=== PATIENT | female | born 1945 ===

== ENCOUNTER 2016-07-14 13:03 | Emergency (ER) | payer OTHER, MEDICARE ==
[~2016-07-14] VITALS: Ht 157.5 cm; Wt 58.2 kg
--- NOTE | 2016-07-14 13:25 | ED GENERAL ADULT ---
History of Present Illness General Chief Complaint: Female Urogenital Problems Stated Complaint: ?UTI Source: patient, daughter Exam Limitations: no limitations Vital Signs & Intake/Output Vital Signs & Intake/Output Vital Signs Date Time Temp Pulse Resp B/P B/P Pulse O2 O2 Flow FiO2 Mean Ox Delivery Rate 07/14 1309 98.4 71 16 154/78 98 Room Air Room Air Allergies Coded Allergies: Sulfa (Sulfonamide Antibiotics) (RASH 07/14/16) iron (DIARRHEA 07/14/16) Reconcile Medications Atorvastatin Calcium 10 MG TABLET 1 TAB PO DAILY GI (Reported) Carbidopa/Levodopa (Carbidopa-Levodopa 25-100 Tab) 25 MG-100 MG TABLET 1 TAB PO TID PARKINSONS (Reported) Ciprofloxacin HCl 500 MG TABLET 1 TAB PO BID ANTIBIOTIC (Reported) Levothyroxine Sodium 88 MCG TABLET 1 TAB PO DAILY THYROID (Reported) Metoprolol Succinate 50 MG TAB.ER.24H 1 TAB PO DAILY BP (Reported) Nepafenac (Ilevro) 0.3 % DROPS.SUSP 1 DROP OD BID RIGHT EYE (Reported) Olopatadine HCl (Pazeo) 0.7 % DROPS 1 DROP OPH DAILY ALLERGIES-BOTH EYES ( Reported) Pantoprazole Sodium 40 MG TABLET.DR 1 TAB PO DAILY GI (Reported) Triage Note: PT TO TRIAGE WITH BURNING AND URGENCY WITH URINATION FOR ABOUT 1 MONTH. PT STATES SHE HAS BEEN ON CIPRO ON AND OFF FOR A MONTH WITHOUT RLEEIF FROM HER DOCTOR. DENIES FEVERS. Triage Nurses Notes Reviewed? yes HPI: Patient presents for evaluation of urinary tract signs and symptoms. Patient has had multiple prior urinary tract infections. She is concerned that she has another infection. She is describing a burning pain in the area of the urethra and vagina. It gets worse with urination. She is also describing a burning pain from the posterior aspect of both hips down both lower extremities. She is currently on her second day of ciprofloxacin for her urinary tract signs and symptoms. Past History Travel History Traveled to [place] past 21 day No Medical History Any Pertinent Medical History? 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 No Review of Systems Review of Systems Constitutional: Reports: no symptoms. EENTM: Reports: no symptoms. Respiratory: Reports: no symptoms. Cardiovascular: Reports: no symptoms. GI: Reports: no symptoms. Genitourinary: Reports: see HPI. Musculoskeletal: Reports: no symptoms. Skin: Reports: no symptoms. Neurological/Psychological: Reports: paresthesia. Hematologic/Endocrine: Reports: no symptoms. Immunologic/Allergic: Reports: no symptoms. All Other Systems: Reviewed and Negative Physical Exam Physical Exam General Appearance: see below Comments: Gen.: Well-nourished, well-developed, no acute respiratory distress. Head: Normocephalic, atraumatic. Eyes: Normal inspection bilaterally Ears: Normal inspection bilaterally Nose: Normal inspection Throat/mouth : Moist mucosa Neck: Supple, full range of motion, no goiter Heart: Regular rate and rhythm, no murmurs rubs or gallops Lungs: Clear to auscultation bilaterally with normal air entry Chest: Nontender Back: Normal range of motion Abdomen: Soft, nontender, nondistended, normal bowel sounds Extremities: Normal range of motion grossly, equal radial pulses, no cyanosis clubbing or edema Neurologic: Cranial nerves grossly intact, speech is clear Skin: warm and dry Psychiatric: Calm, cooperative, no apparent delusions or hallucinations genital: No lymphadenopathy or rashes of the groin creases, normal external anatomy, no discharge or bleeding with inspection of the introitus. No apparent vaginal yeast infection. Core Measures ACS in differential dx? No CVA/TIA Diagnosis: No Severe Sepsis Present: No Septic Shock Present: No Progress Differential Diagnoses I considered the following diagnoses in my evaluation of the patient: UTI, atrophic vaginitis, vaginal yeast infection, tinea corporis, aortic dissection, lumbar spine disease Plan of Care: Orders Procedure Date/time Status [facility] SED RATE 07/14 1335 Complete CBC WITHOUT DIFFERENTIAL 07/14 1335 Complete BASIC METABOLIC PANEL 07/14 1335 Complete CULTURE,URINE 07/14 1308 Active URINALYSIS 07/14 1308 Complete Laboratory Tests 07/14/16 1400: Anion Gap 10, Estimated GFR > 60, BUN/Creatinine Ratio 17.8, Glucose 153 H, Calcium 8.7, CBC w Diff NO MAN DIFF REQ, RBC 4.37, MCV 83.0, MCH 27.5, RDW 14.4, MPV 10.0, Gran % 85.2 H, Lymphocytes % 9.4 L, Monocytes % 4.9, Eosinophils % 0.5, Basophils % 0 L, Absolute Granulocytes 7.5 H, Absolute Lymphocytes 0.8 L , Absolute Monocytes 0.4, Absolute Eosinophils 0, Absolute Basophils 0, PUBS MCHC 33.2, ESR Westergren 24 H, Urine Color YEL, Urine Clarity CLEAR, Urine pH 6.0, Ur Specific Cato 1.020, Urine Protein 100 H, Urine Ketones NEG, Urine Nitrite NEG, Urine Bilirubin NEG, Urine Urobilinogen 0.2, Ur Leukocyte Esterase NEG, Ur Microscopic SEDIMENT EXAMINED, Urine RBC RARE, Urine WBC RARE, Ur Epithelial Cells FEW, Urine Bacteria RARE H, Urine Hemoglobin NEG, Urine Glucose NEG Microbiology 07/14 1400 URINE ROUT: Urine Culture - RECD Diagnostic Imaging: Discussed w/RAD: CT Scan. Radiology Impression: PATIENT: SULMA MAN PRESENT AGE: 70 PATIENT ACCOUNT NO: [id number] : 45 LOCATION: [facility] ORDERING PHYSICIAN: DANIEL SHULTZ MD SERVICE DATE: 07/14/16 EXAM TYPE: CAT - CT ABD & PELVIS ANGIOGRAM EXAMINATION: CT ANGIOGRAM ABDOMEN AND PELVIS CLINICAL INFORMATION: 70-year-old female presented with lower abdominal and back pain, burning sensation filling down to the legs. Suspected aortoiliac disease. COMPARISON: None TECHNIQUE: Multiple axial images were obtained through the abdomen and pelvis following the administration of 95 mL of Optiray 320 intravenous contrast. Images will be evaluated on independent dedicated 3-D workstation and 3-D images will be reconstructed. An addendum will be dictated following obtaining the 3-D images. COMPARISON: None. DLP: 407.69 mGy-cm. FINDINGS: VASCULAR: Mesenteric arteries: Widely patent. Incidental note is made of presence of a normal variation in the form of common hepatic artery arising from the superior mesenteric artery. Renal arteries: Widely patent. Abdominal aorta: Widely patent at its entire course starting from the level of the diaphragm to the bifurcation. Specifically, there is no occlusive or aneurysmal abnormality identified. There is no evidence of any dissection present. Iliac arteries: Widely patent bilaterally. NONVASCULAR: LUNG BASES: The visualized lung bases are unremarkable. LIVER, GALLBLADDER, AND BILIARY TREE: The liver is normal in size, shape, and attenuation. No focal hepatic lesion or biliary ductal dilatation is present. The gallbladder is unremarkable with no evidence of radiopaque gallstones, gallbladder wall thickening, or obvious pericholecystic inflammatory changes. PANCREAS: Unremarkable. SPLEEN: Unremarkable. ADRENAL GLANDS: Unremarkable. KIDNEYS AND URETERS: The kidneys are normal in size, shape, and attenuation. No hydronephrosis, hydroureter, or calculi seen. No perinephric stranding. Subcentimeter hypodensity is noted at superolateral cortex of the right kidney measuring approximately 1.5 cm at its maximum dimension with Hounsfield value of 10, consistent with incidental cyst. A similar appearing approximately 1 cm hypodensity is noted at the inferior anterior cortex of the left kidney with Hounsfield value of 24, not optimally characterized, possibly represent cysts as well. BLADDER: Unremarkable. GASTROINTESTINAL TRACT: The sigmoid colon is redundant. The distal part of the sigmoid colon shows intraluminal polypoidal structure measuring approximately 4 to 5 mm at the level of the pelvic inlet (see the howard image), may represent adherent fecal matter versus polyp. Follow-up direct visualization/colonoscopy may be considered for further clarification. The remainder of the large bowel shows significant fecal residual otherwise unremarkable. The appendix is visualized at right lower quadrant and appears unremarkable. The small bowel loops are decompressed. The stomach is decompressed. ABDOMINAL WALL: No significant hernia is appreciated. LYMPH NODES: No pathologically enlarged retroperitoneal, mesenteric, pelvic and/or groin lymphadenopathy present. PELVIC VISCERA: There is no pelvic mass present. The uterus is not visualized, presumably surgically absent. There is no adnexal mass present. There is no free fluid and/or free air present. Multiple phleboliths are noted. OSSEOUS STRUCTURES: Sub-5 mm focal area of sclerosis is noted involving the left pedicle of L4 vertebral body, nonspecific in appearance, differential includes bone island versus metastasis. IMPRESSION: 1. CTA of the abdomen and pelvis shows a widely patent abdominal aorta and its branches. Specifically, there is no occlusive or aneurysmal abnormality identified. 2. Bilateral renal cortical hypodensities are noted, likely represent cortical renal cyst. 3. 4 to 5 mm nonspecific polypoidal abnormality is identified within the distal part of the sigmoid colon, may represent polyp versus adherent fecal matter. There are visualization/colonoscopy may be considered for further full detail evaluation. 4. Sub-5 mm focal area of sclerosis involving the left pedicle of L4 vertebral body, may represent bone island versus subtle developing metastasis. Please note that once the 3-D images become available, following review, an addendum will be dictated. DICTATED BY: ROXANNA HUYNH MD DATE/TIME DICTATED:07/14/161516 JEWELRY CUTTER:LAYTON DATE/TIME TRANSCRIBED:07/14/161516 CONFIDENTIAL, DO NOT COPY WITHOUT APPROPRIATE AUTHORIZATION. <Electronically signed in Other Vendor System> SIGNED BY: ROXANNA HUYNH MD 07/14/16 6450 Initial ED EKG: none Comments: 07/14/2016 4:50:50 PM I have contacted [facility] regarding the CAT scan report. It should be available momentarily. I have updated the patient and her family. 07/14/2016 5:08:27 PM I have updated Sulma and her family regarding test results and I have answered a number of questions. She will follow-up with a GI specialist regarding the possible polyp seen on CAT scan, a urologist given her repeated episodes of "urinary tract infections", a back specialist (this has already been arranged) due to a history of chronic back pains to reevaluate the bony lesion seen on CT and finally her primary care physician to monitor the other incidental findings on CAT scan and reevaluate the patient overall. Departure Departure Disposition: HOME OR SELF CARE Condition: Stable Clinical Impression Primary Impression: Dysuria Secondary Impressions: Lesion of vertebra, Paresthesia of bilateral legs, Renal cyst Referrals: PATIENT HAS NO PRIMARY CARE DR Additional Instructions: The cause for your symptoms is unclear at this point. Please follow up with a primary care physician for additional testing and treatment. Please note that her CAT scan did show a possible polyp that should be evaluated by colonoscopy via a GI specialist. Continue the Cipro as prescribed. If the urinary signs and symptoms do not resolve with the current treatment, consider evaluation by a urologist for the possibility of interstitial cystitis and SURGICAL ENDOSCOPIST doctor for possible atrophic vaginitis. Finally surely should follow-up with her primary care doctor for a general reevaluation and monitoring of some of the findings on CAT scan as discussed. Return if any concerns or sudden worsening. Please note that there might be incidental findings in your evaluation that are unrelated to the current emergency department visit. Please notify your primary care doctor about this emergency department visit in order to obtain and review all of the testing performed so that these incidental findings can be monitored as needed. If you had an x-ray performed, please understand that some fractures may not be seen on the initial set of x-rays. If your symptoms persist you might need a repeat set of x-rays to check for such a fracture. If you had a laceration evaluated, please understand that foreign bodies such as glass or wood may not be visible to the naked eye or on plain x-rays. If the wound becomes red, swollen, increasingly more painful or if there is any drainage from the wound, please have it reevaluated by a physician for the possibility of a retained foreign body. Thank you for choosing the [facility] Emergency Department for your care. It was a pleasure to serve you today. Daniel Shultz M.D. [facility] Departure Forms: Customer Survey General Discharge Information Prescriptions: Current Visit Scripts Hyoscyamine (Levsin) 1 TAB PO Q6P #20 TAB Meloxicam (Mobic) 1 TAB PO DAILY #14 TAB Critical Care Note Critical Care Note Critical Care Time: non-applicable
[2016-07-14 14:20] LABS: ABSOLUTE BASOPHIL COUNT 0 /CUMM (0.0-0.2); ABSOLUTE EOSINOPHIL COUNT 0 /CUMM (0.0-0.7); ABSOLUTE GRANULOCYTE CT 7.5 /CUMM (1.4-6.5); ABSOLUTE LYMPH COUNT 0.8 /CUMM (1.2-3.4); ABSOLUTE MONOCYTE COUNT 0.4 /CUMM (0.10-0.60); BASOPHIL % 0 % (0.0-2.0); EOSINOPHIL % 0.5 % (0-5); HEMATOCRIT 36.3 % (37-47); MEAN CORPUSCULAR HGB 27.5 PG (27.0-31.0); MEAN CORPUSCULAR HGB CONC 33.2 G/DL (33.0-37.0); PLATELET COUNT 211 /CUMM (130-400); RBC DISTRIBUTION WIDTH 14.4 % (11.5-14.5); RED BLOOD CELL CT 4.37 /CUMM (4.20-5.40); WHITE BLOOD CELL COUNT 8.9 /CUMM (4.8-10.8)
[2016-07-14 14:46] LABS: GRANULOCYTE % 85.2 % (42.2-75.2)
--- NOTE | 2016-07-14 16:48 | CT SCAN REPORT ---
EXAMINATION: CT ANGIOGRAM ABDOMEN AND PELVIS CLINICAL INFORMATION: 70-year-old female presented with lower abdominal and back pain, burning sensation filling down to the legs. Suspected aortoiliac disease. COMPARISON: None TECHNIQUE: Multiple axial images were obtained through the abdomen and pelvis following the administration of 95 mL of Optiray 320 intravenous contrast. Images will be evaluated on independent dedicated 3-D workstation and 3-D images will be reconstructed. An addendum will be dictated following obtaining the 3-D images. COMPARISON: None. DLP: 407.69 mGy-cm. FINDINGS: VASCULAR: Mesenteric arteries: Widely patent. Incidental note is made of presence of a normal variation in the form of common hepatic artery arising from the superior mesenteric artery. Renal arteries: Widely patent. Abdominal aorta: Widely patent at its entire course starting from the level of the diaphragm to the bifurcation. Specifically, there is no occlusive or aneurysmal abnormality identified. There is no evidence of any dissection present. Iliac arteries: Widely patent bilaterally. NONVASCULAR: LUNG BASES: The visualized lung bases are unremarkable. LIVER, GALLBLADDER, AND BILIARY TREE: The liver is normal in size, shape, and attenuation. No focal hepatic lesion or biliary ductal dilatation is present. The gallbladder is unremarkable with no evidence of radiopaque gallstones, gallbladder wall thickening, or obvious pericholecystic inflammatory changes. PANCREAS: Unremarkable. SPLEEN: Unremarkable. ADRENAL GLANDS: Unremarkable. KIDNEYS AND URETERS: The kidneys are normal in size, shape, and attenuation. No hydronephrosis, hydroureter, or calculi seen. No perinephric stranding. Subcentimeter hypodensity is noted at superolateral cortex of the right kidney measuring approximately 1.5 cm at its maximum dimension with Hounsfield value of 10, consistent with incidental cyst. A similar appearing approximately 1 cm hypodensity is noted at the inferior anterior cortex of the left kidney with Hounsfield value of 24, not optimally characterized, possibly represent cysts as well. BLADDER: Unremarkable. GASTROINTESTINAL TRACT: The sigmoid colon is redundant. The distal part of the sigmoid colon shows intraluminal polypoidal structure measuring approximately 4 to 5 mm at the level of the pelvic inlet (see the howard image), may represent adherent fecal matter versus polyp. Follow-up direct visualization/colonoscopy may be considered for further clarification. The remainder of the large bowel shows significant fecal residual otherwise unremarkable. The appendix is visualized at right lower quadrant and appears unremarkable. The small bowel loops are decompressed. The stomach is decompressed. ABDOMINAL WALL: No significant hernia is appreciated. LYMPH NODES: No pathologically enlarged retroperitoneal, mesenteric, pelvic and/or groin lymphadenopathy present. PELVIC VISCERA: There is no pelvic mass present. The uterus is not visualized, presumably surgically absent. There is no adnexal mass present. There is no free fluid and/or free air present. Multiple phleboliths are noted. OSSEOUS STRUCTURES: Sub-5 mm focal area of sclerosis is noted involving the left pedicle of L4 vertebral body, nonspecific in appearance, differential includes bone island versus metastasis. IMPRESSION: 1. CTA of the abdomen and pelvis shows a widely patent abdominal aorta and its branches. Specifically, there is no occlusive or aneurysmal abnormality identified. 2. Bilateral renal cortical hypodensities are noted, likely represent cortical renal cyst. 3. 4 to 5 mm nonspecific polypoidal abnormality is identified within the distal part of the sigmoid colon, may represent polyp versus adherent fecal matter. There are visualization/colonoscopy may be considered for further full detail evaluation. 4. Sub-5 mm focal area of sclerosis involving the left pedicle of L4 vertebral body, may represent bone island versus subtle developing metastasis. Please note that once the 3-D images become available, following review, an addendum will be dictated.
[2016-07-14] MEDS ORDERED: CIPROFLOXACIN500 M2 PO (16:54)
[2016-07-14] MEDS ORDERED: ILEVRO1.7 ML OD (16:55)
[2016-07-14] MEDS ORDERED: CARBIDOPA-LEVO1 EAC7 PO (16:55)
[2016-07-14] MEDS ORDERED: PAZEO2.5 ML OPH (16:55)
[2016-07-14] MEDS ORDERED: LEVOTHYROXINE88 MCG PO (16:56)
[2016-07-14] MEDS ORDERED: PANTOPRAZOLE SO40 M1 PO (16:56)
[2016-07-14] MEDS ORDERED: AMLODIPINE-BEN1 EAC5 PO (16:56)
[2016-07-14] MEDS ORDERED: METOPROLOL SUCC50 M2 PO (16:56)
[2016-07-14] MEDS ORDERED: ATORVASTATIN CA10 M1 PO (16:57)
[2016-07-14 17:14] VITALS: BP 179/84
[2016-07-14] MEDS ORDERED: MOBIC7.5 M1 PO (17:14)
[2016-07-14] MEDS ORDERED: LEVSIN0.125 M1 PO (17:14)
== END 2016-07-14 17:39 ==
LOC: ERH 13:03
PROVIDERS: Emergency Medicine
DX: R30.0 Dysuria (principal); M89.9 Disorder of bone, unspecified; R20.2 Paresthesia of skin; N28.1 Cyst of kidney, acquired
CPT/HCPCS: 74174; 81001; 87086

== ENCOUNTER 2016-08-06 05:39 | Inpatient (IN) | payer OTHER, MEDICARE ==
[~2016-08-06] VITALS: Ht 157.5 cm; Wt 54.4 kg
[~2016-08-06 05:39] MED LIST: AMLODIPINE-BEN1 EAC5 PO; ATORVASTATIN CA10 M1 PO; CARBIDOPA-LEVO1 EAC7 PO; CIPROFLOXACIN500 M2 PO; ILEVRO1.7 ML OD; LEVOTHYROXINE88 MCG PO; LEVSIN0.125 M1 PO; METOPROLOL SUCC50 M2 PO; MOBIC7.5 M1 PO; PANTOPRAZOLE SO40 M1 PO; PAZEO2.5 ML OPH
--- NOTE | 2016-08-06 05:57 | NUR ---
Informed waiting has been performed.
--- NOTE | 2016-08-06 06:06 | NUR ---
TRIAGE: PATIENT TO ER FROM HOME STATES HAVING HTN PAST FEW WEEKS, REPORTS CURRENTLY TAKING METOPROLOL SUCC 50MG DAILY, STOPPED AMLODIPINE-BENAZ DAILY APPROX 2 WEEKS AGO. ALSO REPORTING "I HAVE PAIN IN THE VAGINA W/ A BLISTER IN THERE." PATIENT DENIES ANY CP/SOB. PATIENT REPORTS "HAD SWELLING ON BOTH LEGS TOO BUT NOT NOW," NO SWELLING NOTED ON EITHER LOWER EXT.
--- NOTE | 2016-08-06 06:25 | NUR ---
IV EST #22 RIGHT HAND.
--- NOTE | 2016-08-06 06:26 | NUR ---
EKG DONE AND SHOWN TO DR. PADILLA.
--- NOTE | 2016-08-06 06:37 | NUR ---
MD PADILLA AT BEDSIDE.
--- NOTE | 2016-08-06 06:44 | NUR ---
VISUAL (NON-INVASIVE) PELVIC EXAM PERFORMED BY MD PADILLA, WITNESSED BY THIS RN. PATINT NOTED W/ DIME SIZED OPEN RED AREA W/ WHITE CENTER TO INNER R THIGH/VAGINAL AREA.
--- NOTE | 2016-08-06 06:51 | ED GENERAL ADULT ---
History of Present Illness General Chief Complaint: General Adult Stated Complaint: PER SON PT C/O HYPERTENSION/ CHILLS Source: patient, family, old records Exam Limitations: no limitations Vital Signs & Intake/Output Vital Signs & Intake/Output Vital Signs Date Time Temp Pulse Resp B/P B/P Pulse O2 O2 Flow FiO2 Mean Ox Delivery Rate 08/06 1037 96.9 70 20 192/85 08/06 1007 70 192/85 08/06 0937 96.9 73 20 189/88 100 Room Air 08/06 0920 66 202/90 08/06 0900 72 212/86 08/06 0900 72 212/86 08/06 0645 99 Room Air 08/06 0609 198/92 08/06 0545 97.2 73 18 196/111 98 Allergies Coded Allergies: Sulfa (Sulfonamide Antibiotics) (RASH 08/06/16) iron (DIARRHEA 08/06/16) Reconcile Medications Atorvastatin Calcium 10 MG TABLET 1 TAB PO DAILY GI (Reported) Carbidopa/Levodopa (Carbidopa-Levodopa 25-100 Tab) 25 MG-100 MG TABLET 1 TAB PO TID PARKINSONS (Reported) Levothyroxine Sodium 88 MCG TABLET 1 TAB PO DAILY THYROID (Reported) Metoprolol Succinate 50 MG TAB.ER.24H 1 TAB PO DAILY BP (Reported) Pantoprazole Sodium 40 MG TABLET.DR 1 TAB PO DAILY GI (Reported) Triage Note: TRIAGE: PATIENT TO ER FROM HOME STATES HAVING HTN PAST FEW WEEKS, REPORTS CURRENTLY TAKING METOPROLOL SUCC 50MG DAILY, STOPPED AMLODIPINE-BENAZ DAILY APPROX 2 WEEKS AGO. ALSO REPORTING "I HAVE PAIN IN THE VAGINA W/ A BLISTER IN THERE." PATIENT DENIES ANY CP/SOB. PATIENT REPORTS "HAD SWELLING ON BOTH LEGS TOO BUT NOT NOW," NO SWELLING NOTED ON EITHER LOWER EXT. Triage Nurses Notes Reviewed? yes HPI: Patient presents for evaluation of high blood pressure shivering, chills, vaginal pain that began gradually last night. Patient states that she has had trouble with high blood pressure over the past week or so but that the remaining symptoms began yesterday/overnight. She denies any associated cough, dyspnea, chest pain, abdominal pain, rashes or diarrhea. She is having some difficulty in describing exactly how she is feeling, stating, "I don't feel well". Patient describes symptoms as mild to moderate in intensity and intermittent. (LIZY SHULTZ MD) Past History Travel History Traveled to [place] past 21 day No Medical History Any Pertinent Medical History? 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 No (LIZY SHULTZ MD) Review of Systems Review of Systems Constitutional: Reports: no symptoms. EENTM: Reports: no symptoms. Respiratory: Reports: no symptoms. Cardiovascular: Reports: see HPI. GI: Reports: no symptoms. Genitourinary: Reports: see HPI. Musculoskeletal: Reports: no symptoms. Skin: Reports: no symptoms. Neurological/Psychological: Reports: no symptoms. Hematologic/Endocrine: Reports: no symptoms. Immunologic/Allergic: Reports: no symptoms. All Other Systems: Reviewed and Negative (LIZY SHULTZ MD) Physical Exam Physical Exam General Appearance: SEE BELOW Comments: Gen.: Well-nourished, well-developed, no acute respiratory distress. Head: Normocephalic, atraumatic. Eyes: Normal inspection bilaterally Ears: Normal inspection bilaterally Nose: Normal inspection Throat/mouth : Moist mucosa Neck: Supple, full range of motion, no goiter Heart: Regular rate and rhythm, no murmurs rubs or gallops Lungs: Clear to auscultation bilaterally with normal air entry Chest: Nontender Back: Normal range of motion Abdomen: Soft, nontender, nondistended, normal bowel sounds Extremities: Normal range of motion grossly, equal radial pulses, no cyanosis clubbing or edema Neurologic: Cranial nerves grossly intact, speech is clear Skin: warm and dry Psychiatric: Calm, cooperative, no apparent delusions or hallucinations Genital: Ulceration of the right labia majora with mild white fibrinous exudate Core Measures ACS in differential dx? No CVA/TIA Diagnosis: No Severe Sepsis Present: No Septic Shock Present: No (RANDY WHITFIELD,LIZY Wilson) Core Measures ASA ordered for poss ACS? Yes-ordered (DINA WHITFIELD,SOHEILA) Progress Differential Diagnoses I considered the following diagnoses in my evaluation of the patient: Herpes, cellulitis, uncontrolled high blood pressure,infection Plan of Care: Orders Procedure Date/time Status MAGNESIUM 08/07 06 Active CBC WITHOUT DIFFERENTIAL 08/07 06 Active BASIC ELECTROLYTES PLUS BUN&CR 08/07 06 Active Heart Healthy Diet 08/06 L Active Add-on Test (ER Only) 08/06 1102 Active PT Evaluate & Treat 08/06 1059 Active Pathway - chart 08/06 1059 Active House Staff 08/06 1059 Active Patient Data 08/06 1044 Active ED Holding Orders 08/06 1036 Active Admit to inpatient 08/06 1036 Active Vital Signs 08/06 1036 Active Code Status 08/06 1036 Active EKG 08/06 0936 Active URINALYSIS 08/06 0650 Complete TROPONIN LEVEL 08/06 06 Complete COMPREHENSIVE METABOLIC PANEL 08/06 06 Complete CBC WITHOUT DIFFERENTIAL 08/06 06 Complete EKG 08/06 0612 Active VTE Mechanical Prophylaxis 08/06 UNK Active Intake & Output 08/06 UNK Active Current Medications Sig/Areli Start time Last Medication Dose Stop Time Status Admin Carbidopa/Levodopa 1 TAB TID 08/06 1000 UNVr 08/06 (Sinemet 25/100MG) 1020 Levothyroxine Sodium 0.088 MG DAILY 08/06 1000 UNVr 08/06 (Synthroid) 1020 Metoprolol Succinate 50 MG ONCE ONE 08/06 0900 CAN (Toprol Xl) 08/06 0901 Laboratory Tests 08/06/16 0847: Urinalysis LIGHT H, Urine Color STRAW, Urine Clarity CLEAR, Urine pH 7.0, Ur Specific [place] 1.020, Urine Protein 100 H, Urine Ketones NEG, Urine Nitrite NEG, Urine Bilirubin NEG, Urine Urobilinogen 0.2, Ur Leukocyte Esterase NEG, Ur Microscopic SEDIMENT EXAMINED, Urine RBC 1-3, Urine WBC RARE, Ur Epithelial Cells FEW, Urine Bacteria RARE H, Urine Hemoglobin TRACE-INTACT, Urine Glucose NEG 08/06/16 0658: Anion Gap 11, Estimated GFR > 60, BUN/Creatinine Ratio 17.8, Glucose 101 H, Calcium 9.7, Total Bilirubin 0.6, AST 18, ALT 23, Alkaline Phosphatase 112, Troponin I < 0.01, Total Protein 6.8, Albumin 4.0, Globulin 2.8, Albumin/ Globulin Ratio 1.4, CBC w Diff NO MAN DIFF REQ, RBC 4.41, MCV 83.4, MCH 27.0, RDW 14.7 H, MPV 10.0, Gran % 72.6, Lymphocytes % 19.6 L, Monocytes % 6.5, Eosinophils % 0.5, Basophils % 0.8, Absolute Granulocytes 6.0, Absolute Lymphocytes 1.6, Absolute Monocytes 0.5, Absolute Eosinophils 0, Absolute Basophils 0.1, PUBS MCHC 32.4 L 08/06/2016 7:02:59 AM Patient signed out to me by Dr. Shultz. Pending labs and reevaluation. 08/06/2016 11:03:17 AM Patient with persistent uncontrolled hypertension in the ER despite IV labetalol and IV lisinopril. Patient had an episode of chest tightness without significant change in EKG. EKG is also limited secondary to patient's baseline tremors and Parkinson's disease. I discussed the case with Dr. Khan and we will admit her to telemetry for uncontrolled hypertension and chest pain rule out. MOD informed. (SOHEILA WHITE MD) Initial ED EKG: NSR, rate (69), nonspecific ST T wave chg Prior EKG: unchanged Comments: 08/06/2016 7:21:42 AM patient signed out to Dr. White at shift chart changer. (RANDY WHITFIELD,LIZY Wilson) Departure Departure Disposition: STILL A PATIENT Condition: Stable Referrals: UNKNOWN (PCP/Family) Departure Forms: Customer Survey General Discharge Information (RANDY WHITFIELD,LIZY Wilson) Departure Time of Disposition: 1041 Clinical Impression Primary Impression: Chills Secondary Impressions: Skin ulcer, Uncontrolled hypertension Admission Note Spoke With: LISA KHAN MD Documentation of Exam: Documentation of any treatments & extenuating circumstances including Concerns Regarding Discharge (functional status, medication knowledge or non-compliance, living conditions, etc.) that warrant an admission rather than observation: [ TELE MONITOR, BLOOD PRESSURE CONTROL, SERIAL EKG/TROPONIN, CARDIOLOGY EVALUATION , CONSIDER ECHOCARDIOGRAM] (SOHEILA WHITE MD) Critical Care Note Critical Care Note Critical Care Time: non-applicable (RANDY WHITFIELD,LIZY Wilson) Critical Care Note Critical Care Time: 30-74 min (SOHEILA WHITE MD)
--- NOTE | 2016-08-06 07:03 | NUR ---
BLOODWORK DRAWN(1. SST; 1 PINK, 1 BLUE, 1GRAY, AND 2 LAVS) PT UP TO BR FOR URINE SAMPLE.
[2016-08-06 07:11] LABS: RBC DISTRIBUTION WIDTH 14.7 % (11.5-14.5)
[2016-08-06 07:17] LABS: ABSOLUTE BASOPHIL COUNT 0.1 /CUMM (0.0-0.2); ABSOLUTE EOSINOPHIL COUNT 0 /CUMM (0.0-0.7); ABSOLUTE LYMPH COUNT 1.6 /CUMM (1.2-3.4); ABSOLUTE MONOCYTE COUNT 0.5 /CUMM (0.10-0.60); BASOPHIL % 0.8 % (0.0-2.0); EOSINOPHIL % 0.5 % (0-5); GRANULOCYTE % 72.6 % (42.2-75.2); HEMATOCRIT 36.8 % (37-47); MEAN CORPUSCULAR HGB CONC 32.4 G/DL (33.0-37.0); MEAN CORPUSCULAR VOLUME 83.4 FL (81.0-99.0); PLATELET COUNT 256 /CUMM (130-400); RED BLOOD CELL CT 4.41 /CUMM (4.20-5.40); WHITE BLOOD CELL COUNT 8.3 /CUMM (4.8-10.8)
--- NOTE | 2016-08-06 08:47 | NUR ---
URINE TRIO SENT
--- NOTE | 2016-08-06 08:50 | NUR ---
PT AMBUALTED TO THE BATHROOM WITH STRONG STEADY GAIT
--- NOTE | 2016-08-06 09:21 | NUR ---
PT MEDICATED PER DR ARROYO WITH 10 MG TRANDATE AT 0900. STARTING BP WAS 212/[address] ARROYO CHECK BP S/P 10 MG AND IF NOT MANAGED TO GIVE THE OTHER 10 ORDERED..RECHECK OF BP AT 0920 WAS 202/90 HR 66. PT WAS GIVEN THE OTHER 10 MG OF TRANDATE FOR A TOTAL OF 20MG PER EMAR ORDER.. WILL EVALUATE BP IN 15 MIN
--- NOTE | 2016-08-06 09:38 | NUR ---
DR ARROYO AT BEDSIDE. PT STATES THAT SHE HAS CHILLS AND HER CHEST IS BURNING... PT ALSO IS SHAKING MORE ON LEFT SIDE THEN RIGHT.
--- NOTE | 2016-08-06 10:08 | NUR ---
PT CONTINUES TO SHIVER.. PT AND SON STATES THAT SHE DID NOT TAKE HER PARKINSONS MEDS THIS AM.. REPEAT BP S/P TRANDATE 20 ,G IS 192/[address] ARROYO AWARE
--- NOTE | 2016-08-06 10:20 | NUR ---
PT MEDICATED PER EMAR
--- NOTE | 2016-08-06 10:56 | History & Physical ---
UL POPEYE WHITFIELD,[facility] 08/06/16 1056: General Information and HPI MD Statement: I have seen and personally examined RAQUEL MAN and documented this H&P. The patient is a 70 year old F who presented with a patient stated chief complaint of [high blood pressure and vaginal pain]. Source of Information: patient Exam Limitations: patient's age History of Present Illness: 70-year-old female with past medical history significant for ischemic stroke last year without any residual effects, hypertension, Parkinson's disease, anxiety, hyperlipidemia and hypothyroidism came to emergency department for chief complaint of increased blood pressure noticed at home and vaginal pain. Patient mostly communicated in osavldo. According to the patient she had a blood pressure machine at her home and she was running in systolic 160s and diastolic in 90s. Her primary care doctor stopped amlodipine about a month ago because she developed bilateral lower extremity edema. She has not restarted on any other antihypertensive medication. Review of systems positive for exertional shortness of breath. Patient feels short of breath after 5-10 minutes of walk. She did not have a recent echocardiogram. For the last few days patient has been having vaginal pain and has noted a small blister around that area. She denied any discharge or vaginal blood loss. Review of system was negative for any headache, acute visual changes, palpitations, chest pain, shortness of breath, nausea, vomiting, change in bowel habits, dysuria, cough, fever or rash. Allergies/Medications Allergies: Coded Allergies: Sulfa (Sulfonamide Antibiotics) (RASH 08/06/16) iron (DIARRHEA 08/06/16) Home Med list Atorvastatin Calcium 10 MG TABLET 1 TAB PO DAILY GI (Reported) Carbidopa/Levodopa (Carbidopa-Levodopa 25-100 Tab) 25 MG-100 MG TABLET 1 TAB PO TID PARKINSONS (Reported) Levothyroxine Sodium 88 MCG TABLET 1 TAB PO DAILY THYROID (Reported) Metoprolol Succinate 50 MG TAB.ER.24H 1 TAB PO DAILY BP (Reported) Pantoprazole Sodium 40 MG TABLET.DR 1 TAB PO DAILY GI (Reported) Compliance With Home Meds: FAIR Past History Travel History Traveled to [place] past 21 day No Medical History Neurological: Parkinson's disease EENT: NONE Cardiovascular: hypertension, hyperlipidemia Respiratory: NONE Gastrointestinal: GERD Hepatic: NONE Renal: NONE Musculoskeletal: NONE Psychiatric: NONE Endocrine: hypothyroidism Blood Disorders: NONE Cancer(s): NONE SURGICAL TECH/Reproductive: NONE Surgical History Surgical History: non-contributory Past Family/Social History Family History Relations & Conditions if any BROTHER FH: CAD (coronary artery disease) Functional Ability ADLs Independent: dressing, eating, toileting, bathing. Review of Systems Review of Systems Constitutional: Denies: chills, fever. Cardiovascular: Denies: chest pain, palpitations. Respiratory: Denies: cough, short of breath. GI: Denies: abdominal pain, nausea, vomiting. Genitourinary: Denies: dysuria. Musculoskeletal: Denies: back pain, joint pain. All Other Systems: Reviewed and Negative Exam & Diagnostic Data Last 24 Hrs of Vital Signs/I&O Vital Signs Date Time Temp Pulse Resp B/P B/P Pulse O2 O2 Flow FiO2 Mean Ox Delivery Rate 08/06 1128 77 186/88 08/06 1110 97.2 77 19 186/88 99 Room Air 08/06 1037 96.9 70 20 192/85 08/06 1007 70 192/85 08/06 0937 96.9 73 20 189/88 100 Room Air 08/06 0920 66 202/90 08/06 0900 72 212/86 08/06 0900 72 212/86 08/06 0645 99 Room Air 08/06 0609 198/92 08/06 0545 97.2 73 18 196/111 98 Intake & Output 08/06 1600 08/06 0800 08/06 0000 Intake Total Output Total Balance Patient 110 lb Weight Weight Reported by Patient Measurement Method Physical Exam General Appearance Alert, Oriented X3, Cooperative HEENT Atraumatic Neck Supple Cardiovascular Regular Rate, Normal S1, Normal S2 Lungs Clear to Auscultation, Normal Air Movement Abdomen Normal Bowel Sounds, Soft, No Tenderness Neurological Normal Speech, Normal Tone, Sensation Intact Extremities No Edema Pelvic (FEMALE) Ulceration of the right labia with white fibrinous exudate Last 24 Hrs of Labs/Jordan: Laboratory Tests 08/06/16 0847: Urinalysis LIGHT H, Urine Color STRAW, Urine Clarity CLEAR, Urine pH 7.0, Ur Specific [place] 1.020, Urine Protein 100 H, Urine Ketones NEG, Urine Nitrite NEG, Urine Bilirubin NEG, Urine Urobilinogen 0.2, Ur Leukocyte Esterase NEG, Ur Microscopic SEDIMENT EXAMINED, Urine RBC 1-3, Urine WBC RARE, Ur Epithelial Cells FEW, Urine Bacteria RARE H, Urine Hemoglobin TRACE-INTACT, Urine Glucose NEG 08/06/16 0658: Anion Gap 11, Estimated GFR > 60, BUN/Creatinine Ratio 17.8, Glucose 101 H, Calcium 9.7, Magnesium 1.9, Total Bilirubin 0.6, AST 18, ALT 23, Alkaline Phosphatase 112, Troponin I < 0.01, Total Protein 6.8, Albumin 4.0, Globulin 2.8 , Albumin/Globulin Ratio 1.4, CBC w Diff NO MAN DIFF REQ, RBC 4.41, MCV 83.4, MCH 27.0, RDW 14.7 H, MPV 10.0, Gran % 72.6, Lymphocytes % 19.6 L, Monocytes % 6.5, Eosinophils % 0.5, Basophils % 0.8, Absolute Granulocytes 6.0, Absolute Lymphocytes 1.6, Absolute Monocytes 0.5, Absolute Eosinophils 0, Absolute Basophils 0.1, PUBS MCHC 32.4 L Diagnostic Data EKG Results NSR, 70, nonspecific ST changes Assessment/Plan Assessment: 70-year-old female with past medical history significant for ischemic stroke last year without any residual effects, hypertension, Parkinson's disease, anxiety, hyperlipidemia and hypothyroidism came to emergency department for chief complaint of increased blood pressure noticed at home and vaginal pain. Patient was admitted on telemetry floor for the management of following problems Uncontrolled hypertension Most likely secondary to medication noncompliance versus inadequately treated hypertension. Patient was on metoprolol and amlodipine for blood pressure control. Primary care doctor stopped her amlodipine because of bilateral lower extremity edema and she was never restarted on any other antihypertensive medication. Patient received IV labetalol, Vasotec and hydralazine in emergency department. Her blood pressure. From 200 systolic to 140 systolic. We'll hold off on any antihypertensive medications overnight. We will restart her home medications along with addition of lisinopril tomorrow morning. We will also obtain an echocardiogram in order to rule out left ventricular hypertrophy. Chest pressure/rule out ACS Patient had a transient episode of chest pressure in emergency department relieved without any measures. Patient also has significant history of anxiety that could have contributed to this but will rule out acute coronary syndrome for now. - Admit to telemetry - Vitals q Shift - Monitor I/O - Troponins and EKG to rule out ACS - Daily weight - Cardio consult - Consider ECHO - Add Lisinopril 10mg - Continue Metoprolol - Check lipid panel in am. - ASA 81 mg Po daily. - Give dinner (Heart Healthy Diet) Patient is full code Patient is on pain management Patient is on heparin for DVT prophylaxis Patient is on heart healthy diet As Ranked By This Provider Problem List: 1. Uncontrolled hypertension Core Measures/Miscellaneous Acute Coronary Syndrome ACS Diagnosis: No Cerebrovascular Accident CVA/TIA Diagnosis: No Congestive Heart Failure CHF Diagnosis: No VTE (View Protocol) VTE Risk Factors: Acute medical illness, Age > 40 [facility] prophylaxis d/t: No contraindications No VTE Pharm Prophylaxis d/t: VTE low risk, No contraindications VTE Diagnosis: No VTE Type: NONE VTE Confirmed by (Test): NONE Sepsis (View Protocol) Severe Sepsis Present: No Septic Shock Septic Shock Present: No Miscellaneous Documentation Attending Case Discussed With: LISA KHAN MD Primary Care Physician: UNKNOWN Patient sees these Specialists PCP Level of Patient Care: Telemetry JARET SALEH MD 08/06/16 1731: Attending MD Review Statement Attending Statement Attending MD Statement: examined this patient, discuss w/resident/PA/PLANT OPERATIONS COORDINATOR, agreed w/resident/PA/PLANT OPERATIONS COORDINATOR, reviewed EMR data (avail), discussed with nursing, discussed with case mgmt, amended to note Attending Assessment/Plan: Patient seen and examined. Case discussed with patient and family at bedside. Interpretation done by paramedical aide. Her blood pressure has improved. Due to the significant improvement we will hold off on antihypertensive medications today and resume her regimen tomorrow. If she does recall significantly hypertensive overnight with systolic blood pressure greater than 190, will attempt blood pressure control with hydralazine IV and gradual decreasing her blood pressure. Patient also complains of dyspnea on exertion as well as orthopnea. She complained of chest pain in the emergency room which has now resolved. She does not appear volume overloaded. We will obtain an echocardiogram for further assessment of cardiac contractility,valve function and ejection fraction. A SURGICAL TECH consult has also been placed for evaluation of a vulvar lesion.
--- NOTE | 2016-08-06 11:28 | NUR ---
PT MEDICATED PER EMAR FOR BP. PT SON AT BEDSIDE.. PT IS NO LONGER SHIVVERING S/P PARKINSONS MEDS
--- NOTE | 2016-08-06 11:38 | NUR ---
PHYSICAL THERAPY AT BEDSIDE TO AMBULATE PT.. PT BP S/P AMULATION AND MEDICATTIONS IS 180/[address] HR [address]' DR ARROYO AWARE.
--- NOTE | 2016-08-06 11:49 | NUR ---
MAGEN MAN IS PT SON AND STATES THAT HE IS STEPPING OUT FOR A LITTLE WHILE AND WANTS TO BE NOTIFIED OF AND CHANGES WITH HIS MOTHER.. [phone]
--- NOTE | 2016-08-06 12:10 | NUR ---
BED 172
--- NOTE | 2016-08-06 12:52 | NUR ---
REPORT GIVEN TO ZEINAB RUCKER
--- NOTE | 2016-08-06 13:10 | NUR ---
HOUSE STAFF AT BEDSIDE FOR EVALUATION
--- NOTE | 2016-08-06 13:11 | NUR ---
PT PLACED ON PORTABLE MONITOR AND WAITING FOR TRANSPORT
[2016-08-06 13:35] VITALS: BP 144/70
--- NOTE | 2016-08-06 14:00 | NUR ---
PATIENT ARRIVED TO UNIT FROM ER. ADMITTED WITH HYPERTENSIVE URGENCY. SHE IS ALERT AND ORIENTATED X3. VSS. C/O OF HEADACHE 06/26 WHICH SHE STATED SHE HAS FROM HOME. POUNCING MACHINE OPERATOR APPLIED AND SHOWS NSR WITH NO ECTOPY. DENIES CP. ORIENTATED TO CALL LIGHT. WILL FOLLOW PLAN OF CARE.
--- NOTE | 2016-08-06 14:50 | NUR ---
PATIENT REPORTED FEELING COLD AND IS SHIVERING. PATIENT AFIBRILE. SPOKE WITH DR TOTH WHO STATED WILL PLACE ORDER FOR MEDICATION FOR HEADACHE. WILL MONITOR.
[2016-08-06 17:25] VITALS: BP 154/88
--- NOTE | 2016-08-06 17:31 | Admission Certification ---
Admission Certification Certification Statement - As attending physician, I certify that at the time of - admission, based on clinical presentation, severity of - symptoms, need for further diagnostic testing and - therapeutic interventions, and risk of adverse outcomes - without in-hospital treatment, in my clinical assessment, - this patient requires an acute hospital stay for a minimum - of two nights or longer. I have also considered psychsocial - factors such as support system, advanced age, financial - issues, cognitive issues, and failed out-patient treatments, - past re-admission history, safety of patient, and lack of - compliance as applicable. Specific rationale supporting this admission is: Patient is being admitted to the inpatient medical service for management of her uncontrolled hypertension. She will require further workup of her dyspnea on exertion.
[2016-08-06 23:49] VITALS: BP 140/76
--- NOTE | 2016-08-07 00:29 | NUR ---
PATIENT C/O NAUSEA, VOMITED 50ML IN EMESIS BASIN. DENIES ANY HEADACHE AT THIS TIME, NO CHEST PAIN, DIZZINESS. C/O SHIVERING AND FEELING VERY COLD. TEMP 97.6, BP 198/96, ABDOMINAL ASSESSMENT BENIGN. PLACED CALL TO DR. HINOJOSA, ORDER FOR TIGAN PLACED AND GIVEN WITHOUT ISSUE. MD TO BEDSIDE TO ASSESS.
--- NOTE | 2016-08-07 01:27 | NUR ---
PATIENT C/O 'HYPERTENSION', STATING SHE FEELS 'FLUTTERY'. REPORTS THIS FEELING AT HOME OFTEN, ESPECIALLY WHEN SHE LAYS DOWN FOR SLEEP. BP 186/84, PULSE 68, AFEBRILE. DENIES ANY HEADACHES OR CHEST PAIN. DISCUSSED WITH DR HINOJOSA THAT PATIENT MAY BE EXPERIENCING ANXIETY, XANAX GIVEN. WILL CONTINUE TO MONITOR.
--- NOTE | 2016-08-07 07:11 | PN- Housestaff ---
OTILIA NYE MD,[facility] 08/07/16 0711: Subjective Follow-up For: Uncontrolled hypertension Chest pressure/rule out ACS Complaints: no complaints Tele-Events Since Last Visit: Sinus rhythm overnight without any acute events Subjective: Patient feels better than yesterday. Overnight she did have some episodes of vomiting after aching oxycodone. Review of Systems Constitutional: Denies: chills, fever. Cardiovascular: Denies: chest pain, palpitations. Respiratory: Denies: cough, short of breath. Gastrointestinal: Denies: abdominal pain, nausea, vomiting. Genitourinary: Denies: dysuria. Musculoskeletal: Denies: back pain. Objective Last 24 Hrs of Vital Signs/I&O Vital Signs Date Time Temp Pulse Resp B/P B/P Pulse O2 O2 Flow FiO2 Mean Ox Delivery Rate 08/07 0825 80 152/78 08/07 0825 80 152/78 08/07 0812 98.2 80 18 152/78 97 Room Air 08/06 2349 97.8 89 18 140/76 96 Room Air 08/06 1725 97.9 87 18 154/88 98 08/06 1335 97.8 77 18 144/70 97 Room Air 08/06 1245 98.0 80 17 146/69 98 Room Air 08/06 1128 77 186/88 08/06 1110 97.2 77 19 186/88 99 Room Air 08/06 1037 96.9 70 20 192/85 Intake & Output 08/07 1600 08/07 0800 08/07 0000 Intake Total 200 620 Output Total 600 Balance -400 620 Intake, IV 20 Intake, Oral 200 600 Output, Urine 600 Physical Exam General Appearance: Alert, Oriented X3, Cooperative, No Acute Distress HEENT: Atraumatic Neck: Supple Cardiovascular: Regular Rate, Normal S1, Normal S2 Lungs: Clear to Auscultation, Normal Air Movement Abdomen: Normal Bowel Sounds, Soft Neurological: Normal Speech, Normal Tone, Sensation Intact Extremities: No Edema Current Medications: Current Medications Sig/Areli Start time Last Medication Dose Route Stop Time Status Admin Acetaminophen 1,000 MG Q12P PRN 08/07 0045 AC N/A 1 UNIT IV Acetaminophen 650 MG Q6P PRN 08/06 1615 AC 08/06 PO 1644 Alprazolam 0.25 MG TID PRN 08/06 1615 AC 08/07 PO 08/13 1614 0124 Aspirin 81 MG DAILY 08/07 1000 AC 08/07 PO 0825 Aspirin 325 MG ONCE ONE 08/06 1045 DC 08/06 PO 08/06 1046 1037 Aspirin 0 .STK-MED ONE 08/06 1038 DC PO Atorvastatin Calcium 10 MG 1700 08/06 1708 AC 08/06 PO 1903 Carbidopa/Levodopa 1 TAB TID 08/06 1000 AC 08/07 PO 0825 Enalaprilat 0 .STK-MED ONE 08/06 1038 DC IV Enalaprilat 1.25 MG ONCE ONE 08/06 1030 DC 08/06 IV 08/06 1031 1037 Heparin Sodium 5,000 UNIT Q8 08/06 1703 AC 08/07 (Porcine) SC 0551 Hydralazine HCl 0 .STK-MED ONE 08/06 1127 DC .ROUTE Hydralazine HCl 10 MG ONCE ONE 08/06 1115 DC 08/06 IV 08/06 1116 1128 Levothyroxine Sodium 0.088 MG DAILY 08/06 1000 AC 08/07 PO 0825 Lisinopril 10 MG DAILY 08/07 1000 AC 08/07 PO 0825 Metoprolol Succinate 50 MG DAILY 08/07 1000 AC 08/07 PO 0825 Morphine Sulfate 0.5 MG Q4P PRN 08/06 1615 AC IV Omeprazole 40 MG DAILY AC 08/06 1606 AC 08/07 PO 0825 Ondansetron HCl 4 MG Q6P PRN 08/06 1615 AC 08/06 IV 2256 Oxycodone HCl 5 MG Q6P PRN 08/06 1615 DC 08/06 PO 2139 Potassium Chloride 40 MEQ ONCE ONE 08/06 1615 DC 08/06 PO 08/06 1616 1644 Trimethobenzamide HCl 200 MG .STK-MED ONE 08/07 0000 DC IM 08/07 0001 Trimethobenzamide HCl 200 MG ONCE ONE 08/06 2345 DC 08/07 IM 08/06 2346 0001 Last 24 Hrs of Lab/Jordan Results Last 24 Hrs of Labs/Mics: Laboratory Tests 08/07/16 0615: Anion Gap 10, Estimated GFR 49 L, BUN/Creatinine Ratio 12.7, Magnesium 2.0, CBC w Diff NO MAN DIFF REQ, RBC 4.47, MCV 81.9, MCH 27.4, RDW 15.0 H, MPV 10.6 H, Gran % 73.4, Lymphocytes % 21.8, Monocytes % 4.1, Eosinophils % 0.4, Basophils % 0.3, Absolute Granulocytes 7.6 H, Absolute Lymphocytes 2.3, Absolute Monocytes 0.4, Absolute Eosinophils 0, Absolute Basophils 0, PUBS MCHC 33.5 08/06/16 1720: Troponin I < 0.01 Lines/Diet/Fluids Lines: peripheral lines Restraints: none Assessment/Plan Assessment: 70-year-old female with past medical history significant for ischemic stroke last year without any residual effects, hypertension, Parkinson's disease, anxiety, hyperlipidemia and hypothyroidism came to emergency department for chief complaint of increased blood pressure noticed at home and vaginal pain. Patient was admitted on telemetry floor for the management of following problems Uncontrolled hypertension Most likely secondary to medication noncompliance versus inadequately treated hypertension. Patient was on metoprolol and amlodipine for blood pressure control. Primary care doctor stopped her amlodipine because of bilateral lower extremity edema and she was never restarted on any other antihypertensive medication. Patient received IV labetalol, Vasotec and hydralazine in emergency department. Her blood pressure. From 200 systolic to 140 systolic in ED. We'll held off on any antihypertensive medications overnight. We restarted her home medications along with addition of lisinopril this morning. We will also obtain an echocardiogram in order to rule out left ventricular hypertrophy. Cardio Consult pending Chest pressure/rule out ACS Patient had a transient episode of chest pressure in emergency department relieved without any measures. Patient also has significant history of anxiety that could have contributed to this but will rule out acute coronary syndrome for now. - Admit to telemetry - Vitals q Shift - Monitor I/O - 400 - Troponins and EKG done to rule out ACS - Daily weight - ECHO pending - Add Lisinopril 10mg - Continue Metoprolol - L ipid panel done - ASA 81 mg Po daily. - Give dinner (Heart Healthy Diet) Vaginal lesion Unclear eitology ? OBG-Solid Waste Disposal Manager Consult pending Patient is full code Patient is on pain management Patient is on heparin for DVT prophylaxis Patient is on heart healthy diet Problem List: 1. Uncontrolled hypertension 2. Hypertension Pain Ratin Pain Location: NA Pain Goal: Pain 4 or less Pain Plan: Continue current pain management Tomorrow's Labs & Rationales: BEP for monitoring of Renal function DVT/Prophylaxis: pharmacological THERESE WHITFIELD,AMYHANSHAZEL 08/07/16 1134: Attending MD Review Statement Attending Statement Attending MD Statement: examined this patient, discuss w/resident/PA/CAREER EDUCATION TEACHER, agreed w/resident/PA/CAREER EDUCATION TEACHER, reviewed EMR data (avail), discussed with nursing, discussed with case mgmt, amended to note Attending Assessment/Plan: Patient seen and examined. Resting comfortably and not in any acute distress. Her blood pressure remains well controlled today. She will be resumed on her oral antihypertensive medications today. She is on metoprolol at home. We will be replacing her amlodipine which was stopped as an outpatient with lisinopril and monitor for tolerance today. He denies any chest pain or shortness of breath at rest. She had no events overnight on telemetry. Echocardiogram shows normal ejection fraction however he does show evidence of mild to moderate pulmonic insufficiency. Pulmonary pressures could not be estimated adequately. Imaging also shows evidence of left ventricular hypertrophy. Recommendations: -Start patient on metoprolol and lisinopril today to monitor blood pressure. -Awaiting cardiology evaluation of her complaint of chest pain while hypotensive and history of dyspnea on exertion with abnormal echocardiogram. -Awaiting BEAM DYER evaluation of her vaginal ulceration. -If blood pressure remains stable tomorrow she may be discharged home. -She has mild elevation of her creatinine today prior to initiation of ANNETTE inhibitor therapy. Repeat serum chemistry in the morning. Ensure adequate oral intake. She does not appear dehydrated clinically nor is her BUN elevated.
[2016-08-07 08:12] VITALS: BP 152/78
[2016-08-07 08:22] LABS: ABSOLUTE BASOPHIL COUNT 0 /CUMM (0.0-0.2); ABSOLUTE EOSINOPHIL COUNT 0 /CUMM (0.0-0.7); ABSOLUTE GRANULOCYTE CT 7.6 /CUMM (1.4-6.5); ABSOLUTE LYMPH COUNT 2.3 /CUMM (1.2-3.4); ABSOLUTE MONOCYTE COUNT 0.4 /CUMM (0.10-0.60); BASOPHIL % 0.3 % (0.0-2.0); EOSINOPHIL % 0.4 % (0-5); GRANULOCYTE % 73.4 % (42.2-75.2); HEMATOCRIT 36.6 % (37-47); MEAN CORPUSCULAR HGB 27.4 PG (27.0-31.0); MEAN CORPUSCULAR HGB CONC 33.5 G/DL (33.0-37.0); MEAN CORPUSCULAR VOLUME 81.9 FL (81.0-99.0); MEAN PLATELET VOLUME 10.6 FL (7.4-10.4); PLATELET COUNT 300 /CUMM (130-400); RED BLOOD CELL CT 4.47 /CUMM (4.20-5.40); WHITE BLOOD CELL COUNT 10.4 /CUMM (4.8-10.8)
--- NOTE | 2016-08-07 10:37 | ECHOCARDIOGRAM REPORT ---
RAQUEL MAN Age: 70 : 1945 Gender: F Exam Date: 08/06/2016 18:17 Exam Location: [address] Ht (in): 62 Wt (lb): 119 BSA: 1.54 BP: 154 / 80 Ordering Physician: JANEY WRIGHT MD Referring Physician: JANEY WRIGHT MD Technologist: Jerica Sandhu LUPE Room Number: 172 Indications: HYPERTENSION Rhythm: Sinus Technical Quality: Fair FINDINGS Left Ventricle Normal size left ventricle. No obvious regional wall motion abnormalities. Left ventricular wall thickness increased. Normal left ventricular ejection fraction estimated at 60-65%. Right Ventricle Right ventricle not well visualized, grossly normal. Right Atrium Right atrium not well visualized, grossly normal. Left Atrium Mild left atrial dilatation. Mitral Valve Mitral valve thickened. Trace mitral regurgitation. Aortic Valve Trileaflet aortic valve. Diffuse thickening (sclerosis) of the aortic valve cusps without reduced excursion. No aortic stenosis. No aortic regurgitation. Tricuspid Valve Tricuspid valve not well visualized, grossly normal. Mild tricuspid regurgitation. Pulmonic Valve Pulmonic valve not well visualized, grossly normal. Bhoh-mx-uuzhalot pulmonic regurgitation. Pericardium Normal pericardium. No pericardial effusion. Great Vessels Aortic root and proximal ascending aorta not well visualized, grossly normal. CONCLUSIONS 1. This was a technically difficult examination. 2. Minimsl to mild aortic sclerosis is present with no valvular stenosis or insufficiency. 3. There is no significant pericardial fluid present. 4. The left ventricualr chamber size and systolic function appear normal. Borderline concentric hypertrophy is present. THere are no obvious resting wall motion abnormalities. 5. Mild tricuspid insufficiency is present with mild to moderate pulmonic insufficiency. The RV systolic pressure was not accurately assessed. Doug Meeks M.D. (Electronically Signed) Final Date: 07 August 2016 10:36 MEASUREMENTS (Male / Female) Normal Values 2D ECHO LV Diastolic Diameter PLAX 4.2 cm 4.2 - 5.9 / 3.9 - 5.3 cm LV Systolic Diameter PLAX 2.3 cm 2.1 - 4.0 cm LV Fractional Shortening PLAX 45.2 % 25 - 46 % LV Ejection Fraction 2D Teich 76.9 % IVS Diastolic Thickness 1.2 cm LVPW Diastolic Thickness 1.2 cm LV Relative Wall Thickness 0.6 RV Internal Dim ED PLAX 2.7 cm 1.9 - 3.8 cm LVOT Diameter 1.9 cm Aortic Root Diameter 3.3 cm LA Systolic Diameter LX 3.6 cm 3.0 - 4.0 / 2.7 - 3.8 cm LA Volume 20.0 cm 18 - 58 / 22 - 52 cm Ascending Aorta Diameter 2.9 cm DOPPLER AV Peak Velocity 132.0 cm/s AV Peak Gradient 7.0 mmHg AV Mean Velocity 91.4 cm/s AV Mean Gradient 4.0 mmHg AV Velocity Time Integral 27.3 cm LVOT Peak Velocity 102.0 cm/s LVOT Peak Gradient 4.2 mmHg LVOT Mean Velocity 66.4 cm/s LVOT Mean Gradient 2.0 mmHg LVOT Velocity Time Integral 19.7 cm LVOT Stroke Volume 55.9 cm AV Area Cont Eq vti 2.0 cm AV Area Cont Eq pk 2.2 cm MV Peak Velocity 114.0 cm/s MV Peak Gradient 5.2 mmHg MV Mean Velocity 68.1 cm/s MV Mean Gradient 2.0 mmHg Mitral E Point Velocity 80.9 cm/s Mitral A Point Velocity 103.0 cm/s Mitral E to A Ratio 0.8 MV PHT Velocity 99.9 cm/s MV Deceleration [place] 407.0 cm/s MV Pressure Half Time 73.6 ms MV Area PHT 3.0 cm MV Deceleration Time 214.0 ms TR Peak Velocity 191.0 cm/s TR Peak Gradient 14.6 mmHg Right Atrial Pressure 5.0 mmHg Pulmonary Artery Systolic Pressu 19.6 mmHg Right Ventricular Systolic Press 19.6 mmHg PV Peak Velocity 134.0 cm/s PV Peak Gradient 7.2 mmHg PV Mean Velocity 90.9 cm/s PV Mean Gradient 4.0 mmHg PV Velocity Time Integral 25.6 cm LV E' Lateral Velocity 5.9 cm/s Mitral E to LV E' Lateral Ratio 13.8 LV E' Septal Velocity 14.3 cm/s Mitral E to LV E' Septal Ratio 5.7
[2016-08-07 12:31] VITALS: BP 148/98
--- NOTE | 2016-08-07 12:34 | NUR ---
BP 148/98 MANUALLY, SBP IMPROVING. DIASTOLIC INCREASED FROM THIS AM. DR.FAHEEM BADILLO WAS UPDATED. NO COMPLAINTS OF A HEADACHE.
--- NOTE | 2016-08-07 16:01 | Cons- OBGYN ---
General Information and HPI Consulting Request Date of Consult: 08/07/16 Requested By: LISA KHAN MD Reason for Consult: vaginal lesion History of Present Illness: 70yo G2Ps admittedf for HTN and noted to have vulvar lesion. Pt's first episode used Monistat to no avail. Previous GIA and separate BSO.. Allergies/Medications Allergies: Coded Allergies: Sulfa (Sulfonamide Antibiotics) (RASH 08/06/16) iron (DIARRHEA 08/06/16) Home Med List: Atorvastatin Calcium 10 MG TABLET 1 TAB PO DAILY GI (Reported) Carbidopa/Levodopa (Carbidopa-Levodopa 25-100 Tab) 25 MG-100 MG TABLET 1 TAB PO TID PARKINSONS (Reported) Levothyroxine Sodium 88 MCG TABLET 1 TAB PO DAILY THYROID (Reported) Metoprolol Succinate 50 MG TAB.ER.24H 1 TAB PO DAILY BP (Reported) Pantoprazole Sodium 40 MG TABLET.DR 1 TAB PO DAILY GI (Reported) Past History Medical History Blood Transfusion Hx: No Neurological: Parkinson's disease EENT: NONE Cardiovascular: hypertension, hyperlipidemia Respiratory: NONE Gastrointestinal: GERD Hepatic: NONE Renal: NONE Musculoskeletal: NONE Psychiatric: NONE Endocrine: hypothyroidism Blood Disorders: NONE Cancer(s): NONE SOCIAL MEDIA COORDINATOR/Reproductive: NONE Surgical History Pertinent Surgical History: non-contributory Family History Relations & Conditions If Any: BROTHER FH: CAD (coronary artery disease) Psychosocial History Where Do You Live? Home Smoking Status: Never Smoked Functional Ability ADLs Independent: dressing, eating, toileting, bathing. Exam & Diagnostic Data Vital Signs and I&O Vital Signs Date Time Temp Pulse Resp B/P B/P Pulse O2 O2 Flow FiO2 Mean Ox Delivery Rate 08/07 1231 74 148/98 08/07 0825 80 152/78 08/07 0825 80 152/78 08/07 0812 98.2 80 18 152/78 97 Room Air 08/06 2349 97.8 89 18 140/76 96 Room Air 08/06 1725 97.9 87 18 154/88 98 Intake & Output 08/07 1600 08/07 0800 08/07 0000 08/06 1600 08/06 0800 08/06 0000 Intake Total 480 200 620 Output Total 600 Balance 480 -400 620 Intake, IV 20 Intake, Oral 480 200 600 Output, Urine 600 Patient 120 lb 110 lb Weight Weight Reported by Patient Measurement Method Physical Exam: R labia majora 3x2 ulcerated lesion mid healing Assessment/Plan Assessment/Plan vulvar lesion, 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
[2016-08-07 16:20] VITALS: BP 128/70
[2016-08-07 23:55] VITALS: BP 162/88
--- NOTE | 2016-08-08 07:29 | PN- Housestaff ---
See Addendum Subjective Follow-up For: Uncontrolled hypertension Chest pressure/rule out ACS Vagina lesion Complaints: no complaints Tele-Events Since Last Visit: Sinus, sinus bradycardia heart rate 55-71 Subjective: Patient feels much better. No acute episodes of shortness of breath and chest pain overnight. Review of Systems Constitutional: Denies: chills, fever. Cardiovascular: Denies: chest pain, palpitations. Respiratory: Denies: cough, short of breath. Gastrointestinal: Denies: abdominal pain, nausea, vomiting. Genitourinary: Denies: dysuria. Musculoskeletal: Denies: back pain. Objective Last 24 Hrs of Vital Signs/I&O Vital Signs Date Time Temp Pulse Resp B/P B/P Pulse O2 O2 Flow FiO2 Mean Ox Delivery Rate 08/07 2355 98.2 65 20 162/88 97 Room Air 08/07 1620 98.8 79 20 128/70 97 08/07 1231 74 148/98 08/07 0825 80 152/78 08/07 0825 80 152/78 08/07 0812 98.2 80 18 152/78 97 Room Air Intake & Output 08/08 0800 08/08 0000 08/07 1600 Intake Total 250 600 480 Output Total Balance 250 600 480 Intake, Oral 250 600 480 Number 1 Bowel Movements Physical Exam General Appearance: Alert, Oriented X3, Cooperative, No Acute Distress HEENT: Atraumatic Neck: Supple Cardiovascular: Regular Rate, Normal S1, Normal S2, No Murmurs Lungs: Clear to Auscultation, Normal Air Movement Abdomen: Normal Bowel Sounds, Soft, No Tenderness Neurological: Normal Speech, Normal Tone, Sensation Intact Extremities: No Edema Vascular: Normal Pulses Current Medications: Current Medications Sig/Areli Start time Last Medication Dose Route Stop Time Status Admin Acetaminophen 1,000 MG Q12P PRN 08/07 0045 AC N/A 1 UNIT IV Acetaminophen 650 MG Q6P PRN 08/06 1615 AC 08/06 PO 1644 Alprazolam 0.25 MG TID PRN 08/06 1615 AC 08/07 PO 08/13 161 2143 Aspirin 81 MG DAILY 08/07 1000 AC 08/07 PO 0825 Atorvastatin Calcium 10 MG 1700 08/06 1708 AC 08/07 PO 1734 Carbidopa/Levodopa 1 TAB TID 08/06 1000 AC 08/07 PO 2049 Heparin Sodium 5,000 UNIT Q8 08/06 1703 AC 08/08 (Porcine) SC 0507 Levothyroxine Sodium 0.088 MG DAILY 08/06 1000 AC 08/07 PO 0825 Lidocaine 1 KIMO BID PRN 08/07 1600 AC 08/07 TOP 2143 Lisinopril 10 MG DAILY 08/07 1000 AC 08/07 PO 0825 Metoprolol Succinate 50 MG DAILY 08/07 1000 AC 08/07 PO 0825 Morphine Sulfate 0.5 MG Q4P PRN 08/06 1615 AC IV Omeprazole 40 MG DAILY AC 08/06 1606 AC 08/08 PO 0613 Ondansetron HCl 4 MG Q6P PRN 08/06 1615 AC 08/06 IV 2256 Valacyclovir HCl 1,000 MG BID 08/07 1551 AC 08/07 PO 2049 Last 24 Hrs of Lab/Jordan Results Last 24 Hrs of Labs/Mics: Laboratory Tests 08/08/16 0625: Sodium Pending, Potassium Pending, Chloride Pending, Carbon Dioxide Pending, Anion Gap Pending, BUN Pending, Creatinine Pending, BUN/Creatinine Ratio Pending , CBC w Diff Pending, WBC Pending, RBC Pending, Hgb Pending, Hct Pending, MCV Pending, MCH Pending, RDW Pending, Plt Count Pending, MPV Pending, PUBS MCHC Pending 08/07/16 1615: HSV I IgG Ab Pending, HSV II IgG Pending 08/07/16 1601: HSV Rapid Culture Pending Lines/Diet/Fluids Restraints: none Assessment/Plan Assessment: 70-year-old female with past medical history significant for ischemic stroke last year without any residual effects, hypertension, Parkinson's disease, anxiety, hyperlipidemia and hypothyroidism came to emergency department for chief complaint of increased blood pressure noticed at home and vaginal pain. Patient was admitted on telemetry floor for the management of following problems Uncontrolled hypertension Most likely secondary to medication noncompliance versus inadequately treated hypertension. Patient was on metoprolol and amlodipine for blood pressure control. Primary care doctor stopped her amlodipine because of bilateral lower extremity edema and she was never restarted on any other antihypertensive medication. Patient received IV labetalol, Vasotec and hydralazine in emergency department. Her blood pressure. From 200 systolic to 140 systolic in ED. We'll held off on any antihypertensive medications overnight. We restarted her home medications along with addition of lisinopril this morning. We will also obtain an echocardiogram in order to rule out left ventricular hypertrophy. Last systolic blood pressure has been 140s and 150s and diastolic in 70s to 80s. Blood pressure in the morning systolic 180 09/17/1997 and diastolic in 100s before administration of morning antihypertensive medications. Blood pressure came down to 150/90 after lisinopril and beta brenna was given. Echocardiogram showed Normal left ventricular ejection fraction estimated at 60- 65%. Borderline concentric hypertrophy is present. Mild tricuspid insufficiency is present with mild to moderate pulmonic insufficiency. Cardio Consult pending Chest pressure/rule out ACS Patient had a transient episode of chest pressure in emergency department relieved without any measures. Patient also has significant history of anxiety that could have contributed to this but will rule out acute coronary syndrome for now. - Admit to telemetry - Vitals q Shift - Monitor I/O - 400 - Troponins and EKG done to rule out ACS - Daily weight - Added Lisinopril 10mg - Continue Metoprolol - Lipid panel done - ASA 81 mg Po daily. - Give dinner (Heart Healthy Diet) Vaginal lesion Unclear eitology ? But appearance consistent with HSV HSV culture and immunoglobulin pending OBG-Or Nurse Manager recommended starting the patient on Valtrax As per discussion with TRAFFIC AND TRANSPORT PLANNER once the results are available we will discuss this with the patient. Patient is full code Patient is on pain management Patient is on heparin for DVT prophylaxis Patient is on heart healthy diet Problem List: 1. Uncontrolled hypertension Pain Ratin Pain Location: NA Pain Goal: Pain 4 or less Pain Plan: Continue current pain management Tomorrow's Labs & Rationales: Patient would most likely be discharged
[2016-08-08 07:49] LABS: ABSOLUTE BASOPHIL COUNT 0 /CUMM (0.0-0.2); ABSOLUTE EOSINOPHIL COUNT 0.1 /CUMM (0.0-0.7); ABSOLUTE GRANULOCYTE CT 5.9 /CUMM (1.4-6.5); ABSOLUTE LYMPH COUNT 2.1 /CUMM (1.2-3.4); ABSOLUTE MONOCYTE COUNT 0.5 /CUMM (0.10-0.60); BASOPHIL % 0.2 % (0.0-2.0); GRANULOCYTE % 68.2 % (42.2-75.2); HEMATOCRIT 35.2 % (37-47); MEAN CORPUSCULAR HGB 27.7 PG (27.0-31.0); MEAN CORPUSCULAR HGB CONC 33.4 G/DL (33.0-37.0); MEAN CORPUSCULAR VOLUME 82.8 FL (81.0-99.0); MEAN PLATELET VOLUME 9.8 FL (7.4-10.4); PLATELET COUNT 221 /CUMM (130-400); RBC DISTRIBUTION WIDTH 14.9 % (11.5-14.5); RED BLOOD CELL CT 4.26 /CUMM (4.20-5.40); WHITE BLOOD CELL COUNT 8.7 /CUMM (4.8-10.8)
[2016-08-08 08:29] VITALS: BP 198/100
[2016-08-08 10:20] VITALS: BP 150/90
[2016-08-08] MEDS ORDERED: LMX TOP (10:33)
[2016-08-08] MEDS ORDERED: VALTREX500 M1 PO (10:34)
--- NOTE | 2016-08-08 10:35 | Patient Discharge Instructions ---
Discharge Instructions General Discharge Information You were seen/treated for: Uncontrolled hypertension ? Vaginal lesion Special Instructions: Follow-up with primary care doctor in a week after discharge. Follow-up with ASSISTANT ASSOCIATE PROFESSOR in a week after discharge Follow-up with pole cutter Dr. Meeks in a week after discharge Follow up with Psychiatrist in a week after discharge Diet Continue normal diet: Yes Recommended Diet: Heart Healthy Activity Full Activity/No Limits: Yes Acute Coronary Syndrome Inclusion Criteria At DC or during hospital stay patient has or had the following: ACS DIAGNOSIS No Discharge Core Measures Meds if any: Prescribed or Continued at Discharge Meds if any: NOT Prescribed or Continued at Discharge Congestive Heart Failure Inclusion Criteria At DC or during hospital stay patient has or had the following: CHF DIAGNOSIS No Discharge Core Measures Meds if any: Prescribed or Continued at Discharge Meds if any: NOT Prescribed or Continued at Discharge Cerebrovascular accident Inclusion Criteria At DC or during hospital stay patient has or had the following: CVA/TIA Diagnosis No Discharge Core Measures Meds if any: Prescribed or Continued at Discharge Meds if any: NOT Prescribed or Continued at Discharge Venous thromboembolism Inclusion Criteria VTE Diagnosis No VTE Type NONE VTE Confirmed by (Test) NONE Discharge Core Measures - Per Current guidelines, there needs to be overlap - treatment for the first 5 days of Warfarin therapy. - If discharged on Warfarin prior to 5 days of - overlap therapy, the patient will need to be - assessed for post discharge needs including - *Post discharge parental anticoagulation - *Warfarin and/or parental anticoagulation education - *Follow up date to check INR post discharge At least 5 days overlap therapy as Inpatient No Meds if any: Prescribed or Continued at Discharge Note: Overlap Therapy is Warfarin and Anticoagulant Meds if any: NOT Prescribed or Continued at Discharge
--- NOTE | 2016-08-08 10:50 | Cons- Cardiology ---
General Information and HPI Consulting Request Date of Consult: 08/08/16 Requested By: LISA KHAN MD Reason for Consult: Uncontrolled HTN; atypical chest discomfort Source of Information: patient, old records Exam Limitations: no limitations History of Present Illness: 70-year-old female with past medical history significant for ischemic stroke last year without any residual effects, hypertension, Parkinson's disease, anxiety, hyperlipidemia and hypothyroidism came to emergency department for chief complaint of increased blood pressure noticed at home and vaginal pain. Patient mostly communicated in osvaldo. According to the patient she had a blood pressure machine at her home and she was running in systolic 160s and diastolic in 90s. Her primary care doctor stopped amlodipine about a month ago because she developed bilateral lower extremity edema. She has not restarted on any other antihypertensive medication. Review of systems positive for exertional shortness of breath. Patient feels short of breath after 5-10 minutes of walk. She did not have a recent echocardiogram. For the last few days patient has been having vaginal pain and has noted a small blister around that area. She denied any discharge or vaginal blood loss. Allergies/Medications Allergies: Coded Allergies: Sulfa (Sulfonamide Antibiotics) (RASH 08/06/16) iron (DIARRHEA 08/06/16) Home Med List: Aspirin (Aspirin*) 81 MG TAB.CHEW 1 TAB PO DAILY CVD (Reported) Atorvastatin Calcium 10 MG TABLET 1 TAB PO DAILY GI (Reported) Carbidopa/Levodopa (Carbidopa-Levodopa 25-100 Tab) 25 MG-100 MG TABLET 1 TAB PO TID PARKINSONS (Reported) Labetalol HCl 200 MG TABLET 1 TAB PO BID htn . Levothyroxine Sodium 88 MCG TABLET 1 TAB PO DAILY THYROID (Reported) Lidocaine (Lmx 4) 4 % CREAM..G. 1 KIMO TOP BID PRN PAIN SCALE 4-6 (MODERATE) . Lisinopril (Zestril) 20 MG TABLET 1 TAB PO DAILY BLOOD PRESSURE . Pantoprazole Sodium 40 MG TABLET.DR 1 TAB PO DAILY GI (Reported) Valacyclovir Hydrochloride (Valtrex) 500 MG TABLET 1,000 MG PO BID HERPES . Current Medications: Current Medications Sig/Areli Start time Last Medication Dose Route Stop Time Status Admin Acetaminophen 1,000 MG Q12P PRN 08/07 0045 AC N/A 1 UNIT IV Acetaminophen 650 MG Q6P PRN 08/06 1615 AC 08/06 PO 1644 Alprazolam 0.25 MG TID PRN 08/06 1615 AC 08/07 PO 08/13 1614 2143 Aspirin 81 MG DAILY 08/07 1000 AC 08/08 PO 0824 Atorvastatin Calcium 10 MG 1700 08/06 1708 AC 08/07 PO 1734 Carbidopa/Levodopa 1 TAB TID 08/06 1000 AC 08/08 PO 0820 Heparin Sodium 5,000 UNIT Q8 08/06 1703 AC 08/08 (Porcine) SC 0507 Levothyroxine Sodium 0.088 MG DAILY 08/06 1000 AC 08/08 PO 0820 Lidocaine 1 KIMO BID PRN 08/07 1600 AC 08/07 TOP 2143 Lisinopril 10 MG DAILY 08/07 1000 AC 08/08 PO 0820 Metoprolol Succinate 50 MG DAILY 08/07 1000 AC 08/08 PO 0821 Morphine Sulfate 0.5 MG Q4P PRN 08/06 1615 AC IV Omeprazole 40 MG DAILY AC 08/06 1606 AC 08/08 PO 0613 Ondansetron HCl 4 MG Q6P PRN 08/06 1615 AC 08/06 IV 2256 Polyethylene Glycol 17 GM DAILY 08/08 1000 AC 08/08 PO 0824 Senna/Docusate Sodium 1 TAB BID 08/08 1000 AC 08/08 PO 0825 Valacyclovir HCl 1,000 MG BID 08/07 1551 AC 08/08 PO 0825 Past History Travel History Traveled to [place] past 21 day No Medical History Blood Transfusion Hx: No Neurological: Parkinson's disease EENT: NONE Cardiovascular: hypertension, hyperlipidemia Respiratory: NONE Gastrointestinal: GERD Hepatic: NONE Renal: NONE Musculoskeletal: NONE Psychiatric: NONE Endocrine: hypothyroidism Blood Disorders: NONE Cancer(s): NONE 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 Home Smoking Status: Never Smoked Functional Ability ADLs Independent: dressing, eating, toileting, bathing. Exam & Diagnostic Data Vital Signs and I&O Vital Signs Date Time Temp Pulse Resp B/P B/P Pulse O2 O2 Flow FiO2 Mean Ox Delivery Rate 08/08 1020 150/90 08/08 0829 98.9 67 20 198/100 97 Room Air 08/08 0821 65 188/100 08/08 0820 65 188/100 08/07 2355 98.2 65 20 162/88 97 Room Air 08/07 1620 98.8 79 20 128/70 97 08/07 1231 74 148/98 Intake & Output 08/08 1600 08/08 0800 08/08 0000 08/07 1600 08/07 0800 08/07 0000 Intake Total 250 600 480 200 620 Output Total 600 Balance 250 600 480 -400 620 Intake, IV 20 Intake, Oral 250 600 480 200 600 Number 1 Bowel Movements Output, Urine 600 Physical Exam: General Appearance Alert, Oriented X3, Cooperative HEENT Atraumatic Neck Supple Cardiovascular Regular Rate, Normal S1, Normal S2, S4, 1/6 systolic murmur Lungs Clear to Auscultation, Normal Air Movement Abdomen Normal Bowel Sounds, Soft, No Tenderness Neurological Normal Speech, Normal Tone, Sensation Intact Extremities No Edema Labs/Jordan Results: Laboratory Tests 08/08 08/07 08/07 0625 1615 1601 Chemistry Sodium (137 - 145 mmol/L) 137 Potassium (3.5 - 5.1 mmol/L) 4.2 Chloride (98 - 107 mmol/L) 103 Carbon Dioxide (22 - 30 mmol/L) 26 Anion Gap (5 - 16) 7 BUN (7 - 17 mg/dL) 16 Creatinine (0.5 - 1.0 mg/dL) 0.9 Estimated GFR (>60 ml/min) > 60 BUN/Creatinine Ratio (7 - 25 %) 17.8 Hematology CBC w Diff NO MAN DIFF REQ WBC (4.8 - 10.8 /CUMM) 8.7 RBC (4.20 - 5.40 /CUMM) 4.26 Hgb (12.0 - 16.0 G/DL) 11.8 L Hct (37 - 47 %) 35.2 L MCV (81.0 - 99.0 FL) 82.8 MCH (27.0 - 31.0 PG) 27.7 RDW (11.5 - 14.5 %) 14.9 H Plt Count (130 - 400 /CUMM) 221 MPV (7.4 - 10.4 FL) 9.8 Gran % (42.2 - 75.2 %) 68.2 Lymphocytes % (20.5 - 51.1 %) 24.5 Monocytes % (1.7 - 9.3 %) 6.1 Eosinophils % (0 - 5 %) 1.0 Basophils % (0.0 - 2.0 %) 0.2 Absolute Granulocytes (1.4 - 6.5 /CUMM) 5.9 Absolute Lymphocytes (1.2 - 3.4 /CUMM) 2.1 Absolute Monocytes (0.10 - 0.60 /CUMM) 0.5 Absolute Eosinophils (0.0 - 0.7 /CUMM) 0.1 Absolute Basophils (0.0 - 0.2 /CUMM) 0 PUBS MCHC (33.0 - 37.0 G/DL) 33.4 Serology HSV Rapid Culture Pending HSV I IgG Ab Pending HSV II IgG Pending 08/07 08/06 0615 1720 Chemistry Sodium (137 - 145 mmol/L) 135 L Potassium (3.5 - 5.1 mmol/L) 4.7 Chloride (98 - 107 mmol/L) 101 Carbon Dioxide (22 - 30 mmol/L) 23 Anion Gap (5 - 16) 10 BUN (7 - 17 mg/dL) 14 Creatinine (0.5 - 1.0 mg/dL) 1.1 H Estimated GFR (>60 ml/min) 49 L BUN/Creatinine Ratio (7 - 25 %) 12.7 Magnesium (1.6 - 2.3 mg/dL) 2.0 Troponin I (< 0.11 ng/ml) < 0.01 Hematology CBC w Diff NO MAN DIFF REQ WBC (4.8 - 10.8 /CUMM) 10.4 RBC (4.20 - 5.40 /CUMM) 4.47 Hgb (12.0 - 16.0 G/DL) 12.3 Hct (37 - 47 %) 36.6 L MCV (81.0 - 99.0 FL) 81.9 MCH (27.0 - 31.0 PG) 27.4 RDW (11.5 - 14.5 %) 15.0 H Plt Count (130 - 400 /CUMM) 300 MPV (7.4 - 10.4 FL) 10.6 H Gran % (42.2 - 75.2 %) 73.4 Lymphocytes % (20.5 - 51.1 %) 21.8 Monocytes % (1.7 - 9.3 %) 4.1 Eosinophils % (0 - 5 %) 0.4 Basophils % (0.0 - 2.0 %) 0.3 Absolute Granulocytes (1.4 - 6.5 /CUMM) 7.6 H Absolute Lymphocytes (1.2 - 3.4 /CUMM) 2.3 Absolute Monocytes (0.10 - 0.60 /CUMM) 0.4 Absolute Eosinophils (0.0 - 0.7 /CUMM) 0 Absolute Basophils (0.0 - 0.2 /CUMM) 0 PUBS MCHC (33.0 - 37.0 G/DL) 33.5 Diagnostic Data EKG Results NSR with probable LVH and STT changes Assessment/Plan Assessment/Plan Assessment: 1. Uncontrolled HTN 2. ATypical chest discomfort 3. Vulvar lesion 4. Mild normocytic anemia 5. Transient SIMEON 6. Abnormal ECG with borderline to mild LVH on echocardiogram 7. Mild TR with Mild to moderate PI REcommendations: - Echo reviewed and noted - Give this mornings doses of metoprolol and lisinopril. - Monitor BP this AM - If necessary, increase lisinopril to 10 BID or 20 daily - Eventual pharmacologic nuclear stress test as outpatient Consult Acknowledgment - Thank you for your consult request.
--- NOTE | 2016-08-08 14:12 | Discharge Summary ---
Visit Information Visit Dates Admission Date: 08/06/16 Discharge Date: 08/10/16 Hospital Course Course Attending Physician: Erlinda Merino MD Primary Care Physician: ELLY WHITFIELD, [facility] Course: 70-year-old female with past medical history significant for ischemic stroke last year without any residual effects, hypertension, Parkinson's disease, anxiety, hyperlipidemia and hypothyroidism came to emergency department for chief complaint of increased blood pressure noticed at home and vaginal pain. Vitals on admission, patient afebrile, no tachypnea, no tachycardia, systolic blood pressure 198-212 and diastolic blood pressure 111-86. Oxygen saturation of 99 200% on room air. On examination patient was alert and oriented to time person and place not in acute distress, comfortably lying in the bed. S1 and S2 audible without any murmurs, no JVD, no bilateral lower extremity edema lung examination showed bilateral equal air entry without any wheezes, benign abdominal and neurological examination. Ulceration of the right labia with white fibrinous exudate. Patient was admitted on general medicine floor for the management of following problems Hypertensive urgency/Uncontrolled hypertension Most likely secondary to medication noncompliance versus inadequately treated hypertension. Patient was on metoprolol and amlodipine for blood pressure control. Primary care doctor stopped her amlodipine because of bilateral lower extremity edema and she was never restarted on any other antihypertensive medication. Patient received IV labetalol, Vasotec and hydralazine in emergency department. Her blood pressure. From 200 systolic to 140 systolic. We will restarted her home medications along with addition of lisinopril 10 mg which was later increased to 20 mg. Patient was also started on labetalol 50 mg twice a day as per cardiology recommendations and metoprolol 50 mg discontinued. As blood pressure was not controlled on 50 mg labetalol was increased to 200 mg twice a day and she was discharged on this dosage. Cardiology was on board and Echocardiogram showed Normal left ventricular ejection fraction estimated at 60-65%. Borderline concentric hypertrophy is present. Mild tricuspid insufficiency is present with mild to moderate pulmonic insufficiency. Patient recently had a CTA showing patency of renal vasculature. Patient will have an outpatient workup for secondary causes of hypertension on an outpatient basis with client services account manager. Chest pressure/rule out ACS Patient had a transient episode of chest pressure in emergency department relieved without any measures. Patient also has significant history of anxiety that could have contributed to this but we ruled out acute coronary syndrome with 2 sets of negative troponins and no acute ST changes. Patient was continued on aspirin and Lipitor. Vaginal lesion On examination patient had Ulceration of the right labia with white fibrinous exudate Unclear eitology ? But as per [facility]IE[facility] YEOM[facility] appearance consistent with HSV. 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 HSV culture pending. OBG-Debt Collection Specialist recommended starting the patient on Valtrax. Patient will receive 10 days of Valtrex thousand milligrams twice a day. History of anxiety Patient has significant history of anxiety in the past and was also being treated previously for anxiety. Inpatient psychiatry consult was obtained and patient was provided with resources for outpatient psychiatric services and encouraged to make lifestyle modifications. 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 Follow-up with CHIEF YEOMAN in a week after discharge Follow-up with client services account manager Dr. Meeks in a week after discharge Medications at Discharge Discharge Medications: Stop taking the following medications: Metoprolol Succinate (Metoprolol Succinate) 50 MG TAB.ER.24H ORAL DAILY Qty = 30 Continue taking these medications: Carbidopa/Levodopa (Carbidopa-Levodopa 25-100 Tab) 25 MG-100 MG TABLET 1 Tablet ORAL THREE TIMES DAILY Qty = 90 Comments: Last Taken:08/10/16 Time:10:21A.M Levothyroxine Sodium (Levothyroxine Sodium) 88 MCG TABLET 1 Tablet ORAL DAILY Qty = 30 Comments: Last Taken:08/10/16 Time:10:21A.M Pantoprazole Sodium (Pantoprazole Sodium) 40 MG TABLET.DR 1 Tablet ORAL DAILY Qty = 30 Comments: Last Taken:08/10/16 Time:09:00A.M GIVEN PRILOSEC 40MG Atorvastatin Calcium (Atorvastatin Calcium) 10 MG TABLET 1 Tablet ORAL DAILY Qty = 30 Comments: Last Taken:08/10/15 Time:5:16P.M Start taking the following new medications: Valacyclovir Hydrochloride (Valtrex) 500 MG TABLET 1,000 Milligram ORAL TWICE DAILY Qty = 15 No Refills Instructions: . Comments: Last Taken:08/10/16 Time:10:21A.M Labetalol HCl (Labetalol HCl) 200 MG TABLET 1 Tablet ORAL TWICE DAILY Qty = 60 No Refills Instructions: . Comments: Last Taken:08/10/16 Time:10:20A.M Lisinopril (Zestril) 20 MG TABLET 1 Tablet ORAL DAILY Qty = 90 No Refills Instructions: . Comments: Last Taken:08/10/16 Time:10:21A.M Lidocaine (Lmx 4) 4 % CREAM..G. 1 Application On the skin TWICE DAILY as needed for PAIN SCALE 4-6 (MODERATE ) Qty = 2 No Refills Instructions: . Comments: Last Taken:08/10/16 Time:10:21A.M Copies To: LEROY SANABRIA MD No Refills
[2016-08-08] MEDS ORDERED: ZESTRIL20 M1 PO (14:38)
[2016-08-08 15:57] VITALS: BP 218/108
[2016-08-08 17:03] VITALS: BP 178/88
[2016-08-08 20:19] VITALS: BP 184/76
[2016-08-09 00:30] VITALS: BP 170/82
[2016-08-09 03:30] VITALS: BP 152/70
--- NOTE | 2016-08-09 06:47 | PN- Housestaff ---
OTILIA NYE MD,[facility] 08/09/16 0647: Subjective Follow-up For: Uncontrolled hypertension Chest pressure/rule out ACS Vagina lesion Complaints: no complaints Tele-Events Since Last Visit: Sinus rhythm, no overnight events heart rate 65-91 Subjective: Patient did not have any acute shortness of breath or chest pain overnight. Systolic blood pressure was in 180s to 170s overnight and diastolic in 70s to 90s. She feels very anxious about her uncontrolled hypertension and wants to have Renal doppler US justin. Review of Systems Constitutional: Denies: chills, fever. Cardiovascular: Denies: chest pain, palpitations. Respiratory: Denies: cough, short of breath. Gastrointestinal: Denies: abdominal pain, nausea, vomiting. Genitourinary: Denies: discharge. Musculoskeletal: Denies: back pain. Objective Last 24 Hrs of Vital Signs/I&O Vital Signs Date Time Temp Pulse Resp B/P B/P Pulse O2 O2 Flow FiO2 Mean Ox Delivery Rate 08/09 0330 97.7 72 18 152/70 98 Room Air 08/09 0030 98.2 72 18 170/82 97 Room Air 08/08 2224 75 176/90 08/08 2019 184/76 08/08 1703 178/88 08/08 1618 210/106 08/08 1557 218/108 08/08 1530 98.6 68 18 98 Room Air 08/08 1434 67 150/90 08/08 1020 150/90 08/08 0829 98.9 67 20 198/100 97 Room Air 08/08 0821 65 188/100 08/08 0820 65 188/100 Intake & Output 08/09 0800 08/09 0000 08/08 1600 Intake Total 200 730 825 Output Total 550 700 Balance -350 730 125 Intake, IV 10 Intake, Oral 200 720 825 Number 1 Bowel Movements Output, Urine 550 700 Physical Exam General Appearance: Alert, Oriented X3, Cooperative, No Acute Distress HEENT: Atraumatic Neck: Supple Cardiovascular: Regular Rate, Normal S1, Normal S2 Lungs: Clear to Auscultation, Normal Air Movement Abdomen: Normal Bowel Sounds, Soft, No Tenderness Neurological: Normal Speech, Normal Tone, Sensation Intact Extremities: No Edema Current Medications: Current Medications Sig/Areli Start time Last Medication Dose Route Stop Time Status Admin Acetaminophen 650 MG .STK-MED ONE 06/22 1918 DC PO 06/22 1919 Acetaminophen 1,000 MG Q12P PRN 08/07 0045 AC N/A 1 UNIT IV Acetaminophen 650 MG Q6P PRN 08/06 1615 AC 08/08 PO 1919 Alprazolam 0.25 MG TID PRN 08/06 1615 AC 08/08 PO 08/13 1614 2224 Aspirin 81 MG DAILY 08/07 1000 AC 08/08 PO 0824 Atorvastatin Calcium 10 MG 1700 08/06 1708 AC 08/08 PO 1618 Carbidopa/Levodopa 1 TAB TID 08/06 1000 AC 08/08 PO 2041 Heparin Sodium 5,000 UNIT Q8 08/06 1703 AC 08/09 (Porcine) SC 0500 Hydralazine HCl 10 MG ONCE ONE 08/08 1615 DC 08/08 IV 08/08 1616 1618 Labetalol HCl 50 MG BID 08/08 2200 AC 08/08 PO 2224 Labetalol HCl 50 MG BID 08/08 1251 DC PO Levothyroxine Sodium 0.088 MG DAILY 08/06 1000 AC 08/08 PO 0820 Lidocaine 1 KIMO BID PRN 08/07 1600 AC 08/08 TOP 1246 Lisinopril 20 MG DAILY 08/09 1000 AC PO Lisinopril 10 MG ONCE ONE 08/08 1315 DC 08/08 PO 08/08 1316 1434 Lisinopril 10 MG DAILY 08/07 1000 DC 08/08 PO 0820 Metoprolol Succinate 50 MG DAILY 08/07 1000 DC 08/08 PO 0821 Morphine Sulfate 0.5 MG Q4P PRN 08/06 1615 AC IV Omeprazole 40 MG DAILY AC 08/06 1606 AC 08/08 PO 0613 Ondansetron HCl 4 MG Q6P PRN 08/06 1615 AC 08/06 IV 2256 Polyethylene Glycol 17 GM DAILY 08/08 1000 AC 08/08 PO 0824 Senna/Docusate Sodium 1 TAB BID 08/08 1000 AC 08/08 PO 0825 Valacyclovir HCl 1,000 MG BID 08/07 1551 AC 08/08 PO 204 Assessment/Plan Assessment: 70-year-old female with past medical history significant for ischemic stroke last year without any residual effects, hypertension, Parkinson's disease, anxiety, hyperlipidemia and hypothyroidism came to emergency department for chief complaint of increased blood pressure noticed at home and vaginal pain. Patient was admitted on telemetry floor for the management of following problems Uncontrolled hypertension Most likely secondary to medication noncompliance versus inadequately treated hypertension. Patient was on metoprolol and amlodipine for blood pressure control. Primary care doctor stopped her amlodipine because of bilateral lower extremity edema and she was never restarted on any other antihypertensive medication. Patient received IV labetalol, Vasotec and hydralazine in emergency department. Her blood pressure. From 200 systolic to 140 systolic in ED. We'll held off on any antihypertensive medications overnight. We restarted her home medications along with addition of lisinopril after admission. We also obtained an echocardiogram in order to rule out left ventricular hypertrophy. Systolic blood pressure has been 140s and 150s and diastolic in 70s to 80s initially. Blood pressure yesterday morning systolic 188-198 and diastolic in 100s before administration of morning antihypertensive medications. Blood pressure came down to 150/90 after lisinopril and beta brenna was given. Around the time of discharge yesterday evening patient's blood pressure again increased to 210/106 and at that time patient was given IV hydralazine. Despite that patient's blood pressure remained high and she was started on by mouth labetalol 50 mg twice a day overnight. As per discussion with cardiology labetalol can be increased to 100 mg twice a day if unable to achieve blood pressure control. Duplex ultrasound to exclude renovascular disease ordered. Echocardiogram showed Normal left ventricular ejection fraction estimated at 60- 65%. Borderline concentric hypertrophy is present. Mild tricuspid insufficiency is present with mild to moderate pulmonic insufficiency. Chest pressure/rule out ACS Patient had a transient episode of chest pressure in emergency department relieved without any measures. Patient also has significant history of anxiety that could have contributed to this but will rule out acute coronary syndrome for now. - Admit to telemetry - Vitals q Shift - Monitor I/O + 1105 - Troponins and EKG done to rule out ACS - Added Lisinopril 10mg on home dose -We continued Metoprolol initially but was later added as per cardiology recommendations and was switched to labetalol for better blood pressure control - Lipid panel done - ASA 81 mg Po daily. - Give dinner (Heart Healthy Diet) Vaginal lesion Unclear eitology ? But appearance consistent with HSV HSV culture pending, immunoglobulin HSV 1 immunoglobulins HIGH 28.20 OBG-Psych Arnp recommended starting the patient on Valtrax Patient is full code Patient is on pain management Patient is on heparin for DVT prophylaxis Patient is on heart healthy diet Problem List: 1. Uncontrolled hypertension Pain Ratin Pain Location: NA Pain Goal: Pain 4 or less Pain Plan: Continue current pain medications Tomorrow's Labs & Rationales: Not needed DVT/Prophylaxis: pharmacological Consulting Request: Consulting Specialty: Cardiology BETY SUBRAMANIAN MD 08/09/16 1234: Attending MD Review Statement Attending Statement Attending MD Statement: examined this patient, discuss w/resident/PA/RN INFUSION, agreed w/resident/PA/RN INFUSION, discussed with family, reviewed EMR data (avail), discussed with nursing, discussed with case mgmt Attending Assessment/Plan: Patient is very anxious about her blood pressure but she doesn't want to take any medication for anxiety. She also c/o of a mild headache but will not take the Tylenol. She is very worried about being addicted to multiple medications. She is a 70-year-old female who is here with uncontrolled accelerated hypertension. Even in the last 24 hours her systolic pressure went to over 200 requiring IV hydralazine. The plan was discussed extensively with the live out nanny and she is right now on 20mg of lisinopril with 100mg twice a day of labetalol. The Toprol-XL was changed to labetalol for it's better blood pressure control. We'll see how her pressure tolerates and increase the labetalol as needed. The CTA of the abd was negative for any kind of renal artery stenosis and a workup for secondary causes will be done as an outpatient. The labetalol can be increased to 200 and later 300 twice a day as needed for blood pressure control. The finding of genital herpes with HSV-1 is also very confusing and the patient denies any sexual activity for the past 1 year and denies any outbreak of herpes ever. Will need to speak to MACHINE STONE POLISHER and curbside ID about this as well.
[2016-08-09 07:56] VITALS: BP 166/90
--- NOTE | 2016-08-09 13:08 | PN- Cardiology ---
Subjective Subjective: Clinically stable from a cardiovascular standpoint. Yesterday afternoon, the patient's blood pressure elevated again. She has now been transitioned from metoprolol to labetalol. Objective Vital Signs and I&Os Vital Signs Date Time Temp Pulse Resp B/P B/P Pulse O2 O2 Flow FiO2 Mean Ox Delivery Rate 08/09 0756 98.0 76 14 166/90 98 Room Air 08/09 0330 97.7 72 18 152/70 98 Room Air 08/09 0030 98.2 72 18 170/82 97 Room Air 08/08 2224 75 176/90 08/08 2019 184/76 08/08 1703 178/88 08/08 1618 210/106 08/08 1557 218/108 08/08 1530 98.6 68 18 98 Room Air 08/08 1434 67 150/90 Intake & Output 08/09 1600 08/09 0800 08/09 0000 08/08 1600 08/08 0800 08/08 0000 Intake Total 180 200 730 825 250 600 Output Total 550 700 Balance 180 -350 730 125 250 600 Intake, IV 10 Intake, Oral 180 200 720 825 250 600 Number 0 1 1 Bowel Movements Output, Urine 550 700 Current Medications: Current Medications Sig/Areli Start time Last Medication Dose Route Stop Time Status Admin Acetaminophen 650 MG .STK-MED ONE 08/08 1917 DC PO 08/08 191 Acetaminophen 1,000 MG Q12P PRN 08/07 0045 AC N/A 1 UNIT IV Acetaminophen 650 MG Q6P PRN 08/06 1615 AC 08/09 PO 1111 Alprazolam 0.25 MG TID PRN 08/06 1615 AC 08/08 PO 08/13 1614 2224 Aspirin 81 MG DAILY 08/07 1000 AC 08/09 PO 1107 Atorvastatin Calcium 10 MG 1700 08/06 1708 AC 08/08 PO 1618 Carbidopa/Levodopa 1 TAB TID 08/06 1000 AC 08/09 PO 1108 Heparin Sodium 5,000 UNIT Q8 08/06 1703 AC 08/09 (Porcine) SC 0500 Hydralazine HCl 10 MG ONCE ONE 08/08 1615 DC 08/08 IV 08/08 1616 1618 Labetalol HCl 100 MG BID 08/090 AC PO Labetalol HCl 50 MG BID 08/08 220 DC 08/08 PO 2224 Labetalol HCl 50 MG BID 08/08 1251 DC PO Levothyroxine Sodium 0.088 MG DAILY 08/06 1000 AC 08/09 PO 1108 Lidocaine 1 KIMO BID PRN 08/07 1600 AC 08/08 TOP 1246 Lisinopril 20 MG DAILY 08/09 1000 AC 08/09 PO 1108 Lisinopril 10 MG ONCE ONE 08/08 1315 DC 08/08 PO 08/08 1316 1434 Lisinopril 10 MG DAILY 08/07 1000 DC 08/08 PO 0820 Morphine Sulfate 0.5 MG Q4P PRN 08/06 1615 AC IV Omeprazole 40 MG DAILY AC 08/06 1606 AC 08/09 PO 1107 Ondansetron HCl 4 MG Q6P PRN 08/06 1615 AC 08/06 IV 2256 Polyethylene Glycol 17 GM DAILY 08/08 1000 AC 08/09 PO 1107 Senna/Docusate Sodium 1 TAB BID 08/08 1000 AC 08/09 PO 1108 Valacyclovir HCl 1,000 MG BID 08/07 1551 AC 08/09 PO 1109 Results Last 48 Hrs of Labs/Mics: Laboratory Tests 08/08/16 0625: Anion Gap 7, Estimated GFR > 60, BUN/Creatinine Ratio 17.8, CBC w Diff NO MAN DIFF REQ, RBC 4.26, MCV 82.8, MCH 27.7, RDW 14.9 H, MPV 9.8, Gran % 68.2, Lymphocytes % 24.5, Monocytes % 6.1, Eosinophils % 1.0, Basophils % 0.2, Absolute Granulocytes 5.9, Absolute Lymphocytes 2.1, Absolute Monocytes 0.5, Absolute Eosinophils 0.1, Absolute Basophils 0, PUBS MCHC 33.4 08/07/16 1615: HSV I IgG Ab 28.20 H, HSV II IgG <0.90 08/07/16 1601: HSV Rapid Culture Pending Assessment/Plan Assessment/Plan Assessment: 1. Uncontrolled HTN 2. ATypical chest discomfort 3. Vulvar lesion 4. Mild normocytic anemia 5. Transient SIMEON 6. Abnormal ECG with borderline to mild LVH on echocardiogram 7. Mild TR with Mild to moderate PI Recommendations: -Continue lisinopril at current dose -Increase labetalol to 100 mg twice a day. If necessary, subsequently increased to 200 mg twice a day for follow-up blood pressures. -Continue to monitor blood pressures -Otherwise continue as per Dr. Gonsales -The patient will follow-up with me as an outpatient. 24-hour urine collections , etc. at that time. Continue telemetry? Yes
[2016-08-09 13:38] VITALS: BP 154/74
[2016-08-09] MEDS ORDERED: LABETALOL HCL100 M1 PO (14:47)
[2016-08-09 15:30] VITALS: BP 128/80
--- NOTE | 2016-08-09 15:36 | Cons- Psychiatry ---
Psychiatric Consult Date of Consult: 08/09/16 Reason for Consult: Anxiety, pt patient expresses desire to discuss psychotropic medications Case discussed with Dr. Salvador Merino attending History of Present Illness: Identifying Info: 70 year old Gu[place]an female presents to [facility] emergency department on 08/06/2016 with chief complaint of high blood pressure chills and vaginal pain. Admitted to medicine. CC: "A little better now" HPI: Patient interviewed with Jozef present for part of interview. She reports for the last 2-3 years she's been experiencing increasing feelings of anxiety and social isolation. She moved to [facility] in the year 1999 to live with her daughter and son-in-law and their family. Outside of her family she states she has no social support network. Her only social interactions are on Friday when she goes to the [employer] in her town for [employer] and then leaves. "I have been feeling lonely." Patient states that she feels unfulfilled and feels like her family is busy so she cannot bother them. Reports spending most of her time at home watching TV or looking out the window. While in [place] 2-3 months ago the patient spoke with a psychiatrist who prescribed her lamotrigine and clonazepam. She says this has been helpful only for sleep. She reports this was her first and only interaction she's ever had with the mental health professional. Review of [facility] SOFTWARE TESTING SPECIALIST reveals no history of controlled substances filled in [place] in the last 3 years. At present the patient declines psychotropic intervention, psychotherapy, or any psychiatric follow-up. PMH: Please see the H&P for a complete listing Ischemic stroke last year without any residual effects, hypertension, Parkinson' s disease, hyperlipidemia and hypothyroidism Past Psych History: -Outpatient Unamed psychiatrist in [facility] 3 months ago -Inpatient Denies Family Psych History: Denies Substance History Denies Family Substance History: Denies Social: Currently resides with her and daughter [id number] and grandchildren in [facility]. [place] immigrant, moved in the year 1999. Abuse/Trauma: Denies Current Home Psychotropic Medications: Lamotrigine 12.5 mg? Clonazepam dose? Current Hospital Psychotropic Medications: Med Alprazolam 0.25 MG PO TID PRN 08/06/16 4359 Allergies: Coded Allergies: Sulfa (Sulfonamide Antibiotics) (RASH 08/06/16) iron (DIARRHEA 08/06/16) Current Medications: Current Medications Sig/Areli Start time Last Medication Dose Route Stop Time Status Admin Acetaminophen 650 MG .STK-MED ONE 08/08 1917 DC PO 08/08 191 Acetaminophen 1,000 MG Q12P PRN 08/07 0045 AC N/A 1 UNIT IV Acetaminophen 650 MG Q6P PRN 08/06 1615 AC 08/09 PO 1111 Alprazolam 0.25 MG TID PRN 08/06 1615 AC 08/08 PO 08/13 1614 2224 Aspirin 81 MG DAILY 08/07 1000 AC 08/09 PO 1107 Atorvastatin Calcium 10 MG 1700 08/06 1708 AC 08/08 PO 1618 Carbidopa/Levodopa 1 TAB TID 08/06 1000 AC 08/09 PO 1108 Heparin Sodium 5,000 UNIT Q8 08/06 1703 AC 08/09 (Porcine) SC 1402 Labetalol HCl 100 MG BID 08/09 2200 AC PO Labetalol HCl 50 MG ONCE ONE 08/09 1330 DC 08/09 PO 08/09 1331 1402 Labetalol HCl 50 MG BID 08/08 2200 DC 08/09 PO 1108 Levothyroxine Sodium 0.088 MG DAILY 08/06 1000 AC 08/09 PO 1108 Lidocaine 1 KIMO BID PRN 08/07 1600 AC 08/08 TOP 1246 Lisinopril 20 MG DAILY 08/09 1000 AC 08/09 PO 1108 Lisinopril 10 MG DAILY 08/07 1000 DC 08/08 PO 0820 Morphine Sulfate 0.5 MG Q4P PRN 08/06 1615 AC IV Omeprazole 40 MG DAILY AC 08/06 1606 AC 08/09 PO 1107 Ondansetron HCl 4 MG Q6P PRN 08/06 1615 AC 08/06 IV 2256 Polyethylene Glycol 17 GM DAILY 08/08 1000 AC 08/09 PO 1107 Senna/Docusate Sodium 1 TAB BID 08/08 1000 AC 08/09 PO 1108 Valacyclovir HCl 1,000 MG BID 08/07 1551 AC 08/09 PO 1109 Past History Past Medical History Neurological: Parkinson's disease EENT: NONE Cardiovascular: hypertension, hyperlipidemia Respiratory: NONE Gastrointestinal: GERD Hepatic: NONE Renal: NONE Musculoskeletal: NONE Psychiatric: NONE Endocrine: hypothyroidism Blood Disorders: NONE Cancer(s): NONE 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: NONE Past Surgical History Surgical History: non-contributory Psychosocial History Strengths/Capabilities: Family support Physical Limitations (Interventions): Parkinsons Psychiatric Treatment History Psych Treatment Psychiatric Treatment Yes (as above) Diagnosis: None Risk Factors: age (under 24/over 65), chronic/serious med cond., isolate/no social support Substance Use/Abuse History Drug Use/Abuse Substances Used/Abused No Substance Abuse Treatment Substance Abuse Treatment Past Substance Abuse [place] No Assessment/Plan Mental Status Mental Status Exam: Mental Status Exam Presentation/Appearance: Cooperative with evaluation. [facility] Sitiing in chair by window. Orientation: x4 Sensorium: Awake and alert Eye contact: Appropriate Affect: Blunted, congruent with stated mood Mood: "Not so good" Depression: Endorses Anxiety: Endorses Thought Content: - Denies SI/HI, AH/VH, PI. States and also believes they will not kill themselves. - Denies Hopeless/Helpless Thoughts Thought Process: Linear Associations: Appropriate Speech:Normal tone and rate Judgment: Intact Insight: Poor, does not understand need for psychiatric tx Cognition: Memory: Grossly intact Attention/Concentration: Grossly intact Fund of Knowledge: Adequate Abstractions: Did not assess MMSE: Did not assess Brief ROS Gait: Not observed Sleep: Poor Appetite: [place] Energy: Low IADLs/ADLs: Independent Lab Results: Laboratory Tests 08/08/16 0625: Anion Gap 7, Estimated GFR > 60, BUN/Creatinine Ratio 17.8, CBC w Diff NO MAN DIFF REQ, RBC 4.26, MCV 82.8, MCH 27.7, RDW 14.9 H, MPV 9.8, Gran % 68.2, Lymphocytes % 24.5, Monocytes % 6.1, Eosinophils % 1.0, Basophils % 0.2, Absolute Granulocytes 5.9, Absolute Lymphocytes 2.1, Absolute Monocytes 0.5, Absolute Eosinophils 0.1, Absolute Basophils 0, PUBS MCHC 33.4, HIV 1&2 Ab Western Blot NONREACTIVE 08/07/16 1615: HSV I IgG Ab 28.20 H, HSV II IgG <0.90 08/07/16 1601: HSV Rapid Culture Pending 08/07/16 0615: Anion Gap 10, Estimated GFR 49 L, BUN/Creatinine Ratio 12.7, Magnesium 2.0, CBC w Diff NO MAN DIFF REQ, RBC 4.47, MCV 81.9, MCH 27.4, RDW 15.0 H, MPV 10.6 H, Gran % 73.4, Lymphocytes % 21.8, Monocytes % 4.1, Eosinophils % 0.4, Basophils % 0.3, Absolute Granulocytes 7.6 H, Absolute Lymphocytes 2.3, Absolute Monocytes 0.4, Absolute Eosinophils 0, Absolute Basophils 0, PUBS MCHC 33.5 08/06/16 1720: Troponin I < 0.01 Diffential Diagnosis: Unspecified depressive disorder with anxious features Impression: 70-year-old [place] immigrant female presents with depression and anxiety in the context of social isolation and medical illness. She was likely benefit from increased social interaction, therapy, and antidepressant medication. At present she declines any interventions. Provisional Treatment Plan: 1. Patient encouraged to become engaged in community groups at her [facility] and at [facility]. Please include the following discharge instructions "If you would like to engage in activities at [facility] at [address] please call [phone] for more information." 2. Patient encouraged to get 30 minutes of light cardiovascular exercise daily for mood and cognition. 3. Patient encouraged to call [facility] for follow-up if desired and provided contact info. Please include the following discharge instructions "If you would like to pursue outpatient psychiatric care at [facility] please call [phone] to arrange for an intake appointment." Thank you for including psychiatry in this case we will sign off.
[2016-08-10 00:46] VITALS: BP 130/70
--- NOTE | 2016-08-10 06:24 | NUR ---
PT REQUESTED TAKING PRILOSEC AFTER BREAKFAST
[2016-08-10 08:34] VITALS: BP 182/70
--- NOTE | 2016-08-10 10:19 | PN- Housestaff ---
See Addendum ANGELO WHITFIELD,EUNICE 08/10/16 1019: Subjective Follow-up For: Hypertensive urgency Complaints: occasional nausea Tele-Events Since Last Visit: Normal sinus rhythm, heart rate between 60-87,No any overnight events Subjective: Patient is seen and examined at bedside.She does not have any active complaints. She was very worried why she had such a hypertension despite she is very compliant with the medication. Review of Systems Constitutional: Reports: no symptoms. Gastrointestinal: Reports: nausea. Objective Last 24 Hrs of Vital Signs/I&O Vital Signs Date Time Temp Pulse Resp B/P B/P Pulse O2 O2 Flow FiO2 Mean Ox Delivery Rate 08/10 1021 98.2 72 170/80 08/10 1020 72 170/80 08/10 0834 98.2 72 18 182/70 98 Room Air 08/10 0046 98.0 73 18 130/70 95 Room Air 08/09 2213 76 176/94 08/09 2133 74 176/94 08/09 1530 98.7 77 18 128/80 97 Room Air 08/09 1402 89 154/74 08/09 1338 82 154/74 Intake & Output 08/10 1600 08/10 0800 08/10 0000 Intake Total 200 600 Output Total 400 Balance -200 600 Intake, Oral 200 600 Output, Urine 400 Patient 54.431 kg Weight Physical Exam General Appearance: Alert, Oriented X3, Cooperative, No Acute Distress, pale Cardiovascular: Normal S1, Normal S2 Lungs: Clear to Auscultation, Normal Air Movement Abdomen: Soft, mild tenderness at injection area Extremities: No Clubbing, No Cyanosis, No Edema Assessment/Plan Assessment: 70-year-old female with past medical history significant for ischemic stroke last year without any residual effects, hypertension, Parkinson's disease, anxiety, hyperlipidemia and hypothyroidism came to emergency department for chief complaint of increased blood pressure noticed at home and vaginal pain. 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 Patient is full code Patient is on pain management Patient is on heparin for DVT prophylaxis Patient is on heart healthy diet Problem List: 1. Uncontrolled hypertension Pain Ratin Pain Location: vaginal area Pain Goal: Remain pain free Pain Plan: tylenol Tomorrow's Labs & Rationales: not required as patient is discharged. DVT/Prophylaxis: early ambulation low risk Consulting Request: Consulting Specialty: Cardiology CHUCHO CLEARY 08/10/16 1042: Attending MD Review Statement Attending Statement Attending MD Statement: examined this patient, discuss w/resident/PA/LIFE SCIENCES TEACHER, agreed w/resident/PA/LIFE SCIENCES TEACHER, discussed with family, reviewed EMR data (avail), discussed with nursing, discussed with case mgmt, reviewed images, amended to note Attending Assessment/Plan: She is a 70-year-old female who is here with uncontrolled accelerated hypertension. denies any new complaints today The CTA of the abd was negative for any kind of renal artery stenosis and a workup for secondary causes will be done as an outpatient. The labetalol increased to 300 twice a day for blood pressure control. The finding of genital herpes with HSV-1 is also very confusing and the patient denies any sexual activity for the past 1 year and denies any outbreak of herpes ever. Will need to speak to MISSILE INSPECTOR PREFLIGHT and curbside ID about this as well.
[2016-08-10] MEDS ORDERED: LABETALOL HCL300 M1 PO (12:36)
[2016-08-10 14:51] VITALS: BP 122/72
[2016-08-10] MEDS ORDERED: LABETALOL HCL200 M1 PO ×2 (15:01→15:14)
[2016-08-10] MEDS ORDERED: VALTREX500 M1 PO (15:14)
[2016-08-10] MEDS ORDERED: ZESTRIL20 M1 PO (15:15)
[2016-08-10] MEDS ORDERED: LMX TOP (15:39)
[2016-08-10] MEDS ORDERED: ASPIRIN81 M4 PO ×2 (18:30→18:32)
== END 2016-08-10 16:30 | disposition home health service (06) | DRG 305 ==
LOC: ERH 05:39 → 1NO 10:36 → ERHI 10:36 → ENRESERV 11:43 → ENTRNSPT 12:54 → EDTRNSPT 13:06 → EDTRNSPTSTS 13:07 → 1NO 13:16 → CMPTRNSPT 13:22 → 1NO 08-09 07:52 → ENPENDDIS 08-10 15:21 → 1NO 08-10 16:30
PROVIDERS: Emergency Medicine; Student in an Organized Health Care Education/Training Program; ADMIT Internal Medicine
DX: I16.0 Hypertensive urgency (principal); N17.9 Acute kidney failure, unspecified; G20 Parkinson's disease; D64.9 Anemia, unspecified; J98.4 Other disorders of lung; F41.9 Anxiety disorder, unspecified; E78.5 Hyperlipidemia, unspecified; E03.9 Hypothyroidism, unspecified; K21.9 Gastro-esophageal reflux disease without esophagitis; A60.04 Herpesviral vulvovaginitis; Z86.73 Personal history of transient ischemic attack (TIA), and cerebral infarction without residual deficits; Z91.14 Patient's other noncompliance with medication regimen
CPT/HCPCS: 1NP; 86695; 36415; 81001; 82436; 87389; 93005; 93010; 93306; 96374; 97116-GO; 97161-GP; J0360; J1644; J2405; J3250; J3490

== ENCOUNTER 2016-08-13 21:23 | Inpatient (IN) | payer OTHER, MEDICARE ==
[~2016-08-13] VITALS: Ht 157.5 cm; Wt 54.4 kg
[~2016-08-13 21:23] MED LIST changes: +ASPIRIN81 M4 PO; +LABETALOL HCL100 M1 PO; +LABETALOL HCL200 M1 PO; +LABETALOL HCL300 M1 PO; +LMX TOP; +VALTREX500 M1 PO; +ZESTRIL20 M1 PO
--- NOTE | 2016-08-13 21:35 | NUR ---
70 F SEEN HERE A WEEK AGO FOR HIGH BP AND ADMITTED TO . VN HAS BEEN CHECKING BP AT HOME AND IS ELEVATED; 186/106 MANUAL IN TRIAGE. ENDORSES GENERAL MAILAISE AND HEADACHE. +DIZZINESS, +N-V. DENIES CP. +L FLANK PAIN. DENIES SYMPTOMS. DC'ED FROM 08/10 WITH RX FOR LABETOLOL AND LISINOPRIL. HAS CARDIOLOGY APPT W DR HILL 08/29. ALSO C/O INSOMNIA.
[2016-08-13 21:50] LABS: ABSOLUTE BASOPHIL COUNT 0 /CUMM (0.0-0.2); ABSOLUTE EOSINOPHIL COUNT 0.1 /CUMM (0.0-0.7); ABSOLUTE LYMPH COUNT 1.4 /CUMM (1.2-3.4); ABSOLUTE MONOCYTE COUNT 0.6 /CUMM (0.10-0.60); BASOPHIL % 0.2 % (0.0-2.0); EOSINOPHIL % 0.7 % (0-5); GRANULOCYTE % 79.9 % (42.2-75.2); HEMATOCRIT 31.9 % (37-47); MEAN CORPUSCULAR HGB 27.6 PG (27.0-31.0); MEAN CORPUSCULAR HGB CONC 33.4 G/DL (33.0-37.0); MEAN CORPUSCULAR VOLUME 82.7 FL (81.0-99.0); MEAN PLATELET VOLUME 9.6 FL (7.4-10.4); PLATELET COUNT 235 /CUMM (130-400); RBC DISTRIBUTION WIDTH 14.8 % (11.5-14.5); RED BLOOD CELL CT 3.85 /CUMM (4.20-5.40)
--- NOTE | 2016-08-13 22:01 | NUR ---
TO ISIDRA Monteiro
--- NOTE | 2016-08-13 22:06 | NUR ---
MANUAL B/P RECHECK 190/96
--- NOTE | 2016-08-13 22:12 | ED GENERAL ADULT ---
History of Present Illness General Chief Complaint: General Adult Stated Complaint: HIGH BLOOD PRESSURE Source: patient, family Exam Limitations: no limitations Vital Signs & Intake/Output Vital Signs & Intake/Output Vital Signs Date Time Temp Pulse Resp B/P B/P Pulse O2 O2 Flow FiO2 Mean Ox Delivery Rate 08/15 0800 Room Air 08/15 0650 68 180/90 08/15 0648 68 160/80 08/15 0607 98.2 67 20 178/80 97 Room Air 08/15 0552 67 194/80 08/15 0538 67 178/80 08/15 0535 67 194/80 08/14 2247 70 160/85 08/14 2152 98.2 63 18 160/78 95 Room Air 08/14 1437 99.1 75 19 128/76 98 08/14 1137 86 134/62 ED Intake and Output 08/15 0000 08/14 1200 Intake Total 1195 850 Output Total 400 Balance 795 850 Intake, IV 375 650 Intake, Oral 820 200 Number 1 Bowel Movements Output, Urine 400 Patient 120 lb Weight Weight Reported by Patient Measurement Method Allergies Coded Allergies: Sulfa (Sulfonamide Antibiotics) (RASH 08/06/16) iron (DIARRHEA 08/06/16) Reconcile Medications Aspirin (Aspirin*) 81 MG TAB.CHEW 1 TAB PO DAILY CVD (Reported) Atorvastatin Calcium 10 MG TABLET 1 TAB PO DAILY GI (Reported) Carbidopa/Levodopa (Carbidopa-Levodopa 25-100 Tab) 25 MG-100 MG TABLET 1 TAB PO TID PARKINSONS (Reported) Labetalol HCl 200 MG TABLET 1 TAB PO BID htn . Levothyroxine Sodium 88 MCG TABLET 1 TAB PO DAILY THYROID (Reported) Lidocaine (Lmx 4) 4 % CREAM..G. 1 KIMO TOP BID PRN PAIN SCALE 4-6 (MODERATE) . Lisinopril (Zestril) 20 MG TABLET 1 TAB PO DAILY BLOOD PRESSURE . Pantoprazole Sodium 40 MG TABLET.DR 1 TAB PO DAILY GI (Reported) Valacyclovir Hydrochloride (Valtrex) 500 MG TABLET 1,000 MG PO BID HERPES . Triage Note: 70 F SEEN HERE A WEEK AGO FOR HIGH BP AND ADMITTED. VN HAS BEEN CHECKING IT AT HOME AND IT REMAINS HIGH; 186/106 MANUAL IN TRIAGE. ENDORSES GENERAL MAILAISE AND HEADACHE. +DIZZINESS, +N-V. DENIES CP. +L FLANK PAIN. DENIES SYMPTOMS. DC'ED FROM 08/10 WITH RX FOR LABETOLOL AND LISINOPRIL. HAS CARDIOLOGY APPT W DR HILL 08/29. ALSO C/O INSOMNIA. Triage Nurses Notes Reviewed? yes HPI: Patient presents for evaluation of shivering, headaches and left flank pain and high blood pressure. Symptoms began last week except for the flank pain which began this morning. She was evaluated last week in the emergency department for high blood pressure and was subsequently admitted. She was then placed on labetalol and lisinopril. In addition to the above the patient has also been experiencing a mild chest pressure without associated fever or abdominal pain. No dysuria. Patient also experiences occasional tingling of the feet. Past History Travel History Traveled to [place] past 21 day No Medical History Any Pertinent Medical History? see below for history Neurological: CVA, Parkinson's disease EENT: NONE Cardiovascular: hypertension, hyperlipidemia Respiratory: NONE Gastrointestinal: GERD Hepatic: NONE Renal: NONE Musculoskeletal: NONE Psychiatric: NONE Endocrine: hypothyroidism Blood Disorders: NONE Cancer(s): NONE [employer]ILN [employer]ER/Reproductive: HERPES History of MRSA: No History of VRE: No History of CDIFF: No Surgical History Surgical History: non-contributory, hysterectomy (TOTAL) Psychosocial History Who do you live with Family What is your primary language [place] Tobacco Use: Never used ETOH Use: denies use Illicit Drug Use: denies illicit drug use Family History Family History, If Any: BROTHER FH: CAD (coronary artery disease) Hx Contributory? No Review of Systems Review of Systems Constitutional: Reports: see HPI. EENTM: Reports: no symptoms. Respiratory: Reports: no symptoms. Cardiovascular: Reports: see HPI. GI: Reports: no symptoms. Genitourinary: Reports: no symptoms. Musculoskeletal: Reports: no symptoms. Skin: Reports: no symptoms. Neurological/Psychological: Reports: no symptoms. Hematologic/Endocrine: Reports: no symptoms. Immunologic/Allergic: Reports: no symptoms. All Other Systems: Reviewed and Negative Physical Exam Physical Exam General Appearance: SEE BELOW (SEEM) Comments: Gen.: Well-nourished, well-developed, no acute respiratory distress. Head: Normocephalic, atraumatic. Eyes: Normal inspection bilaterally Ears: Normal inspection bilaterally Nose: Normal inspection Throat/mouth : Moist mucosa Neck: Supple, full range of motion, no goiter Heart: Regular rate and rhythm, no murmurs rubs or gallops Lungs: Clear to auscultation bilaterally with normal air entry Chest: Nontender Back: Normal range of motion, slight left CVAT Abdomen: Soft, small number of ecchymotic lesions over the abdomen with mild associated tenderness (patient attributes this to injections she received while in the hospital), nondistended, normal bowel sounds Extremities: Normal range of motion grossly, equal radial pulses, no cyanosis clubbing or edema, calves nontender Neurologic: Cranial nerves grossly intact, speech is clear Skin: warm and dry Psychiatric: Calm, cooperative, no apparent delusions or hallucinations Core Measures ACS in differential dx? No CVA/TIA Diagnosis: No Severe Sepsis Present: No Septic Shock Present: No Progress Differential Diagnoses I considered the following diagnoses in my evaluation of the patient: Anemia, dehydration, electrolyte abnormality, endorgan damage secondary to hypertension Plan of Care: Orders Procedure Date/time Status CBC WITHOUT DIFFERENTIAL 08/15 599 Complete BASIC ELECTROLYTES PLUS BUN&CR 08/15 599 Complete Current Medications Sig/Areli Start time Last Medication Dose Stop Time Status Admin Aspirin 81 MG DAILY 08/15 1000 AC 08/15 (Aspirin) 0917 Lisinopril 20 MG BID 08/15 1000 AC (Prinivil) Valacyclovir HCl 1,000 MG BID 08/14 2200 AC (Valtrex) Lidocaine 1 KIMO BID PRN 08/14 1715 AC (LMX) Atorvastatin Calcium 10 MG 1700 08/14 1700 AC 08/14 (Lipitor) 1627 Ondansetron HCl 4 MG Q6P PRN 08/14 1700 AC 08/15 (Zofran) 0231 Carbidopa/Levodopa 1 TAB TID 08/14 1000 AC 08/15 (Sinemet 25/100MG) 0914 Labetalol HCl 200 MG BID 08/14 1000 AC 08/15 (Trandate-Normodyne 0552 200MG Tab) Omeprazole 40 MG DAILY 08/14 1000 AC 08/15 (Prilosec) 0914 Levothyroxine Sodium 0.088 MG DAILY AC 08/14 0700 AC 08/15 (Synthroid) 0552 Melatonin 5 MG AT BEDTIME 08/14 0600 AC 08/14 (Melatonin) 2245 Acetaminophen 650 MG Q6P PRN 08/14 0230 AC 08/14 (Tylenol) 0612 Laboratory Tests 08/15/16 0718: Anion Gap 6, Estimated GFR 55 L, BUN/Creatinine Ratio 13.0, CBC w Diff NO MAN DIFF REQ, RBC 3.54 L, MCV 82.9, MCH 28.0, RDW 14.6 H, MPV 9.9, Gran % 75.7 H, Lymphocytes % 17.0 L, Monocytes % 6.5, Eosinophils % 0.6, Basophils % 0.2, Absolute Granulocytes 5.8, Absolute Lymphocytes 1.3, Absolute Monocytes 0.5, Absolute Eosinophils 0, Absolute Basophils 0, PUBS MCHC 33.8 08/14/162211: Anion Gap 7, Estimated GFR 55 L, BUN/Creatinine Ratio 15.0 Diagnostic Imaging: Discussed w/RAD: Radiology Read. Radiology Impression: PATIENT: RAQUEL MAN PRESENT AGE: 70 PATIENT ACCOUNT NO: [id number] : 45 LOCATION: [facility] ORDERING PHYSICIAN: LIZY PADILLA MD SERVICE DATE: 08/13/16 EXAM TYPE: CAT - CT ABD & PELVIS W/O IV CONTRAS EXAMINATION: CT ABDOMEN AND PELVIS WITHOUT CONTRAST CLINICAL INFORMATION: Left-sided flank pain history of hypertension. COMPARISON: 07/14/2016. TECHNIQUE: Multidetector volumetric imaging was performed from the superior aspect of the liver through the pubic symphysis. Sagittal and coronal reformatted images were obtained on the technologist's workstation. DLP: 243 mGy -cm FINDINGS: LUNG BASES: Unremarkable. LIVER AND SPLEEN: Unremarkable. PANCREAS GALLBLADDER AND BILIARY TREE: Pancreas appears unremarkable, gallbladder is somewhat contracted without evidence of cholelithiasis, the biliary tree is nondilated. KIDNEYS, URETERS, AND ADRENALS: No hydronephrosis or urolithiasis. A few low density bilateral renal lesions are likely cysts, there is a hyperdense 8 mm lesion in the lower pole of the right kidney possibly a hyperdense cyst. URINARY BLADDER: Unremarkable. GI TRACT: Colon is redundant most notably the sigmoid colon and splenic flexure region without evidence of diverticulosis or diverticulitis. Appendix and terminal ileum appear unremarkable. PERITONEAL CAVITY: No intraperitoneal free fluid, masses, or lymphadenopathy. RETROPERITONEUM: Unremarkable without aneurysm or lymphadenopathy. PELVIC ORGANS : Post hysterectomy, adnexa appear unremarkable. OSSEOUS STRUCTURES: Left L4 sclerotic lesion likely a bone island unchanged. ANTERIOR ABDOMINAL WALL AND SOFT TISSUES: Intact without evidence of underlying hernia. IMPRESSION: 1. No evidence of an acute process. 2. Probable small bilateral renal cysts at least one of which is hyperdense. 3. Stable subcentimeter sclerotic lesion involving the left L4 pedicle likely a bone island, no other osseous lesions are identified to suggest metastatic disease. DICTATED BY: NIMESH AHN MD DATE/ TIME DICTATED:08/13/162310 SENIOR SUPPORT ENGINEER:LAYTON DATE/TIME TRANSCRIBED: 08/13/162310 CONFIDENTIAL, DO NOT COPY WITHOUT APPROPRIATE AUTHORIZATION. < Electronically signed in Other Vendor System> SIGNED BY: NIMESH AHN MD 08/13/162324 CXR Impression: PATIENT: RAQUEL MAN PRESENT AGE: 70 PATIENT ACCOUNT NO: [id number] : 45 LOCATION: [facility] ORDERING PHYSICIAN: LIZY PADILLA MD SERVICE DATE: 08/13/16 EXAM TYPE: RAD - XRY-CHEST XRAY, PA AND LATERAL EXAMINATION: XR CHEST CLINICAL INFORMATION: Chest pain. Hypertension. COMPARISON: None TECHNIQUE: 2 views of the chest were obtained. FINDINGS: No significant abnormality is noted involving the heart, lungs, mediastinum, bony thorax or soft tissues. IMPRESSION: Unremarkable examination. DICTATED BY: CYNDY FOX MD DATE/TIME DICTATED:08/13/162306 SENIOR SUPPORT ENGINEER :LAYTON DATE/TIME TRANSCRIBED:08/13/162306 CONFIDENTIAL, DO NOT COPY WITHOUT APPROPRIATE AUTHORIZATION. <Electronically signed in Other Vendor System> SIGNED BY: CYNDY FOX MD 08/13/162313 Initial ED EKG: NSR, rate (70), nonspecific ST T wave chg Prior EKG: unchanged Departure Departure Disposition: STILL A PATIENT Condition: Stable Clinical Impression Primary Impression: Hyponatremia Secondary Impressions: Hypertensive urgency Referrals: LEROY SANABRIA MD (PCP/Family) Departure Forms: Customer Survey General Discharge Information Admission Note Spoke With: LYNDSAY GOFF MD Documentation of Exam: Documentation of any treatments & extenuating circumstances including Concerns Regarding Discharge (functional status, medication knowledge or non-compliance, living conditions, etc.) that warrant an admission rather than observation: Patient has acute hyponatremia placing her at high risk of generalized weakness altered mental status and seizures. In addition patient's blood pressure is extremely high despite recent adjustment in the patient's antihypertensive medications. This places her at risk of cardiac disease, congestive heart failure, stroke and encephalopathy. I feel the patient is a poor candidate for outpatient management under these circumstances and now requires hospitalization for treatment. The underlying cause for her hyponatremia should be investigated and treated accordingly. Her serum sodium levels should be monitored closely and her hyponatremia corrected cautiously to prevent adverse consequences. Nephrology consultation should be considered. Cardiology consultation should be considered. Patient's blood pressure be monitored and her antihypertensive medications adjusted accordingly. Feel patient will require a multiple day hospitalization. Critical Care Note Critical Care Note Critical Care Time: 30-74 min
--- NOTE | 2016-08-13 22:15 | NUR ---
SEEN BY PA STUDENT
--- NOTE | 2016-08-13 22:49 | NUR ---
TAKEN TO CT SCAN
--- NOTE | 2016-08-13 23:14 | RADIOLOGY REPORT ---
EXAMINATION: XR CHEST CLINICAL INFORMATION: Chest pain. Hypertension. COMPARISON: None TECHNIQUE: 2 views of the chest were obtained. FINDINGS: No significant abnormality is noted involving the heart, lungs, mediastinum, bony thorax or soft tissues. IMPRESSION: Unremarkable examination.
--- NOTE | 2016-08-13 23:17 | NUR ---
URINE TRIO SENT TO LAB
--- NOTE | 2016-08-13 23:25 | CT SCAN REPORT ---
EXAMINATION: CT ABDOMEN AND PELVIS WITHOUT CONTRAST CLINICAL INFORMATION: Left-sided flank pain history of hypertension. COMPARISON: 07/14/2016. TECHNIQUE: Multidetector volumetric imaging was performed from the superior aspect of the liver through the pubic symphysis. Sagittal and coronal reformatted images were obtained on the technologist's workstation. DLP: 243 mGy-cm FINDINGS: LUNG BASES: Unremarkable. LIVER AND SPLEEN: Unremarkable. PANCREAS GALLBLADDER AND BILIARY TREE: Pancreas appears unremarkable, gallbladder is somewhat contracted without evidence of cholelithiasis, the biliary tree is nondilated. KIDNEYS, URETERS, AND ADRENALS: No hydronephrosis or urolithiasis. A few low density bilateral renal lesions are likely cysts, there is a hyperdense 8 mm lesion in the lower pole of the right kidney possibly a hyperdense cyst. URINARY BLADDER: Unremarkable. GI TRACT: Colon is redundant most notably the sigmoid colon and splenic flexure region without evidence of diverticulosis or diverticulitis. Appendix and terminal ileum appear unremarkable. PERITONEAL CAVITY: No intraperitoneal free fluid, masses, or lymphadenopathy. RETROPERITONEUM: Unremarkable without aneurysm or lymphadenopathy. PELVIC ORGANS: Post hysterectomy, adnexa appear unremarkable. OSSEOUS STRUCTURES: Left L4 sclerotic lesion likely a bone island unchanged. ANTERIOR ABDOMINAL WALL AND SOFT TISSUES: Intact without evidence of underlying hernia. IMPRESSION: 1. No evidence of an acute process. 2. Probable small bilateral renal cysts at least one of which is hyperdense. 3. Stable subcentimeter sclerotic lesion involving the left L4 pedicle likely a bone island, no other osseous lesions are identified to suggest metastatic disease.
--- NOTE | 2016-08-13 23:29 | NUR ---
#22 IV EST TO RFA. 500 ML NS INFUSING AT 200 ML/HR ORDERED. FAMILY REMAINS AT BEDSIDE.
--- NOTE | 2016-08-14 01:18 | NUR ---
PT MED WITH 200 MG PO LABETOLOL ORDERED. HOUSE STAFF AT BEDSIDE
--- NOTE | 2016-08-14 02:48 | NUR ---
PT ADMITTED TO BED 219-2
--- NOTE | 2016-08-14 02:51 | NUR ---
REPORT GIVEN TO LEONOR ARRIOLA
[2016-08-14 03:50] VITALS: BP 132/30
--- NOTE | 2016-08-14 04:34 | History & Physical ---
See Addendum KARTHIK WHITFIELD,[facility] 08/14/16 0433: General Information and HPI MD Statement: I have seen and personally examined RAQUEL MAN and documented this H&P. The patient is a 70 year old F who presented with a patient stated chief complaint of [High blood pressure ]. Source of Information: patient, old records Exam Limitations: no limitations, poor historian History of Present Illness: Ms. Man is 70 year old female with chief complaint of hypertension, headache, pressure chest discomfort. Patient has past medical history significant for hypertension, hyperlipidemia, Parkinson disease, ischemic stroke 2015 with no residual deficit, hypothyroidism, anxiety, was discharged on the after was treated for hypertensive urgency, chest pressure ACS was ruled out. Patient reported that since after discharge, blood pressure used to be high every time the visiting nurse measure it, today blood pressure was 190/90 associated with tension headache, central chest pressure pain that didn't radiate to arm or neck, palpitation, shortness of breath, dry cough, nausea. Patient is kind of poor historian who agreed to have almost all the symptoms in the systemic review list. Patient reported diarrhea, loose stool 3 times per day for 2 days last time was in the ED denied blood. Patient reported dizziness, fatigue but no focal neurological weakness. Allergies/Medications Allergies: Coded Allergies: Sulfa (Sulfonamide Antibiotics) (RASH 08/06/16) iron (DIARRHEA 08/06/16) Home Med list Atorvastatin Calcium 10 MG TABLET 1 TAB PO DAILY GI (Reported) Carbidopa/Levodopa (Carbidopa-Levodopa 25-100 Tab) 25 MG-100 MG TABLET 1 TAB PO TID PARKINSONS (Reported) Labetalol HCl 200 MG TABLET 1 TAB PO BID htn . Levothyroxine Sodium 88 MCG TABLET 1 TAB PO DAILY THYROID (Reported) Lidocaine (Lmx 4) 4 % CREAM..G. 1 KIMO TOP BID PRN PAIN SCALE 4-6 (MODERATE) . Lisinopril (Zestril) 20 MG TABLET 1 TAB PO DAILY BLOOD PRESSURE . Pantoprazole Sodium 40 MG TABLET.DR 1 TAB PO DAILY GI (Reported) Valacyclovir Hydrochloride (Valtrex) 500 MG TABLET 1,000 MG PO BID HERPES . 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 Review of Systems Review of Systems Constitutional: Reports: see HPI. Exam & Diagnostic Data Last 24 Hrs of Vital Signs/I&O Vital Signs Date Time Temp Pulse Resp B/P B/P Pulse O2 O2 Flow FiO2 Mean Ox Delivery Rate 08/14 0350 97.9 78 18 132/30 99 Room Air 08/14 0246 96.6 78 18 163/68 97 Room Air 08/14 0118 98.2 82 16 152/85 08/14 0019 82 16 152/85 98 Room Air 08/13 2206 Room Air 08/13 2206 190/96 08/13 2134 98.2 73 20 186/106 98 Room Air Intake & Output 08/14 0800 08/14 0000 08/13 1600 Intake Total 500 Output Total Balance 500 Intake, IV 500 Patient 54.431 kg 54.431 kg Weight Weight Reported by Patient Standing Scale Measurement Method Physical Exam General Appearance Alert, Oriented X3, Cooperative, No Acute Distress Skin No Rashes, No Breakdown, No Significant Lesion Skin Temp/Moisture Exam: Warm/Dry HEENT Atraumatic, PERRLA, EOMI, Mucous Membr. moist/pink Neck Supple Cardiovascular Regular Rate, Normal S1, Normal S2, No Murmurs Lungs Clear to Auscultation, Normal Air Movement Abdomen Normal Bowel Sounds, Soft, No Tenderness, No Hepatospenomegaly, No Masses Neurological Normal Gait, Normal Speech, Strength at 5/5 X4 Ext, Normal Tone, Sensation Intact, Cranial Nerves 3-12 NL, Reflexes 2+ Extremities No Clubbing, No Cyanosis, No Edema, Normal Pulses, No Tenderness/ Swelling Last 24 Hrs of Labs/[place]: Laboratory Tests 08/13/16 2315: Urinalysis LIGHT H, Urine Color YEL, Urine Clarity CLEAR, Urine pH 6.0, Ur Specific [place] 1.010, Urine Protein 30 H, Urine Ketones NEG, Urine Nitrite NEG, Urine Bilirubin NEG, Urine Urobilinogen 0.2, Ur Leukocyte Esterase TRACE H , Ur Microscopic SEDIMENT EXAMINED, Urine WBC 1-3 H, Ur Epithelial Cells FEW, Urine Bacteria FEW H, Urine Hemoglobin NEG, Urine Glucose NEG 08/13/16 2315: Urine Osmolality 205 L, Ur Random Creatinine 44.9, Ur Random Sodium 7 L, Ur Random Potassium 39.0, Fraction Sodium Excret 0.1 08/13/16 2234: TSH &T3 &Free T4 Intrp Cancelled 08/13/162: Anion Gap 11, Estimated GFR 49 L, BUN/Creatinine Ratio 15.5, Glucose 102 H, Serum Osmolality 263 L, Calcium 9.5, Total Bilirubin 0.4, AST 37 H, ALT 28, Alkaline Phosphatase 102, Troponin I < 0.01, Total Protein 6.2 L, Albumin 3.7, Globulin 2.5, Albumin/Globulin Ratio 1.5, Free T4 1.63, Total T3 0.83 L, TSH & T3 &Free T4 Intrp 4.830 H, CBC w Diff NO MAN DIFF REQ, RBC 3.85 L, MCV 82.7, MCH 27.6, RDW 14.8 H, MPV 9.6, Gran % 79.9 H, Lymphocytes % 13.6 L, Monocytes % 5.6, Eosinophils % 0.7, Basophils % 0.2, Absolute Granulocytes 8.0 H, Absolute Lymphocytes 1.4, Absolute Monocytes 0.6, Absolute Eosinophils 0.1, Absolute Basophils 0, PUBS MCHC 33.4 Assessment/Plan Assessment: Patient is 70 year old female with past medical history of hypertension, hyperlipidemia, Parkinson disease, ischemic stroke 2016 with no residual focal deficit, hypothyroidism and exactly who presented to the ED 3 days after her recent discharge for hypertensive emergency complaining of high blood pressure, headache and central chest pressure discomfort. On presentation blood pressure was 186/106, heart rate 73, blood pressure responded well to labetalol 200 mg once in ED. Her labs were significant for microcytic anemia, hyponatremia 123 new-onset, borderline K 5.1, serum osmolarity 263, urine osm 205, Fen sodium 0.1 , troponin negative, TSH 4.83 elevated and normal free T4, low T3. Chest x-ray didn't reveal any acute abnormality, CT abdomen pelvis without contrast revealed bilateral renal cysts. Main problem list: Uncontrolled hypertension Hyponatremia Chest pain to rule out carotid artery disease Hyperlipidemia Hypothyroidism Parkinsonism Anxiety disorder Plan -For hypertension will continue lisinopril 20 mg daily, monitor blood pressure every shift and adjust medication as required -For hyponatremia, patient fit with a category of euvolemia with urine osmolarity more than 100, it could be SIADH, hypothyroidism or hypo- glucocorticoid. TSH was low on admission and wasn't measured prior admission, it could be because of hypothyroidism but given that in the last admission sodium was within normal level it's not at the top of the list. We'll measured sodium Q8 hours, fluid restriction 1500, will get nephro consultation, cortisol level in a.m. -For chest pain will do drop, EKG 2, first set were negative. Diet heart healthy with fluid restriction Code full DVT prophylaxis heparin subcutaneous,Alps As Ranked By This Provider Problem List: 1. Hyponatremia 2. Uncontrolled hypertension Core Measures/Miscellaneous Acute Coronary Syndrome ACS Diagnosis: No Cerebrovascular Accident CVA/TIA Diagnosis: No Congestive Heart Failure CHF Diagnosis: No VTE (View Protocol) VTE Risk Factors: Age > 40 [facility] prophylaxis d/t: No contraindications No VTE Pharm Prophylaxis d/t: No contraindications VTE Diagnosis: No VTE Type: NONE VTE Confirmed by (Test): NONE Sepsis (View Protocol) Severe Sepsis Present: No Septic Shock Septic Shock Present: No Miscellaneous Documentation Attending Case Discussed With: LYNDSAY GOFF MD Primary Care Physician: LEROY SANABRIA MD Patient sees these Specialists neuro Level of Patient Care: General Medicine LAURA CHACKO MD 08/14/16 0436: Resident Review Statement Resident Statement: examined this patient, discussed with brand marketing intern, agreed with brand marketing intern Other Findings: 70-year-old female with past medical history significant for ischemic stroke last year without any residual effects, hypertension, Parkinson's disease, anxiety, hyperlipidemia and hypothyroidism came to emergency department for chief complaint of increased blood pressure noticed at home for the last 2 days after she was discharged from the hospital after being treated for hypertensive urgency and genital herpes. In the ER, her BP was found to be 186/106, she was given 1 dose of PO labetalol with improvement of her BP to 152/85. She was discharged on by mouth lisinopril 20 mg daily and labetalol 200 mg twice a day. She endorses a generalized headache, nausea and some epigastric pressure, palpitations and diarrhea but denies shortness of breath, fever or vomiting. Labs show a sodium of 123 which is currently markedly reduced from a sodium of 135-139 last week. Serum osmolality 263, TSH 4.83, total T3 0.83, urine osmolality 205 Assessment 1. Hypertensive urgency/Uncontrolled hypertension 2. Euvolemic Hyponatremia possible SIADH vs psychogenic vs hypothyroidism vs drug induced (lisinopril can be a rare cause) vs poor intake/Tea and toast diet 3. Parkinson's disease 4. HLD 5. Anxiety Plan Admit to general medicine floor Trial of fluid restriction 1500mls Check sodium every 8 hours Nephrology consult Hold lisinopril for now Check A.M. Serum cortisol Restart her impt home medication Subcutaneous Lovenox for DVT prophylaxis Pain pathway ordered Heart healthy diet Full code LYNDSAY GOFF 08/14/16 0528: Attending MD Review Statement Attending Statement Attending MD Statement: examined this patient, discuss w/resident/PA/MARKETING PRODUCTION COORDINATOR, agreed w/resident/PA/MARKETING PRODUCTION COORDINATOR, discussed with family, reviewed EMR data (avail), reviewed images, amended to note Attending Assessment/Plan: CC: High blood pressure PMH: Ischemic stroke, left-sided weakness resolved, suspected parkinsonism, hypothyroidism, HTN, HLD, anxiety Patient was recently discharged, was admitted for hypertensive urgency, blood pressure medications were titrated at the time of discharge. (Metoprolol was discontinued, sent home on labetalol and lisinopril) Patient was checking blood pressure every day at home and was persistently high, ranging in 180s and 190s systolic, so she was worried. When her blood pressure was persistently high today in 190s, she noticed some chest tightness so she came to ER. Chest tightness resolved after coming to ER. Patient also complains of some left-sided plaque back pain. She denies any urinary symptoms, vaginal pain is improved with recent treatment with Valtrex. Patient has headache which is improved. She denies fever, patient endorses some chills, no cough, sputum production, presyncopal, palpitations. Vitals: Afebrile, pulse 70s, RR 20, blood pressure at arrival 186/106, trended down to 152/85, saturating well on room air. On exam: A O 3, cooperative, no acute distress, neck supple, JVD normal, no lymphadenopathy, mucosa moist, no focal neurological deficit, no dependent edema , no obvious skin rashes or inflammation CVS: S1-S2, RRR. RS: Clear to auscultate bilaterally. Abdomen: Soft, NT, ND, bowel sounds present. Labs: WBC 10.0, neutrophils 79%, hemoglobin 10.6, platelet 235, sodium 123, potassium 5.1, chloride 95, bicarbonate 18, BUN 17, creatinine 1.1, glucose 102, calcium 9.5, anion gap 11, AST 37, AST 28, alkaline phosphatase 102, troponin less than 0.01, albumin 3.7, TSH 4.8, serum osmolality 263, urine osmolality 205. UA positive for trace leukocyte esterase CXR: Unremarkable CT abdomen pelvis without IV contrast: 1. No evidence of an acute process. 2. Probable small bilateral renal cysts at least one of which is hyperdense. 3. Stable subcentimeter sclerotic lesion involving the left L4 pedicle likely a bone island, no other osseous lesions are identified to suggest metastatic disease. A and P 70-year-old female with a past medical history significant for ischemic stroke with no residual weakness, suspected parkinsonism with scheduled outpatient neurology appointment, hypothyroidism, hypertension and dyslipidemia was recently discharged from hospital for hypertensive urgency, her blood pressure medications were changed, was suggested to closely monitor her blood pressure at home, patient diligently had been checking blood pressure which was persistently elevated so she came to ER. She had transient chest tightness which improved, no EKG changes, troponin negative. She was found to have hyponatremia, there is an acute drop in sodium since August 08 which decreased from 137 to 123. Exact etiology is unclear at this point. Patient has low by mouth intake, denies excessive vitamin intake. She is euvolemic on examination, serum and urine osmolality in lower side, but urine osmolality more than 100. Probably SIADH, low solute intake cannot be denied. Lisinopril can rarely cause SIADH, which was a new medication added this time. At the same time patient has history of hypothyroidism, TSH is minimally elevated. Serum cortisol should be checked, her trial of fluid restriction with 1500 mL per day, and repeated sodium checks should be attempted. + Hyponatremia + Uncontrolled hypertension + Metabolic acidosis + Anemia + History of hypothyroidism + History of parkinsonism - Admit to general medicine - Strict I's and O's - Total fluid restriction to 1500 mL per day - Sodium every 8 hours - Check 8 a.m. cortisol - Nephrology consult - Continue previously prescribed antihypertensives labetalol and lisinopril, watch or abrupt lowering blood pressure - Continue on her home medications including carbidopa/levodopa, Synthroid, Protonix and Valtrex. - DVT prophylaxis with Lovenox - Adequate pain control
--- NOTE | 2016-08-14 05:09 | Admission Certification ---
Admission Certification Certification Statement - As attending physician, I certify that at the time of - admission, based on clinical presentation, severity of - symptoms, need for further diagnostic testing and - therapeutic interventions, and risk of adverse outcomes - without in-hospital treatment, in my clinical assessment, - this patient requires an acute hospital stay for a minimum - of two nights or longer. I have also considered psychsocial - factors such as support system, advanced age, financial - issues, cognitive issues, and failed out-patient treatments, - past re-admission history, safety of patient, and lack of - compliance as applicable. Specific rationale supporting this admission is: Hyponatremia
[2016-08-14 07:19] VITALS: BP 134/62
[2016-08-14 08:06] LABS: ABSOLUTE BASOPHIL COUNT 0 /CUMM (0.0-0.2); ABSOLUTE EOSINOPHIL COUNT 0.1 /CUMM (0.0-0.7); ABSOLUTE GRANULOCYTE CT 7.1 /CUMM (1.4-6.5); ABSOLUTE LYMPH COUNT 1.4 /CUMM (1.2-3.4); ABSOLUTE MONOCYTE COUNT 0.5 /CUMM (0.10-0.60); BASOPHIL % 0.3 % (0.0-2.0); EOSINOPHIL % 0.8 % (0-5); GRANULOCYTE % 78.4 % (42.2-75.2); HEMATOCRIT 30.6 % (37-47); MEAN CORPUSCULAR HGB 28.1 PG (27.0-31.0); MEAN CORPUSCULAR VOLUME 82.7 FL (81.0-99.0); MEAN PLATELET VOLUME 10.1 FL (7.4-10.4); PLATELET COUNT 207 /CUMM (130-400); RBC DISTRIBUTION WIDTH 14.5 % (11.5-14.5); WHITE BLOOD CELL COUNT 9.1 /CUMM (4.8-10.8)
--- NOTE | 2016-08-14 08:38 | Cons- Nephrology ---
General Information and HPI Consulting Request Date of Consult: 08/14/16 Requested By: LYNDSAY GOFF MD Reason for Consult: Hyponatremia Source of Information: patient, old records Exam Limitations: no limitations History of Present Illness: This 70-year-old woman originally from [facility] return to [facility] because of headache and the sense that her blood pressure was uncontrolled. She has a long history of hypertension. She is followed by a doctor in [place]. She had been on metoprolol and amlodipine but the amlodipine had been stopped prior to her last hospital stay for uncontrolled hypertension. The amlodipine have been stopped because of lower extremity edema. She also was found to have genital herpes at the time of her last admission and started on valacyclovir. She was also started on lisinopril and labetalol and discharged home. Upon her return to [facility], she was found to have a sodium of 123. She denies any nausea or vomiting. She says she's been trying to avoid salt. She has diarrhea alternating with constipation. She has not had any in the past 3 days. She was discharged from [facility] on the . She reports having an episode of hyponatremia when she was in [facility] associated with her high blood pressure. She does have a history of hypothyroidism. She is on Synthroid. There is no family history of renal disease nor is there any history of anyone requiring dialysis. Her mother had high blood pressure and her father was in the . Allergies/Medications Allergies: Coded Allergies: Sulfa (Sulfonamide Antibiotics) (RASH 08/06/16) iron (DIARRHEA 08/06/16) Home Med List: Atorvastatin Calcium 10 MG TABLET 1 TAB PO DAILY GI (Reported) Carbidopa/Levodopa (Carbidopa-Levodopa 25-100 Tab) 25 MG-100 MG TABLET 1 TAB PO TID PARKINSONS (Reported) Labetalol HCl 200 MG TABLET 1 TAB PO BID htn . Levothyroxine Sodium 88 MCG TABLET 1 TAB PO DAILY THYROID (Reported) Lidocaine (Lmx 4) 4 % CREAM..G. 1 KIMO TOP BID PRN PAIN SCALE 4-6 (MODERATE) . Lisinopril (Zestril) 20 MG TABLET 1 TAB PO DAILY BLOOD PRESSURE . Pantoprazole Sodium 40 MG TABLET.DR 1 TAB PO DAILY GI (Reported) Valacyclovir Hydrochloride (Valtrex) 500 MG TABLET 1,000 MG PO BID HERPES . Review of Systems Review of Systems Constitutional: Reports: weakness. EENTM: Reports: blurred vision (Right eye). Cardiovascular: Reports: chest pain. Denies: edema. Respiratory: Denies: hemoptysis, orthopnea, short of breath. GI: Reports: constipation, diarrhea. Denies: bloating, nausea (does report poor appetite). Genitourinary: Denies: dysuria, frequency. Musculoskeletal: Denies: back pain, muscle pain. Skin: Reports: no symptoms. Neurological/Psychological: Reports: headache. Hematologic/Endocrine: Denies: bruising, bleeding. 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 Exam & Diagnostic Data Vital Signs and I&O Vital Signs Date Time Temp Pulse Resp B/P B/P Pulse O2 O2 Flow FiO2 Mean Ox Delivery Rate 08/14 0719 97.6 80 18 134/62 98 Room Air 08/14 0350 97.9 78 18 132/30 99 Room Air 08/14 0246 96.6 78 18 163/68 97 Room Air 08/14 0118 98.2 82 16 152/85 08/14 0019 82 16 152/85 98 Room Air 08/13 2206 Room Air 08/13 2206 190/96 08/13 2134 98.2 73 20 186/106 98 Room Air Intake & Output 08/14 1600 08/14 0400 08/13 1600 08/13 0400 08/12 1600 08/12 0400 Intake Total 350 500 Output Total Balance 350 500 Intake, IV 150 500 Intake, Oral 200 Patient 120 lb Weight Weight Reported by Patient Measurement Method Physical Exam General Appearance: well developed/nourished, no apparent distress, alert, awake , anxious Head: atraumatic Eyes: Bilateral: PERRL, EOMI, pale conjunctivae. Ears, Nose, Throat: normal pharynx Neck: normal inspection, supple, trachea mid line, No JVD Respiratory: normal breath sounds, chest non-tender, no respiratory distress, lungs clear Cardiovascular: regular rate/rhythm, femoral pulses palpitated Peripheral Pulses: 4+ femoral (R), 4+ femoral (L), 4+ popliteal (R), 4+ popliteal (L), 4+ tibialis posterior (R), 4+ tibialis posterior (L), 4+ dorsalis pedis (R), 4+ dorsalis pedis (L) Gastrointestinal: normal bowel sounds, soft, non-tender, no organomegaly Back: normal inspection, no vertebral tenderness, No CVA tenderness Extremities: normal inspection, no edema Neurologic/Psych: no motor/sensory deficits, awake, alert, oriented x 3 Cranial Nerves: normal hearing, normal speech, PERRL, facial parathesias Lymphatic: No lymphadenopathy, no masses, no tenderness Results Pertinent Lab Results: Laboratory Tests 08/14 08/13 0630 2315 Chemistry Sodium Pending Potassium Pending Chloride Pending Carbon Dioxide Pending Anion Gap Pending BUN Pending Creatinine Pending BUN/Creatinine Ratio Pending Cortisol AM Sample Pending Hematology CBC w Diff NO MAN DIFF REQ WBC (4.8 - 10.8 /CUMM) 9.1 RBC (4.20 - 5.40 /CUMM) 3.70 L Hgb (12.0 - 16.0 G/DL) 10.4 L Hct (37 - 47 %) 30.6 L MCV (81.0 - 99.0 FL) 82.7 MCH (27.0 - 31.0 PG) 28.1 RDW (11.5 - 14.5 %) 14.5 Plt Count (130 - 400 /CUMM) 207 MPV (7.4 - 10.4 FL) 10.1 Gran % (42.2 - 75.2 %) 78.4 H Lymphocytes % (20.5 - 51.1 %) 15.3 L Monocytes % (1.7 - 9.3 %) 5.2 Eosinophils % (0 - 5 %) 0.8 Basophils % (0.0 - 2.0 %) 0.3 Absolute Granulocytes (1.4 - 6.5 /CUMM) 7.1 H Absolute Lymphocytes (1.2 - 3.4 /CUMM) 1.4 Absolute Monocytes (0.10 - 0.60 /CUMM) 0.5 Absolute Eosinophils (0.0 - 0.7 /CUMM) 0.1 Absolute Basophils (0.0 - 0.2 /CUMM) 0 PUBS MCHC (33.0 - 37.0 G/DL) 34.0 Urines Urinalysis LIGHT H Urine Color (YEL,AMB,STR) YEL Urine Clarity (CLEAR) CLEAR Urine pH (5.0 - 8.0) 6.0 Ur Specific [place] (1.001 - 1.035) 1.010 Urine Protein (NEG,<30 MG/DL) 30 H Urine Ketones (NEG) NEG Urine Nitrite (NEG) NEG Urine Bilirubin (NEG) NEG Urine Urobilinogen (0.1 - 1.0 EU/dl) 0.2 Ur Leukocyte Esterase (NEG) TRACE H Ur Microscopic SEDIMENT EXAMINED Urine WBC (0 - 2 /HPF) 1-3 H Ur Epithelial Cells (NONE,FEW) FEW Urine Bacteria (NEG/NONE) FEW H Urine Hemoglobin (NEG) NEG Urine Glucose (N MG/DL) NEG 08/13 08/13 08/13 2315 2234 2132 Chemistry Sodium (137 - 145 mmol/L) 123 L Potassium (3.5 - 5.1 mmol/L) 5.1 Chloride (98 - 107 mmol/L) 94 L Carbon Dioxide (22 - 30 mmol/L) 18 L Anion Gap (5 - 16) 11 BUN (7 - 17 mg/dL) 17 Creatinine (0.5 - 1.0 mg/dL) 1.1 H Estimated GFR (>60 ml/min) 49 L BUN/Creatinine Ratio (7 - 25 %) 15.5 Glucose (65 - 99 mg/dL) 102 H Serum Osmolality (285 - 295 MOSM/KG) 263 L Calcium (8.4 - 10.2 mg/dL) 9.5 Total Bilirubin (0.2 - 1.3 mg/dL) 0.4 AST (14 - 36 U/L) 37 H ALT (9 - 52 U/L) 28 Alkaline Phosphatase (<127 U/L) 102 Troponin I (< 0.11 ng/ml) < 0.01 Total Protein (6.3 - 8.2 g/dL) 6.2 L Albumin (3.5 - 5.0 g/dL) 3.7 Globulin (1.9 - 4.2 gm/dL) 2.5 Albumin/Globulin Ratio (1.1 - 2.2 %) 1.5 Free T4 (0.78 - 2.44 ng/dL) 1.63 Total T3 (0.97 - 1.69 ng/mL) 0.83 L TSH &T3 &Free T4 Intrp (0.270 - 4.20 uIU/mL) Cancelled 4.830 H Hematology CBC w Diff NO MAN DIFF REQ WBC (4.8 - 10.8 /CUMM) 10.0 RBC (4.20 - 5.40 /CUMM) 3.85 L Hgb (12.0 - 16.0 G/DL) 10.6 L Hct (37 - 47 %) 31.9 L MCV (81.0 - 99.0 FL) 82.7 MCH (27.0 - 31.0 PG) 27.6 RDW (11.5 - 14.5 %) 14.8 H Plt Count (130 - 400 /CUMM) 235 MPV (7.4 - 10.4 FL) 9.6 Gran % (42.2 - 75.2 %) 79.9 H Lymphocytes % (20.5 - 51.1 %) 13.6 L Monocytes % (1.7 - 9.3 %) 5.6 Eosinophils % (0 - 5 %) 0.7 Basophils % (0.0 - 2.0 %) 0.2 Absolute Granulocytes (1.4 - 6.5 /CUMM) 8.0 H Absolute Lymphocytes (1.2 - 3.4 /CUMM) 1.4 Absolute Monocytes (0.10 - 0.60 /CUMM) 0.6 Absolute Eosinophils (0.0 - 0.7 /CUMM) 0.1 Absolute Basophils (0.0 - 0.2 /CUMM) 0 PUBS MCHC (33.0 - 37.0 G/DL) 33.4 Urines Urine Osmolality (300 - 1000 MOSM/KG) 205 L Ur Random Creatinine (mg/dL) 44.9 Ur Random Sodium (30 - 90 mmol/L) 7 L Ur Random Potassium (mmol/L) 39.0 Fraction Sodium Excret (<1% %) 0.1 Assessment/Plan Assessment/Recommendations Assessment: 1. Hyponatremia. At first glance one may be tempted to say that this is SIADH. However, to salient observations. The first is that her urinary sodium is less than 7. The second is that her urinary osmolality is 205. Her serum osmolality was 263. I cannot elicit from her a history of poor by mouth intake. The urinary indices are more consistent with a hypovolemic hyponatremia. I would expect the urinary sodium to be higher. The metabolism of sodium in the metabolism of free water are independent but interconnected. Antidiuretic hormone or ADH governs water metabolism. The renin-angiotensin system specifically aldosterone governs sodium metabolism. The reason the urinary sodium is elevated, if you will, in SIADH is that there is nothing wrong with sodium metabolism. In people with normal renal function, excess sodium when consumed is promptly removed from the body via the urine. With SIADH, specifically an inappropriate secretion of ADH, ADH is active and does not permit the removal of excess free water. Therefore, the urinary osmole's are often higher reflecting a concentrated urine. In this woman, her urinary osmolality seem to be almost maximally dilute,specifically they are near 200. The typical range for normal urine osmolality is 200 mOsm to 1200 mOsm. Also of note, although likely of a minor degree, is that her TSH is slightly elevated at 4.8. Add to this the observation that her serum creatinine is slightly higher than it was upon discharge. She currently is receiving normal saline. Of note, a uric acid has not been done yet. 2. Hypertension 3. Hypothyroidism 4. Parkinsonism Recommendations: 1. Would continue the normal saline while awaiting this morning's results. 2. Generally, in terms of fluid restriction, would favor a titer fluid restriction of 800-1000 mL. 3. Continue with every 6 hour BMPs 4. Would add on a uric acid level to the blood work sent last night. Although not part of diagnostic criteria, it has long been observed that in cases of SIADH that the uric acid level drops because of increased uric acid clearance. If her uric acid was elevated upon presentation, in her admitting blood work, this would be more consistent with a hypovolemic hyponatremia. 5. If this is hyponatremia, it would be expected that the serum sodium would drop in the face of the administration of normal saline. The physiologic reason here would be that a person with SIADH has normal salt metabolism. Therefore, the excess sodium administered with normal saline, is promptly excreted by the kidney while the excess water is retained because of the inappropriate activity of ADH. 6. With regards to the rate of correction, this hyponatremia seems to have come on in a rather quick fashion therefore I would be less concerned about rapid correction.
--- NOTE | 2016-08-14 11:09 | PN- Att Addend ---
Attending Addendum Attending Brief Note ASSESSMENT 1. Hyponatremia 2 Uncontrolled hypertension 3 Metabolic acidosis 4. Anemia 5 History of hypothyroidism 6 History of parkinsonism PLAN - Admit to general medicine - Nephrology consulted, IVF - resume home meds - DVT prophylaxis ambulatory
[2016-08-14 14:37] VITALS: BP 128/76
--- NOTE | 2016-08-14 20:00 | NUR ---
1730 ALERT AND ORIENTED X 3. ON ROOM AIR. DENIES SHORTNESS OF BREATH. VITAL SIGNS STABLE. DENIES CHEST PAIN. + PULSES. DENIES NUMBNESS/TINGLING BRUISING NOTED TO ABD. PATIENT VOMITED ONCE. OFFICIAL GREETER AWARE. ZOFRAN GIVEN PATIENT RESTING COMFORTABLY AT THIS TIME. WILL CONTINUE TO MONITOR
--- NOTE | 2016-08-14 20:53 | Event Note ---
Event Note Event Note: BMP that was ordered at 2 PM wasn't received until 8:45 PM. Patient presented with hyponatremia of 123, on water restriction 1500, attending recommendation is to follow sodium Q8. I contacted the nurse who just had the patient, reported that is lab order is from the prior shift and will draw and send it right now. I explained to the nurse the importance of having close Na monitor every 8. the sodium was corrocted 123 to 128 and we can't correct more than 6-8 point in 24 hours otherwise patient will have brain demyelination syndrome, brain edema. While waiting for the results, will decrease water restriction from 1500 to 1000 and adjust based on the lab results.
[2016-08-14 21:52] VITALS: BP 160/78
[2016-08-15] VITALS (10 sets, daily range): BP systolic 150–198; BP diastolic 70–98
--- NOTE | 2016-08-15 05:38 | NUR ---
NURSING NOTE: MST MADI REPORTED TO RN BP 190/86 HR 67. RN RETOOK BP ON RIGHT ARM 194/80. BP ON LEFT ARM 178/80. PT DENIES CHEST PAIN. REPORTING INTERMITTENT HEADACHE 08/26. DENIES VISION CHANGES. MD ANGELES MADE AWARE. PER , ADMINISTER 10:00 AM DOSE OF 200MG LABETALOL NOW AND RECHECK BP IN 1 HOUR.
--- NOTE | 2016-08-15 06:48 | NUR ---
NURSING NOTE: PT REPEAT BP LEFT SIDE 160/80 HR 68. BP RIGHT SIDE 180/90 HR 68. MD ANGELES PAGED FOR NOTIFICATION. PT DENIES ANY CARDIAC SX.
--- NOTE | 2016-08-15 07:33 | PN- Housestaff ---
OTILIA NYE MD,JANEY 08/15/16 0733: Subjective Follow-up For: Uncontrolled hypertension Hyponatremia Anxiety Review of Systems Constitutional: Denies: chills, fever. Cardiovascular: Denies: chest pain, palpitations. Respiratory: Denies: cough, short of breath. Gastrointestinal: Denies: abdominal pain, nausea, vomiting. Musculoskeletal: Denies: back pain. Objective Last 24 Hrs of Vital Signs/I&O Vital Signs Date Time Temp Pulse Resp B/P B/P Pulse O2 O2 Flow FiO2 Mean Ox Delivery Rate 08/15 0650 68 180/90 08/15 0648 68 160/80 08/15 0607 98.2 67 20 178/80 97 Room Air 08/15 0552 67 194/80 08/15 0538 67 178/80 08/15 0535 67 194/80 08/14 2247 70 160/85 08/14 2152 98.2 63 18 160/78 95 Room Air 08/14 1437 99.1 75 19 128/76 98 08/14 1137 86 134/62 Intake & Output 08/15 1600 08/15 0800 08/15 0000 Intake Total 200 300 Output Total 150 400 Balance 50 -100 Intake, Oral 200 300 Output, Urine 150 400 Physical Exam General Appearance: Alert, Oriented X3, Cooperative Skin: No Rashes HEENT: Atraumatic Neck: Supple Cardiovascular: Regular Rate, Normal S1, Normal S2, No Murmurs Lungs: Clear to Auscultation, Normal Air Movement Abdomen: Soft, No Tenderness Neurological: Normal Speech, Normal Tone Extremities: No Cyanosis, No Edema Vascular: Normal Pulses Current Medications: Current Medications Sig/Areli Start time Last Medication Dose Route Stop Time Status Admin Acetaminophen 650 MG Q6P PRN 08/14 0230 AC 08/14 PO 0612 Aspirin 81 MG DAILY 08/15 1000 UNVr PO Atorvastatin Calcium 10 MG 1700 08/14 1700 AC 08/14 PO 1627 Carbidopa/Levodopa 1 TAB TID 08/14 1000 AC 08/14 PO 2245 Enoxaparin Sodium 40 MG DAILY 08/14 1000 AC 08/14 SC 1138 Labetalol HCl 200 MG BID 08/14 1000 AC 08/15 PO 0552 Levothyroxine Sodium 0.088 MG DAILY AC 08/14 0700 AC 08/15 PO 0552 Lidocaine 1 KIMO BID PRN 08/14 1715 AC TOP Melatonin 5 MG AT BEDTIME 08/14 0600 AC 08/14 PO 2245 Omeprazole 40 MG DAILY AC 08/14 1713 DC PO Omeprazole 40 MG DAILY 08/14 1000 AC 08/14 PO 1136 Ondansetron HCl 4 MG Q6P PRN 08/14 1700 AC 08/15 IV 0231 Patient Medication 1 ED .STK-MED ONE 08/14 1330 DC Teaching ED 08/14 1331 Valacyclovir HCl 1,000 MG BID 08/14 2200 AC PO Last 24 Hrs of Lab/Jordan Results Last 24 Hrs of Labs/Mics: Laboratory Tests 08/15/16 0718: Sodium Pending, Potassium Pending, Chloride Pending, Carbon Dioxide Pending, Anion Gap Pending, BUN Pending, Creatinine Pending, BUN/Creatinine Ratio Pending , CBC w Diff Pending, WBC Pending, RBC Pending, Hgb Pending, Hct Pending, MCV Pending, MCH Pending, RDW Pending, Plt Count Pending, MPV Pending, PUBS MCHC Pending 08/14/16 2212: Anion Gap 7, Estimated GFR 55 L, BUN/Creatinine Ratio 15.0 Lines/Diet/Fluids Lines: peripheral lines Restraints: none Assessment/Plan Assessment: 70-year-old female with past medical history significant for ischemic stroke last year without any residual effects, hypertension, Parkinson's disease, anxiety, hyperlipidemia, vaginal HSV-1 lesion and hypothyroidism came to emergency department for chief complaint of increased blood pressure and not feeling well. Vitals on admission patient afebrile, no tachypnea, no tachycardia, systolic blood pressure on admission ranging from 186-190 and diastolic blood pressure ranging from 96-106, oxygen saturation of 97-99% on room air. On admission patient was alert and oriented, cooperative not in any acute distress, no JVD, S1 and S2 audible with regular rhythm, moist oral mucosa, clear lungs, benign abdominal and neurological examination. Patient was admitted on general medicine so for the management of following problems Uncontrolled hypertension Patient's blood pressure improved from 190/96-164/70 this morning. She is a very anxious lady and checks her blood pressure 3 times a day at home. A huge component of anxiety contributing to her uncontrolled blood pressure. She is already on labetalol 200 mg twice a day and increase the dose of lisinopril from 20 mg daily to 20 mg twice a day. They keep her for another day to see if her blood pressure is controlled on this regimen. Patient might need a workup for secondary hypertension in an outpatient setting after following up with cardiology. Hyponatremia Patient's hyponatremia is most likely secondary to tea and toast phenomena. When patient went back home, her daughter told her not to take any salt because of her uncontrolled blood pressure. Even her meals were cooked without salt. Intake of water without any solute intake likely explains this hyponatremia with sodium of 123, serum osmolality of 263, urine osmolarity of 205, urine random sodium 7. Nephrology was called and patient was given 1 L of normal saline. Patient's sodium is improved from 123-128 today and she was also kept on water restriction of 1000 mL although the possibility of SIADH seems very unlikely. Patient was counseled resumed normal intake of salt. We will also repeat urine lytes to rule out the possibility of SIADH secondary to persistent nausea that she has been experiencing. HSV genital lesion Patient had a genital lesion during her last visit. She was seen by PROGRAM MANAGER and was started on Valtrex thousand milligrams twice a day. She stopped this medication as she was unable to tolerate this after 3-4 days. We restarted this medication in hospital but she never took this medication as she said it gives her heart burn. She was even given protonix but still did not want it. Patient is on pain management Patient is full code Patient is on regular diet Problem List: 1. Hyponatremia 2. Uncontrolled hypertension Pain Ratin Pain Location: NA Pain Goal: Pain 4 or less Pain Plan: Continue current pain management Tomorrow's Labs & Rationales: BEP for hyponatremia CHUCHO CLEARY 08/15/16 0949: Attending MD Review Statement Attending Statement Attending MD Statement: examined this patient, discuss w/resident/PA/PROCESS CONTROL OPERATOR, agreed w/resident/PA/PROCESS CONTROL OPERATOR, discussed with family, reviewed EMR data (avail), discussed with nursing, discussed with case mgmt, reviewed images, amended to note Attending Assessment/Plan: ASSESSMENT 1. Hyponatremia 2 Uncontrolled hypertension 3 Metabolic acidosis 4. Anemia 5 History of hypothyroidism 6 History of parkinsonism PLAN - Admit to general medicine - Nephrology following. - resume home meds. - DVT prophylaxis ambulatory.
[2016-08-15 08:04] LABS: ABSOLUTE BASOPHIL COUNT 0 /CUMM (0.0-0.2); ABSOLUTE EOSINOPHIL COUNT 0 /CUMM (0.0-0.7); ABSOLUTE GRANULOCYTE CT 5.8 /CUMM (1.4-6.5); ABSOLUTE LYMPH COUNT 1.3 /CUMM (1.2-3.4); ABSOLUTE MONOCYTE COUNT 0.5 /CUMM (0.10-0.60); BASOPHIL % 0.2 % (0.0-2.0); EOSINOPHIL % 0.6 % (0-5); GRANULOCYTE % 75.7 % (42.2-75.2); HEMATOCRIT 29.4 % (37-47); MEAN CORPUSCULAR HGB CONC 33.8 G/DL (33.0-37.0); MEAN CORPUSCULAR VOLUME 82.9 FL (81.0-99.0); MEAN PLATELET VOLUME 9.9 FL (7.4-10.4); PLATELET COUNT 203 /CUMM (130-400); RBC DISTRIBUTION WIDTH 14.6 % (11.5-14.5); RED BLOOD CELL CT 3.54 /CUMM (4.20-5.40); WHITE BLOOD CELL COUNT 7.7 /CUMM (4.8-10.8)
[2016-08-15] MEDS ORDERED: ASPIRIN81 M4 PO (08:19)
--- NOTE | 2016-08-15 11:13 | NUR ---
Diet changed to regular with 1000mL fluid restriction given food preferences and dietary limitations.
--- NOTE | 2016-08-15 12:15 | NUR ---
NSG NOTE: PATIENT BLOOD PRESSURE RIGHT ARM 186/88, BP LEFT ARM 188/90; LISINOPRIL ORDERED BY ; ISMA #[id number] TEXT PAGED TO MAKE AWARE; WILL RECHECK IN 1 HOUR; WILL CONT TO MONITOR
--- NOTE | 2016-08-15 13:48 | PN- Nephrology ---
Assessment/Plan Assessment: 1. Hyponatremia. She received 1 L of normal saline. Her creatinine came down to 1.0 area this is likely not a significant change. More importantly, her sodium went from 123-129 where it is today. As noted yesterday, this does not seem to be consistent with SIADH. The appearance of her nausea however raises the concern that if she was not SIADH yesterday is it possible that her nausea could trigger SIADH? 2. Hypertension. See above with her amlodipine and benazepril dose. She is on labetalol. Her lisinopril was just increased to 20 mg twice a day. It may be advisable to think about another dihydropyridine calcium channel brenna. The other observation is that her previous dose of clonazepam and amlodipine for fairly steep. 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 It may be worthwhile to explore another dihydropyridine calcium channel brenna. At this point I would avoid using a thiazide type diuretic. 3. Hypothyroidism 4. Parkinsonism Suggestion: 1. Obtain repeat urine lytes 2. Obtain repeat urine osmole's 3. After these are obtained begin normal saline at 50 mL an hour. Subjective Subjective: Patient still complaining of some nausea. Her by mouth intake remains poor because of nausea. Looking at her medication list from prior to her first hospital stay, she was on the combination of amlodipine 10 mg with benazepril 40 mg. Discussed the fact that is the 10 mg amlodipine likely caused the swelling. Objective Vital Signs and I&Os Vital Signs Date Time Temp Pulse Resp B/P B/P Pulse O2 O2 Flow FiO2 Mean Ox Delivery Rate 08/15 1202 62 186/88 08/15 0800 Room Air 08/15 0650 68 180/90 08/15 0648 68 160/80 08/15 0607 98.2 67 20 178/80 97 Room Air 08/15 0552 67 194/80 08/15 0538 67 178/80 08/15 0535 67 194/80 08/14 2247 70 160/85 08/14 2152 98.2 63 18 160/78 95 Room Air 08/14 1437 99.1 75 19 128/76 98 Intake & Output 08/15 1600 08/15 0400 08/14 1600 08/14 0400 08/13 1600 08/13 0400 Intake Total 318 972 3022 500 Output Total 150 400 Balance 50 -100 1245 500 Intake, IV 525 500 Intake, Oral 200 300 720 Number 1 Bowel Movements Output, Urine 150 400 Patient 120 lb Weight Weight Reported by Patient Measurement Method Physical Exam: General Appearance: well developed/nourished, no apparent distress, alert, awake , anxious Head: atraumatic, normocephalic Eyes: Bilateral: PERRL, EOMI, pale conjunctivae. Neck: normal inspection, supple, trachea mid line, No JVD Respiratory: normal breath sounds, chest non-tender, no respiratory distress, lungs clear Cardiovascular: regular rate/rhythm, femoral pulses palpitated Gastrointestinal: normal bowel sounds, soft, non-tender, no organomegaly Back: normal inspection, no vertebral tenderness, No CVA tenderness Extremities: normal inspection, no edema Neurologic/Psych: no motor/sensory deficits, awake, alert, oriented x 3 Lymphatic: No lymphadenopathy, no masses, no tenderness Current Medications: Current Medications Sig/Areli Start time Last Medication Dose Route Stop Time Status Admin Acetaminophen 650 MG Q6P PRN 08/14 0230 AC 08/14 PO 0612 Aspirin 81 MG DAILY 08/15 1000 AC 08/15 PO 0917 Atorvastatin Calcium 10 MG 1700 08/14 1700 AC 08/14 PO 1627 Carbidopa/Levodopa 1 TAB TID 08/14 1000 AC 08/15 PO 0914 Enoxaparin Sodium 40 MG DAILY 08/14 1000 DC 08/14 SC 1138 Labetalol HCl 200 MG BID 08/14 1000 AC 08/15 PO 0552 Levothyroxine Sodium 0.088 MG DAILY AC 08/14 0700 AC 08/15 PO 0552 Lidocaine 1 KIMO BID PRN 08/14 1715 AC TOP Lisinopril 20 MG BID 08/15 1000 AC 08/15 PO 1202 Melatonin 5 MG AT BEDTIME 08/14 0600 AC 08/14 PO 2245 Omeprazole 40 MG DAILY AC 08/14 1713 DC PO Omeprazole 40 MG DAILY 08/14 1000 AC 08/15 PO 0914 Ondansetron HCl 4 MG Q6P PRN 08/14 1700 AC 08/15 IV 1202 Valacyclovir HCl 1,000 MG BID 08/14 2200 AC PO Results Pertinent Lab Results: Laboratory Tests 08/15 08/14 0718 2212 Chemistry Sodium (137 - 145 mmol/L) 129 L 128 L Potassium (3.5 - 5.1 mmol/L) 4.7 4.7 Chloride (98 - 107 mmol/L) 100 99 Carbon Dioxide (22 - 30 mmol/L) 23 22 Anion Gap (5 - 16) 6 7 BUN (7 - 17 mg/dL) 13 15 Creatinine (0.5 - 1.0 mg/dL) 1.0 1.0 Estimated GFR (>60 ml/min) 55 L 55 L BUN/Creatinine Ratio (7 - 25 %) 13.0 15.0 Hematology CBC w Diff NO MAN DIFF REQ WBC (4.8 - 10.8 /CUMM) 7.7 RBC (4.20 - 5.40 /CUMM) 3.54 L Hgb (12.0 - 16.0 G/DL) 9.9 L Hct (37 - 47 %) 29.4 L MCV (81.0 - 99.0 FL) 82.9 MCH (27.0 - 31.0 PG) 28.0 RDW (11.5 - 14.5 %) 14.6 H Plt Count (130 - 400 /CUMM) 203 MPV (7.4 - 10.4 FL) 9.9 Gran % (42.2 - 75.2 %) 75.7 H Lymphocytes % (20.5 - 51.1 %) 17.0 L Monocytes % (1.7 - 9.3 %) 6.5 Eosinophils % (0 - 5 %) 0.6 Basophils % (0.0 - 2.0 %) 0.2 Absolute Granulocytes (1.4 - 6.5 /CUMM) 5.8 Absolute Lymphocytes (1.2 - 3.4 /CUMM) 1.3 Absolute Monocytes (0.10 - 0.60 /CUMM) 0.5 Absolute Eosinophils (0.0 - 0.7 /CUMM) 0 Absolute Basophils (0.0 - 0.2 /CUMM) 0 PUBS MCHC (33.0 - 37.0 G/DL) 33.8 08/14 08/13 0630 2315 Chemistry Sodium (137 - 145 mmol/L) 128 L Potassium (3.5 - 5.1 mmol/L) 4.3 Chloride (98 - 107 mmol/L) 98 Carbon Dioxide (22 - 30 mmol/L) 21 L Anion Gap (5 - 16) 9 BUN (7 - 17 mg/dL) 16 Creatinine (0.5 - 1.0 mg/dL) 1.0 Estimated GFR (>60 ml/min) 55 L BUN/Creatinine Ratio (7 - 25 %) 16.0 Cortisol AM Sample (4.46 - 22.7 ug/dL) 13.7 Hematology CBC w Diff NO MAN DIFF REQ WBC (4.8 - 10.8 /CUMM) 9.1 RBC (4.20 - 5.40 /CUMM) 3.70 L Hgb (12.0 - 16.0 G/DL) 10.4 L Hct (37 - 47 %) 30.6 L MCV (81.0 - 99.0 FL) 82.7 MCH (27.0 - 31.0 PG) 28.1 RDW (11.5 - 14.5 %) 14.5 Plt Count (130 - 400 /CUMM) 207 MPV (7.4 - 10.4 FL) 10.1 Gran % (42.2 - 75.2 %) 78.4 H Lymphocytes % (20.5 - 51.1 %) 15.3 L Monocytes % (1.7 - 9.3 %) 5.2 Eosinophils % (0 - 5 %) 0.8 Basophils % (0.0 - 2.0 %) 0.3 Absolute Granulocytes (1.4 - 6.5 /CUMM) 7.1 H Absolute Lymphocytes (1.2 - 3.4 /CUMM) 1.4 Absolute Monocytes (0.10 - 0.60 /CUMM) 0.5 Absolute Eosinophils (0.0 - 0.7 /CUMM) 0.1 Absolute Basophils (0.0 - 0.2 /CUMM) 0 PUBS MCHC (33.0 - 37.0 G/DL) 34.0 Urines Urinalysis LIGHT H Urine Color (YEL,AMB,STR) YEL Urine Clarity (CLEAR) CLEAR Urine pH (5.0 - 8.0) 6.0 Ur Specific [place] (1.001 - 1.035) 1.010 Urine Protein (NEG,<30 MG/DL) 30 H Urine Ketones (NEG) NEG Urine Nitrite (NEG) NEG Urine Bilirubin (NEG) NEG Urine Urobilinogen (0.1 - 1.0 EU/dl) 0.2 Ur Leukocyte Esterase (NEG) TRACE H Ur Microscopic SEDIMENT EXAMINED Urine WBC (0 - 2 /HPF) 1-3 H Ur Epithelial Cells (NONE,FEW) FEW Urine Bacteria (NEG/NONE) FEW H Urine Hemoglobin (NEG) NEG Urine Glucose (N MG/DL) NEG 08/13 08/13 08/13 2315 2234 2132 Chemistry Sodium (137 - 145 mmol/L) 123 L Potassium (3.5 - 5.1 mmol/L) 5.1 Chloride (98 - 107 mmol/L) 94 L Carbon Dioxide (22 - 30 mmol/L) 18 L Anion Gap (5 - 16) 11 BUN (7 - 17 mg/dL) 17 Creatinine (0.5 - 1.0 mg/dL) 1.1 H Estimated GFR (>60 ml/min) 49 L BUN/Creatinine Ratio (7 - 25 %) 15.5 Glucose (65 - 99 mg/dL) 102 H Serum Osmolality (285 - 295 MOSM/KG) 263 L Calcium (8.4 - 10.2 mg/dL) 9.5 Total Bilirubin (0.2 - 1.3 mg/dL) 0.4 AST (14 - 36 U/L) 37 H ALT (9 - 52 U/L) 28 Alkaline Phosphatase (<127 U/L) 102 Troponin I (< 0.11 ng/ml) < 0.01 Total Protein (6.3 - 8.2 g/dL) 6.2 L Albumin (3.5 - 5.0 g/dL) 3.7 Globulin (1.9 - 4.2 gm/dL) 2.5 Albumin/Globulin Ratio (1.1 - 2.2 %) 1.5 Free T4 (0.78 - 2.44 ng/dL) 1.63 Total T3 (0.97 - 1.69 ng/mL) 0.83 L TSH &T3 &Free T4 Intrp (0.270 - 4.20 uIU/mL) Cancelled 4.830 H Hematology CBC w Diff NO MAN DIFF REQ WBC (4.8 - 10.8 /CUMM) 10.0 RBC (4.20 - 5.40 /CUMM) 3.85 L Hgb (12.0 - 16.0 G/DL) 10.6 L Hct (37 - 47 %) 31.9 L MCV (81.0 - 99.0 FL) 82.7 MCH (27.0 - 31.0 PG) 27.6 RDW (11.5 - 14.5 %) 14.8 H Plt Count (130 - 400 /CUMM) 235 MPV (7.4 - 10.4 FL) 9.6 Gran % (42.2 - 75.2 %) 79.9 H Lymphocytes % (20.5 - 51.1 %) 13.6 L Monocytes % (1.7 - 9.3 %) 5.6 Eosinophils % (0 - 5 %) 0.7 Basophils % (0.0 - 2.0 %) 0.2 Absolute Granulocytes (1.4 - 6.5 /CUMM) 8.0 H Absolute Lymphocytes (1.2 - 3.4 /CUMM) 1.4 Absolute Monocytes (0.10 - 0.60 /CUMM) 0.6 Absolute Eosinophils (0.0 - 0.7 /CUMM) 0.1 Absolute Basophils (0.0 - 0.2 /CUMM) 0 PUBS MCHC (33.0 - 37.0 G/DL) 33.4 Urines Urine Osmolality (300 - 1000 MOSM/KG) 205 L Ur Random Creatinine (mg/dL) 44.9 Ur Random Sodium (30 - 90 mmol/L) 7 L Ur Random Potassium (mmol/L) 39.0 Fraction Sodium Excret (<1% %) 0.1
--- NOTE | 2016-08-15 15:27 | Discharge Summary ---
Visit Information Visit Dates Admission Date: 08/14/16 Hospital Course Course Attending Physician: LYNDSAY GOFF MD Primary Care Physician: LEROY SANABRIA MD Consulting Request: Consulting Specialty: Nephrology Hospital Course: 70-year-old female with past medical history significant for ischemic stroke last year without any residual effects, hypertension, Parkinson's disease, anxiety, hyperlipidemia, vaginal HSV-1 lesion and hypothyroidism came to emergency department for chief complaint of increased blood pressure and not feeling well. Vitals on admission patient afebrile, no tachypnea, no tachycardia, systolic blood pressure on admission ranging from 186-190 and diastolic blood pressure ranging from 96-106, oxygen saturation of 97-99% on room air. On admission patient was alert and oriented, cooperative not in any acute distress, no JVD, S1 and S2 audible with regular rhythm, moist oral mucosa, clear lungs, benign abdominal and neurological examination. Patient was admitted on general medicine so for the management of following problems Uncontrolled hypertension Patient's blood pressure improved from 190/96-164/70 this morning. She is a very anxious lady and checks her blood pressure 3 times a day at home. A huge component of anxiety contributing to her uncontrolled blood pressure. She is already on labetalol 200 mg twice a day and increase the dose of lisinopril from 20 mg daily to 20 mg twice a day. They keep her for another day to see if her blood pressure is controlled on this regimen. Patient might need a workup for secondary hypertension in an outpatient setting after following up with cardiology. Hyponatremia Patient's hyponatremia was most likely secondary to tea and toast phenomena. When patient went back home, her daughter told her not to take any salt because of her uncontrolled blood pressure. Even her meals were cooked without salt. Intake of water without any solute intake likely explained this hyponatremia with sodium of 123, serum osmolality of 263, urine osmolarity of 205, urine random sodium 7. Nephrology was called and patient was given 1 L of normal saline. Patient's sodium improved from 123-128 today and she was also kept on water restriction of 1000 mL although the possibility of SIADH seemed very unlikely. Patient was counseled resumed normal intake of salt. We will also repeat urine lytes to rule out the possibility of SIADH secondary to persistent nausea that she has been experiencing. HSV genital lesion Patient had a genital lesion during her last visit. She was seen by HEALTH FACILITIES SURVEYOR and was started on Valtrex thousand milligrams twice a day. She stopped this medication as she was unable to tolerate this after 3-4 days. We restarted this medication in hospital but she never took this medication as she said it gives her heart burn. She was even given protonix but still did not want it. Patient is on pain management Patient is full code Patient is on regular diet Allergies: Coded Allergies: Sulfa (Sulfonamide Antibiotics) (RASH 08/06/16) iron (DIARRHEA 08/06/16) Disposition Summary Disposition Principal Diagnosis: Uncontrolled hypertension Hyponatremia HSV genital lesion Additional Diagnosis: History of hypertension History of hyperlipidemia History of Parkinson disease History of ischemic stroke Discharge Disposition: home or self care Discharge Instructions General Discharge Information Code Status: Full Code Patient's Diet: Heart healthy diet Patient's Activity: As tolerated Follow-Up Instructions/Appts: Follow-up with primary care doctor in a week after discharge. Follow-up with HEALTH FACILITIES SURVEYOR in a week after discharge Follow-up with ground crew lines person Dr. Meeks in a week after discharge
--- NOTE | 2016-08-15 16:02 | Patient Discharge Instructions ---
Discharge Instructions General Discharge Information You were seen/treated for: Uncontrolled hypertension Hyponatremia Anxiety Special Instructions: Follow-up with primary care doctor in a week after discharge. Follow-up with clinical data management director in a week after discharge. Please resume normal intake of salt. Follow-up BEP in a week after discharge Diet Continue normal diet: Yes Recommended Diet: Heart Healthy Activity Full Activity/No Limits: Yes Acute Coronary Syndrome Inclusion Criteria At DC or during hospital stay patient has or had the following: ACS DIAGNOSIS No Discharge Core Measures Meds if any: Prescribed or Continued at Discharge Meds if any: NOT Prescribed or Continued at Discharge Congestive Heart Failure Inclusion Criteria At DC or during hospital stay patient has or had the following: CHF DIAGNOSIS No Discharge Core Measures Meds if any: Prescribed or Continued at Discharge Meds if any: NOT Prescribed or Continued at Discharge Cerebrovascular accident Inclusion Criteria At DC or during hospital stay patient has or had the following: CVA/TIA Diagnosis No Discharge Core Measures Meds if any: Prescribed or Continued at Discharge Meds if any: NOT Prescribed or Continued at Discharge Venous thromboembolism Inclusion Criteria VTE Diagnosis No VTE Type NONE VTE Confirmed by (Test) NONE Discharge Core Measures - Per Current guidelines, there needs to be overlap - treatment for the first 5 days of Warfarin therapy. - If discharged on Warfarin prior to 5 days of - overlap therapy, the patient will need to be - assessed for post discharge needs including - *Post discharge parental anticoagulation - *Warfarin and/or parental anticoagulation education - *Follow up date to check INR post discharge At least 5 days overlap therapy as Inpatient No Meds if any: Prescribed or Continued at Discharge Note: Overlap Therapy is Warfarin and Anticoagulant Meds if any: NOT Prescribed or Continued at Discharge
--- NOTE | 2016-08-15 18:37 | NUR ---
NSG NOTE: PATIENT BP REMAINS ELEVATED DESPITE ISAIAS MEDICATIONS; MD ORDERED IVF NS @ 50 ML/HR; LAST BP AT 1800 170/80; HANEDUARDO #[id number] TEXT-PAGED TO MAKE AWARE; WILL CONT TO MONITOR
--- NOTE | 2016-08-15 19:30 | NUR ---
NSG NOTE : APPROX 1929 PATIENT ASKED MST TO TAKE HER BP; BP 188/92; MST GOT THIS RN AND RN RECHECKED AND GOT 200/100 TO LT ARM; OUTPATIENT DIETITIAN HITESH#096 CALLED TO THE BEDSIDE; INSTRUCTED TO GIVE LABETOLOL EARLY, LABETOLOL GIVEN AT THIS TIME (SEE EMAR); PATIENT STATES SHE IS HAVING VISION CHANGES, BLURRED VISION TO THE RT EYE; HITESH STATED TO RECHECK BP IN 30 MIN AND MONITOR CLOSELY; COMMANDING OFFICER MOTORIZED SQUAD RN TO CONT TO MONITOR
--- NOTE | 2016-08-15 21:02 | NUR ---
BP IS NOW 160/90, MD IN TO SEE PATIENT. PT HAS HAD HEADACHE SYMPTOMS AND VISION PROBLEMS ALL DAY PER MD. STRONG HAND GRASP, NO DRIFT, SPEACH CLEAR. DR. ANGELES IN TO SEE PATIENT.
[2016-08-16 06:16] VITALS: BP 180/90
[2016-08-16 07:00] VITALS: BP 160/80
--- NOTE | 2016-08-16 08:02 | PN- Housestaff ---
OTILIA NYE MD,JANEY 08/16/16 0801: Subjective Follow-up For: Uncontrolled hypertension Hyponatremia Anxiety Subjective: Patient was unable to sleep overnight. She felt very anxious overnight. According to the nursing staff patient and her relatives of them to check her blood pressure again and again Review of Systems Constitutional: Denies: chills, fever. EENTM: Denies: visual changes. Cardiovascular: Denies: chest pain, palpitations. Respiratory: Denies: cough, short of breath. Gastrointestinal: Denies: abdominal pain, nausea, vomiting. Musculoskeletal: Denies: back pain. Neurological/Psychological: Reports: anxiety. Objective Last 24 Hrs of Vital Signs/I&O Vital Signs Date Time Temp Pulse Resp B/P B/P Pulse O2 O2 Flow FiO2 Mean Ox Delivery Rate 08/16 0700 74 160/80 08/16 0616 98.1 72 18 180/90 96 Room Air 08/16 0557 72 180/90 08/15 2323 98.3 76 18 150/74 96 Room Air 08/15 2155 64 160/92 08/15 2102 160/92 08/15 2010 64 198/98 08/15 1927 198/100 08/15 1837 170/80 08/15 1600 Room Air 08/15 1418 98.2 76 20 164/70 98 Room Air 08/15 1202 62 186/88 Intake & Output 08/16 1600 08/16 0800 08/16 0000 Intake Total 100 150 Output Total 200 600 Balance -100 -450 Intake, IV 150 Intake, Oral 100 Output, Urine 200 600 Physical Exam General Appearance: Alert, Oriented X3, Cooperative, No Acute Distress Skin: No Rashes HEENT: Atraumatic Cardiovascular: Regular Rate, Normal S1, Normal S2 Lungs: Clear to Auscultation, Normal Air Movement Abdomen: Normal Bowel Sounds, Soft, No Tenderness Neurological: Normal Speech, Normal Tone, Sensation Intact Extremities: No Edema Vascular: Normal Pulses Current Medications: Current Medications Sig/Areli Start time Last Medication Dose Route Stop Time Status Admin Acetaminophen 650 MG Q6P PRN 08/14 0230 AC 08/14 PO 0612 Aspirin 81 MG DAILY 08/15 1000 AC 08/15 PO 0917 Atorvastatin Calcium 10 MG 1700 08/14 1700 AC 08/15 PO 1617 Carbidopa/Levodopa 1 TAB TID 08/14 1000 AC 08/15 PO 2155 Enoxaparin Sodium 40 MG DAILY 08/14 1000 DC 08/14 SC 1138 Labetalol HCl 200 MG BID 08/14 1000 AC 08/16 PO 0557 Levothyroxine Sodium 0.088 MG DAILY AC 08/14 0700 AC 08/16 PO 0557 Lidocaine 1 KIMO BID PRN 08/14 1715 AC TOP Lisinopril 20 MG BID 08/15 1000 AC 08/15 PO 2155 Melatonin 5 MG AT BEDTIME 08/14 0600 AC 08/15 PO 2155 Omeprazole 40 MG DAILY 08/14 1000 AC 08/15 PO 0914 Ondansetron HCl 4 MG Q6P PRN 08/14 1700 AC 08/15 IV 1202 Sodium Chloride 1,000 ML Q20H 08/15 1545 DC 08/15 IV 08/16 1144 1617 Valacyclovir HCl 1,000 MG BID 08/14 2200 AC PO Last 24 Hrs of Lab/Jordan Results Last 24 Hrs of Labs/Mics: Laboratory Tests 08/15/16 1515: Urine Osmolality 358, Ur Random Creatinine 78.5, Ur Random Sodium 33, Ur Random Potassium 45.6, Fraction Sodium Excret 0.3 Lines/Diet/Fluids Lines: peripheral lines Restraints: none Assessment/Plan Assessment: 70-year-old female with past medical history significant for ischemic stroke last year without any residual effects, hypertension, Parkinson's disease, anxiety, hyperlipidemia, vaginal HSV-1 lesion and hypothyroidism came to emergency department for chief complaint of increased blood pressure and not feeling well. Vitals on admission patient afebrile, no tachypnea, no tachycardia, systolic blood pressure on admission ranging from 186-190 and diastolic blood pressure ranging from 96-106, oxygen saturation of 97-99% on room air. On admission patient was alert and oriented, cooperative not in any acute distress, no JVD, S1 and S2 audible with regular rhythm, moist oral mucosa, clear lungs, benign abdominal and neurological examination. Patient was admitted on general medicine so for the management of following problems Uncontrolled hypertension Patient's blood pressure improved from 190/96-164/70 this morning. She is a very anxious lady and checks her blood pressure 3 times a day at home. A huge component of anxiety contributing to her uncontrolled blood pressure. She is already on labetalol 200 mg twice a day and increase the dose of lisinopril from 20 mg daily to 20 mg twice a day. Patient's blood pressure was in 150s to 160s systolic after increasing the dose of lisinopril 20 mg twice a day but overnight and later on patient's relatives and patient kept asking the nurses to check her blood pressure and also she was very anxious. She was unable to sleep one night and her blood pressure increased from 150s to 160s systolic to 180s and diastolic in 90s in the morning before medication. Patient might need a workup for secondary hypertension in an outpatient setting after following up with cardiology. Hyponatremia Patient's hyponatremia is most likely secondary to tea and toast phenomena. When patient went back home, her daughter told her not to take any salt because of her uncontrolled blood pressure. Even her meals were cooked without salt. Intake of water without any solute intake likely explains this hyponatremia with sodium of 123, serum osmolality of 263, urine osmolarity of 205, urine random sodium 7. Nephrology was called and patient was given 1 L of normal saline. Patient's sodium is improved from 123-128 today and she was also kept on water restriction of 1000 mL although the possibility of SIADH seems very unlikely. Patient was counseled resumed normal intake of salt. We repeated urine lytes to rule out the possibility of SIADH secondary to persistent nausea that she has been experiencing. Current urine lites shows urine osmolality of 358, urinary sodium of 33 infection excretion of 0.3, essentially ruling out the possibility of SIADH from nausea. HSV genital lesion Patient had a genital lesion during her last visit. She was seen by FINANCIAL AID ADMINISTRATOR and was started on Valtrex thousand milligrams twice a day. She stopped this medication as she was unable to tolerate this after 3-4 days. We restarted this medication in hospital but she never took this medication as she said it gives her heart burn. She was even given protonix but still did not want it. Patient is on pain management Patient is full code Patient is on regular diet Problem List: 1. Hypertensive urgency 2. Hyponatremia 3. Anxiety Pain Ratin Pain Location: NA Pain Goal: Pain 4 or less Pain Plan: Continue current pain management Tomorrow's Labs & Rationales: Not needed as patient might be discharged Consulting Request: Consulting Specialty: Nephrology CHUCHO CLEARY 08/16/16 0927: Attending MD Review Statement Attending Statement Attending MD Statement: examined this patient, discuss w/resident/PA/BUCKLE SEWER, agreed w/resident/PA/BUCKLE SEWER, discussed with family, reviewed EMR data (avail), discussed with nursing, discussed with case mgmt, reviewed images, amended to note Attending Assessment/Plan: ASSESSMENT 1. Hyponatremia 2 Uncontrolled hypertension 3 Metabolic acidosis 4. Anemia 5 History of hypothyroidism 6 History of parkinsonism PLAN - Admit to general medicine - increased lisinopril 20mg bid. resume home meds. - advise to take Na in appropriate amounts. - DVT prophylaxis ambulatory
--- NOTE | 2016-08-16 13:17 | PN- Nephrology ---
Assessment/Plan Assessment: 1. Hyponatremia. Serum sodium is 133 today 2. Hypertension. As noted yesterday, in a patient with a tendency to hyponatremia in this case in a patient with preps poor food intake, using a thiazide may be fraught with perhaps the tendency to develop hyponatremia with that sort of medication. Given the fact that she has a history of anxiety, and that she has been reluctant to accept [place] for that anxiety, a better choice or addition may be clonidine at a dose of 0.1 mg twice a day. This may address her blood pressure as well as perhaps give some anxiolytic properties. 3. Hypothyroidism 4. Parkinsonism 5. HSV 1 infection. Apparently she was not taking Valtrex at home. She does not need it and would not prescribe it. Suggestion: Suggest clonidine 0.1 mg by mouth twice a day. 2. Would favor dispensing with the hydrochlorothiazide for reasons as mentioned above however it may be reasonable to watch her on this medication. Subjective Subjective: Patient was resting when I entered the room. Dr Salvador Tabares's note was read and appreciated prior to my entering the room area it is concerning that the patient and her family are obsessed with the blood pressure. This may be understandable given her history of stroke. However, I would be concerned that this is adding to the difficulty of controlling her blood pressure. Her recent set of urinary lites would raise the issue about SIADH, however, this is a urinary sodium obtained after a normal saline infusion. That clouds the issue. Objective Vital Signs and I&Os Vital Signs Date Time Temp Pulse Resp B/P B/P Pulse O2 O2 Flow FiO2 Mean Ox Delivery Rate 08/16 0821 180/80 08/16 0700 74 160/80 08/16 0616 98.1 72 18 180/90 96 Room Air 08/16 0557 72 180/90 08/15 2323 98.3 76 18 150/74 96 Room Air 08/15 2155 64 160/92 08/15 210 160/92 08/15 2010 64 198/98 08/15 1927 198/100 08/15 1837 170/80 08/15 1600 Room Air 08/15 1418 98.2 76 20 164/70 98 Room Air Intake & Output 08/16 1600 08/16 0400 08/15 0400 08/14 1600 08/14 0400 Intake Total 218 484 5236 300 1245 500 Output Total 200 600 550 400 Balance -100 -450 450 -100 1245 500 Intake, IV 150 200 525 500 Intake, Oral 100 800 300 720 Number 0 1 Bowel Movements Output, Urine 200 600 550 400 Patient 120 lb Weight Weight Reported by Patient Measurement Method Physical Exam: General Appearance: well developed/nourished, no apparent distress, alert, awake , anxious Head: atraumatic, normocephalic Eyes: Bilateral: PERRL, EOMI, pale conjunctivae. Neck: normal inspection, supple, trachea mid line, No JVD Respiratory: normal breath sounds, chest non-tender, no respiratory distress, lungs clear Cardiovascular: regular rate/rhythm, femoral pulses palpitated Gastrointestinal: normal bowel sounds, soft, non-tender, no organomegaly Back: normal inspection, no vertebral tenderness, No CVA tenderness Extremities: normal inspection, no edema Neurologic/Psych: no motor/sensory deficits, awake, alert, oriented x 3 Lymphatic: No lymphadenopathy, no masses, no tenderness Current Medications: Current Medications Sig/Areli Start time Last Medication Dose Route Stop Time Status Admin Acetaminophen 650 MG Q6P PRN 08/14 0230 AC 08/14 PO 0612 Aspirin 81 MG DAILY 08/15 1000 AC 08/16 PO 0820 Atorvastatin Calcium 10 MG 1700 08/14 1700 AC 08/15 PO 1617 Carbidopa/Levodopa 1 TAB TID 08/14 1000 AC 08/16 PO 0820 Hydrochlorothiazide 25 MG DAILY 08/16 1007 AC 08/16 PO 1241 Labetalol HCl 200 MG BID 08/14 1000 AC 08/16 PO 0557 Levothyroxine Sodium 0.088 MG DAILY AC 08/14 0700 AC 08/16 PO 0557 Lidocaine 1 KIMO BID PRN 08/14 1715 AC TOP Lisinopril 20 MG BID 08/15 1000 AC 08/16 PO 0821 Lorazepam 0.5 MG QPM PRN 08/16 1000 AC PO 08/23 0959 Melatonin 5 MG AT BEDTIME 08/14 0600 AC 08/15 PO 2155 Omeprazole 40 MG DAILY 08/14 1000 AC 08/16 PO 0820 Ondansetron HCl 4 MG Q6P PRN 08/14 1700 AC 08/15 IV 1202 Sodium Chloride 1,000 ML Q20H 08/15 1545 DC 08/15 IV 08/16 1144 1617 Valacyclovir HCl 1,000 MG BID 08/14 2200 AC PO Results Pertinent Lab Results: Laboratory Tests 08/16 08/15 08/15 08/14 0844 1515 0718 2212 Chemistry Sodium (137 - 145 mmol/L) 133 L 129 L 128 L Potassium (3.5 - 5.1 mmol/L) 4.0 4.7 4.7 Chloride (98 - 107 mmol/L) 101 100 99 Carbon Dioxide (22 - 30 mmol/L) 21 L 23 22 Anion Gap (5 - 16) 11 6 7 BUN (7 - 17 mg/dL) 12 13 15 Creatinine (0.5 - 1.0 mg/dL) 1.0 1.0 1.0 Estimated GFR (>60 ml/min) 55 L 55 L 55 L BUN/Creatinine Ratio (7 - 25 %) 12.0 13.0 15.0 Uric Acid (2.5 - 6.2 mg/dL) 6.0 Hematology CBC w Diff NO MAN DIFF REQ WBC (4.8 - 10.8 /CUMM) 7.7 RBC (4.20 - 5.40 /CUMM) 3.54 L Hgb (12.0 - 16.0 G/DL) 9.9 L Hct (37 - 47 %) 29.4 L MCV (81.0 - 99.0 FL) 82.9 MCH (27.0 - 31.0 PG) 28.0 RDW (11.5 - 14.5 %) 14.6 H Plt Count (130 - 400 /CUMM) 203 MPV (7.4 - 10.4 FL) 9.9 Gran % (42.2 - 75.2 %) 75.7 H Lymphocytes % (20.5 - 51.1 %) 17.0 L Monocytes % (1.7 - 9.3 %) 6.5 Eosinophils % (0 - 5 %) 0.6 Basophils % (0.0 - 2.0 %) 0.2 Absolute Granulocytes (1.4 - 6.5 /CUMM) 5.8 Absolute Lymphocytes (1.2 - 3.4 /CUMM) 1.3 Absolute Monocytes (0.10 - 0.60 /CUMM) 0.5 Absolute Eosinophils (0.0 - 0.7 /CUMM) 0 Absolute Basophils (0.0 - 0.2 /CUMM) 0 PUBS MCHC (33.0 - 37.0 G/DL) 33.8 Urines Urine Osmolality (300 - 1000 MOSM/KG) 358 Ur Random Creatinine (mg/dL) 78.5 Ur Random Sodium (30 - 90 mmol/L) 33 Ur Random Potassium (mmol/L) 45.6 Fraction Sodium Excret (<1% %) 0.3 08/14 08/13 0630 2315 Chemistry Sodium (137 - 145 mmol/L) 128 L Potassium (3.5 - 5.1 mmol/L) 4.3 Chloride (98 - 107 mmol/L) 98 Carbon Dioxide (22 - 30 mmol/L) 21 L Anion Gap (5 - 16) 9 BUN (7 - 17 mg/dL) 16 Creatinine (0.5 - 1.0 mg/dL) 1.0 Estimated GFR (>60 ml/min) 55 L BUN/Creatinine Ratio (7 - 25 %) 16.0 Cortisol AM Sample (4.46 - 22.7 ug/dL) 13.7 Hematology CBC w Diff NO MAN DIFF REQ WBC (4.8 - 10.8 /CUMM) 9.1 RBC (4.20 - 5.40 /CUMM) 3.70 L Hgb (12.0 - 16.0 G/DL) 10.4 L Hct (37 - 47 %) 30.6 L MCV (81.0 - 99.0 FL) 82.7 MCH (27.0 - 31.0 PG) 28.1 RDW (11.5 - 14.5 %) 14.5 Plt Count (130 - 400 /CUMM) 207 MPV (7.4 - 10.4 FL) 10.1 Gran % (42.2 - 75.2 %) 78.4 H Lymphocytes % (20.5 - 51.1 %) 15.3 L Monocytes % (1.7 - 9.3 %) 5.2 Eosinophils % (0 - 5 %) 0.8 Basophils % (0.0 - 2.0 %) 0.3 Absolute Granulocytes (1.4 - 6.5 /CUMM) 7.1 H Absolute Lymphocytes (1.2 - 3.4 /CUMM) 1.4 Absolute Monocytes (0.10 - 0.60 /CUMM) 0.5 Absolute Eosinophils (0.0 - 0.7 /CUMM) 0.1 Absolute Basophils (0.0 - 0.2 /CUMM) 0 PUBS MCHC (33.0 - 37.0 G/DL) 34.0 Urines Urinalysis LIGHT H Urine Color (YEL,AMB,STR) YEL Urine Clarity (CLEAR) CLEAR Urine pH (5.0 - 8.0) 6.0 Ur Specific [place] (1.001 - 1.035) 1.010 Urine Protein (NEG,<30 MG/DL) 30 H Urine Ketones (NEG) NEG Urine Nitrite (NEG) NEG Urine Bilirubin (NEG) NEG Urine Urobilinogen (0.1 - 1.0 EU/dl) 0.2 Ur Leukocyte Esterase (NEG) TRACE H Ur Microscopic SEDIMENT EXAMINED Urine WBC (0 - 2 /HPF) 1-3 H Ur Epithelial Cells (NONE,FEW) FEW Urine Bacteria (NEG/NONE) FEW H Urine Hemoglobin (NEG) NEG Urine Glucose (N MG/DL) NEG 08/13 08/13 08/13 2315 2234 2132 Chemistry Sodium (137 - 145 mmol/L) 123 L Potassium (3.5 - 5.1 mmol/L) 5.1 Chloride (98 - 107 mmol/L) 94 L Carbon Dioxide (22 - 30 mmol/L) 18 L Anion Gap (5 - 16) 11 BUN (7 - 17 mg/dL) 17 Creatinine (0.5 - 1.0 mg/dL) 1.1 H Estimated GFR (>60 ml/min) 49 L BUN/Creatinine Ratio (7 - 25 %) 15.5 Glucose (65 - 99 mg/dL) 102 H Serum Osmolality (285 - 295 MOSM/KG) 263 L Calcium (8.4 - 10.2 mg/dL) 9.5 Total Bilirubin (0.2 - 1.3 mg/dL) 0.4 AST (14 - 36 U/L) 37 H ALT (9 - 52 U/L) 28 Alkaline Phosphatase (<127 U/L) 102 Troponin I (< 0.11 ng/ml) < 0.01 Total Protein (6.3 - 8.2 g/dL) 6.2 L Albumin (3.5 - 5.0 g/dL) 3.7 Globulin (1.9 - 4.2 gm/dL) 2.5 Albumin/Globulin Ratio (1.1 - 2.2 %) 1.5 Free T4 (0.78 - 2.44 ng/dL) 1.63 Total T3 (0.97 - 1.69 ng/mL) 0.83 L TSH &T3 &Free T4 Intrp (0.270 - 4.20 uIU/mL) Cancelled 4.830 H Hematology CBC w Diff NO MAN DIFF REQ WBC (4.8 - 10.8 /CUMM) 10.0 RBC (4.20 - 5.40 /CUMM) 3.85 L Hgb (12.0 - 16.0 G/DL) 10.6 L Hct (37 - 47 %) 31.9 L MCV (81.0 - 99.0 FL) 82.7 MCH (27.0 - 31.0 PG) 27.6 RDW (11.5 - 14.5 %) 14.8 H Plt Count (130 - 400 /CUMM) 235 MPV (7.4 - 10.4 FL) 9.6 Gran % (42.2 - 75.2 %) 79.9 H Lymphocytes % (20.5 - 51.1 %) 13.6 L Monocytes % (1.7 - 9.3 %) 5.6 Eosinophils % (0 - 5 %) 0.7 Basophils % (0.0 - 2.0 %) 0.2 Absolute Granulocytes (1.4 - 6.5 /CUMM) 8.0 H Absolute Lymphocytes (1.2 - 3.4 /CUMM) 1.4 Absolute Monocytes (0.10 - 0.60 /CUMM) 0.6 Absolute Eosinophils (0.0 - 0.7 /CUMM) 0.1 Absolute Basophils (0.0 - 0.2 /CUMM) 0 PUBS MCHC (33.0 - 37.0 G/DL) 33.4 Urines Urine Osmolality (300 - 1000 MOSM/KG) 205 L Ur Random Creatinine (mg/dL) 44.9 Ur Random Sodium (30 - 90 mmol/L) 7 L Ur Random Potassium (mmol/L) 39.0 Fraction Sodium Excret (<1% %) 0.1
[2016-08-16 13:30] VITALS: BP 148/72
[2016-08-16 15:40] VITALS: BP 148/76
[2016-08-16] MEDS ORDERED: LISINOPRIL20 M1 PO ×2 (15:42→15:46)
[2016-08-16] MEDS ORDERED: HYDROCHLOROTHIA25 M1 PO ×2 (15:42→15:46)
[2016-08-16] MEDS ORDERED: ATIVAN0.5 M1 PO ×2 (15:45→15:46)
== END 2016-08-16 16:47 | disposition home health service (06) | DRG 641 ==
LOC: ERH 21:23 → 2NB 08-14 01:42 → ERHI 08-14 01:42 → 2NB 08-14 01:42 → ENRESERV 08-14 02:27 → 2NB 08-14 03:28
PROVIDERS: Emergency Medicine; Student in an Organized Health Care Education/Training Program; ADMIT Internal Medicine
DX: E87.1 Hypo-osmolality and hyponatremia (principal); E87.2 Acidosis; G20 Parkinson's disease; I10 Essential (primary) hypertension; F41.9 Anxiety disorder, unspecified; E78.5 Hyperlipidemia, unspecified; A60.00 Herpesviral infection of urogenital system, unspecified; K21.9 Gastro-esophageal reflux disease without esophagitis; Z86.73 Personal history of transient ischemic attack (TIA), and cerebral infarction without residual deficits
CPT/HCPCS: 2NBP; 84133; 84300; 36415; 74176; 81001; 82436; 82570; 93005; 93010; J1650; J2405; J3490

== ENCOUNTER 2016-08-25 20:31 | Emergency (ER) | payer OTHER, MEDICARE ==
[~2016-08-25 20:31] MED LIST changes: +ATIVAN0.5 M1 PO; +HYDROCHLOROTHIA25 M1 PO; +LISINOPRIL20 M1 PO
--- NOTE | 2016-08-25 21:04 | ED AMS/SEIZURE/WEAK/DIZZY ---
History of Present Illness General Chief Complaint: General Adult Stated Complaint: HIGH BLOOD PRESSURE, +NV Source: patient, family Exam Limitations: language barrier Vital Signs & Intake/Output Vital Signs & Intake/Output Vital Signs Date Time Temp Pulse Resp B/P B/P Pulse O2 O2 Flow FiO2 Mean Ox Delivery Rate 08/26 0031 67 18 177/77 08/25 2301 58 181/69 08/25 2245 60 16 180/78 99 Room Air 08/25 2156 Room Air 08/25 2124 226/105 08/258 98.6 64 16 224/104 98 Room Air ED Intake and Output 08/26 0000 08/25 1200 Intake Total 30 Output Total Balance 30 Intake, Oral 30 Allergies Coded Allergies: Sulfa (Sulfonamide Antibiotics) (RASH 08/06/16) iron (DIARRHEA 08/06/16) Reconcile Medications Aspirin (Aspirin*) 81 MG TAB.CHEW 1 TAB PO DAILY CVD (Reported) Atorvastatin Calcium 10 MG TABLET 1 TAB PO DAILY GI (Reported) Carbidopa/Levodopa (Carbidopa-Levodopa 25-100 Tab) 25 MG-100 MG TABLET 1 TAB PO TID [place]ARK[place]SONS (Reported) Hydrochlorothiazide 25 MG TABLET 1 TAB PO DAILY BLOOD PRESSURE Labetalol HCl 300 MG TABLET 1 TAB PO BID high blood pressure follow up with your structural fitter tomorrow. Labetalol HCl 200 MG TABLET 1 TAB PO BID htn . Levothyroxine Sodium 88 MCG TABLET 1 TAB PO DAILY THYROID (Reported) Lidocaine (Lmx 4) 4 % CREAM..G. 1 KIMO TOP BID PRN PAIN SCALE 4-6 (MODERATE) . Lisinopril 20 MG TABLET 1 TAB PO BID BLOOD PRESSURE Lorazepam (Ativan) 0.5 MG TABLET 1 TAB PO QPM PRN SLEEP Ondansetron (Zofran Odt) 4 MG TAB.RAPDIS 1 TAB SL TID PRN nausea Pantoprazole Sodium 40 MG TABLET.DR 1 TAB PO DAILY GI (Reported) Triage Note: PT RETURNS TO ED AFTER RECENT DC FROM FOR ONGOING NAUSEA, ELEVATED BP WITH SBP 190 AT HOME AND HEADACHE. NEUROS APPEAR INTACT, BUT PT IS FATIGUED AND WEAK. NO ACTIVE VOMITING. 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 DENIES CP. NORMAL SINUS ON EKG Triage Nurses Notes Reviewed? yes Onset: Gradual Duration: day(s): Timing: recent history Injury Environment: home Severity: moderate Modifying Factors: Improves With: rest. Associated Symptoms: vomiting, headache HPI: 70 yo woman presents with elevated blood pressure, headache, and vomiting. Per the daughter, she had been admitted for similar symptoms, was medically managed. She continued to have intermittent nausea and so her PMD stopped the labetolol a few days ago. This evening, she developed a headache, nausea, and vomited several times. Past History Travel History Traveled to [place] past 21 day No Medical History Any Pertinent Medical History? see below for history Neurological: CVA, Parkinson's disease EENT: NONE Cardiovascular: hypertension, hyperlipidemia Respiratory: NONE Gastrointestinal: GERD Hepatic: NONE Renal: NONE Musculoskeletal: NONE Psychiatric: NONE Endocrine: hypothyroidism Blood Disorders: NONE Cancer(s): NONE WEIGHER AND CHARGER/Reproductive: HERPES History of MRSA: No History of VRE: No History of CDIFF: No Surgical History Surgical History: hysterectomy (TOTAL) Psychosocial History Who do you live with Family What is your primary language [place] Tobacco Use: Never used Family History Family History, If Any: BROTHER FH: CAD (coronary artery disease) Hx Contributory? No Review of Systems Review of Systems Constitutional: Reports: no symptoms. EENTM: Reports: no symptoms. Respiratory: Reports: no symptoms. Cardiovascular: Reports: no symptoms. GI: Reports: no symptoms. Genitourinary: Reports: no symptoms. Musculoskeletal: Reports: no symptoms. Skin: Reports: no symptoms. Neurological/Psychological: Reports: no symptoms. Hematologic/Endocrine: Reports: no symptoms. Immunologic/Allergic: Reports: no symptoms. All Other Systems: Reviewed and Negative Physical Exam Physical Exam General Appearance: well developed/nourished, mild distress Head: atraumatic, normal appearance Eyes: Bilateral: normal appearance, PERRL, EOMI. Ears, Nose, Throat: normal pharynx, normal ENT inspection Neck: normal inspection, supple, full range of motion Respiratory: normal breath sounds, chest non-tender, no respiratory distress, quiet respiration Cardiovascular: regular rate/rhythm Gastrointestinal: normal bowel sounds, soft, non-tender, no organomegaly Back: normal inspection Extremities: normal range of motion Neurologic/Psych: no motor/sensory deficits, awake, alert Skin: intact, normal color, warm/dry Core Measures ACS in differential dx? No CVA/TIA Diagnosis: No Severe Sepsis Present: No Septic Shock Present: No Progress Differential Diagnosis: dehydration, electrolyte imbalance, hypoglycemia, intracranial Hem., intracranial mass/tumor Plan of Care: Orders Procedure Date/time Status EKG 08/27 103 Active TROPONIN LEVEL 08/26 102 Complete EKG 08/26 102 Active URINALYSIS 08/25 2134 Complete TROPONIN LEVEL 08/25 2034 Complete LIPASE 08/25 2034 Complete HEPATIC FUNCTION PANEL 08/25 2034 Complete CBC WITHOUT DIFFERENTIAL 08/25 2034 Complete BASIC METABOLIC PANEL 08/25 2034 Complete AMYLASE 08/25 2034 Complete EKG 08/25 2034 Active Current Medications Sig/Areli Start time Last Medication Dose Stop Time Status Admin Labetalol HCl 20 MG ONCE ONE 08/25 2244 CAN (Trandate) 08/25 2245 Laboratory Tests 08/26/16 0129: Troponin I < 0.01 08/26/16104: Troponin I Cancelled 08/25/162146: Urinalysis LIGHT H, Urine Color YEL, Urine Clarity CLEAR, Urine pH 7.0, Ur Specific [place] 1.010, Urine Protein 100 H, Urine Ketones NEG, Urine Nitrite NEG, Urine Bilirubin NEG, Urine Urobilinogen 0.2, Ur Leukocyte Esterase NEG, Ur Microscopic SEDIMENT EXAMINED, Urine RBC RARE, Urine WBC RARE, Ur Epithelial Cells FEW, Urine Bacteria FEW H, Urine Mucus RARE, Urine Hemoglobin TRACE- INTACT, Urine Glucose NEG 08/25/16 2100: Anion Gap 12, Estimated GFR 55 L, BUN/Creatinine Ratio 18.0, Glucose 115 H, Calcium 9.9, Total Bilirubin 0.5, Direct Bilirubin 0.2, AST 19, ALT 24, Alkaline Phosphatase 107, Troponin I < 0.01, Total Protein 6.5, Albumin 3.9, Amylase 79, Lipase 179, CBC w Diff NO MAN DIFF REQ, RBC 3.93 L, MCV 83.3, MCH 27.9, RDW 15.0 H, MPV 8.8, Gran % 77.7 H, Lymphocytes % 17.4 L, Monocytes % 3.8, Eosinophils % 0.9, Basophils % 0.2, Absolute Granulocytes 7.1 H, Absolute Lymphocytes 1.6, Absolute Monocytes 0.3, Absolute Eosinophils 0.1, Absolute Basophils 0, PUBS MCHC 33.4 Diagnostic Imaging: Viewed by Me: Radiology Read, CT Scan. Discussed w/RAD: Radiology Read, CT Scan. Radiology Impression: head ct... no acute disease, abd/pelvic ct... no acute disease.... full reports below. Initial ED EKG: normal axis, normal intervals, normal p-waves, normal QRS complex, normal sinus rhythm Repeat EKG: unchanged Comments: PATIENT: RAQUEL MAN PRESENT AGE: 70 PATIENT ACCOUNT NO: [id number] : 45 LOCATION: [facility] ORDERING PHYSICIAN: LAURIE CARLSON MD SERVICE DATE: 08/25/16 EXAM TYPE: CAT - CT ABD & PELVIS W/O IV CONTRAS EXAMINATION: CT ABDOMEN AND PELVIS WITHOUT CONTRAST CLINICAL INFORMATION: Vomiting. COMPARISON: 08/13/2016 TECHNIQUE: Multidetector volumetric imaging was performed from the superior aspect of the liver through the pubic symphysis. Sagittal and coronal reformatted images were obtained on the technologist's workstation. DLP: 257 mGy-cm FINDINGS: LUNG BASES: The visualized lung bases are unremarkable. LIVER, GALLBLADDER, AND BILIARY TREE: The liver is normal in size, shape, and attenuation. No focal hepatic lesion or biliary ductal dilatation is present. The gallbladder is unremarkable with no evidence of radiopaque gallstones, gallbladder wall thickening, or obvious pericholecystic inflammatory changes. PANCREAS: Unremarkable. SPLEEN: Unremarkable. ADRENAL GLANDS: Unremarkable. KIDNEYS AND URETERS: Appearance is similar to recent imaging. Multiple rounded lesions are stable in completely characterize on this nonenhanced CT. Hyperdense lesions are also noted. BLADDER: Unremarkable. GASTROINTESTINAL TRACT: No obstruction. Mild sigmoid diverticulosis without acute inflammatory changes. Normal appendix. 3 suspected tiny sigmoid polyp not measurable on the current study due to decompressed state. ABDOMINAL WALL: Tiny fat-containing umbilical hernia. LYMPH NODES: Normal. VASCULAR: Unremarkable. PELVIC VISCERA: Unremarkable. OSSEOUS STRUCTURES: Tiny sclerotic focus left L4 pedicle 7 stable. No fracture. IMPRESSION: No evidence of obstruction. No evidence for enterocolitis or focal findings to explain this patient's symptoms. Stable appearance of the kidneys incompletely characterized on this nonenhanced study. Recommend elective ultrasound for further evaluation. DICTATED BY: BINA QUEZADA MD DATE/TIME DICTATED:08/25/162125 REVENUE INSPECTOR:LAYTON DATE/TIME TRANSCRIBED:08/25/162125 CONFIDENTIAL, DO NOT COPY WITHOUT APPROPRIATE AUTHORIZATION. <Electronically signed in Other Vendor System> SIGNED BY: BINA QUEZADA MD 08/25/162136 PATIENT: RAQUEL MAN PRESENT AGE: 70 PATIENT ACCOUNT NO: [id number] : 45 LOCATION: [facility] ORDERING PHYSICIAN: LAURIE CARLSON MD SERVICE DATE: 08/25/16 EXAM TYPE: CAT - CT HEAD WO IV CONTRAST EXAMINATION: CT HEAD WITHOUT CONTRAST CLINICAL INFORMATION: Headache. COMPARISON: None TECHNIQUE: Contiguous axial imaging was performed from the skull base to vertex without intravenous administration of contrast. DLP: 536 mGy-cm FINDINGS: There is no evidence of acute intracranial hemorrhage or territorial infarction. No abnormal mass effect or midline shift is seen. Hernandez to white matter differentiation is well preserved. No extra-axial fluid collections are identified. The ventricles are normal in size. There is no abnormal attenuation within the brain parenchyma. The osseous structures and soft tissues are normal. The mastoid air cells and visualized portions of the paranasal sinuses are well aerated. IMPRESSION: No acute intracranial pathology. DICTATED BY: BINA QUEZADA MD DATE/TIME DICTATED:08/25/162124 REVENUE INSPECTOR:LAYTON DATE/TIME TRANSCRIBED:08/25/162124 CONFIDENTIAL, DO NOT COPY WITHOUT APPROPRIATE AUTHORIZATION. <Electronically signed in Other Vendor System> SIGNED BY: BINA QUEZADA MD 08/25/162127 Departure Departure Disposition: HOME OR SELF CARE Condition: Stable Clinical Impression Primary Impression: Vomiting Secondary Impressions: Headache, Hypertension Referrals: LEROY SANABRIA MD (PCP/Family) Departure Forms: Customer Survey General Discharge Information Prescriptions: Current Visit Scripts Labetalol HCl 1 TAB PO BID #10 TAB follow up with your structural fitter tomorrow. Ondansetron (Zofran Odt) 1 TAB SL TID PRN nausea #10 TAB Comments 08/26/16, 1:03AM... discussed at length with family...pt's bp has improved. will check trop/ekg#2 and re-evaluate. 08/26/16, 3:11... trop neg x 2/ekg benign x 2... pt resting comfortably. pt safe for discharge with close follow up advised.
[2016-08-25 21:12] LABS: ABSOLUTE BASOPHIL COUNT 0 /CUMM (0.0-0.2); ABSOLUTE EOSINOPHIL COUNT 0.1 /CUMM (0.0-0.7); ABSOLUTE GRANULOCYTE CT 7.1 /CUMM (1.4-6.5); ABSOLUTE LYMPH COUNT 1.6 /CUMM (1.2-3.4); ABSOLUTE MONOCYTE COUNT 0.3 /CUMM (0.10-0.60); BASOPHIL % 0.2 % (0.0-2.0); EOSINOPHIL % 0.9 % (0-5); GRANULOCYTE % 77.7 % (42.2-75.2); HEMATOCRIT 32.8 % (37-47); MEAN CORPUSCULAR HGB 27.9 PG (27.0-31.0); MEAN CORPUSCULAR HGB CONC 33.4 G/DL (33.0-37.0); MEAN CORPUSCULAR VOLUME 83.3 FL (81.0-99.0); MEAN PLATELET VOLUME 8.8 FL (7.4-10.4); PLATELET COUNT 303 /CUMM (130-400); RED BLOOD CELL CT 3.93 /CUMM (4.20-5.40); WHITE BLOOD CELL COUNT 9.1 /CUMM (4.8-10.8)
--- NOTE | 2016-08-25 21:28 | CT SCAN REPORT ---
EXAMINATION: CT HEAD WITHOUT CONTRAST CLINICAL INFORMATION: Headache. COMPARISON: None TECHNIQUE: Contiguous axial imaging was performed from the skull base to vertex without intravenous administration of contrast. DLP: 536 mGy-cm FINDINGS: There is no evidence of acute intracranial hemorrhage or territorial infarction. No abnormal mass effect or midline shift is seen. Hernandez to white matter differentiation is well preserved. No extra-axial fluid collections are identified. The ventricles are normal in size. There is no abnormal attenuation within the brain parenchyma. The osseous structures and soft tissues are normal. The mastoid air cells and visualized portions of the paranasal sinuses are well aerated. IMPRESSION: No acute intracranial pathology.
--- NOTE | 2016-08-25 21:37 | CT SCAN REPORT ---
EXAMINATION: CT ABDOMEN AND PELVIS WITHOUT CONTRAST CLINICAL INFORMATION: Vomiting. COMPARISON: 08/13/2016 TECHNIQUE: Multidetector volumetric imaging was performed from the superior aspect of the liver through the pubic symphysis. Sagittal and coronal reformatted images were obtained on the technologist's workstation. DLP: 257 mGy-cm FINDINGS: LUNG BASES: The visualized lung bases are unremarkable. LIVER, GALLBLADDER, AND BILIARY TREE: The liver is normal in size, shape, and attenuation. No focal hepatic lesion or biliary ductal dilatation is present. The gallbladder is unremarkable with no evidence of radiopaque gallstones, gallbladder wall thickening, or obvious pericholecystic inflammatory changes. PANCREAS: Unremarkable. SPLEEN: Unremarkable. ADRENAL GLANDS: Unremarkable. KIDNEYS AND URETERS: Appearance is similar to recent imaging. Multiple rounded lesions are stable in completely characterize on this nonenhanced CT. Hyperdense lesions are also noted. BLADDER: Unremarkable. GASTROINTESTINAL TRACT: No obstruction. Mild sigmoid diverticulosis without acute inflammatory changes. Normal appendix. 3 suspected tiny sigmoid polyp not measurable on the current study due to decompressed state. ABDOMINAL WALL: Tiny fat-containing umbilical hernia. LYMPH NODES: Normal. VASCULAR: Unremarkable. PELVIC VISCERA: Unremarkable. OSSEOUS STRUCTURES: Tiny sclerotic focus left L4 pedicle 7 stable. No fracture. IMPRESSION: No evidence of obstruction. No evidence for enterocolitis or focal findings to explain this patient's symptoms. Stable appearance of the kidneys incompletely characterized on this nonenhanced study. Recommend elective ultrasound for further evaluation.
[2016-08-26] MEDS ORDERED: LABETALOL HCL300 M1 PO (02:02)
[2016-08-26 03:00] VITALS: BP 168/78
[2016-08-26] MEDS ORDERED: ZOFRAN ODT4 M1 SL (03:05)
== END 2016-08-26 03:21 ==
LOC: ERH 20:31
PROVIDERS: Pediatrics
DX: I10 Essential (primary) hypertension (principal); R11.2 Nausea with vomiting, unspecified
CPT/HCPCS: 74176; 81001; 93005; 93010

== ENCOUNTER 2017-05-16 19:38 | Inpatient (IN) | payer OTHER, MEDICARE ==
[~2017-05-16] VITALS: Ht 157.5 cm; Wt 54.4 kg
[~2017-05-16 19:38] MED LIST changes: +COZAAR100 M1 PO; +COZAAR50 M1 PO; +DILTIAZEM 24HR120 MG PO; +HYDRALAZINE HCL10 M1 PO; +LEVSIN-SL0.125 MG SL; +TOPROL XL25 M1 PO; +ZOFRAN ODT4 M1 SL
--- NOTE | 2017-05-16 19:47 | ED HEADACHE COMPLAINT ---
History of Present Illness General Chief Complaint: Headache Stated Complaint: HIGH BLOOD PRESSURE,HEADACHE AND SOB Source: patient, family Exam Limitations: no limitations Vital Signs & Intake/Output Vital Signs & Intake/Output Vital Signs Date Time Temp Pulse Resp B/P B/P Pulse O2 O2 Flow FiO2 Mean Ox Delivery Rate 05/16 1942 97.9 88 18 210/90 97 Room Air Allergies Coded Allergies: Sulfa (Sulfonamide Antibiotics) (RASH 08/06/16) iron (DIARRHEA 08/06/16) Reconcile Medications Atorvastatin Calcium 10 MG TABLET 1 TAB PO DAILY GI (Reported) Carbidopa/Levodopa (Carbidopa-Levodopa 25-100 Tab) 25 MG-100 MG TABLET 1 TAB PO TID PARKINSONS (Reported) Hydralazine HCl 10 MG TABLET 1 TAB PO TID HTN Levothyroxine Sodium 88 MCG TABLET 1 TAB PO DAILY THYROID (Reported) Losartan (Cozaar) 100 MG TABLET 1 TAB PO DAILY hypertension Metoprolol Succ XL (Toprol XL) 25 MG TAB 75 MG PO DAILY hypertension Nifedipine (Nifedipine ER) 30 MG TAB.ER.24 HTN (Reported) Pantoprazole Sodium 40 MG TABLET.DR 1 TAB PO DAILY GI (Reported) Triage Note: PT FROM HOME C/O HTN, DIZZNIESS, CRAWFORD, SOB. PTS MANUAL BP 210/90. PT STATES CRAWFORD, DIZZNIESS, AND SOB ALL BEGAN TODAY IN THE AFTERNOON, PT STATES COMPLIANT WITH MEDICATIONS. PT IN NO DISTRESS IN TRIAGE. 97% 02, HR 88. Triage Nurses Notes Reviewed? 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 Eyes: Reports: no symptoms. Ears, Nose, Throat, Mouth: Reports: no symptoms. Respiratory: Reports: no symptoms. Cardiovascular: Reports: no symptoms. Gastrointestinal/Abdominal: Reports: no symptoms. Genitourinary: Reports: no symptoms. Musculoskeletal: Reports: no symptoms. Skin: Reports: no symptoms. Neurological/Psychological: Reports: no symptoms. Hematologic/Endocrine: Reports: no symptoms. Endocrine: Reports: no symptoms. Immunologic/Allergic: Reports: no symptoms. All Other Systems: Reviewed and Negative Progress Plan of Care: Orders Procedure Date/time Status XRY-PORTABLE CHEST XRAY 05/16 2002 Active TROPONIN LEVEL 05/16 2002 Active LIPASE 05/16 2002 Active HEPATIC FUNCTION PANEL 05/16 2002 Active D-DIMER 05/16 2002 Active CBC WITHOUT DIFFERENTIAL 05/16 2002 Active BASIC METABOLIC PANEL 05/16 2002 Active AMYLASE 05/16 2002 Active EKG 05/16 1940 Active Current Medications Sig/Areli Start time Last Medication Dose Stop Time Status Admin Labetalol HCl 20 MG ONCE ONE 05/16 2044 UNVr (Trandate) 05/16 2045 Initial ED EKG: nsr, non specific ekg changes Departure Departure Condition: Stable Referrals: Allison Wells MD (PCP/Family) Departure Forms: Customer Survey General Discharge Information
[2017-05-16] MEDS ORDERED: NIFEDIPINE ER30 M2 (19:51)
--- NOTE | 2017-05-16 20:38 | ED GENERAL ADULT ---
History of Present Illness General Chief Complaint: Headache Stated Complaint: HIGH BLOOD PRESSURE,HEADACHE AND SOB Source: patient, family Exam Limitations: no limitations Vital Signs & Intake/Output Vital Signs & Intake/Output Vital Signs Date Time Temp Pulse Resp B/P B/P Pulse O2 O2 Flow FiO2 Mean Ox Delivery Rate 05/16 2121 84 164/84 05/16 2106 87 196/86 05/16 2034 92 196/86 05/16 1942 97.9 88 18 210/90 97 Room Air Allergies Coded Allergies: Sulfa (Sulfonamide Antibiotics) (RASH 08/06/16) iron (DIARRHEA 08/06/16) Reconcile Medications Atorvastatin Calcium 10 MG TABLET 1 TAB PO DAILY GI (Reported) Carbidopa/Levodopa (Carbidopa-Levodopa 25-100 Tab) 25 MG-100 MG TABLET 1 TAB PO TID PARKINSONS (Reported) Hydralazine HCl 10 MG TABLET 1 TAB PO TID HTN Levothyroxine Sodium 88 MCG TABLET 1 TAB PO DAILY THYROID (Reported) Losartan (Cozaar) 100 MG TABLET 1 TAB PO DAILY hypertension Metoprolol Succ XL (Toprol XL) 25 MG TAB 75 MG PO DAILY hypertension Nifedipine (Nifedipine ER) 30 MG TAB.ER.24 HTN (Reported) Pantoprazole Sodium 40 MG TABLET.DR 1 TAB PO DAILY GI (Reported) Triage Note: PT FROM HOME C/O HTN, DIZZNIESS, CRAWFORD, SOB. PTS MANUAL BP 210/90. PT STATES CRAWFORD, DIZZNIESS, AND SOB ALL BEGAN TODAY IN THE AFTERNOON, PT STATES COMPLIANT WITH MEDICATIONS. PT IN NO DISTRESS IN TRIAGE. 97% 02, HR 88. Triage Nurses Notes Reviewed? yes Onset: Gradual Duration: hour(s): Timing: recent history Injury Environment: home Severity: mild Modifying Factors: Improves With: rest. Associated Symptoms: chest pressure, headache HPI: 71 yo woman h/o labile hypertension recently seen in ED 2 days ago, presents with "elevated blood pressure" per family. "At home, her blood pressure was 220 over 110." Two days ago, her blood pressure meds were changed from diltiazem to nifedipine. She notes headache, shortness of breath and diffuse chest pressure without radiation. No cough, wheeze, chills, abdominal pain, dysuria, change in bowels. Past History Travel History Traveled to [place] past 21 day No Medical History Any Pertinent Medical History? 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 No Review of Systems Review of Systems Constitutional: Reports: no symptoms. EENTM: Reports: no symptoms. Respiratory: Reports: no symptoms. Cardiovascular: Reports: no symptoms. GI: Reports: no symptoms. Genitourinary: Reports: no symptoms. Musculoskeletal: Reports: no symptoms. Skin: Reports: no symptoms. Neurological/Psychological: Reports: no symptoms. Hematologic/Endocrine: Reports: no symptoms. Immunologic/Allergic: Reports: no symptoms. All Other Systems: Reviewed and Negative Physical Exam Physical Exam General Appearance: well developed/nourished, mild distress Head: atraumatic, normal appearance Eyes: Bilateral: normal appearance. Ears, Nose, Throat: normal pharynx, normal ENT inspection Neck: normal inspection, supple, full range of motion Respiratory: normal breath sounds, chest non-tender, no respiratory distress, quiet respiration, lungs clear Cardiovascular: regular rate/rhythm Gastrointestinal: normal bowel sounds, soft, non-tender, no organomegaly Back: normal inspection Extremities: normal inspection, normal capillary refill, normal range of motion, no edema Neurologic/Psych: no motor/sensory deficits, awake, alert, oriented x 3 Skin: intact, normal color, warm/dry Core Measures ACS in differential dx? No CVA/TIA Diagnosis: No Sepsis Present: No Sepsis Focused Exam Completed? No Progress Differential Diagnoses I considered the following diagnoses in my evaluation of the patient: mi vs acs vs hypertensive urgency vs other. Plan of Care: Orders Procedure Date/time Status Clear Liquid Diet 05/17 B Active Saline Lock 05/[address] in observation 05/16 2148 Active Misc Message 05/16 2148 Active ED Holding Orders 05/16 2148 Active Vital Signs 05/16 2148 Active Code Status 05/16 2148 Active TROPONIN LEVEL 05/16 2002 Complete LIPASE 05/16 2002 Complete HEPATIC FUNCTION PANEL 05/16 2002 Complete D-DIMER 05/16 2002 Complete CBC WITHOUT DIFFERENTIAL 05/16 2002 Complete BASIC METABOLIC PANEL 05/16 2002 Complete AMYLASE 05/16 2002 Complete EKG 05/17 1939 Active Laboratory Tests 05/16/172022: Anion Gap 12, Estimated GFR > 60, BUN/Creatinine Ratio 16.7, Glucose 148 H, Calcium 9.2, Total Bilirubin 0.5, Direct Bilirubin 0.4, AST 16, ALT 10, Alkaline Phosphatase 127 H, Troponin I < 0.01, Total Protein 7.0, Albumin 4.0, Amylase 70, Lipase 168, D-Dimer High Sensitivty < 200, CBC w Diff NO MAN DIFF REQ, RBC 3.89 L, MCV 81.9, MCH 27.3, MCHC 33.3, RDW 14.4, MPV 9.4, Gran % 76.7 H, Lymphocytes % 16.6 L, Monocytes % 5.8, Eosinophils % 0.6, Basophils % 0.3, Absolute Granulocytes 8.7 H, Absolute Lymphocytes 1.9, Absolute Monocytes 0.7 H, Absolute Eosinophils 0.1, Absolute Basophils 0 Diagnostic Imaging: Viewed by Me: Radiology Read, CT Scan. Discussed w/RAD: Radiology Read, CT Scan. Radiology Impression: PATIENT: RAQUEL MAN PRESENT AGE: 71 PATIENT ACCOUNT NO: [id number] : 45 LOCATION: [facility] ORDERING PHYSICIAN: Harris Guerrero MD SERVICE DATE: 05/16/17 EXAM TYPE: CAT - CT HEAD WO IV CONTRAST EXAMINATION: CT HEAD WITHOUT CONTRAST CLINICAL INFORMATION: Headache. History of cerebrovascular accident. Hypertensive urgency. COMPARISON: CT head 01/16/2017. TECHNIQUE: Contiguous axial imaging was performed from the skull base to vertex without intravenous administration of contrast. DLP: 540.60 mGy-cm FINDINGS: There is a partially calcified interhemispheric mass involving the anterior aspect of the falx cerebri near its insertion on the selena elham that most likely represents a meningioma. This finding has remained unchanged when compared to most recent prior examination from 01/16/2017. There is no acute intracranial hemorrhage or abnormal extra- axial collection. No intracranial mass effect or midline shift. Lateral and third ventricles are normal. There are a few small foci of hypoattenuation involving the anterior limb left internal capsule that may either represent chronic lacunar infarcts or prominent perivascular spaces. Hernandez-white matter differentiation is grossly preserved and there is no evidence of acute territorial infarct. The calvarium and skull base are intact. Mastoid air cells and middle ear cavities are well aerated. Visualized paranasal sinuses are well- aerated. IMPRESSION: Stable examination. There is no acute intracranial hemorrhage. A partially calcified interhemispheric mass involving the anterior falx most likely represents a meningioma and is unchanged. DICTATED BY: Kimani Bejarano MD DATE/TIME DICTATED:05/16/172058 SLOPE TENDER:LAYTON DATE /TIME TRANSCRIBED:05/16/172058 CONFIDENTIAL, DO NOT COPY WITHOUT APPROPRIATE AUTHORIZATION. <Electronically signed in Other Vendor System> SIGNED BY: Kimani Bejarano MD 05/16/172105 CXR Impression: PATIENT: RAQUEL MAN PRESENT AGE: 71 PATIENT ACCOUNT NO: [id number] : 45 LOCATION: [facility] ORDERING PHYSICIAN: Harris Guerrero MD SERVICE DATE: 05/16/17 EXAM TYPE: RAD - XRY- PORTABLE CHEST XRAY EXAMINATION: XR PORTABLE CHEST CLINICAL INFORMATION: Dyspnea. 71-year-old female patient. COMPARISON: Portable chest x-ray done 2 days ago. TECHNIQUE: Portable AP semierect view of the chest was obtained. The time of examination was 8:00 PM. FINDINGS: No significant abnormality is noted involving the heart, lungs, mediastinum, bony thorax or soft tissues. IMPRESSION : Unremarkable examination. DICTATED BY: Pranav Cordova MD DATE/TIME DICTATED :05/16/172030 SLOPE TENDER:LAYTON DATE/TIME TRANSCRIBED:05/16/172030 CONFIDENTIAL, DO NOT COPY WITHOUT APPROPRIATE AUTHORIZATION. < Electronically signed in Other Vendor System> SIGNED BY: Pranav Cordova MD 05/16/172036 Initial ED EKG: nsr, non specific EKG changes. Departure Departure Disposition: STILL A PATIENT Condition: Stable Clinical Impression Primary Impression: Hypertensive urgency Referrals: Priscilla WHITFIELD,Allison (PCP/Family) Departure Forms: Customer Survey General Discharge Information Comments 05/16/17, 8:50.... discussed [address] dr. lobo. pt seen in ED 2 days ago, now returns with hypertensive urgency, merits monitoring, cards eval, medical optimization. Observation Note [facility] Non-ED OBS Care Area Rationale for Observation: My rational for observation is as follows . Pt with hypertensive urgency (headache, chest pain, elevated blood pressure), responded well with labetolol iv. labs benign... given her recent ED visit and comorbidities (CVA), pt merits observation and medication optimization... would consider labetolol rather than metoprolol... cards eval in AM Critical Care Note Critical Care Note Critical Care Time: 30-74 min
[2017-05-16 20:53] LABS: ABSOLUTE BASOPHIL COUNT 0 /CUMM (0.0-0.2); ABSOLUTE EOSINOPHIL COUNT 0.1 /CUMM (0.0-0.7); ABSOLUTE GRANULOCYTE CT 8.7 /CUMM (1.4-6.5); ABSOLUTE LYMPH COUNT 1.9 /CUMM (1.2-3.4); ABSOLUTE MONOCYTE COUNT 0.7 /CUMM (0.10-0.60); BASOPHIL % 0.3 % (0.0-2.0); EOSINOPHIL % 0.6 % (0-5); GRANULOCYTE % 76.7 % (42.2-75.2); HEMATOCRIT 31.9 % (37-47); MEAN CORPUSCULAR HGB 27.3 PG (27.0-31.0); MEAN CORPUSCULAR HGB CONC 33.3 G/DL (33.0-37.0); MEAN CORPUSCULAR VOLUME 81.9 FL (81.0-99.0); MEAN PLATELET VOLUME 9.4 FL (7.4-10.4); PLATELET COUNT 315 /CUMM (130-400); RBC DISTRIBUTION WIDTH 14.4 % (11.5-14.5); RED BLOOD CELL CT 3.89 /CUMM (4.20-5.40); WHITE BLOOD CELL COUNT 11.4 /CUMM (4.8-10.8)
--- NOTE | 2017-05-16 21:06 | CT SCAN REPORT ---
EXAMINATION: CT HEAD WITHOUT CONTRAST CLINICAL INFORMATION: Headache. History of cerebrovascular accident. Hypertensive urgency. COMPARISON: CT head 01/16/2017. TECHNIQUE: Contiguous axial imaging was performed from the skull base to vertex without intravenous administration of contrast. DLP: 540.60 mGy-cm FINDINGS: There is a partially calcified interhemispheric mass involving the anterior aspect of the falx cerebri near its insertion on the selena elham that most likely represents a meningioma. This finding has remained unchanged when compared to most recent prior examination from 01/16/2017. There is no acute intracranial hemorrhage or abnormal extra-axial collection. No intracranial mass effect or midline shift. Lateral and third ventricles are normal. There are a few small foci of hypoattenuation involving the anterior limb left internal capsule that may either represent chronic lacunar infarcts or prominent perivascular spaces. Hernandez-white matter differentiation is grossly preserved and there is no evidence of acute territorial infarct. The calvarium and skull base are intact. Mastoid air cells and middle ear cavities are well aerated. Visualized paranasal sinuses are well-aerated. IMPRESSION: Stable examination. There is no acute intracranial hemorrhage. A partially calcified interhemispheric mass involving the anterior falx most likely represents a meningioma and is unchanged.
--- NOTE | 2017-05-16 22:12 | History & Physical ---
Severiano WHITFIELD,[facility] 05/16/17 2211: General Information and HPI Source of Information: patient, family, old records Exam Limitations: no limitations History of Present Illness: The patient is 71-year-old female with past medical history of parkinsonism anxiety, hyperlipidemia, hypothyroidism, uncontrolled hypertension and stroke in 2016. She has had multiple ED visits and admissions in the past for complain of high blood pressure. She presents to [facility] ED on 05/16 with the similar complaints. The patient had a most recent visit to [facility] 2 days back again with elevated blood pressure. Patient states that she was experiencing the usual symptoms of shortness of breath, palpitation, shortness of breath and jitteriness, which she experiences every time when her blood pressure is elevated. She checked her blood pressure earlier in the morning systolic was 153 which increased to 171 and later to 200s prompting visit to [facility] ED. She denies any headache, chest pain, blurriness of vision. Patient follows up with Dr. Meeks. Of note patient was discharged from ED on 04/16 with Hydralazine 10mg 3 times a day. Patient had retinal procedure done by crm technical lead on May 14 as well because of hypertensive changes in her retina, and she does not name of the procedure. Patient states that her blood pressure was elevated even during the procedure as well. At present patient's regimen consists of Hydralazine 10 mg TID, losartan 100 mg and metoprolol 75 mg. Nifedipine has been recently discontinued because of joints aches and pain and fatigue. Patient's [place] language is [place] and most uncomfortable was done in [place]. Patient's daughter was at bedside and was present during the encounter ROS constipation Allergies/Medications Allergies: Coded Allergies: Sulfa (Sulfonamide Antibiotics) (RASH 08/06/16) iron (DIARRHEA 08/06/16) Home Med list Acetaminophen 500 MG TABLET 1 TAB PO PRN PAIN (Reported) Alendronate Sodium 70 MG TABLET 1 TAB PO QFRI OSTEOPOROSIS (Reported) in the morning, at least 30 minutes before the first food, beverage, or medication of the day Atorvastatin Calcium 10 MG TABLET 1 TAB PO DAILY GI (Reported) Carbidopa/Levodopa (Carbidopa-Levodopa 25-100 Tab) 25 MG-100 MG TABLET 1 TAB PO TID PARKINSONS (Reported) Diltiazem HCl (Diltiazem 24HR ER) (Unknown Strength) CAP.ER.24H (Unknown Dose) UNKNOWN (Reported) Hydralazine HCl 10 MG TABLET 1 TAB PO TID HTN Levothyroxine Sodium 75 MCG TABLET 1 TAB PO DAILY THYROID (Reported) Losartan Potassium (Cozaar) 50 MG TABLET 1 TAB PO DAILY BP (Reported) Metoprolol Succ XL (Toprol Xl) 50 MG TAB 1 TAB PO DAILY HEART/BP (Reported) Nepafenac (Ilevro) 0.3 % DROPS.SUSP 1 DROP OD DAILY RIGHT EYE (Reported) Nifedipine (Nifedipine ER) 30 MG TAB.ER.24 HTN (Reported) Olopatadine HCl (Pazeo) 0.7 % DROPS 1 DROP OU QAM ITCHING (Reported) Pantoprazole Sodium 40 MG TABLET.DR 1 TAB PO DAILY GI (Reported) Trazodone HCl (Unknown Strength) TABLET (Unknown Dose) UNKNOWN (Reported) Wheat Dextrin (Benefiber) (Unknown Strength) POWDER (Unknown Dose) PO PRN SUPPLEMENT (Reported) Past History Travel History Traveled to [place] past 21 day No Medical History Neurological: CVA, Parkinson's disease EENT: NONE Cardiovascular: hypertension, hyperlipidemia Respiratory: NONE Gastrointestinal: GERD Hepatic: NONE Renal: NONE Musculoskeletal: NONE Psychiatric: NONE Endocrine: hypothyroidism Blood Disorders: NONE Cancer(s): NONE 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 Home Who Do You Live With? spouse, parent Smoking Status: Never Smoked ETOH Use: denies use Illicit Drug Use: denies illicit drug use Functional Ability ADLs Independent: dressing, eating, toileting, bathing. Review of Systems Review of Systems Constitutional: Denies: chills, malaise. Cardiovascular: Reports: palpitations. Respiratory: Reports: short of breath. GI: Reports: no symptoms. Genitourinary: Reports: no symptoms. Musculoskeletal: Reports: no symptoms. Exam & Diagnostic Data Last 24 Hrs of Vital Signs/I&O Vital Signs Date Time Temp Pulse Resp B/P B/P Pulse O2 O2 Flow FiO2 Mean Ox Delivery Rate 05/16 2121 84 164/84 05/16 2106 87 196/86 05/16 2034 92 196/86 05/16 1942 97.9 88 18 210/90 97 Room Air Physical Exam General Appearance Alert, Oriented X3, Cooperative Skin No Rashes, No Breakdown HEENT Atraumatic Cardiovascular Normal S1, Normal S2, No Murmurs Lungs Clear to Auscultation, Normal Air Movement Abdomen Normal Bowel Sounds, Soft, No Tenderness Neurological Normal Speech Last 24 Hrs of Labs/Jordan: Laboratory Tests 05/16/172022: Anion Gap 12, Estimated GFR > 60, BUN/Creatinine Ratio 16.7, Glucose 148 H, Calcium 9.2, Total Bilirubin 0.5, Direct Bilirubin 0.4, AST 16, ALT 10, Alkaline Phosphatase 127 H, Troponin I < 0.01, Total Protein 7.0, Albumin 4.0, Amylase 70, Lipase 168, TSH 0.898, Thyroxine (T4) 10.1, D-Dimer High Sensitivty < 200, CBC w Diff NO MAN DIFF REQ, RBC 3.89 L, MCV 81.9, MCH 27.3, MCHC 33.3, RDW 14.4 , MPV 9.4, Gran % 76.7 H, Lymphocytes % 16.6 L, Monocytes % 5.8, Eosinophils % 0.6, Basophils % 0.3, Absolute Granulocytes 8.7 H, Absolute Lymphocytes 1.9, Absolute Monocytes 0.7 H, Absolute Eosinophils 0.1, Absolute Basophils 0 Diagnostic Data EKG Results Sinus rhythm QTc [address]-T wave changes CXR Results No significant abnormality is noted involving the heart, lungs, mediastinum, bony thorax or soft tissues Other Results She had an echocardiogram done in 2017 which showed ejection fraction of 60-65% there was borderline concentric hypertrophy of left ventricle. There was mild tricuspid insufficiency, [id number] pulmonic insufficiency, minimal to mild aortic sclerosis. Great vessels and pericardium WNL. The RV systolic pressure was not accurately assessed. CT HEAD WO IV CONTRAST 05/16 Stable examination. There is no acute intracranial hemorrhage. A partially calcified interhemispheric mass involving the anterior falx most likely represents a meningioma and is unchanged Assessment/Plan Assessment: The patient is 71-year-old female with past medical history of parkinsonism anxiety, hyperlipidemia, hypothyroidism, uncontrolled hypertension, vaginal HSV 1 lesion and stroke in 2016. She has had multiple ED visits and admissions in the past for complaint of high blood pressure. She presents to [facility] ED on with the similar complaints. Vitals on presentation WNL heart rate 88, except blood pressure 210/90 Admission labs pertinent for leukocytosis anemia, hyponatremia. Imaging findings dictated above In ED patient received 20 mg of IV labetalol and most recent manual blood pressure reading was 164/84 She is placed as an observation on telemetry floor and has been stressed being treated and evaluated for following conditions #Hypertensive urgency Patient's blood pressure has trended down nicely after receiving 20 mg of IV labetalol -Observe for 24 hours on telemetry floor -Patient may benefit from oil seal assembler evaluation in am -Continue losartan and hydralazine -We are going to hold metoprolol and try labetalol -Patient with history of hyponatremia which probably why the diuretics are not being used. -Patient should be evaluated for secondary causes of hypertension #Rule out ACS -3 sets of troponin and EKG to rule out ACS -Outpatient pharmacological stress test #Hyponatremia Patient has history of hyponatremia in previous hospital admissions as well -Continue to monitor -Continue fluid restrictions -Check serum osmolality, urine osmolality, urine sodium #History of hypothyroidism Patient's levothyroxine was changed from 88MCG to 75MCG one month ago -Continue levothyroxine at home dose -Will check TSH #Leukocytosis Probably reactive no active source of infection -Continue to monitor fever and WBC curve -Monitor off antibiotics #Constipation Complaining of constipation -MiraLAX and senna #Anemia H/H . -Continue to monitor -Check iron studies, folate and B12 #Incidental finding of interhemispheric mass on CT head Most likely represents meningioma unchanged from the past -Outpatient follow-up #Chronic medical conditions parkinsonism and hyperlipidemia Continue carbidopa/levodopa and statin #Heart healthy diet/DVT prophylaxis with Lovenox/Full Code As Ranked By This Provider Problem List: 1. Hypertensive urgency Core Measures/Misc (11/03) Acute Coronary Syndrome ACS Diagnosis: No Congestive Heart Failure Congestive Heart Failure Diagnosis No Cerebrovascular Accident CVA/TIA Diagnosis: No VTE (View Protocol) VTE Risk Factors Age>40 No Mechanical VTE Prophylaxis d/t N/A MechProphylax Ordered No VTE Pharm Prophylaxis d/t NA PharmProphylax ordered Sepsis (View protocol) Sepsis Present: No Yonis Gupta 05/16/17 8016: General Information and HPI MD Statement: I have seen and personally examined RAQUEL MAN and documented this H&P. The patient is a 71 year old F who presented with a patient stated chief complaint of []. Resident Review Statement Resident Statement: examined this patient, discussed with validation intern, agreed with validation intern Other Findings: Mrs. Ozuna is a 71-year-old preferably [place]val[place] speaking female with past medical history of poorly controlled hypertension, hyperlipidemia, hypothyroidism, Parkinson's disease, osteoporosis, anxiety, previous stroke in 2016 was brought into emergency department today due to increased blood pressure associated with discomfort, anxiety, jitteriness and headaches. Apparently the patient visited the ER 2 days back on 14 of May when she was seen for headache and nausea her blood pressure was found to be high, she was treated, her nifedipine was discontinued and she was started on hydralazine 10 mg 3 times daily. However her blood pressure continues to remain labile, it was okay for a day, however she noticed since today morning again she was feeling jittery, dizzy and continued to have shortness of breath along with palpitations and therefore she presented to the ER again. At home she noted her blood pressure to be 220/110. At the emergency department it was noted to be 196/86 mmHg. She also complains of some chest discomfort. Dr. Bird is her oil seal assembler and apparently 2 years back she was taking a formulation of metoprolol from [place] and a combination of clinidipine and talmisartan, therefore she was started on metoprolol and azore - a combination of amlodipine and benzepril, however patient continued to have lower extremity edema and did not tolerate the medicine well therefore Esau was discontinued by the family themselves. Eventually she was started on diltiazem, however the diltiazem did not control her blood pressure and nifedipine gave her lower extremity swellings, therefore her blood pressure has been difficult to control since last few months to couple of years. Currently she is on metoprolol, losartan and hydralazine was recently given to her from the ER. Of note, she was not started on any diuretic however she has a history of becoming hyponatremic, which could be the reason why she is not on any diuretic. Review of systems was positive for exertional shortness of breath, anxiety. Vitals her initial blood pressure was noted to be 210/90 which has now come down to 148/76 mmHg. She was afebrile with MAXIMUM TEMPERATURE of 98.2, pulse of 90, respiration of 18, 96% saturation on room air. On physical exam she was lying comfortably and did not seem in acute distress however she definitely looks anxious. CVS S1 and S2 present, no murmur. RS and entry bilaterally equal, no adventitious sounds. Pa : bowel sounds present, soft, nontender. No edema noted in bilateral lower extremity. slight redness noted in the left eye conjunctiva, could be secondary to recent injection for hyperintensive with adenopathy given by crm technical lead. Likely elevated white count at 11.4, H/H of 10.6/31.9, platelet of 315. Sodium at 134, potassium of 4, BUN/creatinine 15/0.9, glucose of 148, alkaline phosphatase 127, initial troponin was negative. EKG showed normal sinus rhythm with nonspecific EKG changes, normal QTC. CT head was within normal limits. Chest x-ray did not show any acute cardiopulmonary processes. Last echocardiogram done 08/06/2016 showed normal left ventricular ejection fraction with no wall motion abnormalities, EF of 60-65%. Borderline concentric hypertrophy was present with mild tricuspid insufficiency and mild to moderate pulmonary insufficiency. Problem list along with assessment and plan Problem #1 uncontrolled hypertension, saundra out ACS. The uncontrolled hypertension seems to be due to medication noncompliance versus inadequate/altered blood pressure medication regimen. Her blood pressure seems to respond to IV labetalol very well. The patient is on metoprolol, losartan and hydralazine currently. The patient is not on any diuretic and it might be a good idea to add an diuretic, however it was noted that she has had history of hyponatremia which might be the reason why she has not been put on a diuretic. We would also consider changing metoprolol to labetalol for better management of blood pressure. * Continue losartan at 50 mg once daily. * Continue hydralazine 10 mg 3 times a day. * Hold metoprolol for now. * We will start the patient on 50 mg labetalol twice a day. * Cardiology consult in a.m. for better management of his blood pressure medications. * Can consider to repeat echocardiogram. * Troponin/EKG to rule out acute coronary syndrome as the patient complains of some chest discomfort. * Continue diet tech. * If the patient's blood pressure does not remain under control, I think we should consider secondary causes of hypertension and check renin aldosterone ratio. #2 hypertensive retinopathy * 2 days back patient was treated with some form of injectable treatment in her eye for hyperintensive retinopahty by Dr. Mchugh. * It was reinforced to her that better management of hypertension was needed. * Will need to obtain records from the crm technical lead for more details, continue antihypertensive medication and continue to monitor blood pressure for now. #3 hyponatremia. * Patient has history of hyponatremia per previous admissions. * Currently sodium level is 134. * Continue to monitor sodium levels. * If the sodium level becomes further low check serum osmolality, urine osmolality and urine sodium. #4 history of hypothyroidism. * Patient's primary care practitioner recently reduced her levothyroxine to 75 g from 88 g * We will recheck thyroid function test as it is been a month since the thyroid dosage has been changed. * Continue levothyroxine at 75 g. #5 anemia * H/H noted to be 10.6/31.9 (baseline hemoglobin/hematocrit 11.1/33.5 * MCV noted to be 81, looks to be iron deficiency anemia most likely, we will do the iron workup and continue to follow. #6 history of parkinsonism. * Currently stable. * Continue carbidopa/levodopa at home dosage. #7 history of GERD. * pt complains of symptoms of gastroesophageal reflux disease and therefore we will ct pantoprazole. Full code. DVT prophylaxis with Lovenox. Heart healthy diet. Pain pathway. Yovana WHITFIELD,[facility]aki 05/17/17 0209: Attending MD Review Statement Attending Statement Attending MD Statement: examined this patient, discuss w/resident/PA/SECURITY ATTENDANT, agreed w/resident/PA/SECURITY ATTENDANT, discussed with family, discussed with nursing Attending Assessment/Plan: Ms. Man is a 71-year-old female with past medical history of uncontrolled blood pressure (has been on multiple medications in [place] and [place] - where she follows up with Dr. Meeks) parkinsonism, ? stroke in 2016, anxiety, hyperlipidemia, hypothyroidism. The patient presented with complaints of headache and lightheadedness - which are her usual symptosm with high BP. When she checked her BP - the systolics was in the 220's and so she came to the ER. She lives at home with family. On arrival in the ED systolic blood pressure was 210/90 heart rate of 88 respiratory rate of 18 and breathing comfortably on room air General Appearance Alert, Oriented X3, Cooperative Skin No Rashes, HEENT Atraumatic, normocephalic Cardiovascular Normal S1, Normal S2, Lungs Clear to Auscultation, Normal Air Movement Abdomen Normal Bowel Sounds, Soft, No Tenderness Neurological Normal Speech, no focal neurological deficits identified Assessment 1. Recurrent hypertensive urgency with ? hypertensive retinopathy 2. Hypothyroidism 3. Leukocytosis 4. Constipation - No evidence of obstipation 5. H/o Parkinsonism Plan Continue with Cozaar and Hydralazine. Add Labetalol instead of Toprol XL Dr. Meeks's team consulted. Follow up on serial EKG's and cardiac enzymes Patient has a h/o recurrent hyponatremia and possibly the reason for not using first line agents such as HCTZ/ Chlorthalidone. Patient cannot tolerate CCB Check for outpatient records to see if patient has been evaluated for secondary causes of hypertension Check TSH - Patient's levothyroxine dose recently changed Bowel regimen Continue with other home medications.
[2017-05-16] MEDS ORDERED: LEVOTHYROXINE75 MCG PO (22:32)
[2017-05-16] MEDS ORDERED: COZAAR50 M1 PO (22:34)
[2017-05-16] MEDS ORDERED: DILTIAZEM 24HR120 MG (22:35)
[2017-05-16] MEDS ORDERED: TOPROL XL50 M1 PO (22:35)
[2017-05-16] MEDS ORDERED: ILEVRO1.7 ML OD (22:37)
[2017-05-16] MEDS ORDERED: ALENDRONATE SOD70 M2 PO (22:39)
[2017-05-16] MEDS ORDERED: TRAZODONE HCL50 M1 (22:39)
[2017-05-16] MEDS ORDERED: BENEFIBER144 GM PO (22:48)
[2017-05-16] MEDS ORDERED: PAZEO2.5 ML OU (22:48)
[2017-05-16] MEDS ORDERED: ACETAMINOPHEN500 M4 PO (22:49)
[2017-05-17 01:41] VITALS: BP 152/74
--- NOTE | 2017-05-17 03:57 | PN- Housestaff ---
See Addendum Subjective Follow-up For: -uncontrolled hypertension Complaints: no complaints Subjective: I have seen and examiend the patient today morning. She seems to doing fine, no new complaitns. Currently b/p 152/76mmhg, well controlled. Review of Systems Constitutional: Denies: chills, diaphoresis, fever. EENTM: Reports: no symptoms. Cardiovascular: Reports: chest pain. Denies: edema, orthopena, palpitations. Respiratory: Reports: short of breath. Denies: cough, hemoptysis, orthopnea. Gastrointestinal: Denies: abdominal pain, bloating, constipation, diarrhea. Genitourinary: Denies: discharge, dysuria, frequency, hematuria. Musculoskeletal: Reports: no symptoms. Skin: Reports: no symptoms. Neurological/Psychological: Reports: no symptoms. Hematologic/Endocrine: Reports: no symptoms. Immunologic/Allergic: Reports: no symptoms. Objective Last 24 Hrs of Vital Signs/I&O Vital Signs Date Time Temp Pulse Resp B/P B/P Pulse O2 O2 Flow FiO2 Mean Ox Delivery Rate 05/17 0218 74 152/76 05/17 0152 76 152/74 05/17 0141 98.2 92 20 152/74 98 Room Air 05/16 2321 97.8 90 18 148/76 96 Room Air 05/16 2122 84 164/84 05/16 2107 87 196/86 05/16 2035 92 196/86 05/16 1943 97.9 88 18 210/90 97 Room Air Intake & Output 05/17 0800 05/17 0000 05/16 1600 Intake Total Output Total Balance Patient 54.431 kg 54.431 kg Weight Weight Reported by Patient Measurement Method Physical Exam General Appearance: Alert, Oriented X3, Cooperative Skin: No Rashes, No Breakdown Skin Temp/Moisture Exam: Cool/Dry Sepsis Skin Exam (color): Normal for Ethnicity, Cyanotic HEENT: Atraumatic, PERRLA, EOMI Neck: Supple, No JVD Cardiovascular: Regular Rate, Normal S1, Normal S2, No Murmurs Lungs: Clear to Auscultation, Normal Air Movement Abdomen: Normal Bowel Sounds, Soft, No Tenderness, No Hepatospenomegaly Neurological: Normal Gait, Normal Speech, Strength at 5/5 X4 Ext, Normal Tone Extremities: No Clubbing, No Cyanosis, No Edema, Normal Pulses Vascular: Normal Pulses Current Medications: Current Medications Sig/Areli Start time Last Medication Dose Route Stop Time Status Admin Acetaminophen 0 .STK-MED ONE 05/16 2053 DC PO Acetaminophen 650 MG ONCE ONE 05/16 2044 DC 05/16 PO 05/16 Atorvastatin Calcium 10 MG 1700 05/17 1700 AC PO Carbidopa/Levodopa 1 TAB TID 05/17 1000 AC PO Enoxaparin Sodium 40 MG DAILY 05/17 1000 AC SC Hydralazine HCl 10 MG TID 05/17 0112 AC 05/17 PO 0218 Labetalol HCl 50 MG BID 05/17 011 AC 05/17 PO 0152 Labetalol HCl 0 .STK-MED ONE 05/16 2053 DC IV Labetalol HCl 20 MG ONCE ONE 05/16 2044 DC 05/16 IV 05/16 Levothyroxine Sodium 0.075 MG DAILY AC 05/17 0700 AC PO Losartan Potassium 50 MG DAILY 05/17 1000 AC PO Pantoprazole Sodium 40 MG DAILY 05/17 1000 CAN IV Polyethylene Glycol 17 GM DAILY PRN 05/175 AC PO Senna/Docusate Sodium 1 TAB BID PRN 05/17 214 AC PO Last 24 Hrs of Lab/Jordan Results Last 24 Hrs of Labs/Mics: Laboratory Tests 05/17/17339: Troponin I Pending 05/16/172022: Anion Gap 12, Estimated GFR > 60, BUN/Creatinine Ratio 16.7, Glucose 148 H, Calcium 9.2, Total Bilirubin 0.5, Direct Bilirubin 0.4, AST 16, ALT 10, Alkaline Phosphatase 127 H, Troponin I < 0.01, Total Protein 7.0, Albumin 4.0, Amylase 70, Lipase 168, TSH 0.898, Thyroxine (T4) 10.1, D-Dimer High Sensitivty < 200, CBC w Diff NO MAN DIFF REQ, RBC 3.89 L, MCV 81.9, MCH 27.3, MCHC 33.3, RDW 14.4 , MPV 9.4, Gran % 76.7 H, Lymphocytes % 16.6 L, Monocytes % 5.8, Eosinophils % 0.6, Basophils % 0.3, Absolute Granulocytes 8.7 H, Absolute Lymphocytes 1.9, Absolute Monocytes 0.7 H, Absolute Eosinophils 0.1, Absolute Basophils 0 Lines/Diet/Fluids Restraints: none Assessment/Plan Assessment: Mrs. Ozuna is a 71-year-old preferably osvaldo speaking female with past medical history of poorly controlled hypertension, hyperlipidemia, hypothyroidism, Parkinson's disease, osteoporosis, anxiety, previous stroke in 2016 was brought into emergency department today due to increased blood pressure associated with discomfort, anxiety, jitteriness and headaches. She was given IV labetalol in the ER and her blood pressure came down to 150/90 mm hg. Problem list along with Assessment and Plan Problem #1 Uncontrolled Hypertension, Rule Out ACS. * The uncontrolled hypertension seems to be due to medication noncompliance versus inadequate/altered blood pressure medication regimen. * Her blood pressure seems to respond to IV labetalol very well. * The patient is on metoprolol, losartan and hydralazine currently. * The patient is not on any diuretic and it might be a good idea to add an diuretic, however it was noted that she has had history of hyponatremia which might be the reason why she has not been put on a diuretic. We would also consider changing metoprolol to labetalol for better management of blood pressure. * Continue losartan at 50 mg once daily. * Continue hydralazine 10 mg 3 times a day. * Hold metoprolol for now. * We will start the patient on 50 mg labetalol twice a day. * Cardiology consult in a.m. for better management of his blood pressure medications. * Can consider to repeat echocardiogram. * Troponin/EKG to rule out acute coronary syndrome as the patient complains of some chest discomfort. * Continue monitoring and evaluation advisor. * If the patient's blood pressure does not remain under control, I think we should consider secondary causes of hypertension and check renin aldosterone ratio. #2 Hypertensive retinopathy * 2 days back patient was treated with some form of injectable treatment in her eye for hyperintensive retinopahty by Dr. Mchugh. * It was reinforced to her that better management of hypertension was needed. * Will need to obtain records from the biochemistry teacher for more details, continue antihypertensive medication and continue to monitor blood pressure for now. #3 Hyponatremia. * Patient has history of hyponatremia per previous admissions. * Currently sodium level is 134. * Continue to monitor sodium levels - am labd pending. * If the sodium level becomes further low check serum osmolality, urine osmolality and urine sodium. #4 History of hypothyroidism. * Patient's primary care practitioner recently reduced her levothyroxine to 75 g from 88 g * Thyroid functions within normal limit. * Continue levothyroxine at 75 g. #5 Anemia * H/H noted to be 10.6/31.9 (baseline hemoglobin/hematocrit 11.1/33.5 * MCV noted to be 81, looks to be iron deficiency anemia most likely, we will do the iron workup and continue to follow. #6 History of parkinsonism. * Currently stable. * Continue carbidopa/levodopa at home dosage. #7 History of GERD. * pt complains of symptoms of gastroesophageal reflux disease and therefore we will ct pantoprazole. Full code. DVT prophylaxis with Lovenox. Heart healthy diet. Pain pathway. Problem List: 1. Uncontrolled hypertension 2. Anxiety Pain Ratin Pain Location: no pain Pain Goal: Remain pain free Pain Plan: current plan. Tomorrow's Labs & Rationales: CBC, BMP
[2017-05-17 06:56] VITALS: BP 148/82
--- NOTE | 2017-05-17 11:37 | Admission Certification ---
Admission Certification Certification Statement - As attending physician, I certify that at the time of - admission, based on clinical presentation, severity of - symptoms, need for further diagnostic testing and - therapeutic interventions, and risk of adverse outcomes - without in-hospital treatment, in my clinical assessment, - this patient requires an acute hospital stay for a minimum - of two nights or longer. I have also considered psychsocial - factors such as support system, advanced age, financial - issues, cognitive issues, and failed out-patient treatments, - past re-admission history, safety of patient, and lack of - compliance as applicable. Specific rationale supporting this admission is: Refractory symptomatic hypertension with dizziness and constipation.
[2017-05-17 15:04] VITALS: BP 138/86
[2017-05-17 22:34] VITALS: BP 158/80
[2017-05-18 07:19] VITALS: BP 170/78
[2017-05-18 08:23] LABS: ABSOLUTE BASOPHIL COUNT 0 /CUMM (0.0-0.2); ABSOLUTE EOSINOPHIL COUNT 0.1 /CUMM (0.0-0.7); ABSOLUTE GRANULOCYTE CT 5.8 /CUMM (1.4-6.5); ABSOLUTE LYMPH COUNT 1.3 /CUMM (1.2-3.4); ABSOLUTE MONOCYTE COUNT 0.6 /CUMM (0.10-0.60); BASOPHIL % 0.3 % (0.0-2.0); EOSINOPHIL % 0.8 % (0-5); GRANULOCYTE % 75.1 % (42.2-75.2); HEMATOCRIT 28.3 % (37-47); MEAN CORPUSCULAR HGB 27.4 PG (27.0-31.0); MEAN CORPUSCULAR HGB CONC 33.7 G/DL (33.0-37.0); MEAN CORPUSCULAR VOLUME 81.4 FL (81.0-99.0); MEAN PLATELET VOLUME 8.9 FL (7.4-10.4); PLATELET COUNT 277 /CUMM (130-400); RBC DISTRIBUTION WIDTH 14.3 % (11.5-14.5); RED BLOOD CELL CT 3.48 /CUMM (4.20-5.40); WHITE BLOOD CELL COUNT 7.8 /CUMM (4.8-10.8)
--- NOTE | 2017-05-18 09:32 | PN- Housestaff ---
XavierAbbey 05/18/17930: Subjective Follow-up For: uncontrolled hypertension Subjective: No overnight event. Patient was rejecting hydralazine because she got severely constipated from using it. denied CP/SOB/Headache/Vision change. Would like to go home for easter today. Review of Systems Constitutional: Reports: see HPI. Objective Last 24 Hrs of Vital Signs/I&O Vital Signs Date Time Temp Pulse Resp B/P B/P Pulse O2 O2 Flow FiO2 Mean Ox Delivery Rate 05/18 718 97.9 73 12 170/78 97 Room Air 05/18 0000 96 Room Air 05/17 2234 98.5 84 20 158/80 96 Room Air 05/17 2119 84 158/80 05/17 1633 91 150/76 05/17 1504 97.7 80 20 138/86 98 05/17 0937 80 140/80 05/17 0936 80 140/80 05/17 0936 80 140/80 Intake & Output 05/18 1600 05/18 0800 05/18 0000 Intake Total 480 Output Total Balance 480 Intake, Oral 480 Number 0 Bowel Movements Physical Exam General Appearance: Alert, Oriented X3, Cooperative, No Acute Distress Cardiovascular: Regular Rate Lungs: Clear to Auscultation, Normal Air Movement Abdomen: Normal Bowel Sounds, Soft, No Tenderness Neurological: Normal Speech Extremities: No Edema, Normal Pulses Current Medications: Current Medications Sig/Areli Start time Last Medication Dose Route Stop Time Status Admin Atorvastatin Calcium 10 MG 1700 05/17 1700 AC 05/17 PO 1633 Bisacodyl 5 MG Q12P PRN 05/17 1115 AC PO Carbidopa/Levodopa 1 TAB TID 05/17 1000 AC 05/17 PO 2119 Enoxaparin Sodium 40 MG DAILY 05/17 1000 AC 05/17 SC 0938 Hydralazine HCl 10 MG TID 05/17 0112 AC 05/17 PO 1633 Labetalol HCl 100 MG BID 05/17 2200 AC 05/17 PO 2119 Labetalol HCl 50 MG BID 05/17 0115 DC 05/17 PO 0937 Levothyroxine Sodium 0.075 MG DAILY AC 05/17 0700 AC 05/18 PO 0622 Losartan Potassium 50 MG DAILY 05/17 1000 AC 05/17 PO 0936 Polyethylene Glycol 17 GM DAILY PRN 05/17 0215 AC 05/17 PO 1259 Senna/Docusate Sodium 1 TAB BID 05/17 2200 AC 05/17 PO 2119 Senna/Docusate Sodium 1 TAB BID PRN 05/17 0215 DC 05/17 PO 05/17 2159 1633 Last 24 Hrs of Lab/Jordan Results Last 24 Hrs of Labs/Mics: Laboratory Tests 05/18/17 0715: Anion Gap 11, Estimated GFR > 60, BUN/Creatinine Ratio 16.7, CBC w Diff NO MAN DIFF REQ, RBC 3.48 L, MCV 81.4, MCH 27.4, MCHC 33.7, RDW 14.3, MPV 8.9, Gran % 75.1, Lymphocytes % 16.6 L, Monocytes % 7.2, Eosinophils % 0.8, Basophils % 0.3 , Absolute Granulocytes 5.8, Absolute Lymphocytes 1.3, Absolute Monocytes 0.6, Absolute Eosinophils 0.1, Absolute Basophils 0 Assessment/Plan Assessment: Mrs. Ozuna is a 71-year-old preferably osvaldo speaking female with past medical history of poorly controlled hypertension, hyperlipidemia, hypothyroidism, Parkinson's disease, osteoporosis, anxiety, previous stroke in 2016 was brought into emergency department today due to increased blood pressure associated with discomfort, anxiety, jitteriness and headaches. She was given IV labetalol in the ER and her blood pressure came down to 150/90 mm hg. Problem list along with Assessment and Plan Problem #1 Uncontrolled Hypertension, Rule Out ACS. * The uncontrolled hypertension seems to be due to medication noncompliance versus inadequate/altered blood pressure medication regimen. * Her blood pressure seems to respond to IV labetalol very well. Will discharge on labetalol 100mg bid * The patient was on metoprolol, losartan and hydralazine currently. Will switch metoprolol to labetalol on discharge, and continue the other two for BP control * The patient is not on any diuretic and it might be a good idea to add an diuretic, however it was noted that she has had history of hyponatremia which might be the reason why she has not been put on a diuretic. We would also consider changing metoprolol to labetalol for better management of blood pressure. * Continue losartan at 50 mg once daily. * Continue hydralazine 10 mg 3 times a day. * Hold metoprolol for now. * We will start the patient on 50 mg labetalol twice a day. * Cardiology consult in a.m. for better management of his blood pressure medications. * Can consider to repeat echocardiogram. * Troponin/EKG to rule out acute coronary syndrome as the patient complains of some chest discomfort. * Continue president + publisher. * If the patient's blood pressure does not remain under control, I think we should consider secondary causes of hypertension and check renin aldosterone ratio. #2 Hypertensive retinopathy * patient was treated with some form of injectable treatment in her eye for hyperintensive retinopahty by Dr. Mchugh. * It was reinforced to her that better management of hypertension was needed. * Will need to obtain records from the ict business development manager for more details, continue antihypertensive medication and continue to monitor blood pressure for now. #3 Hyponatremia. * Patient has history of hyponatremia per previous admissions. * Currently sodium level is 135. * If the sodium level becomes further low check serum osmolality, urine osmolality and urine sodium. #4 History of hypothyroidism. * Patient's primary care practitioner recently reduced her levothyroxine to 75 g from 88 g * Thyroid functions within normal limit. * Continue levothyroxine at 75 g. #5 Anemia * H/H noted to be 10.6/31.9 (baseline hemoglobin/hematocrit 11.1/33.5 * MCV noted to be 81, looks to be iron deficiency anemia most likely, we will do the iron workup and continue to follow. #6 History of parkinsonism. * Currently stable. * Continue carbidopa/levodopa at home dosage. #7 History of GERD. * pt complains of symptoms of gastroesophageal reflux disease and therefore we will ct pantoprazole. Full code. DVT prophylaxis with Lovenox. Heart healthy diet. Pain pathway. Problem List: 1. Hypertensive urgency Pain Ratin Pain Location: NA Pain Goal: Remain pain free Pain Plan: see AP Tomorrow's Labs & Rationales: Erlinda Fairbanks MD 05/18/17 1200: Attending MD Review Statement Attending Statement Attending MD Statement: examined this patient, discuss w/resident/PA/OPERATIONS OFFICER [employer] DEPARTMENT, agreed w/resident/PA/OPERATIONS OFFICER TRUST DEPARTMENT, discussed with family, reviewed EMR data (avail), discussed with nursing, reviewed images Attending Assessment/Plan: Patient's blood pressure has been fairly well controlled. Yesterday with all of her medications she was running a 130 to 140/80 and this morning before any of her medications she is 170/70. Her constipation was also successfully treated. She is very eager to go home and says she doesn't feel dizzy at all. Her renal function is normal and she has chronic anemia. At this point I spoke to her, her and her son at length. They would like to minimize the number of medications she is taking and want as less medications as possible to achieve good control of blood pressure. We now have her on the hydralazine at 10 mg 3 times a day, with the Losartan and with the labetalol. We seem to have achieved some degree of blood pressure control with this and the plan is for her to be discharged with these 3 medicines. I spent a lot of time explaining to them the significance of very close outpatient follow-up with Dr. Allison Wells MD and Dr. Meeks. I also spent a lot of time explaining to them the need for close compliance and the fact that she has very volatile blood pressure and is very symptomatic easily from it. She also needs outpatient radiographic following up of the CT scan which is being read as a likely meningioma. The family is unaware of this finding and I did explain the likely benign nature of this and the need for follow-up CT/MRI. Total time spent coordinating discharge was 34 minutes.
[2017-05-18 09:39] VITALS: BP 170/78
[2017-05-18] MEDS ORDERED: LABETALOL HCL100 M1 PO (10:09)
[2017-05-18] MEDS ORDERED: MIRALAX119 GM PO (10:09)
--- NOTE | 2017-05-18 10:12 | Patient Discharge Instructions ---
Discharge Instructions General Discharge Information Special Instructions: - Please follow up with your underground production foreperson Dr. Meeks within 1-2 weeks of discharge. - Please follow up with your primary care physician within 1-2 weeks of discharge. Inform your primary care physician of this admission to [facility]. - Continue your current medications per discharge instructions. - Please watch for these problems: Fever, Chills, Nausea, Vomiting, Shortness of Breath, Productive Cough, Chest Pain/Discomfort, Abdominal Pain, Active Bleeding or Bloody urine/stool. Diet Continue normal diet: Yes Recommended Diet: Heart Healthy Activity Full Activity/No Limits: Yes Acute Coronary Syndrome Inclusion Criteria At DC or during hospital stay patient has or had the following: ACS DIAGNOSIS No Discharge Core Measures Meds if any: Prescribed or Continued at Discharge Meds if any: NOT Prescribed or Continued at Discharge Congestive Heart Failure Inclusion Criteria At DC or during hospital stay patient has or had the following: CHF DIAGNOSIS No Discharge Core Measures Meds if any: Prescribed or Continued at Discharge Meds if any: NOT Prescribed or Continued at Discharge Cerebrovascular accident Inclusion Criteria At DC or during hospital stay patient has or had the following: CVA/TIA Diagnosis No Discharge Core Measures Meds if any: Prescribed or Continued at Discharge Meds if any: NOT Prescribed or Continued at Discharge Venous thromboembolism Inclusion Criteria VTE Diagnosis No VTE Type NONE VTE Confirmed by (Test) NONE Discharge Core Measures - Per Current guidelines, there needs to be overlap - treatment for the first 5 days of Warfarin therapy. - If discharged on Warfarin prior to 5 days of - overlap therapy, the patient will need to be - assessed for post discharge needs including - *Post discharge parental anticoagulation - *Warfarin and/or parental anticoagulation education - *Follow up date to check INR post discharge At least 5 days overlap therapy as Inpatient No Meds if any: Prescribed or Continued at Discharge Note: Overlap Therapy is Warfarin and Anticoagulant Meds if any: NOT Prescribed or Continued at Discharge
== END 2017-05-18 11:20 | DRG 305 ==
LOC: ERH 19:38 → ERHI 21:49 → ENRESERV 22:58 → 1NO 05-17 00:43 → ENPENDDIS 05-18 10:18 → 1NO 05-18 11:20
PROVIDERS: Pediatrics
DX: I16.0 Hypertensive urgency (principal); G20 Parkinson's disease; I07.1 Rheumatic tricuspid insufficiency; H35.039 Hypertensive retinopathy, unspecified eye; D64.9 Anemia, unspecified; E87.1 Hypo-osmolality and hyponatremia; I37.1 Nonrheumatic pulmonary valve insufficiency; K21.9 Gastro-esophageal reflux disease without esophagitis; E03.9 Hypothyroidism, unspecified; E78.5 Hyperlipidemia, unspecified; I10 Essential (primary) hypertension; Z91.14 Patient's other noncompliance with medication regimen; D72.829 Elevated white blood cell count, unspecified; K59.00 Constipation, unspecified; M81.0 Age-related osteoporosis without current pathological fracture; F41.9 Anxiety disorder, unspecified; Z86.73 Personal history of transient ischemic attack (TIA), and cerebral infarction without residual deficits; Z90.710 Acquired absence of both cervix and uterus
CPT/HCPCS: 1NP; 36592; 71045; 81001; 82436; 93005; 93010; 96374; 99291; J1650

== ENCOUNTER 2017-06-21 20:06 | Inpatient (IN) | payer OTHER ==
[~2017-06-21] VITALS: Ht 157.5 cm; Wt 57.7 kg
[~2017-06-21 20:06] MED LIST changes: +ACETAMINOPHEN500 M4 PO; +ALENDRONATE SOD70 M2 PO; +BENEFIBER144 GM PO; +DILTIAZEM 24HR120 MG; +MIRALAX119 GM PO; +NIFEDIPINE ER30 M2; +PAZEO2.5 ML OU; +TOPROL XL50 M1 PO; +TRAZODONE HCL100 M1 PO
--- NOTE | 2017-06-21 20:23 | ED GENERAL ADULT ---
History of Present Illness General Chief Complaint: General Adult Stated Complaint: HIGH BP, +N/V Source: patient, family Exam Limitations: no limitations Vital Signs & Intake/Output Vital Signs & Intake/Output Vital Signs Date Time Temp Pulse Resp B/P B/P Pulse O2 O2 Flow FiO2 Mean Ox Delivery Rate 06/21 2304 66 20 198/91 98 Room Air 06/21 2244 66 20 198/100 06/21 2226 66 20 230/96 06/21 2146 86 18 198/100 06/21 2110 67 18 210/103 97 Room Air 06/21 2020 191/76 06/21 2013 97.3 68 16 223/93 98 Room Air Allergies Coded Allergies: Sulfa (Sulfonamide Antibiotics) (RASH 08/06/16) iron (DIARRHEA 08/06/16) Reconcile Medications Acetaminophen 500 MG TABLET 1 TAB PO PRN PAIN (Reported) Alendronate Sodium 70 MG TABLET 1 TAB PO QFRI OSTEOPOROSIS (Reported) in the morning, at least 30 minutes before the first food, beverage, or medication of the day Atorvastatin Calcium 10 MG TABLET 1 TAB PO DAILY GI (Reported) Carbidopa/Levodopa (Carbidopa-Levodopa 25-100 Tab) 25 MG-100 MG TABLET 1 TAB PO TID PARKINSONS (Reported) Hydralazine HCl 10 MG TABLET 1 TAB PO TID HTN Labetalol HCl 300 MG TABLET 1 TAB PO BID high blood pressure Labetalol HCl 100 MG TABLET 100 MG PO BID BP control Levothyroxine Sodium 75 MCG TABLET 1 TAB PO DAILY THYROID (Reported) Losartan Potassium (Cozaar) 50 MG TABLET 1 TAB PO DAILY BP (Reported) Nepafenac (Ilevro) 0.3 % DROPS.SUSP 1 DROP OD DAILY RIGHT EYE (Reported) Olopatadine HCl (Pazeo) 0.7 % DROPS 1 DROP OU QAM ITCHING (Reported) Pantoprazole Sodium 40 MG TABLET.DR 1 TAB PO DAILY GI (Reported) Polyethylene Glycol 3350 (Miralax) 17 GRAM/DOSE POWDER 17 GM PO DAILY PRN CONSTIPATION Trazodone HCl (Unknown Strength) TABLET (Unknown Dose) UNKNOWN (Reported) Triage Note: PT TO TRIAGE C/O HIGH BLOOD PRESSURE (HX OF, TOOK MEDS DIRECTED PER PT). PT ALSO C/O N/V, -D. REPORTS BLURRY VISION, DENIES HEADACHE. BP 223/93 IN TRIAGE. Triage Nurses Notes Reviewed? yes Onset: Gradual Duration: day(s): Timing: recent history Injury Environment: home Severity: mild Modifying Factors: Improves With: rest. Associated Symptoms: nausea, vomiting, headache HPI: 71 yo woman h/o hyponatremia h/o hypertensive urgency returns with headache, nausea, vomiting for the past day, similar symptoms to her prior episodes of hypertensive urgency. She notes no chest pain, shortness of breath, fever, chills, cough. She is otherwise well. Past History Travel History Traveled to [place] past 21 day No Medical History Any Pertinent Medical History? 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 No Review of Systems Review of Systems Constitutional: Reports: no symptoms. EENTM: Reports: no symptoms. Respiratory: Reports: no symptoms. Cardiovascular: Reports: no symptoms. GI: Reports: no symptoms. Genitourinary: Reports: no symptoms. Musculoskeletal: Reports: no symptoms. Skin: Reports: no symptoms. Neurological/Psychological: Reports: no symptoms. Hematologic/Endocrine: Reports: no symptoms. Immunologic/Allergic: Reports: no symptoms. All Other Systems: Reviewed and Negative Physical Exam Physical Exam General Appearance: well developed/nourished, mild distress Head: atraumatic, normal appearance Eyes: Bilateral: normal appearance. Ears, Nose, Throat: normal pharynx, normal ENT inspection Neck: normal inspection, supple, full range of motion Respiratory: normal breath sounds, chest non-tender, no respiratory distress, quiet respiration, lungs clear Cardiovascular: regular rate/rhythm Gastrointestinal: normal bowel sounds, soft, non-tender, no organomegaly Back: normal inspection, normal range of motion Extremities: normal inspection, normal capillary refill Neurologic/Psych: no motor/sensory deficits, awake, alert, oriented x 3 Skin: intact, normal color, warm/dry Core Measures ACS in differential dx? No CVA/TIA Diagnosis: No Sepsis Present: No Sepsis Focused Exam Completed? No Progress Differential Diagnoses I considered the following diagnoses in my evaluation of the patient: hypertensive urgency, hyponatremia, mi vs other. Plan of Care: Orders Procedure Date/time Status Nothing by Mouth 06/22 B Active Patient Data 06/21 2246 Active Intake & Output 06/21 2242 Active Add-on Test (ER Only) 06/21 2232 Active URINE CREATININE, SPOT 06/21 2232 Active URINE LYTES, SPOT 06/21 2232 Active URINALYSIS 06/21 2232 Active Saline Lock 06/22 2207 Active Misc Message 06/22 2207 Active ED Holding Orders 06/22 2207 Active Admit to inpatient 06/22 2207 Active Vital Signs 06/22 2207 Active Code Status 06/22 2207 Active SERUM OSMOLALITY 06/21 2099 Complete TROPONIN LEVEL 06/22 2007 Complete LIPASE 06/22 2007 Complete HEPATIC FUNCTION PANEL 06/22 2007 Complete D-DIMER 06/22 2007 Complete CBC WITHOUT DIFFERENTIAL 06/22 2007 Complete BASIC METABOLIC PANEL 06/22 2007 Complete AMYLASE 06/22 2007 Complete EKG 06/22 2007 Active Laboratory Tests 06/21/17 2100: Anion Gap 13, Estimated GFR 55 L, BUN/Creatinine Ratio 17.0, Glucose 143 H, Serum Osmolality 258 L, Calcium 9.3, Total Bilirubin 0.6, Direct Bilirubin 0.3, AST 15, ALT 17, Alkaline Phosphatase 88, Troponin I < 0.01, Total Protein 6.8, Albumin 4.3, Amylase 68, Lipase 147, D-Dimer High Sensitivty < 200, CBC w Diff NO MAN DIFF REQ, RBC 3.60 L, MCV 80.0 L, MCH 26.2 L, MCHC 32.8 L, RDW 13.8, MPV 9.3, Gran % 82.4 H, Lymphocytes % 11.7 L, Monocytes % 5.0, Eosinophils % 0.8, Basophils % 0.1, Absolute Granulocytes 7.1 H, Absolute Lymphocytes 1.0 L, Absolute Monocytes 0.4, Absolute Eosinophils 0.1, Absolute Basophils 0 Diagnostic Imaging: Viewed by Me: Radiology Read. Discussed w/RAD: Radiology Read. CXR Impression: PATIENT: RAQUEL MAN PRESENT AGE: 71 PATIENT ACCOUNT NO: [id number] : 45 LOCATION: [facility] ORDERING PHYSICIAN: Harris Guerrero MD SERVICE DATE: 06/21/17 EXAM TYPE: CAT - CT ABD & PELVIS W/O IV CONTRAS EXAMINATION: CT ABDOMEN AND PELVIS WITHOUT CONTRAST CLINICAL INFORMATION: Vomiting COMPARISON: 08/25/2016 TECHNIQUE: Multidetector volumetric imaging was performed from the lung bases through the pubic symphysis. Sagittal and coronal reformatted images were obtained on the technologist workstation. FINDINGS: The lack of intravenous contrast limits evaluation of the solid visceral organs including the liver, spleen, pancreas, and kidneys. LUNG BASES: Trace right pleural effusion again seen. New right middle lobe consolidation adjacent the right major fissure. There is new lingular consolidation as well. Small circumferential pericardial effusion, increased. Normal heart size. LIVER, GALLBLADDER, AND BILIARY TREE: Limited non- contrast evaluation is normal. No gross focal hepatic lesion. Normal liver size and contour. No gross biliary ductal dilation. The gallbladder is unremarkable with no evidence of radiopaque gallstones, gallbladder wall thickening, or obvious pericholecystic inflammatory changes. PANCREAS: Limited non-contrast evaluation is normal. No samantha-pancreatic fluid. SPLEEN: Limited non-contrast evaluation is normal. ADRENAL GLANDS: Normal; no adrenal mass. KIDNEYS AND URETERS: There is a water density simple cyst of the anterior cortex of the left mid-lower kidney. There is an additional water density cyst of the lateral cortex of the right mid kidney. There is a persistent contour bulge of the right lower pole, image 34/91 this is consistent with a dromedary hump was present on the prior contrast-enhanced study 07/14/2016. There is a 1 cm hyperdense cyst of the posterior cortex of the lower pole the right kidney. No hydronephrosis, hydroureter, or calculi seen. No perinephric stranding. GASTROINTESTINAL TRACT: Small bowel and colon are non-dilated. No bowel wall thickening. Normal appendix. Scattered colonic diverticulosis. No pericolonic inflammatory changes to suggest colitis or diverticulitis. ABDOMINAL WALL: No hernia seen. LYMPH NODES: No pathologically enlarged lymph nodes in the abdomen or pelvis. VASCULAR : Normal caliber abdominal aorta. BLADDER: Unremarkable. PELVIC VISCERA: Unremarkable. OSSEOUS STRUCTURES: Mild S-shaped scoliosis. Degenerative changes of the lumbar spine and sacroiliac joints. IMPRESSION: No acute CT findings in the abdomen or pelvis. Increased small circumferential pericardial effusion. New right middle lobe and lingular consolidation, more likely atelectasis than aspiration or pneumonia. DICTATED BY: Logan Oneil MD DATE/TIME DICTATED:07/04 EQUIPMENT MAN:LAYTON DATE/TIME TRANSCRIBED:06/21/172117 CONFIDENTIAL, DO NOT COPY WITHOUT APPROPRIATE AUTHORIZATION. <Electronically signed in Other Vendor System> SIGNED BY: Logan Oneil MD 06/21/172126 , PATIENT: RAQUEL MAN PRESENT AGE: 71 PATIENT ACCOUNT NO: [id number] : 45 LOCATION: [facility] ORDERING PHYSICIAN: Harris Guerrero MD SERVICE DATE: 06/21/17 EXAM TYPE: RAD - XRY-PORTABLE CHEST XRAY EXAMINATION: XR PORTABLE CHEST CLINICAL INFORMATION: Chest pain COMPARISON: 05/16/2017 TECHNIQUE: Portable frontal view of the chest was obtained. FINDINGS: Lungs are clear. No focal consolidation or mass. Normal pulmonary vascularity. No pleural effusion or pneumothorax. Cardiac silhouette is prominent. Regional skeleton intact. IMPRESSION: Prominent cardiac silhouette, possibly accentuated by technique. No acute pulmonary disease. DICTATED BY: Logan Oneil MD DATE/ TIME DICTATED:06/21/172207 EQUIPMENT MAN:LAYTON DATE/TIME TRANSCRIBED: 06/21/172207 CONFIDENTIAL, DO NOT COPY WITHOUT APPROPRIATE AUTHORIZATION. < Electronically signed in Other Vendor System> SIGNED BY: Logan Oneil MD 06/21/172214 Initial ED EKG: nsr, no acute changes. Departure Departure Disposition: STILL A PATIENT Condition: Stable Clinical Impression Primary Impression: Hypertension Secondary Impressions: Hyponatremia, Vomiting Referrals: Priscilla WHITFIELD,Allison (PCP/Family) Departure Forms: Customer Survey General Discharge Information Admission Note Spoke With: Eddie Beatty MD Documentation of Exam: Documentation of any treatments & extenuating circumstances including Concerns Regarding Discharge (functional status, medication knowledge or non-compliance, living conditions, etc.) that warrant an admission rather than observation: pt with hyponatremia and hypertensive urgency... merits admission for medical management and electrolyte correction. Critical Care Note Critical Care Note Critical Care Time: 30-74 min
[2017-06-21 21:12] LABS: ABSOLUTE BASOPHIL COUNT 0 /CUMM (0.0-0.2); ABSOLUTE EOSINOPHIL COUNT 0.1 /CUMM (0.0-0.7); ABSOLUTE GRANULOCYTE CT 7.1 /CUMM (1.4-6.5); ABSOLUTE MONOCYTE COUNT 0.4 /CUMM (0.10-0.60); BASOPHIL % 0.1 % (0.0-2.0); EOSINOPHIL % 0.8 % (0-5); GRANULOCYTE % 82.4 % (42.2-75.2); HEMATOCRIT 28.8 % (37-47); MEAN CORPUSCULAR HGB 26.2 PG (27.0-31.0); MEAN CORPUSCULAR HGB CONC 32.8 G/DL (33.0-37.0); MEAN PLATELET VOLUME 9.3 FL (7.4-10.4); PLATELET COUNT 346 /CUMM (130-400); RBC DISTRIBUTION WIDTH 13.8 % (11.5-14.5); WHITE BLOOD CELL COUNT 8.6 /CUMM (4.8-10.8)
--- NOTE | 2017-06-21 21:27 | CT SCAN REPORT ---
EXAMINATION: CT ABDOMEN AND PELVIS WITHOUT CONTRAST CLINICAL INFORMATION: Vomiting COMPARISON: 08/25/2016 TECHNIQUE: Multidetector volumetric imaging was performed from the lung bases through the pubic symphysis. Sagittal and coronal reformatted images were obtained on the technologist workstation. FINDINGS: The lack of intravenous contrast limits evaluation of the solid visceral organs including the liver, spleen, pancreas, and kidneys. LUNG BASES: Trace right pleural effusion again seen. New right middle lobe consolidation adjacent the right major fissure. There is new lingular consolidation as well. Small circumferential pericardial effusion, increased. Normal heart size. LIVER, GALLBLADDER, AND BILIARY TREE: Limited non-contrast evaluation is normal. No gross focal hepatic lesion. Normal liver size and contour. No gross biliary ductal dilation. The gallbladder is unremarkable with no evidence of radiopaque gallstones, gallbladder wall thickening, or obvious pericholecystic inflammatory changes. PANCREAS: Limited non-contrast evaluation is normal. No samantha-pancreatic fluid. SPLEEN: Limited non-contrast evaluation is normal. ADRENAL GLANDS: Normal; no adrenal mass. KIDNEYS AND URETERS: There is a water density simple cyst of the anterior cortex of the left mid-lower kidney. There is an additional water density cyst of the lateral cortex of the right mid kidney. There is a persistent contour bulge of the right lower pole, image 34/91 this is consistent with a dromedary hump was present on the prior contrast-enhanced study 07/14/2016. There is a 1 cm hyperdense cyst of the posterior cortex of the lower pole the right kidney. No hydronephrosis, hydroureter, or calculi seen. No perinephric stranding. GASTROINTESTINAL TRACT: Small bowel and colon are non-dilated. No bowel wall thickening. Normal appendix. Scattered colonic diverticulosis. No pericolonic inflammatory changes to suggest colitis or diverticulitis. ABDOMINAL WALL: No hernia seen. LYMPH NODES: No pathologically enlarged lymph nodes in the abdomen or pelvis. VASCULAR: Normal caliber abdominal aorta. BLADDER: Unremarkable. PELVIC VISCERA: Unremarkable. OSSEOUS STRUCTURES: Mild S-shaped scoliosis. Degenerative changes of the lumbar spine and sacroiliac joints. IMPRESSION: No acute CT findings in the abdomen or pelvis. Increased small circumferential pericardial effusion. New right middle lobe and lingular consolidation, more likely atelectasis than aspiration or pneumonia.
--- NOTE | 2017-06-21 22:15 | RADIOLOGY REPORT ---
EXAMINATION: XR PORTABLE CHEST CLINICAL INFORMATION: Chest pain COMPARISON: 05/16/2017 TECHNIQUE: Portable frontal view of the chest was obtained. FINDINGS: Lungs are clear. No focal consolidation or mass. Normal pulmonary vascularity. No pleural effusion or pneumothorax. Cardiac silhouette is prominent. Regional skeleton intact. IMPRESSION: Prominent cardiac silhouette, possibly accentuated by technique. No acute pulmonary disease.
--- NOTE | 2017-06-21 23:41 | History & Physical ---
Ignrid Lloyd MD 06/21/17 3329: General Information and HPI MD Statement: I have seen and personally examined RAQUEL MAN and documented this H&P. The patient is a 71 year old F who presented with a patient stated chief complaint of [nausea/vomitting and high blood pressure]. Source of Information: patient, family, old records Exam Limitations: no limitations History of Present Illness: Patient is 71-year-old female with past medical history of CVA (2016), Parkinson 's, hypertension, hypertensive retinopathy, anxiety, hyperlipidemia, hypothyroidism, osteoporosis, vaginal HSV 1 lesions, multiple hospitalizations for hypertensive urgency and hyponatremia with last admission on 05/17 presenting this admission with chief complaint of nausea and vomiting and elevated blood pressure. Patient reports that she has had high blood pressure over the past few months. Patient takes her blood pressure 3 times a day and reports that it tends to be anywhere from 150-180 systolic. Patient states her antihypertensive medications have been changed in the past due to side effects. Patient reports that she tries to take her medications however stopped taking them when she notices side effects. Most recently she reports that the labetalol she was prescribed most recently she believes it makes her nauseous and is the cause of her vomiting. Patient reports a 2 day history of nausea and nonbloody emesis. States that today she had 4 episodes of emesis. Patient also reports 4 episodes of diarrhea 2 days prior to admission. Patient endorses headaches, visual changes -blurry vision, weakness, dizziness, sensation of falling, shivering and occasional shortness of breath. Patient denies chest pain, abdominal pain, constipation, urinary symptoms. Patient appears to be anxious when taking her medications. Patient has a history of anxiety and was previously on citalopram and clonazepam at some point. Patient states that she saw her PCP, Dr. Wells recently and was started on hydrochlorothiazide which she stopped taking after 2 days. Patient's journalism professor is Dr. Meeks whom she saw 2 months ago. Patient lives with her son and . Patient reports no sick contacts and has not eaten anything out of the ordinary. Patient's last echocardiogram in 2016 showed mild aortic sclerosis, mild tricuspid insufficiency, borderline concentric hypertrophy, normal left ventricular ejection fraction of 60-65% Patient reports taking the following medications: Levothyroxine 88 mcg daily, carbidopa levodopa 12330 times a day, alendronate 70 mg weekly, atorvastatin 10 mg daily, pantoprazole 40 mg daily, labetalol 200 mg twice daily, hydralazine 10 mg 3 times daily, losartan 50 mg daily, trazodone at bedtime Allergies: Sulfarash Irondiarrhea Allergies/Medications Allergies: Coded Allergies: Sulfa (Sulfonamide Antibiotics) (RASH 08/06/16) iron (DIARRHEA 08/06/16) Home Med list Acetaminophen 500 MG TABLET 1 TAB PO PRN PAIN (Reported) Alendronate Sodium 70 MG TABLET 1 TAB PO QFRI OSTEOPOROSIS (Reported) in the morning, at least 30 minutes before the first food, beverage, or medication of the day Atorvastatin Calcium 10 MG TABLET 1 TAB PO DAILY GI (Reported) Carbidopa/Levodopa (Carbidopa-Levodopa 25-100 Tab) 25 MG-100 MG TABLET 1 TAB PO TID PARKINSONS (Reported) Hydralazine HCl 10 MG TABLET 1 TAB PO TID HTN Labetalol HCl 300 MG TABLET 1 TAB PO BID high blood pressure Labetalol HCl 100 MG TABLET 100 MG PO BID BP control Levothyroxine Sodium 88 MCG TABLET 1 TAB PO DAILY Thyroid (Reported) Losartan Potassium (Cozaar) 50 MG TABLET 1 TAB PO DAILY BP (Reported) Nepafenac (Ilevro) 0.3 % DROPS.SUSP 1 DROP OD DAILY RIGHT EYE (Reported) Olopatadine HCl (Pazeo) 0.7 % DROPS 1 DROP OU QAM ITCHING (Reported) Pantoprazole Sodium 40 MG TABLET.DR 1 TAB PO DAILY GI (Reported) Polyethylene Glycol 3350 (Miralax) 17 GRAM/DOSE POWDER 17 GM PO DAILY PRN CONSTIPATION Trazodone HCl 100 MG TABLET 1 TAB PO QPM INSOMNIA (Reported) Past History Travel History Traveled to [place] past 21 day No Medical History Neurological: CVA, Parkinson's disease EENT: NONE Cardiovascular: hypertension, hyperlipidemia Respiratory: NONE Gastrointestinal: GERD Hepatic: NONE Renal: NONE Musculoskeletal: NONE Psychiatric: NONE Endocrine: hypothyroidism Blood Disorders: NONE Cancer(s): NONE SOLE SEWER HAND/Reproductive: HERPES History of MRSA: No History of VRE: No History of CDIFF: No Surgical History Surgical History: hysterectomy (TOTAL) Past Family/Social History Family History Relations & Conditions if any BROTHER FH: CAD (coronary artery disease) Psychosocial History Who Do You Live With? spouse, parent Functional Ability ADLs Independent: dressing, eating, toileting, bathing. Review of Systems Review of Systems Constitutional: Reports: see HPI. Exam & Diagnostic Data Last 24 Hrs of Vital Signs/I&O Vital Signs Date Time Temp Pulse Resp B/P B/P Pulse O2 O2 Flow FiO2 Mean Ox Delivery Rate 06/22 0657 98.5 67 20 172/80 96 Room Air 06/22 0439 73 158/74 06/22 0253 62 200/88 06/22 0253 62 200/88 06/22 0100 99.1 78 20 200/102 97 Room Air 06/22 0007 97.6 68 18 178/95 97 Room Air 06/21 2304 66 20 198/91 98 Room Air 06/21 2244 66 20 198/100 06/21 2226 66 20 230/96 06/21 2146 86 18 198/100 06/21 2110 67 18 210/103 97 Room Air 06/21 2020 191/76 06/21 2013 97.3 68 16 223/93 98 Room Air Intake & Output 06/22 1600 06/22 0800 06/22 0000 Intake Total 220 Output Total 200 200 Balance 20 -200 Intake, Oral 220 Output, Urine 200 200 Patient 130 lb Weight Physical Exam General Appearance Alert, Oriented X3, Cooperative, No Acute Distress Skin No Rashes, No Breakdown Skin Temp/Moisture Exam: Warm/Dry HEENT Atraumatic, PERRLA, EOMI, Mucous Membr. moist/pink Cardiovascular Regular Rate, Normal S1, Normal S2 Lungs Clear to Auscultation, Normal Air Movement Abdomen Normal Bowel Sounds, Soft, No Tenderness Neurological Normal Speech, Strength at 5/5 X4 Ext, Normal Tone, Sensation Intact, Cranial Nerves 3-12 NL Extremities No Clubbing, No Cyanosis, No Edema, Normal Pulses, No Tenderness/ Swelling Last 24 Hrs of Labs/Jordan: Laboratory Tests 06/21/17 2100: Anion Gap 13, Estimated GFR 55 L, BUN/Creatinine Ratio 17.0, Glucose 143 H, Serum Osmolality 258 L, Calcium 9.3, Total Bilirubin 0.6, Direct Bilirubin 0.3, AST 15, ALT 17, Alkaline Phosphatase 88, Troponin I < 0.01, Total Protein 6.8, Albumin 4.3, Amylase 68, Lipase 147, D-Dimer High Sensitivty < 200, CBC w Diff NO MAN DIFF REQ, RBC 3.60 L, MCV 80.0 L, MCH 26.2 L, MCHC 32.8 L, RDW 13.8, MPV 9.3, Gran % 82.4 H, Lymphocytes % 11.7 L, Monocytes % 5.0, Eosinophils % 0.8, Basophils % 0.1, Absolute Granulocytes 7.1 H, Absolute Lymphocytes 1.0 L, Absolute Monocytes 0.4, Absolute Eosinophils 0.1, Absolute Basophils 0 Assessment/Plan Assessment: Patient is 71-year-old female with past medical history of CVA (2016), Parkinson 's, hypertension, hypertensive retinopathy, anxiety, hyperlipidemia, hypothyroidism, osteoporosis, vaginal HSV 1 lesions, multiple hospitalizations for hypertensive urgency and hyponatremia with last admission on 05/17 presenting this admission with chief complaint of nausea and vomiting and elevated blood pressure. Patient will be admitted to telemetry for management of the followin. Hypertensive urgency 2/2 medication noncompliance 2. Hyponatremia - likely multifactorial - recently started on hydrochlorathiazide, recent n/v, dehydration 3. Chronic conditions: Parkinson's, hypothyroidism, HTN, Anxiety Plan: Admit to telemetry with continue tele monitoring Monitor vitals q4h Antihypertensive medications: hydralazine 25mg TID, labetalol 100mg BID, losartan 50mg daiy Clonazepam 0.5mg x 1 - anxiety may be contributing to hypertension Follow up urine osm, urine lytes, and serum osm Follow up Na - no IV fluids given due to hypertensive urgency Repeat EKG and trops in AM Cardiology consult in AM for hypertensive urgency and pericardial effusion ECHO Protonix 40mg BID Continue home medications: levothyroxine, carbidopa-levadopa DVT PPx: ALPS only due to hypertensive urgency Diet: Heart healthy Code: Full code As Ranked By This Provider Problem List: 1. Hypertensive urgency 2. Hyponatremia Core Measures/Misc (11/03) Acute Coronary Syndrome ACS Diagnosis: No Congestive Heart Failure Congestive Heart Failure Diagnosis No Cerebrovascular Accident CVA/TIA Diagnosis: No VTE (View Protocol) VTE Risk Factors Age>40 No Mechanical VTE Prophylaxis d/t N/A MechProphylax Ordered No VTE Pharm Prophylaxis d/t Medical Contraindication Sepsis (View protocol) Sepsis Present: No Eddie Beatty 06/22/17 0706: Attending MD Review Statement Attending Statement Attending MD Statement: examined this patient, discuss w/resident/PA/STILL OPERATOR HELPER, agreed w/resident/PA/STILL OPERATOR HELPER, discussed with family, reviewed EMR data (avail), reviewed images, amended to note Attending Assessment/Plan: CC: High blood pressure, nausea and vomiting PMH: Parkinson, HLD, hypothyroidism, HTN, anxiety, possible stroke, hypertensive retinopathy Patient came to ER for multiple complaints. She states that her blood pressure has been fluctuating a lot, persistently elevated. She checks her blood pressure 3 times a day. Her morning blood pressure is around 170s systolic, around noontime blood pressure is better controlled at 150s then after 4 PM is always high, 200 systolic. She states that she has been compliant with her medications for blood pressure but she gets side effects from most of the blood pressure medication. She feels that she has heartburn/acid problem secondary to her antihypertensives. She also has nausea and vomiting. She states that since last 1 week of nausea and vomiting was getting worse. She vomited 4 times today. 3 days back she had 4-5 watery bowel movements which is now subsided. Other than this she feels tired, lethargic, less energy. She will also started on chlorthalidone approximately a week back. She took that medication for couple of days but stopped it secondary to "side effects". Vitals: Temperature 97.3, pulse 68, RR 16, blood pressure 223/93 on arrival, saturating 90% on room air. On exam: A O 3, cooperative, no acute distress, neck supple, JVD normal, no lymphadenopathy, mucosa dry, no focal neurological deficit, no dependent edema, no obvious skin rashes or inflammation CVS: S1-S2, RRR. RS: Clear to auscultate bilaterally. Abdomen: Soft, NT, ND, bowel sounds present. CXR:Prominent cardiac silhouette, possibly accentuated by technique. No acute pulmonary disease. CT abdomen pelvis without IV contrast: No acute CT findings in the abdomen or pelvis. Increased small circumferential pericardial effusion. New right middle lobe and lingular consolidation, more likely atelectasis than aspiration or pneumonia. Assessment and plan 71-year-old female with extensive past medical history presented in ER for multiple vague complaints as mentioned above. The main concern is difficult to treat blood pressure. Looking at her past medical history she was tried on several antihypertensive medications and most of them were discontinued because of "side effects". The side effects watch she describes are vague and unclear but mostly nausea, vomiting, heartburn, feels tired and lethargic. I had a long talk with her about compliance with this medication and consistency to use them. She also restricts her salt intake. The most recent regimen she is on losartan 50 mg, hydralazine 10 mg 3 times a day, labetalol 200 mg twice a day. She was admitted on May 16 for similar problems and she was discharged on labetalol 100 mg twice daily. The dose was recently increased outpatient. She was also tried on chlorthalidone but could not tolerate. There appears a part of anxiety as well. Patient takes 0.5 mg of clonazepam (prescription from [facility]) . She was started on trazodone and citalopram by her primary care physician for anxiety but she did not tolerate it because of "side effects". She visited ER 4 times since April. She also appears to have hyponatremia, it could be secondary to dehydration with her recent episode of nausea vomiting, chlorthalidone, decreased salt intake. Her most recent sodium was 127 on June 03. She has intermittent history of hyponatremia. We will get the urine osmolality, serum osmolality, she may require fluid restriction. She is also found to have pericardial effusion incidentally. We will get 2-D echocardiogram and cardiology consult for the same. Lastly patient appears to have hiatus hernia as I could hear bowel sounds in her chest, which may be contributing to her nausea, vomiting, heartburn sensations, will continue Protonix 40 mg twice a day, she will benefit from outpatient GI consult. + Hypertensive urgency + Hyponatremia + Incidental finding of possible pericardial effusion + nausea vomiting + History of Parkinson, HLD, hypothyroidism, HTN, anxiety, possible stroke, hypertensive retinopathy - Admit to telemetry - Continuous telemetry monitoring - 1 more set of troponin any sutures - Continue hydralazine 25 mg by mouth 3 times a day - Labetalol 100 mg by mouth twice a day - Check serum osmolality, urine osmolality - Start trazodone 50 mg at bedtime - Try one dose of 0.5 mg of clonazepam - Continue losartan 50 mg daily - Continue Sinemet, Synthroid - 2-D echocardiogram : ?Pericardial effusion, loud P2, and rule out AI - Cardiology consult - Protonix 40 mg twice a day PO - DVT prophylaxis
[2017-06-22 01:00] VITALS: BP 200/102
[2017-06-22 04:39] VITALS: BP 158/74
[2017-06-22 06:57] VITALS: BP 172/80
--- NOTE | 2017-06-22 07:07 | Admission Certification ---
Admission Certification Certification Statement - As attending physician, I certify that at the time of - admission, based on clinical presentation, severity of - symptoms, need for further diagnostic testing and - therapeutic interventions, and risk of adverse outcomes - without in-hospital treatment, in my clinical assessment, - this patient requires an acute hospital stay for a minimum - of two nights or longer. I have also considered psychsocial - factors such as support system, advanced age, financial - issues, cognitive issues, and failed out-patient treatments, - past re-admission history, safety of patient, and lack of - compliance as applicable. Specific rationale supporting this admission is: Hypertensive urgency, Hyponatremia
[2017-06-22 08:56] LABS: ABSOLUTE BASOPHIL COUNT 0 /CUMM (0.0-0.2); ABSOLUTE EOSINOPHIL COUNT 0.1 /CUMM (0.0-0.7); ABSOLUTE GRANULOCYTE CT 5.7 /CUMM (1.4-6.5); ABSOLUTE LYMPH COUNT 1.3 /CUMM (1.2-3.4); ABSOLUTE MONOCYTE COUNT 0.7 /CUMM (0.10-0.60); BASOPHIL % 0.2 % (0.0-2.0); EOSINOPHIL % 1.4 % (0-5); HEMATOCRIT 27.2 % (37-47); MEAN CORPUSCULAR HGB 26.4 PG (27.0-31.0); MEAN CORPUSCULAR HGB CONC 33.1 G/DL (33.0-37.0); MEAN CORPUSCULAR VOLUME 79.8 FL (81.0-99.0); MEAN PLATELET VOLUME 9.5 FL (7.4-10.4); PLATELET COUNT 321 /CUMM (130-400); RBC DISTRIBUTION WIDTH 13.6 % (11.5-14.5); RED BLOOD CELL CT 3.41 /CUMM (4.20-5.40); WHITE BLOOD CELL COUNT 7.8 /CUMM (4.8-10.8)
--- NOTE | 2017-06-22 10:55 | PN- Housestaff ---
Brain [facility] 06[facility]22[facility] 1055: Subjective Follow-up For: Hypertension Nausea and vomiting Hyponatremia Subjective: Afebrile, hypertensive up to 170s/80s while on labetalol 100 mg twice a day, Hydralazine 25 mg TID, and losartan 50 mg daily. She denies headache, dizziness, or blurred vision. She is saturating well on room air with a heart rate of 60s to 70s. She denies any other current active complaints, except nasuea after taking labetalol. Review of Systems Constitutional: Reports: no symptoms, see HPI. Objective Last 24 Hrs of Vital Signs/I&O Vital Signs Date Time Temp Pulse Resp B/P B/P Pulse O2 O2 Flow FiO2 Mean Ox Delivery Rate 06/22 0855 67 172/80 06/22 0854 67 172/80 06/22 0854 67 172/80 06/22 0657 98.5 67 20 172/80 96 Room Air / 0439 73 158/74 06/22 0253 62 200/88 06/22 0253 62 200/88 06/22 0100 99.1 78 20 200/102 97 Room Air / 0007 97.6 68 18 178/95 97 Room Air 05/05 2304 66 20 198/91 98 Room Air 05/05 2244 66 20 198/100 / 2226 66 20 230/96 05/ 2146 86 18 198/100 / 2110 67 18 210/103 97 Room Air / 2020 191/76 06/21 2013 97.3 68 16 223/93 98 Room Air Intake & Output 06/22 1600 06/22 0800 06/22 0000 Intake Total 220 Output Total 200 200 Balance 20 -200 Intake, Oral 220 Output, Urine 200 200 Patient 58.967 kg Weight Physical Exam General Appearance: Alert, Oriented X3, Cooperative, No Acute Distress Skin: No Rashes HEENT: Atraumatic, PERRLA, EOMI, Mucous Membr. moist/pink Neck: No JVD Cardiovascular: Regular Rate, Normal S1, Normal S2, No Murmurs Lungs: Clear to Auscultation, Normal Air Movement Abdomen: Soft, No Tenderness Neurological: Normal Speech, Cranial Nerves 3-12 NL Extremities: No Clubbing, No Cyanosis, No Edema Current Medications: Current Medications Sig/Areli Start time Last Medication Dose Route Stop Time Status Admin Acetaminophen 650 MG Q6P PRN 06/22 0100 AC PO Atorvastatin Calcium 10 MG 1700 06/22 1700 AC PO Carbidopa/Levodopa 1 TAB TID 06/22 09 AC 06/22 PO 0854 Clonazepam 0.5 MG ONCE ONE 06/22 0100 DC 06/22 PO 06/22 0101 0255 Enoxaparin Sodium 40 MG DAILY 06/22 899 CAN SC Hydralazine HCl 25 MG TID 06/22 899 AC 06/22 PO 0855 Hydralazine HCl 25 MG ONCE ONE 06/22 0030 DC 06/22 PO 06/22 0031 0253 Hydralazine HCl 50 MG STAT STA 06/214 DC PO 06/21 220 Labetalol HCl 100 MG BID 06/22 0300 AC 06/22 PO 0854 Labetalol HCl 0 .STK-MED ONE 06/21 2220 DC IV Labetalol HCl 20 MG ONCE ONE 06/21 2214 DC 06/21 IV 06/22 2215 222 Labetalol HCl 0 .STK-MED ONE 06/21 2133 DC IV Labetalol HCl 10 MG ONCE ONE 06/21 213 DC 06/21 IV 06/21 2130 214 Levothyroxine Sodium 0.088 MG DAILY AC 06/22 0700 AC 06/22 PO 0640 Losartan Potassium 50 MG DAILY 06/22 09 AC 06/22 PO 0854 Omeprazole 40 MG BID 06/22 0100 DC 06/22 PO 0252 Ondansetron HCl 4 MG Q8P PRN 06/22 0100 AC IV Ondansetron HCl 0 .STK-MED ONE 06/22 2055 DC PO Ondansetron HCl 4 MG ONCE ONE 06/21 2030 DC 06/21 PO 06/21 2030 210 Trazodone HCl 100 MG QPM 06/22 2100 AC PO Last 24 Hrs of Lab/Jordan Results Last 24 Hrs of Labs/Mics: Laboratory Tests 06/22/17624: Anion Gap 11, Estimated GFR 49 L, BUN/Creatinine Ratio 16.4, Troponin I < 0.01, CBC w Diff NO MAN DIFF REQ, RBC 3.41 L, MCV 79.8 L, MCH 26.4 L, MCHC 33.1, RDW 13.6, MPV 9.5, Gran % 73.0, Lymphocytes % 16.8 L, Monocytes % 8.6, Eosinophils % 1.4, Basophils % 0.2, Absolute Granulocytes 5.7, Absolute Lymphocytes 1.3, Absolute Monocytes 0.7 H, Absolute Eosinophils 0.1, Absolute Basophils 0 06/21/173: Ur Random Creatinine Cancelled, Ur Random Sodium Cancelled, Ur Random Potassium Cancelled, Fraction Sodium Excret Cancelled 06/21/17 2100: Anion Gap 13, Estimated GFR 55 L, BUN/Creatinine Ratio 17.0, Glucose 143 H, Serum Osmolality 258 L, Calcium 9.3, Total Bilirubin 0.6, Direct Bilirubin 0.3, AST 15, ALT 17, Alkaline Phosphatase 88, Troponin I < 0.01, Total Protein 6.8, Albumin 4.3, Amylase 68, Lipase 147, D-Dimer High Sensitivty < 200, CBC w Diff NO MAN DIFF REQ, RBC 3.60 L, MCV 80.0 L, MCH 26.2 L, MCHC 32.8 L, RDW 13.8, MPV 9.3, Gran % 82.4 H, Lymphocytes % 11.7 L, Monocytes % 5.0, Eosinophils % 0.8, Basophils % 0.1, Absolute Granulocytes 7.1 H, Absolute Lymphocytes 1.0 L, Absolute Monocytes 0.4, Absolute Eosinophils 0.1, Absolute Basophils 0 Assessment/Plan Assessment: 71-year-old female with past medical history of uncontrolled hypertension who presented multiple times because of hypertensive urgency, nausea and vomiting. #Hypertensive urgency * We will continue monitoring in telemetry * ACS was ruled out * Continue labetalol 100 mg twice a day * Continue hydralazine 25 mg 3 times a day, may increase if BP is not contolled * Continue losartan 50 milligrams daily, also help with protieinuria #Mild SIMEON * Possibly secondary to the dehydration * We will discuss the need to stop losartan tomorrow if cr continue to increase. #Hyponatremia * Was found to be hyponatremic multiple times during previous admissions * most likely 2/2 dehydration or less likely caused by SIADH * We will send for urine osmolarity and electrolytes to further address hyponatremia * To be followed based on the urine results #Incidental finding of possible pericardial effusion * We will order echocardiogram * Follow cardiology consult recommendations #Nausea and vomiting * Patient is very sure that nausea and vomiting is related to labetalol as she gets the symptoms every time she takes the medication, however she reports similar symptoms with almost every other medicataions. * Continue Zofran as needed #History of Parkinson, HLD, hypothyroidism, anxiety, hypertensive retinopathy, and GERD * Continue home dose of levothyroxin * Continue trazodone 50 mg at bedtime * Continue Protonix 40 mg twice a day PO * Continue statin atorvastatin 10 mg daily -Heart healthy diet -DVT prophylaxis subcutaneous heparin -FC Problem List: 1. Vomiting 2. Hypertension Pain Ratin Pain Location: na Pain Goal: Remain pain free Pain Plan: See A&P Tomorrow's Labs & Rationales: bep for Na and renal function [place],Viviana 06/22/17 1219: Attending MD Review Statement Attending Statement Attending MD Statement: examined this patient, discuss w/resident/PA/CRIMPING MACHINE OPERATOR, agreed w/resident/PA/CRIMPING MACHINE OPERATOR, discussed with family, reviewed EMR data (avail), discussed with nursing, discussed with case mgmt, reviewed images, amended to note Attending Assessment/Plan: Patient admitted for hypertension urgency and hyponatrmeia. Patient bp meds ajdusted as per admitting phsycian. Would refrain from changing them today as would like to see effects for 24 hrs. Patient on multiple durg regimen in past. Her Na is slightly improved from yesterday. ECHO pending for incidental pericardial effusion. Cont rest of meds for parkinson disease. [facility] consult.
[2017-06-22 14:04] VITALS: BP 152/84
[2017-06-22 22:23] VITALS: BP 160/84
[2017-06-23 06:37] VITALS: BP 156/80
--- NOTE | 2017-06-23 07:05 | PN- Housestaff ---
Omar WHITFIELD,Robin 06/23/17 0704: Subjective Follow-up For: Hyponatremia Hypertension Possible pericardial effusion Tele-Events Since Last Visit: Sinus rhythm HR 50s60s Subjective: Patient was seen and examined at bedside. She is resting comfortably. She had no acute events overnight. She continues to complain of mild nausea and states that she became slightly lightheaded upon standing today when working with physical therapy however she was negative for orthostatic hypotension when tested. She denies any chest pain, shortness of breath, fever, chills, abdominal pain diarrhea, dyspnea at rest. Review of Systems Constitutional: Reports: see HPI. Objective Last 24 Hrs of Vital Signs/I&O Vital Signs Date Time Temp Pulse Resp B/P B/P Pulse O2 O2 Flow FiO2 Mean Ox Delivery Rate 06/23 636 98.3 61 20 156/80 95 Room Air / 2223 98.7 62 20 160/84 96 Room Air / 2212 62 164/84 / 2211 62 164/84 / 1404 98.1 59 20 152/84 97 Room Air / 1322 58 168/80 /06 0855 67 172/80 05/06 0854 67 172/80 05/06 0854 67 172/80 Intake & Output 06/23 0800 / 0000 06/22 1600 Intake Total 400 300 Output Total 350 Balance 400 -50 Intake, Oral 400 300 Output, Urine 350 Patient 135 lb Weight Physical Exam General Appearance: Alert, Oriented X3, Cooperative, No Acute Distress Cardiovascular: Regular Rate, Normal S1, Normal S2 Lungs: Clear to Auscultation, Normal Air Movement Abdomen: Normal Bowel Sounds, Soft, No Tenderness Neurological: Normal Speech, Cranial Nerves 3-12 NL Current Medications: Current Medications Sig/Areli Start time Last Medication Dose Route Stop Time Status Admin Acetaminophen 650 MG Q6P PRN 06/22 0100 AC PO Atorvastatin Calcium 10 MG 1700 06/22 1700 AC 06/22 PO 1700 Carbidopa/Levodopa 1 TAB TID 06/22 0900 AC 06/22 PO 2212 Hydralazine HCl 25 MG TID 06/22 0900 AC 06/22 PO 2212 Labetalol HCl 100 MG BID 06/22 0300 AC 06/22 PO 2211 Levothyroxine Sodium 0.088 MG DAILY AC 06/22 0700 AC 06/23 PO 0658 Losartan Potassium 50 MG DAILY 06/22 0900 AC 06/22 PO 0854 Ondansetron HCl 4 MG Q8P PRN 06/22 0100 AC 06/22 IV 1846 Trazodone HCl 100 MG QPM 06/22 2100 AC 06/22 PO 2212 Last 24 Hrs of Lab/Jordan Results Last 24 Hrs of Labs/Mics: Laboratory Tests 06/23/17 0658: Anion Gap 13, Estimated GFR 34 L, BUN/Creatinine Ratio 14.0 06/22/17 1500: Urine Osmolality 306 06/22/17 1500: Urinalysis LIGHT H, Urine Color YEL, Urine Clarity CLEAR, Urine pH 6.0, Ur Specific [place] 1.015, Urine Protein 30 H, Urine Ketones NEG, Urine Nitrite NEG, Urine Bilirubin NEG, Urine Urobilinogen 0.2, Ur Leukocyte Esterase NEG, Ur Microscopic SEDIMENT EXAMINED, Urine WBC 1-3 H, Ur Epithelial Cells FEW, Urine Hemoglobin NEG, Urine Glucose NEG 06/22/17 1500: Ur Random Creatinine 71.0, Ur Random Sodium 15 L, Ur Random Potassium 47.9, Fraction Sodium Excret 0.2 Assessment/Plan Assessment: Patient is a 71-year-old male with a PMH significant for uncontrolled hypertension, Parkinson's disease, HLD, hypothyroidism, anxiety, GERD, who presented complaining of nausea and vomiting. She was found to be in hypertensive urgency and hyponatremic. #Hypertensive urgency -Continue telemetry monitoring -Increase losartan dose to 100 mg daily -Continue hydralazine and labetalol at current doses -Cardiology recommendations appreciated #Hyponatremia Patient is persistently hyponatremic, serum osmolality is low while urine osmolality is normal and of normal, and urine lites are within normal limits. Patient reports increased water intake prior to presentation. -Fluid restriction 1 L -Will repeat urine lites tomorrow morning #SIMEON Creatinine continues to increase, will continue to monitor especially given fluid restriction and increase in ARB #Possible pericardial effusion Seen on CT abdomen and pelvis, however patient has had similar findings on radiology in the past and pericardial effusion is ruled out by echo -Follow-up echocardiogram #Nausea vomiting Patient remains persistently nauseous, has not vomited in the last 24 hours -Continue Zofran when necessary #Chronic medical problems -Continue home medications Diet: Heart healthy DVT prophylaxis: Subcutaneous heparin, Alps CODE STATUS: Full code Problem List: 1. Nausea alone 2. Hyponatremia 3. Hypertensive urgency Pain Ratin Pain Location: none Pain Goal: Remain pain free Pain Plan: pain pathway Tomorrow's Labs & Rationales: silvia Little MD,Raftiffanie 06/23/17 1042: Attending MD Review Statement Attending Statement Attending MD Statement: examined this patient, discuss w/resident/PA/TUNNEL MUCKER, agreed w/resident/PA/TUNNEL MUCKER, reviewed EMR data (avail) Attending Assessment/Plan: 71F PMH Parkinson, HLD, hypothyroidism, HTN, anxiety presenting with nausea and vomiting, found to be in hypertensive urgency with hyponatremia 120. Has had several similar admissions in the past. BP improved with alteration of anti- hypertensives. Labs show hypoosmolar hyponatremia. Today patient has no complaints. She did become dizzy when walking around this morning but orthostatics were negative. Sodium creeping up to 123. BP 150's overnight, 184/90 this morning. 1. Hyponatremia 2. Hypertensive urgency 3. Nausea and vomiting 4. Dizziness Plan - Continue on telemetry - Would increase Losartan dose, but will await cardiology recommendations for BP control - Fluid restrict 1L/day - Daily metabolic panel - Continue to work with PT - Continue home medications - DVT PPx
--- NOTE | 2017-06-23 12:14 | Cons- Cardiology ---
General Information and HPI Consulting Request Date of Consult: 06/23/17 Requested By: Brie Little MD Reason for Consult: Hypertensive urgency History of Present Illness: The patient is a 71-year-old female with history of hypertension, anxiety, hyperlipidemia, hypothyroidism, and prior history of ischemic stroke. She is followed in the office by Dr. Meeks. She has been having elevated blood pressure for the past few months. She checks her blood pressure 3 times a day and it typically ranges between 150 and 180 systolic. She has been having recent nausea. She also notes recent episodes of diarrhea. She complains of headaches and blurry vision. She also notes lightheadedness and dizziness. No chest pain. No shortness of breath. No syncope. She was recently started on hydrochlorthiazide which she discontinued after 2 days. She has not been fully compliant with her medications. She was admitted for hypertensive urgency. Hydralazine dose has been increased. Labetalol and losartan have been continued. The blood pressure remains high today. Allergies/Medications Allergies: Coded Allergies: Sulfa (Sulfonamide Antibiotics) (RASH 08/06/16) iron (DIARRHEA 08/06/16) Home Med List: Acetaminophen 500 MG TABLET 1 TAB PO PRN PAIN (Reported) Alendronate Sodium 70 MG TABLET 1 TAB PO QFRI OSTEOPOROSIS (Reported) in the morning, at least 30 minutes before the first food, beverage, or medication of the day Atorvastatin Calcium 10 MG TABLET 1 TAB PO DAILY GI (Reported) Carbidopa/Levodopa (Carbidopa-Levodopa 25-100 Tab) 25 MG-100 MG TABLET 1 TAB PO TID PARKINSONS (Reported) Hydralazine HCl 10 MG TABLET 1 TAB PO TID HTN Labetalol HCl 300 MG TABLET 1 TAB PO BID high blood pressure Labetalol HCl 100 MG TABLET 100 MG PO BID BP control Levothyroxine Sodium 88 MCG TABLET 1 TAB PO DAILY Thyroid (Reported) Losartan Potassium (Cozaar) 50 MG TABLET 1 TAB PO DAILY BP (Reported) Nepafenac (Ilevro) 0.3 % DROPS.SUSP 1 DROP OD DAILY RIGHT EYE (Reported) Olopatadine HCl (Pazeo) 0.7 % DROPS 1 DROP OU QAM ITCHING (Reported) Pantoprazole Sodium 40 MG TABLET.DR 1 TAB PO DAILY GI (Reported) Polyethylene Glycol 3350 (Miralax) 17 GRAM/DOSE POWDER 17 GM PO DAILY PRN CONSTIPATION Trazodone HCl 100 MG TABLET 1 TAB PO QPM INSOMNIA (Reported) Current Medications: Current Medications Sig/Areli Start time Last Medication Dose Route Stop Time Status Admin Acetaminophen 650 MG Q6P PRN 06/22 0100 AC PO Atorvastatin Calcium 10 MG 1700 06/22 1700 AC 05 PO 1700 Carbidopa/Levodopa 1 TAB TID 06/22 0900 AC 06/23 PO 0816 Hydralazine HCl 25 MG TID 06/22 0900 AC 06/23 PO 0816 Labetalol HCl 100 MG BID 06/22 0300 AC 06/23 PO 0816 Levothyroxine Sodium 0.088 MG DAILY AC 06/22 0700 AC 06/23 PO 0658 Losartan Potassium 50 MG DAILY 06/22 09 AC 06/23 PO 0816 Ondansetron HCl 4 MG Q8P PRN 06/22 0100 AC 06/23 IV 0905 Trazodone HCl 100 MG QPM 06/22 2100 AC 06/22 PO 2212 Review of Systems Review of Systems: No rash. No tremor. No fever. No chills. All other systems were reviewed, and were noted to be negative. 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 Home Who Do You Live With? spouse, parent Services at Home: None Smoking Status: Never Smoked Functional Ability ADLs Independent: dressing, eating, toileting, bathing. Exam & Diagnostic Data Vital Signs and I&O Vital Signs Date Time Temp Pulse Resp B/P B/P Pulse O2 O2 Flow FiO2 Mean Ox Delivery Rate 06/24 815 61 156/80 06/24 0716 61 156/80 06/24 815 61 156/80 06/23 0537 98.3 61 20 156/80 95 Room Air 06/223 98.7 62 20 160/84 96 Room Air 06/222 62 164/84 05/06 2211 62 164/84 06/22 1404 98.1 59 20 152/84 97 Room Air 06/22 1322 58 168/80 Intake & Output 06/23 0806/23 0000 06/22 1600 06/22 0806/22 0000 Intake Total 240 400 300 220 Output Total 350 200 200 Balance 240 400 -50 20 -200 Intake, Oral 240 400 300 220 Output, Urine 350 200 200 Patient 135 lb 130 lb Weight Physical Exam: Gen: The patient is in no acute distress HEENT: Normal nose, ears, and oropharynx. Pupils equal bilaterally. Conjunctiva normal. Neck: Supple with no JVD, no masses, and no thyromegaly Lungs: Clear to auscultation with normal respiratory effort Heart: RRR, S1, S2, no murmurs. No peripheral edema, 2+ pulses in the lower extremities bilaterally Abdomen: Soft, nontender, no masses. No hepatomegaly. No splenomegaly Extremities: No clubbing or cyanosis. Normal muscle strength in the upper and lower extremities Skin: Normal skin turgor with no skin ulcers or lesions noted. Neuro: Cranial nerves intact. Sensation intact Psych: Alert and oriented x 3 with appropriate affect Labs/Jordan Results: Laboratory Tests 06/23 06/22 06/22 06/22 0658 1500 1500 1500 Chemistry Sodium (137 - 145 mmol/L) 123 L Potassium (3.5 - 5.1 mmol/L) 4.6 Chloride (98 - 107 mmol/L) 85 L Carbon Dioxide (22 - 30 mmol/L) 25 Anion Gap (5 - 16) 13 BUN (7 - 17 mg/dL) 21 H Creatinine (0.5 - 1.0 mg/dL) 1.5 H Estimated GFR (>60 ml/min) 34 L BUN/Creatinine Ratio (7 - 25 %) 14.0 Urines Urinalysis LIGHT H Urine Color (YEL,AMB,STR) YEL Urine Clarity (CLEAR) CLEAR Urine pH (5.0 - 8.0) 6.0 Ur Specific [place] (1.001 - 1.035) 1.015 Urine Protein (NEG,<30 MG/DL) 30 H Urine Ketones (NEG) NEG Urine Nitrite (NEG) NEG Urine Bilirubin (NEG) NEG Urine Urobilinogen (0.1 - 1.0 EU/dl) 0.2 Ur Leukocyte Esterase (NEG) NEG Ur Microscopic SEDIMENT EXAMINED Urine WBC (0 - 2 /HPF) 1-3 H Ur Epithelial Cells (NONE,FEW) FEW Urine Hemoglobin (NEG) NEG Urine Osmolality (300 - 1000 MOSM/KG) 306 Ur Random Creatinine (mg/dL) 71.0 Ur Random Sodium (30 - 90 mmol/L) 15 L Ur Random Potassium (mmol/L) 47.9 Fraction Sodium Excret (<1% %) 0.2 Urine Glucose (N MG/DL) NEG 06/22 06/21 06/21 0625 2233 2233 Chemistry Sodium (137 - 145 mmol/L) 122 L Potassium (3.5 - 5.1 mmol/L) 3.8 Chloride (98 - 107 mmol/L) 87 L Carbon Dioxide (22 - 30 mmol/L) 23 Anion Gap (5 - 16) 11 BUN (7 - 17 mg/dL) 18 H Creatinine (0.5 - 1.0 mg/dL) 1.1 H Estimated GFR (>60 ml/min) 49 L BUN/Creatinine Ratio (7 - 25 %) 16.4 Troponin I (< 0.11 ng/ml) < 0.01 Hematology CBC w Diff NO MAN DIFF REQ WBC (4.8 - 10.8 /CUMM) 7.8 RBC (4.20 - 5.40 /CUMM) 3.41 L Hgb (12.0 - 16.0 G/DL) 9.0 L Hct (37 - 47 %) 27.2 L MCV (81.0 - 99.0 FL) 79.8 L MCH (27.0 - 31.0 PG) 26.4 L MCHC (33.0 - 37.0 G/DL) 33.1 RDW (11.5 - 14.5 %) 13.6 Plt Count (130 - 400 /CUMM) 321 MPV (7.4 - 10.4 FL) 9.5 Gran % (42.2 - 75.2 %) 73.0 Lymphocytes % (20.5 - 51.1 %) 16.8 L Monocytes % (1.7 - 9.3 %) 8.6 Eosinophils % (0 - 5 %) 1.4 Basophils % (0.0 - 2.0 %) 0.2 Absolute Granulocytes (1.4 - 6.5 /CUMM) 5.7 Absolute Lymphocytes (1.2 - 3.4 /CUMM) 1.3 Absolute Monocytes (0.10 - 0.60 /CUMM) 0.7 H Absolute Eosinophils (0.0 - 0.7 /CUMM) 0.1 Absolute Basophils (0.0 - 0.2 /CUMM) 0 Urines Urine Color Cancelled Urine Clarity Cancelled Urine pH Cancelled Ur Specific [place] Cancelled Urine Protein Cancelled Urine Ketones Cancelled Urine Nitrite Cancelled Urine Bilirubin Cancelled Urine Urobilinogen Cancelled Ur Leukocyte Esterase Cancelled Ur Microscopic Cancelled Urine Hemoglobin Cancelled Ur Random Creatinine Cancelled Ur Random Sodium Cancelled Ur Random Potassium Cancelled Fraction Sodium Excret Cancelled Urine Glucose Cancelled 06/21 2100 Chemistry Sodium (137 - 145 mmol/L) 121 L Potassium (3.5 - 5.1 mmol/L) 4.0 Chloride (98 - 107 mmol/L) 85 L Carbon Dioxide (22 - 30 mmol/L) 23 Anion Gap (5 - 16) 13 BUN (7 - 17 mg/dL) 17 Creatinine (0.5 - 1.0 mg/dL) 1.0 Estimated GFR (>60 ml/min) 55 L BUN/Creatinine Ratio (7 - 25 %) 17.0 Glucose (65 - 99 mg/dL) 143 H Serum Osmolality (285 - 295 MOSM/KG) 258 L Calcium (8.4 - 10.2 mg/dL) 9.3 Total Bilirubin (0.2 - 1.3 mg/dL) 0.6 Direct Bilirubin (< 0.4 mg/dL) 0.3 AST (14 - 36 U/L) 15 ALT (9 - 52 U/L) 17 Alkaline Phosphatase (<127 U/L) 88 Troponin I (< 0.11 ng/ml) < 0.01 Total Protein (6.3 - 8.2 g/dL) 6.8 Albumin (3.5 - 5.0 g/dL) 4.3 Amylase (30 - 110 U/L) 68 Lipase (23 - 300 U/L) 147 Coagulation D-Dimer High Sensitivty (0 - 243 ng/ml) < 200 Hematology CBC w Diff NO MAN DIFF REQ WBC (4.8 - 10.8 /CUMM) 8.6 RBC (4.20 - 5.40 /CUMM) 3.60 L Hgb (12.0 - 16.0 G/DL) 9.4 L Hct (37 - 47 %) 28.8 L MCV (81.0 - 99.0 FL) 80.0 L MCH (27.0 - 31.0 PG) 26.2 L MCHC (33.0 - 37.0 G/DL) 32.8 L RDW (11.5 - 14.5 %) 13.8 Plt Count (130 - 400 /CUMM) 346 MPV (7.4 - 10.4 FL) 9.3 Gran % (42.2 - 75.2 %) 82.4 H Lymphocytes % (20.5 - 51.1 %) 11.7 L Monocytes % (1.7 - 9.3 %) 5.0 Eosinophils % (0 - 5 %) 0.8 Basophils % (0.0 - 2.0 %) 0.1 Absolute Granulocytes (1.4 - 6.5 /CUMM) 7.1 H Absolute Lymphocytes (1.2 - 3.4 /CUMM) 1.0 L Absolute Monocytes (0.10 - 0.60 /CUMM) 0.4 Absolute Eosinophils (0.0 - 0.7 /CUMM) 0.1 Absolute Basophils (0.0 - 0.2 /CUMM) 0 Diagnostic Data EKG Results EKG tracings independently reviewed, and reveals normal sinus rhythm at [address] and mild CXR Results Prominent cardiac silhouette, possibly accentuated by technique. No acute pulmonary disease. Other Results CT scan of the abdomen and pelvis 06/21/17: No acute CT findings in the abdomen or pelvis. Increased small circumferential pericardial effusion. New right middle lobe and lingular consolidation, more likely atelectasis than aspiration or pneumonia. Echocardiogram: 1. This was a technically difficult examination. 2. Minimsl to mild aortic sclerosis is present with no valvular stenosis or insufficiency. 3. There is no significant pericardial fluid present. 4. The left ventricualr chamber size and systolic function appear normal. Borderline concentric hypertrophy is present. THere are no obvious resting wall motion abnormalities. 5. Mild tricuspid insufficiency is present with mild to moderate pulmonic insufficiency. The RV systolic pressure was not accurately assessed. Assessment/Plan Assessment/Plan The patient is a 71-year-old female with history of diabetes mellitus, hypertension, CVA, hyperlipidemia, and hypothyroidism presenting with uncontrolled blood pressure associated with nausea, visual changes, headaches, and lightheadedness. She has been admitted for hypertensive urgency. Blood pressure is improving after increase in hydralazine dose but remains elevated. CT scan reveals evidence of pericardial effusion. Recommendations: * Repeat echocardiogram to evaluate pericardial effusion * Increase losartan to 100 mg daily * Continue other cardiac medications Consult Acknowledgment - Thank you for your consult request.
[2017-06-23 15:09] VITALS: BP 180/86
--- NOTE | 2017-06-23 16:23 | ECHOCARDIOGRAM REPORT ---
RAQUEL MAN Age: 71 : 1945 Gender: F Exam Date: 06/22/2017 10:51 Exam Location: 1 [address] Ht (in): 64 Wt (lb): 130 BSA: 1.64 BP: 172 / 80 Ordering Physician: Ingrid Lloyd MD Referring Physician: Doug Meeks MD Technologist: Jerica Sandhu [facility] Room Number: [id number] Indications: HYPERTENSION Rhythm: Sinus Technical Quality: Fair FINDINGS Left Ventricle Normal size left ventricle. Left ventricular wall thickness increased. Normal left ventricular ejection fraction estimated at 55-60%. Right Ventricle Normal right ventricular size and function. Right Atrium Normal right atrial size. Left Atrium Left atrial size at the upper limits of normal. Mitral Valve Mitral valve thickened. Mitral annular calcification. Mild mitral regurgitation. Aortic Valve Structurally normal trileaflet aortic valve. Tricuspid Valve Tricuspid valve not well visualized, grossly normal. Mild tricuspid regurgitation. Right ventricular systolic pressure estimated at 28 mmHg. Pulmonic Valve Pulmonic valve not well visualized, grossly normal. [id number] pulmonic regurgitation. Pericardium No pericardial effusion. Great Vessels Aortic root and proximal ascending aorta not well visualized, grossly normal. CONCLUSIONS 1. This was a technically difficult examination. 2. Minimal to mild aortic sclerosis is present. 3. Mitral leaflet thickening is present with anular calcification and mild mitral insufficiency. 4. There is no pericardial fluid present. 5. The left ventricular chamber size is normal with borderline to mild concentric hypertrophy and a normal ejection fraction with no resting wall motion abnoramlities. 6. MIld tricuspid insufficiency is present with mild to moderate pulmonic insufficiency and no evidence of pulmonary hypertension. 7. Since the last study there has been no significant change. Doug Meeks M.D. (Electronically Signed) Final Date: 23 Jun 2017 16:22 MEASUREMENTS (Male / Female) Normal Values 2D ECHO LV Diastolic Diameter PLAX 4.4 cm 4.2 - 5.9 / 3.9 - 5.3 cm LV Systolic Diameter PLAX 2.7 cm 2.1 - 4.0 cm LV Fractional Shortening PLAX 38.6 % 25 - 46 % LV Ejection Fraction 2D Teich 69.2 % IVS Diastolic Thickness 1.3 cm LVPW Diastolic Thickness 1.3 cm LV Relative Wall Thickness 0.6 RV Internal Dim ED PLAX 3.0 cm 1.9 - 3.8 cm LVOT Diameter 1.9 cm Aortic Root Diameter 2.9 cm LA Systolic Diameter LX 4.0 cm 3.0 - 4.0 / 2.7 - 3.8 cm LA Volume 30.0 cm 18 - 58 / 22 - 52 cm Ascending Aorta Diameter 2.9 cm DOPPLER AV Peak Velocity 110.0 cm/s AV Peak Gradient 4.8 mmHg AV Mean Velocity 76.8 cm/s AV Mean Gradient 3.0 mmHg AV Velocity Time Integral 25.0 cm LVOT Peak Velocity 108.0 cm/s LVOT Peak Gradient 4.7 mmHg LVOT Mean Velocity 76.5 cm/s LVOT Mean Gradient 3.0 mmHg LVOT Velocity Time Integral 26.5 cm LVOT Stroke Volume 75.1 cm AV Area Cont Eq vti 3.0 cm AV Area Cont Eq pk 2.8 cm MV Peak Velocity 103.0 cm/s MV Peak Gradient 4.2 mmHg MV Mean Velocity 58.3 cm/s MV Mean Gradient 2.0 mmHg Mitral E Point Velocity 84.4 cm/s Mitral A Point Velocity 95.3 cm/s Mitral E to A Ratio 0.9 MV PHT Velocity 109.0 cm/s MV Deceleration Ness 407.0 cm/s MV Pressure Half Time 80.3 ms MV Area PHT 2.7 cm MV Deceleration Time 174.0 ms TR Peak Velocity 238.0 cm/s TR Peak Gradient 22.7 mmHg Right Atrial Pressure 5.0 mmHg Pulmonary Artery Systolic Pressu 27.7 mmHg Right Ventricular Systolic Press 27.7 mmHg PV Peak Velocity 100.4 cm/s PV Peak Gradient 4.0 mmHg PV Mean Velocity 72.7 cm/s PV Mean Gradient 2.5 mmHg PV Velocity Time Integral 24.6 cm LV E' Lateral Velocity 6.4 cm/s Mitral E to LV E' Lateral Ratio 13.2 LV E' Septal Velocity 5.6 cm/s Mitral E to LV E' Septal Ratio 15.2
[2017-06-23 23:38] VITALS: BP 152/60
[2017-06-24 07:04] VITALS: BP 176/78
--- NOTE | 2017-06-24 07:18 | PN- Housestaff ---
Omar WHITFIELD,Robin 06/24/17716: Subjective Follow-up For: Hyponatremia Hypertension Tele-Events Since Last Visit: sinus rhythm HR 50s60s Subjective: Patient seen and examined at bedside. She was resting comfortably. She continues to report mild lightheadedness upon standing however vital signs were negative for orthostatic hypotension. Patient denies any recurrence of her nausea, However she is refusing to take labetalol because she believes it is making her nauseous. She denies any chest pain, palpitations, shortness of breath, fever, chills. Review of Systems Constitutional: Reports: see HPI. Objective Last 24 Hrs of Vital Signs/I&O Vital Signs Date Time Temp Pulse Resp B/P B/P Pulse O2 O2 Flow FiO2 Mean Ox Delivery Rate 06/25 703 98.5 56 20 176/78 96 Room Air 06/23 2338 98.2 68 20 152/60 93 Room Air 06/23 2132 74 174/80 06/23 2132 74 174/80 06/23 1509 98.1 65 18 180/86 95 Room Air 06/23 0816 61 156/80 06/23 0816 61 156/80 06/23 0816 61 156/80 Intake & Output 06/24 0800 06/24 0000 06/23 1600 Intake Total 440 440 400 Output Total Balance 440 440 400 Intake, Oral 440 440 400 Patient 135 lb Weight Physical Exam General Appearance: Alert, Oriented X3, Cooperative, No Acute Distress Cardiovascular: Regular Rate, Normal S1, Normal S2 Lungs: Clear to Auscultation, Normal Air Movement Abdomen: Normal Bowel Sounds, Soft, No Tenderness Neurological: Normal Speech, Normal Tone, Sensation Intact Current Medications: Current Medications Sig/Areli Start time Last Medication Dose Route Stop Time Status Admin Acetaminophen 1,000 MG ONCE ONE 06/23 1545 DC 06/23 N/A 1 UNIT IV 06/23 1559 1544 Acetaminophen 650 MG Q6P PRN 06/22 0100 AC 06/23 PO 1746 Atorvastatin Calcium 10 MG 1700 06/22 1700 AC 06/23 PO 1746 Carbidopa/Levodopa 1 TAB TID 06/22 09 AC 06/23 PO 213 Hydralazine HCl 25 MG TID 06/22 0900 AC 06/23 PO 213 Labetalol HCl 100 MG BID 06/22 0300 AC 06/23 PO 2132 Levothyroxine Sodium 0.088 MG DAILY AC 06/22 0700 AC 06/24 PO 0625 Losartan Potassium 100 MG DAILY 06/24 899 AC PO Losartan Potassium 50 MG ONCE ONE 06/23 1400 DC PO 06/23 1401 Losartan Potassium 50 MG DAILY 06/22 0900 DC 06/23 PO 0816 Ondansetron HCl 4 MG .STK-MED ONE 06/23 0904 DC IM 06/23 0905 Ondansetron HCl 4 MG Q8P PRN 06/22 0100 AC 06/23 IV 0905 Patient Medication 1 ED ONE ONE 06/23 1600 DC 06/23 Teaching ED 06/23 1601 1601 Senna/Docusate Sodium 1 TAB ONCE ONE 06/23 1545 DC 06/23 PO 06/23 1546 1543 Senna/Docusate Sodium 1 TAB BID PRN 06/23 1545 AC 06/23 PO 1746 Trazodone HCl 100 MG QPM 06/22 2100 AC 06/23 PO 2131 Trimethobenzamide HCl 200 MG ONCE ONE 06/23 1400 DC 06/23 IM 06/23 1401 1402 Last 24 Hrs of Lab/Jordan Results Last 24 Hrs of Labs/Mics: Laboratory Tests 06/24/17 1118: Urine Color YEL, Urine Clarity CLEAR, Urine pH 6.0, Ur Specific [place] 1.010, Urine Protein TRACE H, Urine Ketones NEG, Urine Nitrite NEG, Urine Bilirubin NEG, Urine Urobilinogen 0.2, Ur Leukocyte Esterase NEG, Ur Microscopic SEDIMENT EXAMINED, Urine RBC 1-3, Urine WBC RARE, Ur Epithelial Cells FEW, Urine Hemoglobin NEG, Urine Glucose NEG 06/24/17 1118: Urine Osmolality 221 L, Ur Random Creatinine 54.8, Ur Random Sodium 6 L, Ur Random Potassium 20.8, Fraction Sodium Excret 0.1 06/24/17 0630: Anion Gap 11, Estimated GFR 37 L, BUN/Creatinine Ratio 20.7, Serum Osmolality 260 L, TSH 11.900 H, Free T4 1.33, CBC w Diff NO MAN DIFF REQ, RBC 3.46 L, MCV 79.8 L, MCH 26.2 L, MCHC 32.8 L, RDW 13.8, MPV 9.4, Gran % 68.2, Lymphocytes % 22.8, Monocytes % 7.1, Eosinophils % 1.4, Basophils % 0.5, Absolute Granulocytes 4.6, Absolute Lymphocytes 1.5, Absolute Monocytes 0.5, Absolute Eosinophils 0.1, Absolute Basophils 0 Assessment/Plan Assessment: Patient is a 71-year-old male with a PMH significant for uncontrolled hypertension, Parkinson's disease, HLD, hypothyroidism, anxiety, GERD, who presented complaining of nausea and vomiting. She was found to be in hypertensive urgency and hyponatremic. #Hypertensive urgency -Continue telemetry monitoring -Continue losartan 100 mg daily -Hydralazine increased to 50 mg 3 times a day, patient is refusing labetalol -will start clonipine 0.1 mg PO BID -Cardiology recommendations appreciated #Hyponatremia Urine osmolality decreased despite fluid restriction challenge, patient remains persistently hyponatremic -Fluid restriction 1 L -Nephrology consulted, will follow up recommendations #SIMEON Improving, we'll continue to monitor. If renal function declines will decrease or discontinue ARB #Nausea vomiting, resolved Nasuea resolved -Continue Zofran when necessary #Chronic medical problems -Continue home medications No pericardial effusion seen on echo Diet: regular diet DVT prophylaxis: Subcutaneous heparin, Alps CODE STATUS: Full code Problem List: 1. Hyponatremia 2. Hypertensive urgency Pain Ratin Pain Location: none Pain Goal: Remain pain free Pain Plan: pain pathway Tomorrow's Labs & Rationales: Brie Singh MD 06/24/17 1340: Attending MD Review Statement Attending Statement Attending MD Statement: examined this patient, discuss w/resident/PA/[employer], agreed w/resident/PA/[employer], reviewed EMR data (avail) Attending Assessment/Plan: 71F PMH Parkinson, HLD, hypothyroidism, HTN, anxiety presenting with nausea and vomiting, found to be in hypertensive urgency with hyponatremia 120. Has had several similar admissions in the past. BP improved with alteration of anti- hypertensives. Labs show hypoosmolar hyponatremia. Today patient has no complaints. No further dizziness, nausea, or vomiting. Sodium now 122. BP 150's overnight. 1. Hyponatremia 2. Hypertensive urgency 3. Nausea and vomiting 4. Dizziness Plan - Continue on telemetry - Continue Losartan 100mg, increase Hydralazine dose. Patient refusing Labetalol so will discontinue as it makes her dizzy - Nephrology consult - Follow cardiology recommendations - Fluid restrict 1L/day - Daily metabolic panel - Continue to work with PT - Continue home medications - DVT PPx
[2017-06-24 07:50] LABS: ABSOLUTE BASOPHIL COUNT 0 /CUMM (0.0-0.2); ABSOLUTE EOSINOPHIL COUNT 0.1 /CUMM (0.0-0.7); ABSOLUTE GRANULOCYTE CT 4.6 /CUMM (1.4-6.5); ABSOLUTE LYMPH COUNT 1.5 /CUMM (1.2-3.4); ABSOLUTE MONOCYTE COUNT 0.5 /CUMM (0.10-0.60); BASOPHIL % 0.5 % (0.0-2.0); EOSINOPHIL % 1.4 % (0-5); GRANULOCYTE % 68.2 % (42.2-75.2); HEMATOCRIT 27.6 % (37-47); MEAN CORPUSCULAR HGB 26.2 PG (27.0-31.0); MEAN CORPUSCULAR HGB CONC 32.8 G/DL (33.0-37.0); MEAN CORPUSCULAR VOLUME 79.8 FL (81.0-99.0); MEAN PLATELET VOLUME 9.4 FL (7.4-10.4); PLATELET COUNT 331 /CUMM (130-400); RBC DISTRIBUTION WIDTH 13.8 % (11.5-14.5); RED BLOOD CELL CT 3.46 /CUMM (4.20-5.40); WHITE BLOOD CELL COUNT 6.8 /CUMM (4.8-10.8)
[2017-06-24 09:48] VITALS: BP 182/90
[2017-06-24 11:24] VITALS: BP 190/90
--- NOTE | 2017-06-24 13:55 | PN- Cardiology ---
Subjective Subjective: No chest pain. No further headache. No further nausea or vomiting. No palpitations. Blood pressure remains elevated. Objective Vital Signs and I&Os Vital Signs Date Time Temp Pulse Resp B/P B/P Pulse O2 O2 Flow FiO2 Mean Ox Delivery Rate 06/24 1152 67 190/90 06/24 1124 190/90 06/24 0948 60 182/90 06/24 0902 64 156/80 06/24 0902 64 156/80 06/24 0902 64 156/80 06/24 0704 98.5 56 20 176/78 96 Room Air 06/23 2338 98.2 68 20 152/60 93 Room Air 06/23 2132 74 174/80 06/23 2132 74 174/80 06/23 1509 98.1 65 18 180/86 95 Room Air Intake & Output 06/24 1600 06/24 0800 06/24 0000 06/23 1600 06/23 0800 06/23 0000 Intake Total 440 440 400 240 400 Output Total Balance 440 440 400 240 400 Intake, Oral 440 440 400 240 400 Patient 135 lb 135 lb Weight Physical Exam: Gen: The patient is in no acute distress HEENT: Normal nose, ears, and oropharynx. Pupils equal bilaterally. Conjunctiva normal. Neck: Supple with no JVD, no masses, and no thyromegaly Lungs: Clear to auscultation with normal respiratory effort Heart: RRR, S1, S2, no murmurs. No peripheral edema, 2+ pulses in the lower extremities bilaterally Abdomen: Soft, nontender, no masses. No hepatomegaly. No splenomegaly Extremities: No clubbing or cyanosis. Normal muscle strength in the upper and lower extremities Skin: Normal skin turgor with no skin ulcers or lesions noted. Neuro: Cranial nerves intact. Sensation intact Current Medications: Current Medications Sig/Areli Start time Last Medication Dose Route Stop Time Status Admin Acetaminophen 1,000 MG ONCE ONE 06/23 1545 DC 06/23 N/A 1 UNIT IV 06/23 1559 1544 Acetaminophen 650 MG Q6P PRN 06/22 0100 AC 06/23 PO 1746 Atorvastatin Calcium 10 MG 1700 06/22 1700 AC 06/23 PO 1746 Carbidopa/Levodopa 1 TAB TID 06/22 0900 AC 06/24 PO 0902 Hydralazine HCl 50 MG TID 06/24 1400 AC PO Hydralazine HCl 25 MG ONCE ONE 06/24 1130 DC 06/24 PO 06/24 1131 1152 Hydralazine HCl 25 MG TID 06/22 0900 DC 06/24 PO 0902 Labetalol HCl 100 MG BID 06/22 0300 AC 06/23 PO 2132 Levothyroxine Sodium 0.088 MG DAILY AC 06/22 0700 AC 06/24 PO 0625 Losartan Potassium 100 MG DAILY 06/24 0900 AC 06/24 PO 0902 Losartan Potassium 50 MG ONCE ONE 06/23 1400 DC PO 06/23 1401 Losartan Potassium 50 MG DAILY 06/22 09 DC 06/23 PO 0816 Ondansetron HCl 4 MG Q8P PRN 06/22 0100 AC 06/23 IV 0905 Patient Medication 1 ED ONE ONE 06/23 1600 DC 06/23 Teaching ED 06/23 1601 1601 Senna/Docusate Sodium 1 TAB ONCE ONE 06/23 1545 DC 06/23 PO 06/23 1546 1543 Senna/Docusate Sodium 1 TAB BID PRN 06/23 1545 AC 06/24 PO 0909 Trazodone HCl 100 MG QPM 06/22 2100 AC 06/23 PO 2131 Trimethobenzamide HCl 200 MG ONCE ONE 06/23 1400 DC 06/23 IM 06/23 1401 1402 Results Last 48 Hrs of Labs/Mics: Laboratory Tests 06/24/17 1118: Urine Color YEL, Urine Clarity CLEAR, Urine pH 6.0, Ur Specific [place] 1.010, Urine Protein TRACE H, Urine Ketones NEG, Urine Nitrite NEG, Urine Bilirubin NEG, Urine Urobilinogen 0.2, Ur Leukocyte Esterase NEG, Ur Microscopic SEDIMENT EXAMINED, Urine RBC 1-3, Urine WBC RARE, Ur Epithelial Cells FEW, Urine Hemoglobin NEG, Urine Glucose NEG 06/24/17 1118: Urine Osmolality 221 L, Ur Random Creatinine 54.8, Ur Random Sodium 6 L, Ur Random Potassium 20.8, Fraction Sodium Excret 0.1 06/24/17 0630: Anion Gap 11, Estimated GFR 37 L, BUN/Creatinine Ratio 20.7, Serum Osmolality 260 L, TSH 11.900 H, Free T4 1.33, CBC w Diff NO MAN DIFF REQ, RBC 3.46 L, MCV 79.8 L, MCH 26.2 L, MCHC 32.8 L, RDW 13.8, MPV 9.4, Gran % 68.2, Lymphocytes % 22.8, Monocytes % 7.1, Eosinophils % 1.4, Basophils % 0.5, Absolute Granulocytes 4.6, Absolute Lymphocytes 1.5, Absolute Monocytes 0.5, Absolute Eosinophils 0.1, Absolute Basophils 0 06/23/17 0658: Anion Gap 13, Estimated GFR 34 L, BUN/Creatinine Ratio 14.0 06/22/17 1500: Urine Osmolality 306 06/22/17 1500: Urinalysis LIGHT H, Urine Color YEL, Urine Clarity CLEAR, Urine pH 6.0, Ur Specific [place] 1.015, Urine Protein 30 H, Urine Ketones NEG, Urine Nitrite NEG, Urine Bilirubin NEG, Urine Urobilinogen 0.2, Ur Leukocyte Esterase NEG, Ur Microscopic SEDIMENT EXAMINED, Urine WBC 1-3 H, Ur Epithelial Cells FEW, Urine Hemoglobin NEG, Urine Glucose NEG 06/22/17 1500: Ur Random Creatinine 71.0, Ur Random Sodium 15 L, Ur Random Potassium 47.9, Fraction Sodium Excret 0.2 Assessment/Plan Assessment/Plan Assessment: 1. Diabetes mellitus 2. Hypertension, uncontrolled 3. History of CVA Plan: * Given the uncontrolled blood pressure, I recommend adding an additional agent. The patient reports a history of edema secondary to amlodipine. She also reports intolerance of higher doses of labetalol. * Would recommend starting clonidine 0.1 mg p.o. twice daily in addition to her other medication Continue telemetry? Yes
[2017-06-24 15:02] VITALS: BP 176/84
[2017-06-24 23:16] VITALS: BP 160/66
[2017-06-25 07:02] VITALS: BP 142/70
--- NOTE | 2017-06-25 07:22 | PN- Housestaff ---
Subjective Follow-up For: Hyponatremia Hypertension Tele-Events Since Last Visit: Sinus rhythm HR 50s-70s Subjective: Patient was seen and examined at bedside. She was resting comfortably. She had no acute events overnight. She denies any recurrent nausea. She has been working with physical therapy and is able to use the walker well. She still reports mild lightheadedness upon standing. She denies any chest pain, shortness breath, nausea, vomiting, fever, chills. Review of Systems Constitutional: Reports: see HPI. Objective Last 24 Hrs of Vital Signs/I&O Vital Signs Date Time Temp Pulse Resp B/P B/P Pulse O2 O2 Flow FiO2 Mean Ox Delivery Rate 06/25 701 97.9 68 20 142/70 94 Room Air 06/24 2316 97.8 70 20 160/66 95 Room Air 06/24 2121 66 160/78 06/24 2120 66 160/78 06/24 1502 98.5 62 20 176/84 95 Room Air 06/24 1409 62 144/70 06/24 1152 67 190/90 06/24 1124 190/90 06/24 0948 60 182/90 06/24 0902 64 156/80 06/24 0902 64 156/80 06/24 0902 64 156/80 Intake & Output 06/25 0800 06/25 0000 06/24 1600 Intake Total 580 200 Output Total 300 150 Balance 280 50 Intake, Oral 580 200 Output, Urine 300 150 Patient 127 lb Weight Physical Exam General Appearance: Alert, Oriented X3, Cooperative, No Acute Distress Cardiovascular: Regular Rate, Normal S1, Normal S2 Lungs: Clear to Auscultation, Normal Air Movement Abdomen: Normal Bowel Sounds, Soft, No Tenderness Neurological: Normal Speech, Normal Tone, Sensation Intact Current Medications: Current Medications Sig/Areli Start time Last Medication Dose Route Stop Time Status Admin Acetaminophen 650 MG Q6P PRN 06/22 0100 AC 06/23 PO 1746 Atorvastatin Calcium 10 MG 1700 06/22 1700 AC 06/24 PO 1732 Carbidopa/Levodopa 1 TAB TID 06/22 0900 AC 06/24 PO 2116 Clonidine 0.1 MG BID 06/24 2100 AC 06/24 PO 2120 Hydralazine HCl 50 MG TID 06/24 1400 AC 06/24 PO 2121 Hydralazine HCl 25 MG ONCE ONE 06/24 1130 DC 06/24 PO 06/24 1131 1152 Hydralazine HCl 25 MG TID 06/22 899 DC 06/24 PO 0902 Labetalol HCl 100 MG BID 06/22 0300 AC 06/23 PO 2132 Levothyroxine Sodium 0.088 MG DAILY AC 06/22 0700 AC 06/25 PO 0645 Losartan Potassium 100 MG DAILY 06/24 0900 AC 06/24 PO 0902 Ondansetron HCl 4 MG Q8P PRN 06/22 0100 AC 06/23 IV 0905 Senna/Docusate Sodium 1 TAB BID PRN 06/23 1545 AC 06/24 PO 2127 Trazodone HCl 100 MG QPM 06/22 2100 AC 06/24 PO 2116 Last 24 Hrs of Lab/Jordan Results Last 24 Hrs of Labs/Mics: Laboratory Tests 06/25/17 0650: Anion Gap 11, Estimated GFR 40 L, BUN/Creatinine Ratio 23.8 06/24/17 1118: Urine Color YEL, Urine Clarity CLEAR, Urine pH 6.0, Ur Specific [place] 1.010, Urine Protein TRACE H, Urine Ketones NEG, Urine Nitrite NEG, Urine Bilirubin NEG, Urine Urobilinogen 0.2, Ur Leukocyte Esterase NEG, Ur Microscopic SEDIMENT EXAMINED, Urine RBC 1-3, Urine WBC RARE, Ur Epithelial Cells FEW, Urine Hemoglobin NEG, Urine Glucose NEG 06/24/17 1118: Urine Osmolality 221 L, Ur Random Creatinine 54.8, Ur Random Sodium 6 L, Ur Random Potassium 20.8, Fraction Sodium Excret 0.1 Assessment/Plan Assessment: Patient is a 71-year-old male with a PMH significant for uncontrolled hypertension, Parkinson's disease, HLD, hypothyroidism, anxiety, GERD, who presented complaining of nausea and vomiting. She was found to be in hypertensive urgency and hyponatremic. #Hypertension -Continue telemetry monitoring -Continue losartan 100 mg daily - continue Hydralazine 50 mg 3 times a day, patient is refusing labetalol -continue clonipine 0.1 mg PO BID -Cardiology recommendations appreciated #Hyponatremia serum Na slowly improving, 125 today after switching patient to a regular diet -Fluid restriction 1 L -Nephrology consulted, will follow up recommendations #SIMEON Improving, we'll continue to monitor. #Nausea vomiting, resolved Nasuea resolved -Continue Zofran when necessary #Chronic medical problems -Continue home medications #physical deconditioning seen by PT who is recommending Home PT if no acute events, we anticipate DC tomorrow No pericardial effusion seen on echo Diet: regular diet DVT prophylaxis: Subcutaneous heparin, Alps CODE STATUS: Full code Problem List: 1. Hyponatremia 2. Uncontrolled hypertension Pain Ratin Pain Location: none Pain Goal: Remain pain free Pain Plan: pain pathway Tomorrow's Labs & Rationales: bep
--- NOTE | 2017-06-25 11:17 | PN- Att Addend ---
Attending Addendum Attending Brief Note 71F PMH Parkinson, HLD, hypothyroidism, HTN, anxiety presenting with nausea and vomiting, found to be in hypertensive urgency with hyponatremia 120. Has had several similar admissions in the past. BP improved with alteration of anti- hypertensives. Labs show hypoosmolar hyponatremia. Today patient has no complaints. No further dizziness, nausea, or vomiting. Sodium now 125. BP 150's overnight. 1. Hyponatremia 2. Hypertensive urgency 3. Nausea and vomiting 4. Dizziness Plan - Continue on telemetry - Continue Losartan, Hydralazine, Clonidine - Follow cardiology recommendations - Fluid restrict 1L/day - Daily metabolic panel - Continue to work with PT - Continue home medications - DVT PPx - Anticipated discharge tomorrow on fluid restriction and above anti- hypertensives with outpatient cardiology and nephrology follow up
--- NOTE | 2017-06-25 12:41 | PN- Cardiology ---
Objective Vital Signs and I&Os Vital Signs Date Time Temp Pulse Resp B/P B/P Pulse O2 O2 Flow FiO2 Mean Ox Delivery Rate 06/25 858 72 170/78 06/26 0759 72 170/78 06/26 0759 72 170/78 06/25 0702 97.9 68 20 142/70 94 Room Air 06/24 2316 97.8 70 20 160/66 95 Room Air 06/24 2121 66 160/78 06/24 2120 66 160/78 06/24 1502 98.5 62 20 176/84 95 Room Air 06/24 1409 62 144/70 Intake & Output 06/25 1600 06/25 0800 / 0000 06/24 1600 06/24 0800 06/24 0000 Intake Total 100 580 200 440 440 Output Total 300 150 Balance 100 280 50 440 440 Intake, Oral 100 580 200 440 440 Number 0 Bowel Movements Output, Urine 300 150 Patient 127 lb 135 lb Weight Current Medications: Current Medications Sig/Areli Start time Last Medication Dose Route Stop Time Status Admin Acetaminophen 650 MG Q6P PRN 06/22 0100 AC 06/23 PO 1746 Atorvastatin Calcium 10 MG 1700 06/22 1700 AC 06/24 PO 1732 Carbidopa/Levodopa 1 TAB TID 06/22 0900 AC 06/25 PO 0859 Clonidine 0.1 MG BID 06/24 2100 AC 06/25 PO 0859 Hydralazine HCl 50 MG TID 06/24 1400 AC 06/25 PO 0859 Labetalol HCl 100 MG BID 06/22 0300 AC 06/23 PO 2132 Levothyroxine Sodium 0.088 MG DAILY AC 06/22 0700 AC 06/25 PO 0645 Losartan Potassium 100 MG DAILY 06/24 0900 AC 06/25 PO 0859 Ondansetron HCl 4 MG Q8P PRN 06/22 0100 AC 06/23 IV 0905 Polyethylene Glycol 17 GM DAILY 06/25 926 AC 06/25 PO 1128 Senna/Docusate Sodium 1 TAB BID PRN 06/23 1545 AC 06/24 PO 2127 Trazodone HCl 100 MG QPM 06/22 2100 AC 06/24 PO 2116 Results Last 48 Hrs of Labs/Mics: Laboratory Tests 06/25/17 0650: Anion Gap 11, Estimated GFR 40 L, BUN/Creatinine Ratio 23.8 06/24/17 1118: Urine Color YEL, Urine Clarity CLEAR, Urine pH 6.0, Ur Specific [place] 1.010, Urine Protein TRACE H, Urine Ketones NEG, Urine Nitrite NEG, Urine Bilirubin NEG, Urine Urobilinogen 0.2, Ur Leukocyte Esterase NEG, Ur Microscopic SEDIMENT EXAMINED, Urine RBC 1-3, Urine WBC RARE, Ur Epithelial Cells FEW, Urine Hemoglobin NEG, Urine Glucose NEG 06/24/17 1118: Urine Osmolality 221 L, Ur Random Creatinine 54.8, Ur Random Sodium 6 L, Ur Random Potassium 20.8, Fraction Sodium Excret 0.1 06/24/17 0630: Anion Gap 11, Estimated GFR 37 L, BUN/Creatinine Ratio 20.7, Serum Osmolality 260 L, TSH 11.900 H, Free T4 1.33, CBC w Diff NO MAN DIFF REQ, RBC 3.46 L, MCV 79.8 L, MCH 26.2 L, MCHC 32.8 L, RDW 13.8, MPV 9.4, Gran % 68.2, Lymphocytes % 22.8, Monocytes % 7.1, Eosinophils % 1.4, Basophils % 0.5, Absolute Granulocytes 4.6, Absolute Lymphocytes 1.5, Absolute Monocytes 0.5, Absolute Eosinophils 0.1, Absolute Basophils 0
[2017-06-25 13:45] VITALS: BP 142/66
--- NOTE | 2017-06-25 13:55 | Cons- Nephrology ---
General Information and HPI Consulting Request Date of Consult: 06/25/17 Requested By: Brie Little MD History of Present Illness: Ms. Bautista is a pleasant 71 yo F with a history of HTN, hyperlipidemia , hypothoroidism, h/o ischemic stroke who was admitted on 06/21 with hypertensive urgency. she was noted to be hyponatremic on admission (she had recently been started on HCTZ but she had stopped this on her own). She was placed on a 1L FR and w/u nicely done by Dr. Nelson shows a dilute urine (U Osm 221) with low urine sodium (6). Serum sodium has not improved despite treatment above and I am asked to see her for hyponatremia. Allergies/Medications Allergies: Coded Allergies: Sulfa (Sulfonamide Antibiotics) (RASH 08/06/16) iron (DIARRHEA 08/06/16) Home Med List: Acetaminophen 500 MG TABLET 1 TAB PO PRN PAIN (Reported) Alendronate Sodium 70 MG TABLET 1 TAB PO QFRI OSTEOPOROSIS (Reported) in the morning, at least 30 minutes before the first food, beverage, or medication of the day Atorvastatin Calcium 10 MG TABLET 1 TAB PO DAILY GI (Reported) Carbidopa/Levodopa (Carbidopa-Levodopa 25-100 Tab) 25 MG-100 MG TABLET 1 TAB PO TID PARKINSONS (Reported) Hydralazine HCl 10 MG TABLET 1 TAB PO TID HTN Labetalol HCl 300 MG TABLET 1 TAB PO BID high blood pressure Labetalol HCl 100 MG TABLET 100 MG PO BID BP control Levothyroxine Sodium 88 MCG TABLET 1 TAB PO DAILY Thyroid (Reported) Losartan Potassium (Cozaar) 50 MG TABLET 1 TAB PO DAILY BP (Reported) Nepafenac (Ilevro) 0.3 % DROPS.SUSP 1 DROP OD DAILY RIGHT EYE (Reported) Olopatadine HCl (Pazeo) 0.7 % DROPS 1 DROP OU QAM ITCHING (Reported) Pantoprazole Sodium 40 MG TABLET.DR 1 TAB PO DAILY GI (Reported) Polyethylene Glycol 3350 (Miralax) 17 GRAM/DOSE POWDER 17 GM PO DAILY PRN CONSTIPATION Trazodone HCl 100 MG TABLET 1 TAB PO QPM INSOMNIA (Reported) Review of Systems Review of Systems: As in HPI anxious no SOB/CP Some light headedness on admission Feels well now. Other systems negative. Past History Travel History Traveled to [place] past 21 day No Medical History Blood Transfusion Hx: No Neurological: CVA, Parkinson's disease EENT: NONE Cardiovascular: hypertension, hyperlipidemia Respiratory: NONE Gastrointestinal: GERD Hepatic: NONE Renal: NONE Musculoskeletal: NONE Psychiatric: NONE Endocrine: hypothyroidism Blood Disorders: NONE Cancer(s): NONE COUTURIERE/Reproductive: HERPES OVARIAN CYTS Surgical History Surgical History: hysterectomy (TOTAL) Family History Relations & Conditions If Any: BROTHER FH: CAD (coronary artery disease) Psychosocial History Where Do You Live? Home Who Do You Live With? spouse, parent Services at Home: None Smoking Status: Never Smoked Functional Ability ADLs Independent: dressing, eating, toileting, bathing. Exam & Diagnostic Data Vital Signs and I&O Pleasant F NAD BP 170/78 P 72 T 97.9 Skin neg rash Results Pertinent Lab Results: 125 / 90 / 31 / 4.6 / 24 / 1.3\ U Osm 221 U Na 6 Assessment/Plan Assessment/Recommendations Assessment: Hyponatremia with a dilute urine. This is consisent with thiazide diuretic use but the urine studies above are from yesterday (several days since her last dose of thiazide). The current urine shows a dilute urine (unclear of this is maximally dilute as one would expect U Osm closer to 100 or so) but the urine is not concentrated. One cannot say if ADH is present or absent at the time of the urine but given U Osm of around 200, I suspect it is absent. This later point is important as it removes all of the ADH related causes of hyponatremia ( SIADH, volume depletion, etc). Her U Na is low showing she is sodium avid ( suggesting that the kidneys think she is volume depleted). I suspect the initial cause of her hyponatremia is thiazide diuretic with prolonged sodium loss (all diuretics except vaptans are natriuretics and cause water loss that follows sodium loss), but I suspect the reason it remains low is due to very low solute intake. The two solutes that generate osmolality in the urine are salts (sodium/potassium) and protein (in the form of metabolite urea). Typically about 1/2 the osmotic load is salt and the other 1/2 is urea. Normal [place] diet is around 800 mOsm but Ms. Bautista avoids salt (due to HTN) and is predominantly vegetarian (lunch when I saw her today consisted of salad and cooked vegetables (broccoli etc) with no meats and no dairy). She does eat cheese on occasion as well as chicken but does not eat beans in general. True vegetarians (minimal dairy) will have a daily osmotic intake as low as 200 m Osm /day. The concentrating gradient (and hence the diluting gradient) is generated by Urea and the setting of a low protein diet her maximal concentrating ability (and hence her maximal diluting ability may be impaired). Normal range (e.g. young housestaff here) is around 40-1200 mOsm. This narrows with age so that a 70 y.o may have a range of 150-600 or so and with low protein diet. It is possible that 200 is her maximal diluting capacity. If so and her dietary intake is around 200 she can only handle about 1L /day of fluids. This can be changed by increasing solute intake - meats/salts. Pharmacologically this can be achieved with Na Cl tablets each 1 g tablet has 17 mEq of Na or 34 M Osm of solute Urea (Ure-Na) each 15 g packet contains 250 mOsm of solute (M.W urea is 60g . 15/60 =.25 mole or 250 mmole = 250 mOsm) Increased protein or salt in diet. The problem with Na Cl tabs is hypertension. In the hospital one could give Na Cl tabs or even NS watching BP She should avoid thiazides in the future (given low osmotic intake with diet and prior history (now) of hyponatremia she is at risk for this now) She should be maintained on fluid restriction Thanks will follow. Kimani Cisse MD. Recommendations: .
[2017-06-25 23:19] VITALS: BP 140/72
[2017-06-26 06:51] VITALS: BP 172/82
--- NOTE | 2017-06-26 07:30 | PN- Housestaff ---
Omar WHITFIELD,Robin 06/26/17 0729: Subjective Follow-up For: Hyponatremia Hypertension Tele-Events Since Last Visit: Sinus rhythm with HR 60s70s Subjective: Patient was seen and examined at bedside. She is resting comfortably. She had no acute events overnight. She denies any recurrent episodes of nausea, she is requesting for a wheelchair however PT is recommending home PT with a rolling walker. She currently has no complaints, denies any chest pain, headaches, chest discomfort, palpitations, nausea, fever, chills. Review of Systems Constitutional: Reports: see HPI. Objective Last 24 Hrs of Vital Signs/I&O Vital Signs Date Time Temp Pulse Resp B/P B/P Pulse O2 O2 Flow FiO2 Mean Ox Delivery Rate 06/26 0651 98.7 62 18 172/82 95 Room Air 06/25 2319 140/72 06/25 2317 98.6 72 18 97 Room Air 06/25 2105 77 140/62 06/25 2105 77 140/62 06/25 2104 73 140/62 06/25 1345 98.5 67 18 142/66 96 Room Air 06/25 1337 75 142/60 06/25 0859 72 170/78 06/25 0859 72 170/78 /09 0859 72 170/78 Intake & Output 06/26 0800 06/26 0000 06/25 1600 Intake Total 50 325 450 Output Total Balance 50 325 450 Intake, IV 0 Intake, Oral 50 325 450 Number 0 Bowel Movements Physical Exam General Appearance: Alert, Oriented X3, Cooperative, No Acute Distress Skin Temp/Moisture Exam: Warm/Dry Cardiovascular: Regular Rate, Normal S1, Normal S2, No Murmurs Lungs: Clear to Auscultation, Normal Air Movement Abdomen: Normal Bowel Sounds, Soft, No Tenderness Neurological: Normal Gait, Normal Speech, Strength at 5/5 X4 Ext Extremities: No Clubbing, No Cyanosis, No Edema Current Medications: Current Medications Sig/Areli Start time Last Medication Dose Route Stop Time Status Admin Acetaminophen 650 MG Q6P PRN 06/22 0100 AC 06/23 PO 1746 Atorvastatin Calcium 10 MG 1700 06/22 1700 AC 06/25 PO 181 Carbidopa/Levodopa 1 TAB TID 06/22 0900 AC 06/25 PO 210 Clonidine 0.1 MG BID 06/24 2100 AC 06/25 PO 210 Hydralazine HCl 50 MG TID 06/24 1400 AC 06/25 PO 210 Labetalol HCl 100 MG BID 06/22 0300 DC 06/23 PO 2132 Levothyroxine Sodium 0.088 MG DAILY AC 06/22 0700 AC 06/26 PO 0542 Losartan Potassium 100 MG DAILY 06/24 0900 AC 06/25 PO 0859 Ondansetron HCl 4 MG Q8P PRN 06/22 0100 AC 06/23 IV 0905 Polyethylene Glycol 17 GM DAILY 06/25 09 AC 06/25 PO 1128 Senna/Docusate Sodium 1 TAB BID PRN 06/23 1545 AC 06/25 PO 210 Sodium Chloride 1,000 MG BID 06/25 2100 AC 06/25 PO 210 Trazodone HCl 100 MG QPM 06/22 2100 AC 06/25 PO 210 Last 24 Hrs of Lab/Jordan Results Last 24 Hrs of Labs/Mics: Laboratory Tests 06/26/17 0615: Anion Gap 10, Estimated GFR 44 L, BUN/Creatinine Ratio 30.0 H Assessment/Plan Assessment: Patient is a 71-year-old male with a PMH significant for uncontrolled hypertension, Parkinson's disease, HLD, hypothyroidism, anxiety, GERD, who presented complaining of nausea and vomiting. She was found to be in hypertensive urgency and hyponatremic. #Hypertension -Continue telemetry monitoring -Continue losartan 100 mg daily - continue Hydralazine 50 mg 3 times a day, patient is refusing labetalol -continue clonipine 0.1 mg PO BID -Cardiology recommendations appreciated #Hyponatremia Sodium continues to improve slowly, today 126 after adding salt tablets -Fluid restriction 1 L -Nephrology consulted, will follow up recommendations -Patient will be discharged with a two-week course of sodium chloride tablets and follow-up with her PCP #SIMEON Continues to improve #Nausea vomiting, resolved Nasuea resolved -Continue Zofran when necessary #Chronic medical problems -Continue home medications #physical deconditioning seen by PT who is recommending Home PT Patient is stable for discharge No pericardial effusion seen on echo Diet: regular diet DVT prophylaxis: Subcutaneous heparin, Alps CODE STATUS: Full code Problem List: 1. Nausea alone 2. Hyponatremia Pain Ratin Pain Location: none Pain Goal: Remain pain free Pain Plan: pain pathway Tomorrow's Labs & Rationales: none Discharge Plan Discharge Disposition: home Stable for Discharge? Yes Anticipated Discharge (Day): today If Discharged Today/In 24 Hrs: enter ant[facility] discharge ord, W-10/discharge paper done, DC summary done, CMR done Brie Little MD 06/26/17 1043: Attending MD Review Statement Attending Statement Attending MD Statement: examined this patient, discuss w/resident/PA/EARTH SCIENCE TECHNICAL OFFICER, agreed w/resident/PA/EARTH SCIENCE TECHNICAL OFFICER, reviewed EMR data (avail) Attending Assessment/Plan: 71F PMH Parkinson, HLD, hypothyroidism, HTN, anxiety presenting with nausea and vomiting, found to be in hypertensive urgency with hyponatremia 120. Has had several similar admissions in the past. BP improved with alteration of anti- hypertensives. Labs show hypoosmolar hyponatremia. Today patient has no complaints. No further dizziness, nausea, or vomiting. Sodium now 126. BP 150's overnight. 1. Hyponatremia 2. Hypertensive urgency 3. Nausea and vomiting 4. Dizziness Plan - Stable for discharge home - Continue Losartan, Hydralazine, Clonidine - Discontinue Chlorthalidone on discharge - Outpatient cardiology follow up - Start salt tabs - Sodium to be checked as an outpatient by PCP - Continue home medications - Home physical therapy with walker
[2017-06-26] MEDS ORDERED: COZAAR100 M1 PO ×2 (07:36→10:46)
[2017-06-26] MEDS ORDERED: HYDRALAZINE HCL50 M1 PO ×2 (07:36→10:46)
[2017-06-26] MEDS ORDERED: CLONIDINE HCL0.1 MG PO (07:36)
[2017-06-26] MEDS ORDERED: SODIUM CHLORIDE1 G2 PO ×2 (07:36→10:46)
--- NOTE | 2017-06-26 07:38 | Patient Discharge Instructions ---
Discharge Instructions General Discharge Information You were seen/treated for: Hyponatremia Hypertension Special Instructions: Follow-up with Dr. Meeks within 1 week of discharge. Follow-up with your primary care phyisician within 1 week of discharge. Take all medications as directed. Take the salt tablets prescribed for 2 weeks. Do note take any thiazide diuretic medications. Increase your protein intake, and limit fluid intake to 4 L. Call your doctor or return to the ER if you should have chest pain, shortness of breath, or severe nausea and vomiting. Diet Limit DAILY fluid amt to mls: 1000 Acute Coronary Syndrome Inclusion Criteria At DC or during hospital stay patient has or had the following: ACS DIAGNOSIS No Discharge Core Measures Meds if any: Prescribed or Continued at Discharge Meds if any: NOT Prescribed or Continued at Discharge Congestive Heart Failure Inclusion Criteria At DC or during hospital stay patient has or had the following: CHF DIAGNOSIS No Discharge Core Measures Meds if any: Prescribed or Continued at Discharge Meds if any: NOT Prescribed or Continued at Discharge Cerebrovascular accident Inclusion Criteria At DC or during hospital stay patient has or had the following: CVA/TIA Diagnosis No Discharge Core Measures Meds if any: Prescribed or Continued at Discharge Meds if any: NOT Prescribed or Continued at Discharge Venous thromboembolism Inclusion Criteria VTE Diagnosis No VTE Type NONE VTE Confirmed by (Test) NONE Discharge Core Measures - Per Current guidelines, there needs to be overlap - treatment for the first 5 days of Warfarin therapy. - If discharged on Warfarin prior to 5 days of - overlap therapy, the patient will need to be - assessed for post discharge needs including - *Post discharge parental anticoagulation - *Warfarin and/or parental anticoagulation education - *Follow up date to check INR post discharge At least 5 days overlap therapy as Inpatient No Meds if any: Prescribed or Continued at Discharge Note: Overlap Therapy is Warfarin and Anticoagulant Meds if any: NOT Prescribed or Continued at Discharge
[2017-06-26 08:53] VITALS: BP 172/82
[2017-06-26] MEDS ORDERED: CLONIDINE HCL0.2 M1 PO ×2 (09:03→10:46)
== END 2017-06-26 13:15 | disposition home health service (06) | DRG 199 ==
LOC: ERH 20:06 → ERHI 22:08 → 1NO 22:08 → ENRESERV 22:56 → 1NO 06-22 01:03 → ENPENDDIS 06-26 10:47 → ENTRNSPT 06-26 13:01 → EDTRNSPTSTS 06-26 13:10 → EDTRNSPT 06-26 13:10 → 1NO 06-26 13:15 → CMPTRNSPT 06-26 13:33
PROVIDERS: Dermatology; Pediatrics; Student in an Organized Health Care Education/Training Program
DX: I16.0 Hypertensive urgency (principal); N17.9 Acute kidney failure, unspecified; G20 Parkinson's disease; E87.1 Hypo-osmolality and hyponatremia; H35.039 Hypertensive retinopathy, unspecified eye; E78.5 Hyperlipidemia, unspecified; F41.9 Anxiety disorder, unspecified; E03.9 Hypothyroidism, unspecified; M81.0 Age-related osteoporosis without current pathological fracture; I10 Essential (primary) hypertension; Z91.048 Other nonmedicinal substance allergy status; Z91.14 Patient's other noncompliance with medication regimen; Z88.2 Allergy status to sulfonamides; Z86.73 Personal history of transient ischemic attack (TIA), and cerebral infarction without residual deficits
CPT/HCPCS: 1NP; 84133; 84300; ERO; 36592; 71045; 74176; 81001; 82436; 82570; 93005; 93010; 93306; 96374; 97110-GO; 97116-GO; 97161-GP; 97530-GO; 99291; J0131; J1650; J2405; J3101; J3250; J3490

== ENCOUNTER 2017-07-23 15:27 | Observation (INO) | payer OTHER, MEDICARE ==
[~2017-07-23] VITALS: Ht 157.5 cm; Wt 54.4 kg
[~2017-07-23 15:27] MED LIST changes: +CLONIDINE HCL0.1 MG PO; +CLONIDINE HCL0.2 M1 PO; +CLONIDINE HCL0.3 M1 PO; +HYDRALAZINE HCL50 M1 PO; +SODIUM CHLORIDE1 G2 PO
--- NOTE | 2017-07-23 15:40 | ED CARDIAC/CP/PALPITATIONS ---
History of Present Illness General Chief Complaint: Dyspnea (COPD, CHF, Other) Stated Complaint: PT IS SOB AND BP IS VERY HIGP Source: patient Exam Limitations: language barrier Vital Signs & Intake/Output Vital Signs & Intake/Output Vital Signs Date Time Temp Pulse Resp B/P B/P Pulse O2 O2 Flow FiO2 Mean Ox Delivery Rate 07/24 0937 97.2 66 18 132/74 97 Room Air / 0848 97.1 76 18 172/90 98 Room Air / 0755 197/90 07/24 0752 180/96 / 0719 97.0 64 18 180/92 98 Room Air / 0709 99.0 70 20 184/81 97 Room Air / 0224 98.7 64 16 147/67 99 07/23 2234 98.9 76 18 142/63 97 Room Air 07/235 152/70 07/23 1956 152/70 07/23 1955 180/87 07/23 1858 58 200/83 07/23 1856 58 200/83 07/23 1826 98.5 62 18 205/93 100 Room Air 07/23 1754 97.4 58 20 218/96 99 06 1751 58 218/96 07/23 1638 Room Air Room Air 07/23 1534 98.4 84 15 240/100 97 Room Air Room Air ED Intake and Output 07/24 0000 07/23 1200 Intake Total Output Total Balance Patient 120 lb Weight Weight Reported by Patient Measurement Method Allergies Coded Allergies: Sulfa (Sulfonamide Antibiotics) (RASH 07/23/17) iron (DIARRHEA 07/23/17) Reconcile Medications Acetaminophen 500 MG TABLET 1 TAB PO PRN PAIN (Reported) Alendronate Sodium 70 MG TABLET 1 TAB PO QFRI OSTEOPOROSIS (Reported) in the morning, at least 30 minutes before the first food, beverage, or medication of the day Atorvastatin Calcium 10 MG TABLET 1 TAB PO DAILY CHOLESTEROL (Reported) Carbidopa/Levodopa (Carbidopa-Levodopa 25-100 Tab) 25 MG-100 MG TABLET 1 TAB PO TID PARKINSONS (Reported) Clonidine HCl 0.3 MG TABLET 1 TAB PO BID HTN . Hydralazine HCl 50 MG TABLET 50 MG PO TID Hypertension . Levothyroxine Sodium (Synthroid) 75 MCG TABLET 1 TAB PO DAILY THYROID ( Reported) Losartan (Cozaar) 100 MG TABLET 100 MG PO DAILY Hpyertension . Nepafenac (Ilevro) 0.3 % DROPS.SUSP 1 DROP OD DAILY RIGHT EYE (Reported) Olopatadine HCl (Pazeo) 0.7 % DROPS 1 DROP OU QAM ITCHING (Reported) Pantoprazole Sodium 40 MG TABLET.DR 1 TAB PO DAILY GI (Reported) Polyethylene Glycol 3350 (Miralax) 17 GRAM/DOSE POWDER 17 GM PO DAILY PRN CONSTIPATION Sertraline HCl (Unknown Strength) TABLET (Unknown Dose) UNKNOWN (Reported) Sodium Chloride 1 GRAM TABLET 1,000 MG PO BID Hyponatremia Trazodone HCl 100 MG TABLET 1 TAB PO QPM INSOMNIA (Reported) Triage Nurses Notes Reviewed? yes Onset: Gradual Duration: constant Timing: recent history Quality/Severity: moderate Location: substernal Radiation: no radiation HPI: Patient is a 71-year-old female with a past medical history of CVA, hypertension , Parkinson's, hypertensive retinopathy, anxiety hyperlipidemia hypothyroidism osteoporosis and multiple admissions for concerns of hypertensive urgency and hyponatremia. Patient was admitted and discharged from [facility] approximately 2 weeks ago for atypical chest pain and hypertensive urgency patient currently resides at [facility] patient returns to emergency room with family members for concerns of elevated blood pressure and shortness of breath. History is limited due to language barrier. Patient does complain of a 2 day history of shortness of breath dizziness and elevated blood pressure patient is compliant with her antihypertensive medications Patient denies any chest pain headache visual acuity changes arm pain jaw pain nausea vomiting hemoptysis leg swelling Patient is compliant with hydralazine losartan and clonidine (Hector Peter) Past History Travel History Traveled to [place] past 21 day No Medical History Any Pertinent Medical History? 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 No (Hector Peter) Review of Systems Review of Systems Constitutional: Reports: no symptoms. EENTM: Reports: see HPI. Respiratory: Reports: see HPI, short of breath. Cardiovascular: Reports: see HPI. Denies: chest pain. GI: Reports: no symptoms. Genitourinary: Reports: no symptoms. Musculoskeletal: Reports: no symptoms. Skin: Reports: no symptoms. Neurological/Psychological: Reports: no symptoms. Hematologic/Endocrine: Reports: no symptoms. Immunologic/Allergic: Reports: no symptoms. All Other Systems: Reviewed and Negative (Hector Peter) Physical Exam Physical Exam General Appearance: no apparent distress, alert, comfortable Head: atraumatic Eyes: Bilateral: normal appearance, PERRL, EOMI. Ears, Nose, Throat: normal pharynx, normal ENT inspection Neck: normal inspection Respiratory: normal breath sounds, chest non-tender, no respiratory distress Cardiovascular: regular rate/rhythm Extremities: no edema Neurologic/Psych: no motor/sensory deficits, awake, alert, oriented x 3 Skin: intact, normal color, warm/dry Core Measures ACS in differential dx? Yes CVA/TIA Diagnosis No Sepsis Present: No Sepsis Focused Exam Completed? No (Hector Peter) Progress Differential Diagnosis: AMI, aortic dissection, atrial fibrillation, cholecystitis, CHF/pulm edema, costochondritis, hyperkalemia, hypovolemia, hyperthyroid, hyperventilation, intracranial hemorrhage, musculoskeletal pain, myocarditis, pancreatitis, pericarditis, pneumonia, pneumothorax, PSVT, pulmonary embolism, PUD/GERD, PVCs/PACs, respiratory failure, sepsis, unstable angina, V-fib/V-Tach, WPW syndrome Plan of Care: Orders Procedure Date/time Status Heart Healthy Diet 07/[address] in observation 07/24 2015 Active ED Holding Orders 07/24 2015 Active Patient Data 07/24 2015 Active Vital Signs 07/23 2016 Active Code Status 07/24 2015 Active Intake & Output 07/23 1758 Active Telemetry/Cadmium Plater 07/23 1541 Active THYROID STIMULATING HORMONE 07/23 1541 Complete TROPONIN LEVEL 07/23 1541 Complete MAGNESIUM 07/23 1541 Complete FREE T4 07/23 1541 Complete D-DIMER 07/23 1541 Complete COMPREHENSIVE METABOLIC PANEL 07/23 1541 Complete CBC WITHOUT DIFFERENTIAL 07/23 1541 Complete EKG 07/23 1529 Active Current Medications Sig/Areli Start time Last Medication Dose Stop Time Status Admin Clonidine 0.3 MG BID 07/24 899 AC 07/24 (Catapres) 075 Losartan Potassium 100 MG DAILY 07/24 899 AC 07/24 (Cozaar) 075 Levothyroxine Sodium 0.075 MG DAILY AC 07/24 699 AC 07/24 (Synthroid) 0747 Carbidopa/Levodopa 1 TAB TID 07/23 2099 AC 07/24 (Sinemet 25/100MG) 075 Hydralazine HCl 50 MG TID 07/23 2099 AC 07/24 (Apresoline) 075 Labetalol HCl 10 MG ONCE ONE 07/23 1700 CAN (Trandate) 07/23 1701 Laboratory Tests 07/23/17 1623: Anion Gap 14, Estimated GFR 49 L, BUN/Creatinine Ratio 12.7, Glucose 109 H, Calcium 9.1, Magnesium 1.9, Total Bilirubin 0.4, AST 18, ALT 15, Alkaline Phosphatase 91, Troponin I < 0.01, Total Protein 6.7, Albumin 3.9, Globulin 2.8, Albumin/Globulin Ratio 1.4, TSH 11.900 H, Free T4 1.42, D-Dimer High Sensitivty < 200, CBC w Diff NO MAN DIFF REQ, RBC 3.78 L, MCV 77.9 L, MCH 26.1 L, MCHC 33.5, RDW 14.6 H, MPV 9.4, Gran % 77.0 H, Lymphocytes % 15.3 L, Monocytes % 6.8, Eosinophils % 0.6, Basophils % 0.3, Absolute Granulocytes 6.5, Absolute Lymphocytes 1.3, Absolute Monocytes 0.6, Absolute Eosinophils 0.1, Absolute Basophils 0 Differential diagnoses include hypertensive urgency hypertensive emergency after initial blood work and EKG and chest x-ray was resulted patient had improvement of symptoms after Vasotec was administered however blood pressure remains elevated Records does indicate that there was concern of noncompliance with her antihypertensive medications however I had a long extensive conversation with the patient which she confirms that she is compliant with her medications and she self administers the medications and the son confirms this story Patient had improvement of blood pressure with Vasotec. Patient will be placed in ED observation and to monitor blood pressure and to administer antihypertensive medications Discussed observation with patient and family members were aware and agree I will discuss patient's TSH levels with Dr. MAN for levothyroxine reconciliation administration DR. MAN ADVISED PT TO CONTINUE LEVOTHYROXINE AND FOLLOW UP WITH HIM OR PCP. THIS WAS ORDERED IN THE ER. Discussed WITH FAMILY MEMBER AND PT to follow-up with Dr. Man primary care doctor Diagnostic Imaging: Viewed by Me: Radiology Read. CXR Impression: no acute abnormality, no infiltrates Initial ED EKG: normal QRS complex, normal sinus rhythm, NSR 76 BPM, Comments: PATIENT: RAQUEL MAN PRESENT AGE: 71 PATIENT ACCOUNT NO: [id number] : 45 LOCATION: [facility] ORDERING PHYSICIAN: Hector BAKER SERVICE DATE: 07/23/17 EXAM TYPE: RAD - XRY-CHEST XRAY, TWO VIEWS EXAMINATION: XR CHEST CLINICAL INFORMATION: 71-year-old woman with shortness of breath. COMPARISON: 07/10/[address], 06/21/2017 chest radiograph TECHNIQUE: 2 views of the chest were obtained. FINDINGS: The lungs are generally well expanded, without evidence of focal consolidation or pulmonary edema. Moderate to marked cardiomegaly is again noted. There are no pleural effusions. IMPRESSION: No radiographic evidence of an acute cardiopulmonary process. DICTATED BY: Lucie Wood MD DATE/TIME DICTATED:07/23/171738 AIRCRAFT POWERPLANT REPAIRER:LAYTON (Hector Peter) Hand-Off Endorsed To: Reinaldo Duarte MD Endorsed Time: 0100 Pending: other (RE-EVAL) (Carloz WHITFIELD,Robin Castaneda) Hand-Off Endorsed To: Daniel Fisher DO Pending: other (BP, re-eval) (Reinaldo Duarte MD) Departure Departure Disposition: STILL A PATIENT Condition: Stable Clinical Impression Primary Impression: Hypertensive urgency Referrals: Priscilla WHITFIELD,Allison (PCP/Family) Robin Man MD Additional Instructions: FOLLOW UP THIS WEEK WITH DR MAN FOR YOUR THYROID Departure Forms: Customer Survey General Discharge Information (Hector Peter) PA/LINING FINISHER Co-Sign Statement Statement: ED Attending supervision documentation- [X] I saw and evaluated the patient. I have also reviewed all the pertinent lab results and diagnostic results. I agree with the findings and the plan of care as documented in the PA's/LINING FINISHER's documentation. [X] I have reviewed the ED Record and agree with the PA's/LINING FINISHER's documentation. [] Additions or exceptions (if any) to the PAs/LINING FINISHER's note and plan are summarized below: [See above note] (Carloz WHITFIELD,Robin Castaneda) Departure Comments 07/24/17 10 AM The patient remains asymptomatic. Repeat blood pressure is 132/74. No chest pain or shortness of breath labs essentially unremarkable. EKG revealed nonspecific ST-T wave abnormality no significant change from the old. The patient is being discharged from observation. She will follow-up with her doctor on Friday, or return to the emergency department if any headache or chest pain. (Daniel Fisher DO) Critical Care Note Critical Care Note Critical Care Time: 30-74 min (Hector Peter) ED Attending Observation Initial Observation Note: I have seen and personally examined RAQUEL MAN on 07/23/17 at 2016. I agree with the current emergency department documentation. The disposition (admission or discharge) is uncertain at this time, she needs a period of observation for the following reason(s): [Patient found to be hypertensive. Patient has multiple admissions for the same. There is a question of med noncompliance. The patient states that she is taking her medications as prescribed. Her blood pressure has come down with medications. Patient will be placed in ED for close monitoring and witnessed administration of her medications. Her blood pressure normalizes with medications that is strongly suggests med noncompliance however if her blood pressure remains elevated despite taking her medications and she may require readmission to the hospital for further pressure control. Patient's TSH is also elevated so endocrine will be consult. Patient is already on levothyroxine.] The ED Nurse caring for this patient has been personally informed as to what the patient is being observed for. Observation Re-Evaluation: I have reevaluated RQAUEL MAN on 07/23/17 at 2232. The physical findings that support the continued need to observe this patient include [patient blood pressure remains within normal limits. Patient is asymptomatic. We'll continue close observation lungs are clear to auscultation bilaterally.]. (Carloz WHITFIELD,Robin Castaneda)
[2017-07-23 16:42] LABS: ABSOLUTE BASOPHIL COUNT 0 /CUMM (0.0-0.2); ABSOLUTE EOSINOPHIL COUNT 0.1 /CUMM (0.0-0.7); ABSOLUTE GRANULOCYTE CT 6.5 /CUMM (1.4-6.5); ABSOLUTE LYMPH COUNT 1.3 /CUMM (1.2-3.4); ABSOLUTE MONOCYTE COUNT 0.6 /CUMM (0.10-0.60); BASOPHIL % 0.3 % (0.0-2.0); EOSINOPHIL % 0.6 % (0-5); HEMATOCRIT 29.4 % (37-47); MEAN CORPUSCULAR HGB 26.1 PG (27.0-31.0); MEAN CORPUSCULAR HGB CONC 33.5 G/DL (33.0-37.0); MEAN CORPUSCULAR VOLUME 77.9 FL (81.0-99.0); MEAN PLATELET VOLUME 9.4 FL (7.4-10.4); PLATELET COUNT 285 /CUMM (130-400); RBC DISTRIBUTION WIDTH 14.6 % (11.5-14.5); RED BLOOD CELL CT 3.78 /CUMM (4.20-5.40); WHITE BLOOD CELL COUNT 8.4 /CUMM (4.8-10.8)
--- NOTE | 2017-07-23 17:43 | RADIOLOGY REPORT ---
EXAMINATION: XR CHEST CLINICAL INFORMATION: 71-year-old woman with shortness of breath. COMPARISON: 07/10/[address], 06/21/2017 chest radiograph TECHNIQUE: 2 views of the chest were obtained. FINDINGS: The lungs are generally well expanded, without evidence of focal consolidation or pulmonary edema. Moderate to marked cardiomegaly is again noted. There are no pleural effusions. IMPRESSION: No radiographic evidence of an acute cardiopulmonary process.
[2017-07-23] MEDS ORDERED: SYNTHROID75 MCG PO (18:59)
[2017-07-23] MEDS ORDERED: SERTRALINE HCL50 MG (19:00)
[2017-07-24 10:26] VITALS: BP 140/76
== END 2017-07-24 10:50 ==
LOC: ERH 15:27 → ERHI 20:16
PROVIDERS: Physician Assistant
DX: I16.0 Hypertensive urgency (principal); R06.02 Shortness of breath; G20 Parkinson's disease; M81.0 Age-related osteoporosis without current pathological fracture; E78.5 Hyperlipidemia, unspecified; E03.9 Hypothyroidism, unspecified; E87.1 Hypo-osmolality and hyponatremia; H35.031 Hypertensive retinopathy, right eye; I10 Essential (primary) hypertension; Z86.73 Personal history of transient ischemic attack (TIA), and cerebral infarction without residual deficits
CPT/HCPCS: 6090; 71046; 93005; 93010; 96374; 96376; 99291; G0378; J3490

== ENCOUNTER 2017-09-12 17:13 | Inpatient (IN) | payer OTHER ==
[~2017-09-12] VITALS: Ht 157.5 cm; Wt 56.5 kg
[~2017-09-12 17:13] MED LIST changes: +SERTRALINE HCL50 MG; +SYNTHROID75 MCG PO
--- NOTE | 2017-09-12 18:15 | RADIOLOGY REPORT ---
EXAMINATION: XR CHEST CLINICAL INFORMATION: Shortness of breath COMPARISON: Chest x-ray 07/23/2017, 01/11/2017. CT chest 07/10/2017. CT chest 08/13/2012. TECHNIQUE: 2 views of the chest were obtained. FINDINGS: On lateral view there is a triangle vague density lying along the major fissure. This correlates to a focal area of atelectasis at the right middle lobe and lingula seen on the CT of the chest of 07/10/2017. The lungs are otherwise clear. There is no acute infiltrate. There is no pleural effusion. There is no pulmonary vascular congestion. The heart size is enlarged. There are calcifications of aortic arch. IMPRESSION: 1. Chronic atelectasis along the major fissure in the right middle lobe and lingula lobe unchanged since CT chest 07/10/2017. 2. No acute infiltrate or pulmonary vascular congestion. 3. Cardiomegaly.
--- NOTE | 2017-09-12 18:23 | ED GENERAL ADULT ---
History of Present Illness General Chief Complaint: General Adult Stated Complaint: HIGH BP Source: patient Exam Limitations: no limitations Vital Signs & Intake/Output Vital Signs & Intake/Output Vital Signs Date Time Temp Pulse Resp B/P B/P Pulse O2 O2 Flow FiO2 Mean Ox Delivery Rate 09/13 0215 160/66 09/13 0104 87 210/88 09/13 0053 97 Room Air 09/13 0052 98.6 76 20 210/88 97 Room Air 09/12 2358 97.6 69 18 182/79 97 Room Air 09/12 2212 84 16 188/80 98 Room Air 09/12 2129 87 210/80 09/12 2127 210/80 09/12 212 97.0 87 16 210/80 98 Room Air 09/12 2014 78 190/88 99 Room Air 09/12 1958 97.1 79 16 176/90 98 Room Air 09/12 1921 75 216/90 09/12 1858 75 16 216/90 98 Room Air 09/12 1849 97 09/12 1735 96.7 74 16 220/90 99 Room Air ED Intake and Output 09/13 0000 09/12 1200 Intake Total 0 Output Total 600 Balance -600 Intake, Oral 0 Output, Urine 600 Patient 123 lb Weight Weight Reported by Patient Measurement Method Allergies Coded Allergies: Sulfa (Sulfonamide Antibiotics) (RASH 07/23/17) iron (DIARRHEA 07/23/17) Reconcile Medications Acetaminophen 500 MG TABLET 1 TAB PO PRN PAIN (Reported) Alendronate Sodium 70 MG TABLET 1 TAB PO QFRI OSTEOPOROSIS (Reported) in the morning, at least 30 minutes before the first food, beverage, or medication of the day Atorvastatin Calcium 10 MG TABLET 1 TAB PO DAILY CHOLESTEROL (Reported) Carbidopa/Levodopa (Carbidopa-Levodopa 25-100 Tab) 25 MG-100 MG TABLET 1 TAB PO TID PARKINSONS (Reported) Chlorthalidone 25 MG TABLET 1 TAB PO QAM BP (Reported) Clonidine HCl 0.3 MG TABLET 1 TAB PO BID HTN . Diltiazem HCl (Diltiazem 24HR ER) 120 MG CAP.ER.24H 1 CAP PO DAILY HEART/BLOOD (Reported) Hydralazine HCl 50 MG TABLET 50 MG PO TID Hypertension . Levothyroxine Sodium (Synthroid) 75 MCG TABLET 1 TAB PO DAILY THYROID ( Reported) Losartan (Cozaar) 100 MG TABLET 100 MG PO DAILY Hpyertension . Nepafenac (Ilevro) 0.3 % DROPS.SUSP 1 DROP OD DAILY RIGHT EYE (Reported) Olopatadine HCl (Pazeo) 0.7 % DROPS 1 DROP OU QAM ITCHING (Reported) Pantoprazole Sodium 40 MG TABLET.DR 1 TAB PO DAILY GI (Reported) Polyethylene Glycol 3350 (Miralax) 17 GRAM/DOSE POWDER 17 GM PO DAILY PRN CONSTIPATION Sertraline HCl (Zoloft) 50 MG TABLET 1 TAB PO DAILY MENTAL HEALTH (Reported) Sodium Chloride 1 GRAM TABLET 1,000 MG PO BID Hyponatremia Trazodone HCl 100 MG TABLET 1 TAB PO QPM INSOMNIA (Reported) Triage Note: PT TO ER C/C HEADACHE AND HYPERTENSION X 1 DAY. HX OF HYPERTENSION. DENIES C/P. + SOB. DENIES COUGH. MANUAL BP 220/90 Triage Nurses Notes Reviewed? yes Duration: day(s): (3), constant Timing: recent history Injury Environment: home Severity: moderate, severe No Modifying Factors: none HPI: 71-year-old female comes into the emergency room complaints of headache and tingling down her arms. She reports her blood pressure is been high. She denies any chest pain but some associated shortness of breath. Denies any fever chills vomiting. Denies any other associated symptoms. (Jose Arrieta) Past History Travel History Traveled to [place] past 21 day No Medical History Any Pertinent Medical History? 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 No (Jose Arrieta) Review of Systems Review of Systems Constitutional: Reports: no symptoms. EENTM: Reports: no symptoms. Respiratory: Reports: no symptoms. Cardiovascular: Reports: no symptoms. GI: Reports: no symptoms. Genitourinary: Reports: no symptoms. Musculoskeletal: Reports: no symptoms. Skin: Reports: no symptoms. Neurological/Psychological: Reports: no symptoms. Hematologic/Endocrine: Reports: no symptoms. Immunologic/Allergic: Reports: no symptoms. All Other Systems: Reviewed and Negative (Jose Arrieta) Physical Exam Physical Exam General Appearance: well developed/nourished, no apparent distress, alert, awake Head: atraumatic, normal appearance Eyes: Bilateral: normal appearance, PERRL, EOMI. Ears, Nose, Throat: normal ENT inspection, hearing grossly normal Neck: normal inspection Respiratory: normal breath sounds, no respiratory distress Cardiovascular: regular rate/rhythm Back: normal inspection Extremities: normal inspection Neurologic/Psych: awake, alert, oriented x 3, normal gait Skin: intact, normal color Core Measures ACS in differential dx? No CVA/TIA Diagnosis: No Sepsis Present: No Sepsis Focused Exam Completed? No (Jose Arrieta) Progress Differential Diagnoses I considered the following diagnoses in my evaluation of the patient: Hypertensive urgency, CVA, [place], hypertensive emergency, Plan of Care: Orders Procedure Date/time Status Heart Healthy Diet 09/13 B Active TROPONIN LEVEL 09/13 0130 Active EKG 09/13 0130 Active Vital Signs 09/13 0030 Active Teach/Educate 09/13 0030 Active Pain Treatment and Response 09/13 0030 Active Nutritional Intake, Monitor 09/13 0030 Active Isolation 09/13 0030 Active Intake & Output 09/13 0030 Active Patient Care Conference 09/13 0030 Active Activity/Ambulation 09/13 0030 Active MISSING MEDICATION FORM 09/13 UNK Active Pathway - chart 09/12 225 Active House Staff 09/12 225 Active Patient Data 09/12 2253 Active Code Status 09/12 2253 Active Patient Data 09/12 2125 Active Saline Lock 09/[address] in observation 09/12 2056 Active Misc Message 09/12 2056 Active ED Holding Orders 09/12 2056 Active Vital Signs 09/12 2056 Active Code Status 09/12 2056 Complete Intake & Output 09/12 1934 Active TROPONIN LEVEL 09/12 1716 Complete D-DIMER 09/12 171 Complete COMPREHENSIVE METABOLIC PANEL 09/12 171 Complete CBC WITHOUT DIFFERENTIAL 09/12 171 Complete EKG 09/12 1716 Active VTE Mechanical Prophylaxis 09/12 UNK Active Telemetry/Commodities Trader 09/12 K Active Current Medications Sig/Areli Start time Last Medication Dose Stop Time Status Admin Atorvastatin Calcium 10 MG DAILY 09/13 899 AC (Lipitor) Carbidopa/Levodopa 1 TAB TID 09/13 899 AC (Sinemet 25/100MG) Diltiazem HCl 120 MG DAILY 09/13 899 AC (Cardizem CD) Hydralazine HCl 50 MG TID 09/13 899 AC (Apresoline) Levothyroxine Sodium 0.075 MG DAILY 09/13 899 AC (Synthroid) Losartan Potassium 100 MG DAILY 09/13 899 AC (Cozaar) Sertraline HCl 50 MG DAILY 09/13 899 AC (Zoloft) Omeprazole 40 MG DAILY AC 09/13 699 AC (Prilosec) Ondansetron HCl 4 MG Q8 PRN 09/12 2345 AC 09/12 (Zofran) 2356 Clonidine 0.3 MG BID 09/12 2315 AC 09/13 (Catapres) 0104 Heparin Sodium 5,000 UNIT Q8 09/12 2315 AC (Porcine) Trazodone HCl 100 MG QPM 09/12 2315 AC 09/12 (Desyrel) 2355 Acetaminophen 650 MG Q6P PRN 09/12 2300 AC (Tylenol) Morphine Sulfate 1 MG Q4 PRN 09/12 2300 AC 09/12 (Morphine) 2356 Oxycodone/ 1 TAB Q6 PRN 09/12 2300 AC Acetaminophen (Percocet) Laboratory Tests 09/13/17 0230: Troponin I Pending 09/12/17 1915: Anion Gap 13, Estimated GFR > 60, BUN/Creatinine Ratio 23.8, Glucose 119 H, Calcium 9.9, Total Bilirubin 0.4, AST 24, ALT 26, Alkaline Phosphatase 104, Troponin I < 0.01, Total Protein 7.2, Albumin 4.2, Globulin 3.0, Albumin/ Globulin Ratio 1.4, D-Dimer High Sensitivty < 200, CBC w Diff NO MAN DIFF REQ, RBC 4.12 L, MCV 77.8 L, MCH 25.9 L, MCHC 33.3, RDW 17.5 H, MPV 9.1, Gran % 76.2 H, Lymphocytes % 16.6 L, Monocytes % 6.6, Eosinophils % 0.3, Basophils % 0.3, Absolute Granulocytes 7.1 H, Absolute Lymphocytes 1.6, Absolute Monocytes 0.6, Absolute Eosinophils 0, Absolute Basophils 0 Diagnostic Imaging: Viewed by Me: Radiology Read, CT Scan. Discussed w/RAD: Radiology Read, CT Scan. Radiology Impression: PATIENT: RAQUEL MAN PRESENT AGE: 71 PATIENT ACCOUNT NO: [id number] : 45 LOCATION: [facility] ORDERING PHYSICIAN: Estiven BAKER SERVICE DATE: 09/12/17 EXAM TYPE: CAT - CT HEAD WO IV CONTRAST EXAMINATION: CT HEAD WITHOUT CONTRAST CLINICAL INFORMATION: Headache. Hypertensive urgency. COMPARISON: 07/10/2017 TECHNIQUE: Contiguous axial imaging was performed from the skull base to vertex without intravenous administration of contrast. DLP: 543 mGy-cm FINDINGS: Brain parenchyma: No acute findings compared to 07/10/2017. Jennings-white matter differentiation is well preserved. No evidence of an acute major vascular territory infarction, hemorrhage, intracranial mass or midline shift. There are old small hypodense foci, likely lacunar infarctions, in the right and left gangliocapsular regions. Stable 1 cm calcified meningioma of the anterior falx. Cerebrospinal fluid spaces: No hydrocephalus or extra-axial fluid collections. Cerebellum and brainstem: Unremarkable. The 4th ventricle is midline in position. The cerebellopontine angles are normal. Calvarium and temporomandibular joints: Calvarium is intact. Mastoid air cells and middle ear cavities are well aerated. The TMJs are normal. Paranasal sinuses and orbits: The visualized paranasal sinuses are clear. The frontal sinuses are aplastic. No acute intraorbital pathology. Other: No acute findings in the visualized extracranial soft tissues. IMPRESSION: No intracranial hemorrhage. No acute intracranial pathology compared to 07/10/2017. Stable 1 cm calcified meningioma of the anterior falx. DICTATED BY: Luciano Martinez MD DATE/TIME DICTATED:09/12/171813 ENVIRONMENTAL HEALTH INSPECTOR: [place] DATE/TIME TRANSCRIBED:09/12/171813 CONFIDENTIAL, DO NOT COPY WITHOUT APPROPRIATE AUTHORIZATION. <Electronically signed in Other Vendor System> SIGNED BY: Luciano Martinez MD 09/12/171824, PATIENT: RAQUEL MAN PRESENT AGE: 71 PATIENT ACCOUNT NO: [id number] : LOCATION: [facility] ORDERING PHYSICIAN: Estiven BAKER SERVICE DATE: EXAM TYPE: RAD - XRY-CHEST XRAY, TWO VIEWS EXAMINATION: XR CHEST CLINICAL INFORMATION: Shortness of breath COMPARISON: Chest x-ray 07/23/2017, . CT chest 07/10/2017. CT chest 08/13/2012. TECHNIQUE: 2 views of the chest were obtained. FINDINGS: On lateral view there is a triangle vague density lying along the major fissure. This correlates to a focal area of atelectasis at the right middle lobe and lingula seen on the CT of the chest of 07/10/2017. The lungs are otherwise clear. There is no acute infiltrate. There is no pleural effusion. There is no pulmonary vascular congestion. The heart size is enlarged. There are calcifications of aortic arch. IMPRESSION: 1. Chronic atelectasis along the major fissure in the right middle lobe and lingula lobe unchanged since CT chest 07/10/2017. 2. No acute infiltrate or pulmonary vascular congestion. 3. Cardiomegaly. DICTATED BY: Armin Ross MD DATE/TIME DICTATED:1802 ENVIRONMENTAL HEALTH INSPECTOR:LAYTON DATE/TIME TRANSCRIBED:09/12/171802 CONFIDENTIAL, DO NOT COPY WITHOUT APPROPRIATE AUTHORIZATION. <Electronically signed in Other Vendor System> SIGNED BY: Armin Ross MD 09/12/171814 Initial ED EKG: normal sinus rhythm, rate (73) (Jose Arrieta) Departure Departure Disposition: STILL A PATIENT Condition: Stable Clinical Impression Primary Impression: Hypertensive urgency Referrals: Allison Wells MD (PCP/Family) Departure Forms: Customer Survey General Discharge Information Observation Note Spoke With: Pranav Collins MD Physician Advisor Notified: YAMIL WHITFIELD,YASHIRA Castaneda Place Patient In: Non-ED OBS Care Area Rationale for Observation: My rational for observation is as follows . Cardiac telemetry. IV blood pressure management. Serial labs. Cardiac consultation. (Jose Arrieta) Observation Note Spoke With: Pranav Collins MD Rationale for Observation: My rational for observation is as follows .... as above... merits close blood pressure control with iv meds. PA/TOPPIECE CUTTER Co-Sign Statement Statement: ED Attending supervision documentation- [x] I saw and evaluated the patient. I have also reviewed all the pertinent lab results and diagnostic results. I agree with the findings and the plan of care as documented in the PA's/TOPPIECE CUTTER's documentation. 09/12/17, 20:20... as above...pt with labile blood pressure issues, merits iv blood pressure meds, close monitoring, serial trops/ekg. [] I have reviewed the ED Record and agree with the PA's/TOPPIECE CUTTER's documentation. [] Additions or exceptions (if any) to the PAs/TOPPIECE CUTTER's note and plan are summarized below: [] (Cesar WHITFIELD,Harris Overton) Critical Care Note Critical Care Note Critical Care Time: 30-74 min (35) (Jose Arrieta)
[2017-09-12] MEDS ORDERED: DILTIAZEM 24HR120 MG PO (19:00)
[2017-09-12] MEDS ORDERED: ZOLOFT50 M1 PO (19:33)
[2017-09-12] MEDS ORDERED: CHLORTHALIDONE25 M1 PO (19:34)
[2017-09-12 19:39] LABS: ABSOLUTE BASOPHIL COUNT 0 /CUMM (0.0-0.2); ABSOLUTE EOSINOPHIL COUNT 0 /CUMM (0.0-0.7); ABSOLUTE GRANULOCYTE CT 7.1 /CUMM (1.4-6.5); ABSOLUTE LYMPH COUNT 1.6 /CUMM (1.2-3.4); ABSOLUTE MONOCYTE COUNT 0.6 /CUMM (0.10-0.60); BASOPHIL % 0.3 % (0.0-2.0); EOSINOPHIL % 0.3 % (0-5); GRANULOCYTE % 76.2 % (42.2-75.2); HEMATOCRIT 32.1 % (37-47); MEAN CORPUSCULAR HGB 25.9 PG (27.0-31.0); MEAN CORPUSCULAR HGB CONC 33.3 G/DL (33.0-37.0); MEAN CORPUSCULAR VOLUME 77.8 FL (81.0-99.0); MEAN PLATELET VOLUME 9.1 FL (7.4-10.4); PLATELET COUNT 293 /CUMM (130-400); RBC DISTRIBUTION WIDTH 17.5 % (11.5-14.5); RED BLOOD CELL CT 4.12 /CUMM (4.20-5.40); WHITE BLOOD CELL COUNT 9.4 /CUMM (4.8-10.8)
--- NOTE | 2017-09-12 20:45 | History & Physical ---
See Addendum Reggie Olvera 09/12/172043: General Information and HPI MD Statement: I have seen and personally examined RAQUEL MAN and documented this H&P. The patient is a 71 year old F who presented with a patient stated chief complaint of [headache]. Source of Information: patient Exam Limitations: no limitations History of Present Illness: 71 Year of age female known case of Parkinson, Osteoarthritis of both knees, HTN , HLD Hypothyroidism, CVA, Hypertensive retinopathy she presented to ER with chief complaint of hypertensive urgency and headache. She was in her usual state of health one week back when she started having headache, pain was 8/10 in severity relived by tylenol, at that time her blood pressure was 200/100, she also felt weakness and chest dyscomfort which she relates to heart burn. There was no history of palpitaion, diaphoresis, lightheadedness, abdominal pain, chest pain and trauma. According to her family she use to have high blood pressure triggered by anxiety. 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 Home Services at Home: None Smoking Status: Never Smoked ETOH Use: denies use Illicit Drug Use: denies illicit drug use Living Will? yes Functional Ability ADLs Independent: dressing, eating, toileting, bathing. Employment History Employment Retired Review of Systems Review of Systems Constitutional: Reports: weakness. Denies: chills, diaphoresis, fever, malaise, unexplained weight loss. EENTM: Reports: visual changes. Denies: blurred vision, double vision, eye pain, eye drainage, eye tearing, icterus, ear discharge, ear pain, ear redness, hearing changes, nasal congestion, epistaxis, nasal pain, throat pain. Cardiovascular: Denies: see HPI, chest pain, edema, orthopena, palpitations, peripheral edema, syncope. Respiratory: Denies: no symptoms, cough, hemoptysis, orthopnea, short of breath, sputum production. GI: Denies: abdominal pain, bloating, constipation, diarrhea, distention, bowel incontinence, melena, nausea, bloody stool, changes in stool, vomiting, steatorrhea. Genitourinary: Denies: see HPI, discharge, dysuria, frequency, hematuria, hesitation, pain, urgency. Musculoskeletal: Denies: see HPI, back pain, joint pain, joint swelling, muscle pain, muscle stiffness, neck pain. Skin: Denies: cysts, change in hair/nails, jaundice, lesions, lymphangitis, lumps, moles, rash. Neurological/Psychological: Reports: anxiety, depressed, dementia, headache. Denies: confusion, numbness, paresthesia, pre-existing deficit, petit mal seizures, tingling, tremors, tonic- clonic seizures. Hematologic/Endocrine: Denies: bruising, bleeding, polyuria, polydipsia, other. Immunologic/Allergic: Denies: see HPI, splenectomy, HIV/AIDS, lymphadenopathy, other. Exam & Diagnostic Data Last 24 Hrs of Vital Signs/I&O Vital Signs Date Time Temp Pulse Resp B/P B/P Pulse O2 O2 Flow FiO2 Mean Ox Delivery Rate 09/13 0215 160/66 09/13 0104 87 210/09/13 0053 97 Room Air 09/13 0052 98.6 76 20 210 97 Room Air 09/12 2358 97.6 69 18 182/79 97 Room Air 09/12 2212 84 16 188/80 98 Room Air 09/129 87 210/09/127 210/09/12 97.0 87 16 210/ 98 Room Air 09/12 2013 78 190/88 99 Room Air 09/12 1958 97.1 79 16 176/90 98 Room Air 09/12 1921 75 216/90 09/12 1858 75 16 216/ 98 Room Air 09/12 1849 97 09/12 1735 96.7 74 16 220/90 99 Room Air Intake & Output 07/28 0800 09/13 0000 09/12 1600 Intake Total 0 Output Total 600 Balance -600 Intake, Oral 0 Output, Urine 600 Patient 125 lb 123 lb Weight Weight Reported by Patient Measurement Method Physical Exam General Appearance Alert, Oriented X3 Skin No Rashes HEENT PERRLA, EOMI, Mucous Membr. moist/pink Neck Supple Cardiovascular Regular Rate, Normal S1, Normal S2 Lungs Clear to Auscultation Abdomen Normal Bowel Sounds Neurological Normal Gait, Normal Speech, Strength at 5/5 X4 Ext, Normal Tone, Sensation Intact, Cranial Nerves 3-12 NL, Reflexes 2+ Extremities No Clubbing, No Cyanosis, No Edema, Normal Pulses, No Tenderness/ Swelling Vascular Normal Pulses Last 24 Hrs of Labs/Jordan: Laboratory Tests 09/13/17 0230: Troponin I 0.01 09/12/17 1915: Anion Gap 13, Estimated GFR > 60, BUN/Creatinine Ratio 23.8, Glucose 119 H, Calcium 9.9, Total Bilirubin 0.4, AST 24, ALT 26, Alkaline Phosphatase 104, Troponin I < 0.01, Total Protein 7.2, Albumin 4.2, Globulin 3.0, Albumin/ Globulin Ratio 1.4, D-Dimer High Sensitivty < 200, CBC w Diff NO MAN DIFF REQ, RBC 4.12 L, MCV 77.8 L, MCH 25.9 L, MCHC 33.3, RDW 17.5 H, MPV 9.1, Gran % 76.2 H, Lymphocytes % 16.6 L, Monocytes % 6.6, Eosinophils % 0.3, Basophils % 0.3, Absolute Granulocytes 7.1 H, Absolute Lymphocytes 1.6, Absolute Monocytes 0.6, Absolute Eosinophils 0, Absolute Basophils 0 Diagnostic Data CXR Results IMPRESSION: 1. Chronic atelectasis along the major fissure in the right middle lobe and lingula lobe unchanged since CT chest 07/10/2017. 2. No acute infiltrate or pulmonary vascular congestion. 3. Cardiomegaly. Other Results IMPRESSION: 1. Chronic atelectasis along the major fissure in the right middle lobe and lingula lobe unchanged since CT chest 07/10/2017. 2. No acute infiltrate or pulmonary vascular congestion. 3. Cardiomegaly. Assessment/Plan Assessment: Hypertensive Urgency; Antihypertensive medication given BP drop 20mm of hg in last 48 hours. 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 Fall precaution. DVT prophylaxsis healthy diet Core Measures/Misc (11/03) Acute Coronary Syndrome ACS Diagnosis: No Congestive Heart Failure Congestive Heart Failure Diagnosis No Cerebrovascular Accident CVA/TIA Diagnosis: No Sepsis (View protocol) Sepsis Present: No If YES complete Sepsis Event Note If YES complete Sepsis Event Note Flores Salgado MD 09/12/17 9165: Assessment/Plan As Ranked By This Provider Problem List: 1. Hypertensive urgency Core Measures/Misc (11/03) Acute Coronary Syndrome ACS Diagnosis: No Congestive Heart Failure Congestive Heart Failure Diagnosis No Cerebrovascular Accident CVA/TIA Diagnosis: No VTE (View Protocol) VTE Risk Factors Age>40 No Mechanical VTE Prophylaxis d/t Other No VTE Pharm Prophylaxis d/t Other Sepsis (View protocol) If YES complete Sepsis Event Note If YES complete Sepsis Event Note Resident Review Statement Other Findings: 71-year-old female with a PMH significant for Parkinson, HLD, hypothyroidism, HTN, anxiety, CVA, hypertensive retinopathy who presented to the [facility] ED with hypertensive urgency. Patient was in usual state of health until 4 days ago following which she developed weakness followed by high blood pressure. She measured her blood pressure at home and found to be systolic 200s. She continued taking and her usual home medications. She did not seek any medical attention during the same time. For the weakness she took Tylenol and did not feel better. Today patient developed headache and hence brought to the [place] ER. Patient endorses chest discomfort relating to heartburn, palpitations on and off , frontal headache of 8 x 10 in severity. She denies chest pain, dizziness, diaphoresis, lightheadedness, nausea, vomiting, abdominal pain, trauma, fall. Patient's family was at the bedside, who said, she gets anxious on and off and her blood pressure is increased secondary due to anxiety. Patient denies smoking, alcohol use No allergy to medications Past surgical history-cataract surgery Admission vitals Temperature 97.1, pulse rate 78, blood pressure 190/88, saturation 97 at room air Admission labs WBC 9.4, hemoglobin 10.7, platelet count 293, sodium 130, potassium 4.1, BUN 19, creatinine 0.8, glucose 119, calcium 9.9, AST 24 ALT 26, d-dimer 200 Imaging Chest x-ray 1. Chronic atelectasis along the major fissure in the right middle lobe and lingula lobe unchanged since CT chest 07/10/2017. 2. No acute infiltrate or pulmonary vascular congestion. 3. Cardiomegaly. Head CT No intracranial hemorrhage. No acute intracranial pathology compared to 07/10/2017. Stable 1 cm calcified meningioma of the anterior falx. ED treatment hydralazine 10 mg once, Zofran, Tylenol On examination Head To Toe-normal Cardiovascular [id number] regular no heart murmur Respiratory system-normal vesicular breath sounds Abdomen-soft, no tenderness VAMP MARKER-3-12 cranial nerves intact. Assessment and plan 1. Hypertensive urgency 2. Parkinsonism * Admitted to telemetry. Patient got hydralazine twice in the ED 10 mg. We will resume all her home medications clonidine, hydralazine, losartan. * We will make sure the blood pressure fall is not more than 20 mmHg in 48 hours. * Vitals every shift * Fall precaution * Parkinsonism-we will continue Sinemet * Diet-heart healthy diet * DVT prophylaxis-heparin [facility] 09[facility]13[facility]17 0420: General Information and HPI MD Statement: I have seen and personally examined MANRAQUEL and documented this H&P. The patient is a 71 year old F who presented with a patient stated chief complaint of [high blood pressure]. Source of Information: patient Exam Limitations: no limitations Allergies/Medications Home Med list Acetaminophen 500 MG TABLET 1 TAB PO PRN PAIN (Reported) Alendronate Sodium 70 MG TABLET 1 TAB PO QFRI OSTEOPOROSIS (Reported) in the morning, at least 30 minutes before the first food, beverage, or medication of the day Atorvastatin Calcium 10 MG TABLET 1 TAB PO DAILY CHOLESTEROL (Reported) Carbidopa/Levodopa (Carbidopa-Levodopa 25-100 Tab) 25 MG-100 MG TABLET 1 TAB PO TID PARKINSONS (Reported) Chlorthalidone 25 MG TABLET 1 TAB PO QAM BP (Reported) Clonidine HCl 0.3 MG TABLET 1 TAB PO BID HTN . Diltiazem HCl (Diltiazem 24HR ER) 120 MG CAP.ER.24H 1 CAP PO DAILY HEART/BLOOD (Reported) Hydralazine HCl 50 MG TABLET 50 MG PO TID Hypertension . Levothyroxine Sodium (Synthroid) 75 MCG TABLET 1 TAB PO DAILY THYROID ( Reported) Losartan (Cozaar) 100 MG TABLET 100 MG PO DAILY Hpyertension . Nepafenac (Ilevro) 0.3 % DROPS.SUSP 1 DROP OD DAILY RIGHT EYE (Reported) Olopatadine HCl (Pazeo) 0.7 % DROPS 1 DROP OU QAM ITCHING (Reported) Pantoprazole Sodium 40 MG TABLET.DR 1 TAB PO DAILY GI (Reported) Polyethylene Glycol 3350 (Miralax) 17 GRAM/DOSE POWDER 17 GM PO DAILY PRN CONSTIPATION Sertraline HCl (Zoloft) 50 MG TABLET 1 TAB PO DAILY MENTAL HEALTH (Reported) Sodium Chloride 1 GRAM TABLET 1,000 MG PO BID Hyponatremia Trazodone HCl 100 MG TABLET 1 TAB PO QPM INSOMNIA (Reported) Past History Medical History Neurological: CVA, Parkinson's disease Cardiovascular: hypertension, hyperlipidemia Gastrointestinal: GERD Endocrine: hypothyroidism 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 Exam & Diagnostic Data Last 24 Hrs of Vital Signs/I&O Vital Signs Date Time Temp Pulse Resp B/P B/P Pulse O2 O2 Flow FiO2 Mean Ox Delivery Rate 09/13 0215 160/66 09/13 0104 87 210/88 09/13 0053 97 Room Air 09/13 0052 98.6 76 20 210/88 97 Room Air 09/12 2358 97.6 69 18 182/79 97 Room Air 09/12 2212 84 16 188/80 98 Room Air 09/12 2129 87 210/80 09/12 2127 210/80 09/12 212 97.0 87 16 210/80 98 Room Air 09/12 2013 78 190/88 99 Room Air 09/12 1958 97.1 79 16 176/90 98 Room Air 09/12 1921 75 216/90 09/12 1858 75 16 216/90 98 Room Air 09/12 1849 97 09/12 1735 96.7 74 16 220/90 99 Room Air Intake & Output 09/13 0800 09/13 0000 09/12 1600 Intake Total 0 Output Total 600 Balance -600 Intake, Oral 0 Output, Urine 600 Patient 125 lb 123 lb Weight Weight Reported by Patient Measurement Method Physical Exam General Appearance Alert, Oriented X3, Cooperative Skin No Rashes HEENT Atraumatic, PERRLA, EOMI Neck Supple, No JVD Lymphatic Axillary nl, Cervical nl Cardiovascular Regular Rate, Normal S1, Normal S2 Lungs Clear to Auscultation, Normal Air Movement Abdomen Normal Bowel Sounds, Soft, No Tenderness Last 24 Hrs of Labs/Jordan: Laboratory Tests 09/13/17 0230: Troponin I 0.01 09/12/17 1915: Anion Gap 13, Estimated GFR > 60, BUN/Creatinine Ratio 23.8, Glucose 119 H, Calcium 9.9, Total Bilirubin 0.4, AST 24, ALT 26, Alkaline Phosphatase 104, Troponin I < 0.01, Total Protein 7.2, Albumin 4.2, Globulin 3.0, Albumin/ Globulin Ratio 1.4, D-Dimer High Sensitivty < 200, CBC w Diff NO MAN DIFF REQ, RBC 4.12 L, MCV 77.8 L, MCH 25.9 L, MCHC 33.3, RDW 17.5 H, MPV 9.1, Gran % 76.2 H, Lymphocytes % 16.6 L, Monocytes % 6.6, Eosinophils % 0.3, Basophils % 0.3, Absolute Granulocytes 7.1 H, Absolute Lymphocytes 1.6, Absolute Monocytes 0.6, Absolute Eosinophils 0, Absolute Basophils 0 Core Measures/Misc (11/03) Sepsis (View protocol) If YES complete Sepsis Event Note If YES complete Sepsis Event Note Attending MD Review Statement Attending Statement Attending MD Statement: examined this patient, discuss w/resident/PA/MACHINE STEAK TENDERIZER, agreed w/resident/PA/MACHINE STEAK TENDERIZER, amended to note Attending Assessment/Plan: This patient is a 71-year-old female with a significant past medical history for Parkinson, HLD, hypothyroidism, HTN, anxiety, CVA, hypertensive retinopathy who presented to [facility] Emergency department with hypertensive urgency. She was in usual state of health until 4 days prior to admission when she first developed weakness with high blood pressure. She measured her blood pressure at home and found to be systolic 200s. She continued taking and her usual home medications. The symptoms persisted however today she also developed a headache and came to the emergency department. While in the ED she was found to have a blood pressure of 190/88, Chest x-ray and Head CT NAD. She was treated with hydralazine and Zofran in the emergency department. WIll be monitored in tele with management of B/P. hydralazine and Zofran in the emergency department. WIll be monitored in tele with management of B/P.
[2017-09-13 00:52] VITALS: BP 210/88
[2017-09-13 02:15] VITALS: BP 160/66
[2017-09-13 06:42] VITALS: BP 140/70
--- NOTE | 2017-09-13 08:33 | PN- Housestaff ---
Naomi WHITFIELD,Flores 09/13/17 0833: Subjective Follow-up For: Hypertensive urgency Subjective: Patient seen and examined at bedside no overnight events. Patient is alert and oriented. No complaints Review of Systems Constitutional: Reports: no symptoms. Objective Last 24 Hrs of Vital Signs/I&O Vital Signs Date Time Temp Pulse Resp B/P B/P Pulse O2 O2 Flow FiO2 Mean Ox Delivery Rate 09/13 0820 64 140/70 09/13 0817 64 140/70 09/13 0642 98.2 64 18 140/70 96 09/13 0215 160/66 09/13 0104 87 210/88 09/13 0053 97 Room Air 09/13 0052 98.6 76 20 210/88 97 Room Air 09/12 2358 97.6 69 18 182/79 97 Room Air 09/12 2212 84 16 188/80 98 Room Air 09/12 2129 87 210/80 09/12 2127 210/80 09/12 2127 97.0 87 16 210/80 98 Room Air 09/12 2014 78 190/88 99 Room Air 09/12 1958 97.1 79 16 176/90 98 Room Air 09/12 1921 75 216/90 09/12 1858 75 16 216/90 98 Room Air 09/12 1849 97 09/12 1735 96.7 74 16 220/90 99 Room Air Intake & Output 09/13 1600 09/13 0800 09/13 0000 Intake Total 240 0 Output Total 600 Balance 240 -600 Intake, Oral 240 0 Number 0 Bowel Movements Output, Urine 600 Patient 125 lb 123 lb Weight Weight Reported by Patient Measurement Method Physical Exam General Appearance: Alert, Oriented X3, Cooperative Cardiovascular: Normal S1, Normal S2 Lungs: Clear to Auscultation Abdomen: Soft, No Tenderness, No Hepatospenomegaly Neurological: Normal Speech, Strength at 5/5 X4 Ext, Normal Tone, Sensation Intact Current Medications: Current Medications Sig/Areli Start time Last Medication Dose Route Stop Time Status Admin Acetaminophen 650 MG Q6P PRN 09/12 2299 AC PO Acetaminophen 975 MG ONCE ONE 09/12 2029 DC 09/12 PO 09/12 Acetaminophen 0 .STK-MED ONE 09/12 2020 DC PO Atorvastatin Calcium 10 MG DAILY 09/13 09 AC 09/13 PO 08 Carbidopa/Levodopa 1 TAB TID 09/13 09 AC 09/13 PO 0819 Clonidine 0.3 MG BID 09/12 2315 AC 09/13 PO 0104 Diltiazem HCl 120 MG DAILY 09/13 09 AC 09/13 PO 0818 Heparin Sodium 5,000 UNIT Q8 09/12 2315 AC (Porcine) SC Hydralazine HCl 50 MG TID 09/13 09 AC 09/13 PO 0817 Hydralazine HCl 10 MG ONCE ONE 09/12 2129 DC 09/12 IV 09/12 Hydralazine HCl 10 MG ONCE ONE 09/12 2014 DC 09/12 IV 09/12 Hydralazine HCl 0 .STK-MED ONE 09/12 1921 DC .ROUTE Labetalol HCl 0 .STK-MED ONE 09/12 1816 DC IV Labetalol HCl 20 MG ONCE ONE 09/12 1814 DC IV 09/13 1815 Levothyroxine Sodium 0.075 MG DAILY 09/13 09 AC 09/13 PO 0819 Losartan Potassium 100 MG DAILY 09/13 09 AC 09/13 PO 0820 Morphine Sulfate 0 .STK-MED ONE 09/12 2353 DC .ROUTE Morphine Sulfate 1 MG Q4 PRN 09/12 2300 AC 09/12 IV 2356 Omeprazole 40 MG DAILY AC 09/13 07 AC 09/13 PO 0629 Ondansetron HCl 0 .STK-MED ONE 09/12 2346 DC .ROUTE Ondansetron HCl 4 MG Q8 PRN 09/12 2345 AC 09/12 IV 2356 Ondansetron HCl 4 MG ONCE ONE 09/12 2029 DC 09/12 IV 09/12 Ondansetron HCl 0 .STK-MED ONE 09/12 2020 DC .ROUTE Oxycodone/ 1 TAB Q6 PRN 09/12 2300 AC Acetaminophen PO Sertraline HCl 50 MG DAILY 09/13 09 AC 09/13 PO 0819 Trazodone HCl 0 .STK-MED ONE 09/12 2354 DC PO Trazodone HCl 100 MG QPM 09/12 2315 AC 09/12 PO 2355 Last 24 Hrs of Lab/Jordan Results Last 24 Hrs of Labs/Mics: Laboratory Tests 09/13/17 0230: Troponin I 0.01 09/12/17 1915: Anion Gap 13, Estimated GFR > 60, BUN/Creatinine Ratio 23.8, Glucose 119 H, Calcium 9.9, Total Bilirubin 0.4, AST 24, ALT 26, Alkaline Phosphatase 104, Troponin I < 0.01, Total Protein 7.2, Albumin 4.2, Globulin 3.0, Albumin/ Globulin Ratio 1.4, D-Dimer High Sensitivty < 200, CBC w Diff NO MAN DIFF REQ, RBC 4.12 L, MCV 77.8 L, MCH 25.9 L, MCHC 33.3, RDW 17.5 H, MPV 9.1, Gran % 76.2 H, Lymphocytes % 16.6 L, Monocytes % 6.6, Eosinophils % 0.3, Basophils % 0.3, Absolute Granulocytes 7.1 H, Absolute Lymphocytes 1.6, Absolute Monocytes 0.6, Absolute Eosinophils 0, Absolute Basophils 0 Assessment/Plan Assessment: 71-year-old female with a PMH significant for Parkinson, HLD, hypothyroidism, HTN, anxiety, CVA, hypertensive retinopathy who presented to the [facility] ED with hypertensive urgency. Head CT No intracranial hemorrhage. No acute intracranial pathology compared to 07/10/2017. Stable 1 cm calcified meningioma of the anterior falx. Assessment and plan Hypertensive urgency-today blood pressure is 140/70. We will continue her home dose losartan, clonidine, hydralazine, diltiazem. We will get cardiac consult in a.m. 2 sets of troponins and EKG negative. Patient does not need a echocardiogram. Parkinson's-we will continue her Sinemet 25-101 tablet 3 times daily Diet heart healthy diet DVT prophylaxis-heparin Code-full code Problem List: 1. Hypertensive urgency Pain Ratin Pain Location: none Pain Goal: Remain pain free Pain Plan: tylenol Tomorrow's Labs & Rationales: silvia Garrido MD,Amir 09/13/17 1525: Attending MD Review Statement Attending Statement Attending MD Statement: examined this patient, discuss w/resident/PA/PIPE FITTER MAINTENANCE, agreed w/resident/PA/PIPE FITTER MAINTENANCE, reviewed EMR data (avail), discussed with nursing Attending Assessment/Plan: Pt was seen and evaluated. Cont to monitor BP. Pt reprots being constipated. --add stool regimen --check TSH/FT4 --rest of the plan as per resident's note
--- NOTE | 2017-09-13 11:17 | Cons- Cardiology ---
Hector Bowman 09/13/17 1106: General Information and HPI Consulting Request Date of Consult: 09/13/17 Requested By: Pranav Collins MD Reason for Consult: Hypertensive urgency Source of Information: patient, old records Exam Limitations: no limitations History of Present Illness: Primary Obstetrics/Gynecology Nurse: Dr. Meeks This is a 71-year-old female with known history of hypertension on several medications which she states she has been compliant with, Parkinson's, hyperlipidemia, hypothyroidism, previous CVA hypertensive retinopathy who presented to ER yesterday with complaints of hypertension. In the ED the patient was complaining of a 3 day history of severe 8 out of 10 headache unrelieved with Tylenol, generalized weakness nausea intermittent shortness of breath and chest discomfort. The patient reports history of similar symptoms in the past and attributes it to her blood pressure being elevated. She has been admitted several times in the past secondary to hypertension. She denies recent blurry vision extremity weakness slurred speech palpitations dizziness lightheadedness no vomiting diarrhea. In the ED patient had a chest x-ray and CT of the head which were unremarkable. Troponins have been negative. EKG was sinus rhythm 70 with no acute changes. Patient reports she has been compliant with all her medications including chlorthalidone diltiazem hydralazine losartan and clonidine. No recent adjustments in the medications. Currently the patient is resting complaining of feeling nauseous however denies chest pain shortness of breath palpitations. Allergies/Medications Allergies: Coded Allergies: Sulfa (Sulfonamide Antibiotics) (RASH 07/23/17) iron (DIARRHEA 07/23/17) Home Med List: Acetaminophen 500 MG TABLET 1 TAB PO PRN PAIN (Reported) Alendronate Sodium 70 MG TABLET 1 TAB PO QFRI OSTEOPOROSIS (Reported) in the morning, at least 30 minutes before the first food, beverage, or medication of the day Atorvastatin Calcium 10 MG TABLET 1 TAB PO DAILY CHOLESTEROL (Reported) Carbidopa/Levodopa (Carbidopa-Levodopa 25-100 Tab) 25 MG-100 MG TABLET 1 TAB PO TID PARKINSONS (Reported) Chlorthalidone 25 MG TABLET 1 TAB PO QAM BP (Reported) Clonidine HCl 0.3 MG TABLET 1 TAB PO BID HTN . Diltiazem HCl (Diltiazem 24HR ER) 120 MG CAP.ER.24H 1 CAP PO DAILY HEART/BLOOD (Reported) Hydralazine HCl 50 MG TABLET 50 MG PO TID Hypertension . Levothyroxine Sodium (Synthroid) 75 MCG TABLET 1 TAB PO DAILY THYROID ( Reported) Losartan (Cozaar) 100 MG TABLET 100 MG PO DAILY Hpyertension . Nepafenac (Ilevro) 0.3 % DROPS.SUSP 1 DROP OD DAILY RIGHT EYE (Reported) Olopatadine HCl (Pazeo) 0.7 % DROPS 1 DROP OU QAM ITCHING (Reported) Pantoprazole Sodium 40 MG TABLET.DR 1 TAB PO DAILY GI (Reported) Polyethylene Glycol 3350 (Miralax) 17 GRAM/DOSE POWDER 17 GM PO DAILY PRN CONSTIPATION Sertraline HCl (Zoloft) 50 MG TABLET 1 TAB PO DAILY MENTAL HEALTH (Reported) Sodium Chloride 1 GRAM TABLET 1,000 MG PO BID Hyponatremia Trazodone HCl 100 MG TABLET 1 TAB PO QPM INSOMNIA (Reported) Review of Systems Review of Systems: Review of systems: See HPI, All other systems negative. Constitutional, no chills no fever, positive malaise no weight loss HEENT: no sore throat no congestion, no ear pain Cardiovascular: Positive chest pain , no palpitation Skin: no rashes, no change in skin Respiratory: Positive dyspnea no cough no sputum no hemoptysis GI: Positive nausea no vomiting, no diarrhea, no bloating/constipation : No dysuria Muscle skeletal: No joint pain, no back pain, no neck pain, Neurologic: Positive headache Psych: No stress Heme/endocrine: No bruising Immunology: No lymphadenopathy Past History Travel History Traveled to [place] past 21 day No Medical History Blood Transfusion Hx: No Type of Reaction: Diarrhea, Itching Neurological: CVA, Parkinson's disease EENT: NONE Cardiovascular: hypertension, hyperlipidemia Respiratory: NONE Gastrointestinal: GERD Hepatic: NONE Renal: NONE Musculoskeletal: NONE Psychiatric: NONE Endocrine: hypothyroidism Blood Disorders: NONE Cancer(s): NONE [employer]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 Home Services at Home: None Smoking Status: Never Smoked ETOH Use: denies use Illicit Drug Use: denies illicit drug use Living Will? yes Functional Ability ADLs Independent: dressing, eating, toileting, bathing. Employment History Employment: Retired Exam & Diagnostic Data Vital Signs and I&O Vital Signs Date Time Temp Pulse Resp B/P B/P Pulse O2 O2 Flow FiO2 Mean Ox Delivery Rate 09/13 0820 64 140/70 09/13 0817 64 140/70 09/13 0642 98.2 64 18 140/70 96 09/13 0215 160/66 09/13 0104 87 210/88 09/13 0053 97 Room Air 09/13 0052 98.6 76 20 210/88 97 Room Air 09/12 2358 97.6 69 18 182/79 97 Room Air 09/12 2212 84 16 188/80 98 Room Air 09/12 2129 87 210/80 09/12 2127 210/80 09/12 212 97.0 87 16 210/80 98 Room Air 09/12 2014 78 190/88 99 Room Air 09/12 1958 97.1 79 16 176/90 98 Room Air 09/12 1921 75 216/90 09/12 1858 75 16 216/90 98 Room Air 09/12 1849 97 09/12 1735 96.7 74 16 220/90 99 Room Air Intake & Output 09/13 1600 09/13 0800 09/13 0000 09/12 1600 09/12 0800 09/12 0000 Intake Total 240 0 Output Total 600 Balance 240 -600 Intake, Oral 240 0 Number 0 Bowel Movements Output, Urine 600 Patient 125 lb 123 lb Weight Weight Reported by Patient Measurement Method Physical Exam: Well-developed well-nourished person in no acute distress HEENT: HEAD is atraumatic. moist mucous membranes. Neck: Supple, normal range of motion Back: Full range of motion Cardiovascular: Regular rate and rhythms no murmurs rubs or gallops, normal JVP Respiratory: Chest nontender.There were no bony deformities, no asymmetry. No respiratory distress. Patient speaking in full complete sentences. Breath sounds clear to auscultation bilaterally: NO W/R/R Abdomen: Soft Extremity: No edema, full range of motion of extremities, normal and equal pulses bilaterally Neuro: Alert oriented x3, cranial nerves II through XII grossly intact. There were no obvious focal neurologic abnormalities. Skin: No appreciable rash on exposed skin, skin is warm and dry. Psych: Mood and affect is normal, memory and judgment is normal. Labs/Jordan Results: Laboratory Tests 09/13 09/12 0230 1915 Chemistry Sodium (137 - 145 mmol/L) 130 L Potassium (3.5 - 5.1 mmol/L) 4.1 Chloride (98 - 107 mmol/L) 96 L Carbon Dioxide (22 - 30 mmol/L) 21 L Anion Gap (5 - 16) 13 BUN (7 - 17 mg/dL) 19 H Creatinine (0.5 - 1.0 mg/dL) 0.8 Estimated GFR (>60 ml/min) > 60 BUN/Creatinine Ratio (7 - 25 %) 23.8 Glucose (65 - 99 mg/dL) 119 H Calcium (8.4 - 10.2 mg/dL) 9.9 Total Bilirubin (0.2 - 1.3 mg/dL) 0.4 AST (14 - 36 U/L) 24 ALT (9 - 52 U/L) 26 Alkaline Phosphatase (<127 U/L) 104 Troponin I (< 0.11 ng/ml) 0.01 < 0.01 Total Protein (6.3 - 8.2 g/dL) 7.2 Albumin (3.5 - 5.0 g/dL) 4.2 Globulin (1.9 - 4.2 gm/dL) 3.0 Albumin/Globulin Ratio (1.1 - 2.2 %) 1.4 Coagulation D-Dimer High Sensitivty (0 - 243 ng/ml) < 200 Hematology CBC w Diff NO MAN DIFF REQ WBC (4.8 - 10.8 /CUMM) 9.4 RBC (4.20 - 5.40 /CUMM) 4.12 L Hgb (12.0 - 16.0 G/DL) 10.7 L Hct (37 - 47 %) 32.1 L MCV (81.0 - 99.0 FL) 77.8 L MCH (27.0 - 31.0 PG) 25.9 L MCHC (33.0 - 37.0 G/DL) 33.3 RDW (11.5 - 14.5 %) 17.5 H Plt Count (130 - 400 /CUMM) 293 MPV (7.4 - 10.4 FL) 9.1 Gran % (42.2 - 75.2 %) 76.2 H Lymphocytes % (20.5 - 51.1 %) 16.6 L Monocytes % (1.7 - 9.3 %) 6.6 Eosinophils % (0 - 5 %) 0.3 Basophils % (0.0 - 2.0 %) 0.3 Absolute Granulocytes (1.4 - 6.5 /CUMM) 7.1 H Absolute Lymphocytes (1.2 - 3.4 /CUMM) 1.6 Absolute Monocytes (0.10 - 0.60 /CUMM) 0.6 Absolute Eosinophils (0.0 - 0.7 /CUMM) 0 Absolute Basophils (0.0 - 0.2 /CUMM) 0 Diagnostic Data EKG Results Normal sinus rhythm at 70, no acute ischemic changes unchanged from previous. Personally reviewed by me Telemetry overnight sinus bradycardia 50s-60s no ectopy personally reviewed by me CXR Results 1. Chronic atelectasis along the major fissure in the right middle lobe and lingula lobe unchanged since CT chest 07/10/2017. 2. No acute infiltrate or pulmonary vascular congestion. 3. Cardiomegaly. Other Results CT head:No intracranial hemorrhage. No acute intracranial pathology compared to 07/10/2017. Stable 1 cm calcified meningioma of the anterior falx. ECHO June 2017 Normal size left ventricle. Normal left ventricular ejection fraction visually estimated at 55- 60 %. Mild mitral regurgitation. Mild pulmonic regurgitation. Small pericardial effusion. No echo evidence of tamponade. Assessment/Plan Assessment/Plan 71-year-old female with known history of hypertension on several medications which she states she has been compliant with, Parkinson's, hyperlipidemia, hypothyroidism, previous CVA hypertensive retinopathy who presented to ER found to be in a hypertensive urgency now improved. Impression: Hypertensive urgency Hyperlipidemia Hypothyroidism History of CVA Recommendations: -Blood pressure now improved would continue on home medications at this time, with exception of holding Chlorthalidone in setting of hyponatremia. Check vitals Q4hr. Could consider giving extra dose of hydralazine prn hypertension -Continuous telemetry monitoring -Trend BMP -Serial troponins have been negative EKG without acute ischemic changes, however patient may benefit from outpatient nuclear stress test given history of chest pain in the past The plan was discussed with Dr. Tovar. Addendum to follow. Thank you for the opportunity to assist in the patient's care. These do not hesitate to call with any questions. Hector Gonzalez PA-C [facility] [address], [address] [place] [address] Consult Acknowledgment - Thank you for your consult request. Guy WHITFIELD,Jostin 09/13/17 3384: Attending MD Review Statement Attending Sign Off Other Findings: I have personally seen and examined this patient and directed the cardiac plan of care. Akhil Tovar MD FACC Assessment/Plan Consult Acknowledgment - Thank you for your consult request.
[2017-09-13 15:28] VITALS: BP 160/78
[2017-09-13 22:26] VITALS: BP 198/80
[2017-09-13 23:16] VITALS: BP 128/60
[2017-09-14 07:07] VITALS: BP 148/70
--- NOTE | 2017-09-14 09:03 | PN- Housestaff ---
Jane Olvera 09/14/17 0903: Subjective Follow-up For: HTN urgency Complaints: no complaints Subjective: No complaints/no acute events Review of Systems Constitutional: Reports: see HPI. Objective Last 24 Hrs of Vital Signs/I&O Vital Signs Date Time Temp Pulse Resp B/P B/P Pulse O2 O2 Flow FiO2 Mean Ox Delivery Rate 09/14 2253 54 18 150/76 09/14 2136 98.7 52 18 166/74 97 09/14 2017 62 18 192/80 09/14 1459 98.5 57 18 116/58 95 Room Air 09/14 1427 72 116/60 09/14 1035 74 152/70 09/14 0856 76 148/70 09/14 0707 98.4 76 18 148/70 98 Intake & Output 09/15 0800 09/15 0000 09/14 1600 Intake Total 900 Output Total 600 600 Balance -600 300 Intake, Oral 900 Output, Urine 600 600 Physical Exam General Appearance: Alert, Oriented X3, Cooperative, No Acute Distress HEENT: Atraumatic, Mucous Membr. moist/pink Neck: Supple Cardiovascular: Regular Rate, Normal S1, Normal S2, No Murmurs Lungs: Clear to Auscultation, Normal Air Movement Abdomen: Normal Bowel Sounds, Soft, No Tenderness Neurological: Normal Speech, Normal Tone Extremities: No Clubbing, No Cyanosis, No Edema Assessment/Plan Assessment: 71-year-old female with a PMH significant for Parkinson, HLD, hypothyroidism, HTN, anxiety, CVA, hypertensive retinopathy who presented with hypertensive urgency. Assessment and plan: #Hypertensive urgency -Manage with CCBs #Inc. TSH & Hyponatremia -likely sublicnical hypothyroidism #SIMEON: -Cr is 1.5 today - investigating prerenal, renal an d post renal causes -ordered a renal scan, bladder scan, FENa, spot urine, serum osmolality, urine lytes -Dc'ed ARBS #Parkinson's -continue her Sinemet 25-101 tablet 3 times daily #Diet heart healthy diet #DVT prophylaxis-heparin #Code-full code Problem List: 1. Hypertensive urgency Pain Ratin Pain Location: none Pain Goal: Remain pain free Pain Plan: n/a Tomorrow's Labs & Rationales: cbc, bep Radhika WHITFIELD,Amir 09/14/17 1122: Attending MD Review Statement Attending Statement Attending MD Statement: examined this patient, discuss w/resident/PA/TRIAGE SPECIALIST, agreed w/resident/PA/TRIAGE SPECIALIST, discussed with family, reviewed EMR data (avail), discussed with nursing Attending Assessment/Plan: Pt was seen and evalauted. Able to sleep. However, still constipated. --TSH elevated--> likely subclinical hypothyroidism--inc syndroid dose --Hyponatremia --> check serum osmolality --elevated Cr --> d/c ARB, manage BP with CCB --cont other meds --rest of the plan as per resident's note.
--- NOTE | 2017-09-14 11:47 | PN- Cardiology ---
Subjective Subjective: Patient seen and evaluated. No acute events overnight. Patient noted to have sodium decreased to 127, new SIMEON-creatinine up to 1.5. She offers no complaints no chest pain dizziness lightheadedness headache Review of Systems: Review of systems: See HPI, All other systems negative. Constitutional, no chills no fever, no malaise no weight loss Cardiovascular: no chest pain , no palpitation Respiratory: No dyspnea no cough no sputum no hemoptysis GI: No nausea no vomiting, Muscle skeletal: No joint pain Neurologic: no headache Heme/endocrine: No bruising Objective Vital Signs and I&Os Vital Signs Date Time Temp Pulse Resp B/P B/P Pulse O2 O2 Flow FiO2 Mean Ox Delivery Rate 09/14 1035 74 152/70 09/14 0856 76 148/70 09/14 0707 98.4 76 18 148/70 98 09/13 2316 128/60 09/13 2226 98.4 72 18 198/80 97 Room Air 09/13 2118 74 198/80 09/13 2118 74 198/80 09/13 1528 98.1 64 18 160/78 99 Intake & Output 09/14 1600 09/14 0800 09/14 0000 09/13 1600 09/13 0800 09/13 0000 Intake Total 946 972 8511 240 0 Output Total 600 Balance 068 422 9043 240 -600 Intake, IV 0 Intake, Oral 731 834 7121 240 0 Number 0 0 Bowel Movements Output, Urine 600 Patient 125 lb 123 lb Weight Weight Reported by Patient Measurement Method Physical Exam: Well-developed well-nourished person in no acute distress HEENT: HEAD is atraumatic. moist mucous membranes. Neck: Supple, no bruit Cardiovascular: Regular rate and rhythms no murmurs rubs or gallops, normal JVP Respiratory: No respiratory distress. Patient speaking in full complete sentences. Breath sounds clear to auscultation bilaterally: NO W/R/R Abdomen: Soft Extremity: No edema Neuro: Alert oriented x3 Skin: No appreciable rash on exposed skin, skin is warm and dry. Assessment/Plan Assessment/Plan 71-year-old female with known history of hypertension on several medications which she states she has been compliant with, Parkinson's, hyperlipidemia, hypothyroidism, previous CVA hypertensive retinopathy who presented to [facility] ER found to be in a hypertensive urgency now improved. Impression: Hypertensive urgency Hyperlipidemia Hypothyroidism History of CVA SIMEON Hyponatremia Recommendations: -Hold ARB in setting of SIMEON, continue hydralazine, diltiazem, clonidine -Continue to hold Chlorthalidone in setting of hyponatremia. Check vitals Q4hr. -Would hold off further up titration of other blood pressure medications at this time - Would consider checking renal us/ to r/o secondary causes of hypertension -Continuous telemetry monitoring -Trend BMP The plan was discussed with Dr. Tovar. Thank you for the opportunity to assist in the patient's care. These do not hesitate to call with any questions. Hector Gonzalez PA-C [facility] [address], [address] [place] [address] Continue telemetry? Yes
[2017-09-14 14:59] VITALS: BP 116/58
--- NOTE | 2017-09-14 17:18 | ULTRASOUND REPORT ---
EXAMINATION: US RETROPERITONEAL COMPLETE (RENAL) CLINICAL INFORMATION: Hypertension. COMPARISON: 07/25/2017 CT scan abdomen pelvis TECHNIQUE: Real-time imaging of the kidneys and bladder. FINDINGS: RIGHT KIDNEY: 9.0 x 4.4 x 3.4 cm (SAG x AP x TRV). The kidney is normal in size, contour, and echogenicity. Renal cortical thickness is normal. No calculi. There is a 1.3 cm anechoic simple cortical cyst in mid to upper right kidney. There is a 1.3 x 0.8 x 1.7 cm renal cortical anechoic lesion in the lower pole of the right kidney, representing simple cortical cyst. No hydronephrosis. LEFT KIDNEY: 8.6 x 4.3 x 4.3 cm (SAG x AP x TRV). The kidney is normal in size, contour, and echogenicity. Renal cortical thickness is normal. No calculi. There is a 1.1 x 1.2 x 1.5 cm anechoic lesion in the cortex of mid left kidney, representing a simple cortical cyst. No hydronephrosis. IMPRESSION: Bilateral renal cortical cysts. Otherwise unremarkable renal ultrasound.
[2017-09-14 21:36] VITALS: BP 166/74
[2017-09-15 02:51] VITALS: BP 124/72
[2017-09-15 05:51] VITALS: BP 128/86
--- NOTE | 2017-09-15 07:13 | PN- Housestaff ---
See Addendum Subjective Follow-up For: Hypertensive urgency Tele-Events Since Last Visit: Normal sinus rhythm overnight, with sinus bradycardia as well from rates of 49- 56 Subjective: Patient seen resting comfortably in the bed. In no acute distress. Denies chest pain, shortness of breath, palpitations, or dizziness. She does report some constipation, with about last bowel movement being on September 12. Patient requested some extra laxatives for this. Additionally, she wanted clarification about her nighttime medication regimen, as she reports she does not take Zoloft at home. Finally, she requested to take her Sinemet before meals in the morning. She is concerned about her kidney function, since her creatinine has been rising recently. Otherwise, no acute overnight events and no complaints from the patient. Review of Systems Constitutional: Denies: chills, fever, malaise. Objective Last 24 Hrs of Vital Signs/I&O Vital Signs Date Time Temp Pulse Resp B/P B/P Pulse O2 O2 Flow FiO2 Mean Ox Delivery Rate 09/15 0551 97.6 82 18 128/86 96 09/15 0251 97.4 55 16 124/72 96 09/14 2253 54 18 150/76 09/14 2136 98.7 52 18 166/74 97 09/14 2017 62 18 192/80 09/14 1459 98.5 57 18 116/58 95 Room Air 09/14 1427 72 116/60 09/14 1035 74 152/70 09/14 0856 76 148/70 Intake & Output 09/15 0800 09/15 0000 09/14 1600 Intake Total 120 120 900 Output Total 600 950 600 Balance -480 -830 300 Intake, Oral 120 120 900 Output, Urine 600 950 600 Physical Exam General Appearance: Alert, Oriented X3, Cooperative, No Acute Distress HEENT: Atraumatic, PERRLA, EOMI Neck: Supple, No JVD Cardiovascular: Regular Rate, Normal S1, Normal S2, No Murmurs Lungs: Clear to Auscultation, Normal Air Movement Abdomen: Normal Bowel Sounds, Soft, No Tenderness Current Medications: Current Medications Sig/Areli Start time Last Medication Dose Route Stop Time Status Admin Acetaminophen 650 MG Q6P PRN 09/12 2300 AC PO Atorvastatin Calcium 10 MG DAILY 09/13 09 AC 09/14 PO 0856 Carbidopa/Levodopa 1 TAB TID 09/13 0900 AC 09/14 PO 2251 Clonidine 0.3 MG BID 09/12 2315 AC 09/14 PO 2017 Diltiazem HCl 120 MG DAILY 09/13 0900 AC 09/14 PO 0856 Heparin Sodium 5,000 UNIT Q8 09/12 2315 AC (Porcine) SC Hydralazine HCl 50 MG TID 09/13 0900 AC 09/14 PO 1427 Levothyroxine Sodium 0.1 MG DAILY AC 09/15 0700 AC 09/15 PO 0631 Levothyroxine Sodium 0.025 MG ONCE ONE 09/14 1145 DC 09/14 PO 09/14 1146 1257 Levothyroxine Sodium 0.075 MG DAILY 09/13 09 DC 09/14 PO 0627 Losartan Potassium 100 MG DAILY 09/13 09 DC 09/14 PO 0856 Melatonin 5 MG AT BEDTIME 09/13 2100 AC 09/14 PO 2251 Morphine Sulfate 1 MG Q4 PRN 09/12 2300 AC 09/12 IV 2356 Omeprazole 40 MG DAILY AC 09/13 0700 AC 09/15 PO 0630 Ondansetron HCl 4 MG Q8 PRN 09/12 2345 AC 09/13 IV 1008 Oxycodone/ 1 TAB Q6 PRN 09/12 2300 AC Acetaminophen PO Polyethylene Glycol 17 GM DAILY 09/14 1330 AC PO Polyethylene Glycol 17 GM DAILY PRN 09/13 1300 AC 09/13 PO 1437 Sertraline HCl 50 MG DAILY 09/13 0900 AC 09/14 PO 0856 Sodium Chloride 1,000 ML Q13H 09/14 1830 DC 09/14 IV 2250 Trazodone HCl 100 MG QPM 09/12 2315 AC 09/14 PO 2251 Last 24 Hrs of Lab/Jordan Results Last 24 Hrs of Labs/Mics: Laboratory Tests 09/14/17 1935: Anion Gap 12, Estimated GFR 37 L, BUN/Creatinine Ratio 16.4 09/14/17 1305: Urine Color YEL, Urine Clarity CLEAR, Urine pH 7.0, Ur Specific [place] <= 1.005 , Urine Protein TRACE H, Urine Ketones NEG, Urine Nitrite NEG, Urine Bilirubin NEG, Urine Urobilinogen 0.2, Ur Leukocyte Esterase NEG, Ur Microscopic SEDIMENT EXAMINED, Urine RBC RARE, Urine WBC 1-3 H, Ur Epithelial Cells MOD H, Urine Bacteria RARE H, Urine Hemoglobin NEG, Urine Glucose NEG 09/14/17 1305: Ur Random Creatinine 39.1, Ur Random Sodium < 5 L, Ur Random Potassium 24.6, Fraction Sodium Excret Assessment/Plan Assessment: 71-year-old female with a PMH significant for Parkinson, HLD, hypothyroidism, HTN, anxiety, CVA, hypertensive retinopathy who presented with hypertensive urgency. This morning, sodium was 129. BUN and creatinine were 22 and 1.2 respectively, with estimated GFR improving to 44, stable for CKD stage III. Initial elevation in kidney function likely due to SIMEON secondary to uncontrolled hypertension. Renal ultrasound showed normal-sized kidneys with bilateral cortical cysts, CT abdomen done previously in July of this year did not show signs of renal artery stenosis. TSH was found to be elevated on the at 7.470. Problems: 1. Hypertensive urgency 2. SIMEON on CKD stage III 3. Parkinson's disease 4. Anemia (likely secondary to CKD) 5. Hyponatremia Plan: * Continue Cozaar * Workup for secondary causes of hypertension, free/fractionated metanephrines, rennin aldosterone ratio * PTH levels * Stop thiazide diuretics at home * Stopped Zoloft, as patient does not take this at home * Added senna and Colace as needed constipation * Continue Sinemet, changed to before meals per patient's request Full code Heart healthy diet DVT prophylaxis-heparin BEP for tomorrow Problem List: 1. Hypertensive urgency Pain Ratin Pain Location: none Pain Goal: Pain 4 or less Pain Plan: Per pathway Tomorrow's Labs & Rationales: BEP, PTH, free metanephrines
[2017-09-15 08:00] VITALS: BP 174/72
--- NOTE | 2017-09-15 10:29 | PN- Cardiology ---
Subjective Subjective: Feeling better. Headache has resolved. Blood pressure is partially improved. Chlorthalidone and losartan are on hold. No chest pain. No shortness of breath. No diaphoresis. No palpitations. No lightheadedness or dizziness. No nausea or vomiting. Objective Vital Signs and I&Os Vital Signs Date Time Temp Pulse Resp B/P B/P Pulse O2 O2 Flow FiO2 Mean Ox Delivery Rate 09/15 821 98.0 68 16 174/72 09/15 0821 98.0 68 16 174/72 09/15 0551 97.6 82 18 128/86 96 09/15 0251 97.4 55 16 124/72 96 09/14 2253 54 18 150/76 09/14 2136 98.7 52 18 166/74 97 09/14 2017 62 18 192/80 09/14 1459 98.5 57 18 116/58 95 Room Air 09/14 1427 72 116/60 09/14 1035 74 152/70 Intake & Output 09/15 1600 09/15 0809/15 0000 09/14 1600 09/14 0000 Intake Total 120 120 900 120 400 Output Total 600 950 600 Balance -480 -830 300 120 400 Intake, Oral 120 120 900 120 400 Output, Urine 600 950 600 Physical Exam: Gen: NAD HEENT: normal Lungs: clear to auscultation, normal resp. effort Heart: RRR, S1, S2, no murmurs Abdomen: Soft, nontender, no masses Extremities: No clubbing, cyanosis, or edema. Neuro: Alert and oriented x 3, cranial nerves intact Current Medications: Current Medications Sig/Areli Start time Last Medication Dose Route Stop Time Status Admin Acetaminophen 650 MG Q6P PRN 09/12 2300 AC PO Atorvastatin Calcium 10 MG DAILY 09/13 899 AC 09/15 PO 0821 Carbidopa/Levodopa 1 TAB TIDAC 09/15 1200 AC PO Carbidopa/Levodopa 1 TAB TID 09/13 09 DC 09/14 PO 09/15 09 2251 Clonidine 0.3 MG BID 09/12 2315 AC 09/15 PO 0821 Diltiazem HCl 120 MG DAILY 09/13 09 AC 09/15 PO 0822 Docusate Sodium 100 MG DAILY NEEDED PRN 09/15 0815 AC 09/15 PO 0853 Heparin Sodium 5,000 UNIT Q8 09/12 2315 AC (Porcine) SC Hydralazine HCl 50 MG TID 09/13 0900 AC 09/15 PO 0822 Levothyroxine Sodium 0.1 MG DAILY AC 09/15 0700 AC 09/15 PO 0631 Levothyroxine Sodium 0.025 MG ONCE ONE 09/14 1145 DC 09/14 PO 09/14 1146 1257 Levothyroxine Sodium 0.075 MG DAILY 09/13 0900 DC 09/14 PO 0627 Melatonin 5 MG AT BEDTIME 09/13 2100 AC 09/14 PO 2251 Morphine Sulfate 1 MG Q4 PRN 09/12 2300 AC 09/12 IV 2356 Omeprazole 40 MG DAILY AC 09/13 0700 AC 09/15 PO 0630 Ondansetron HCl 4 MG Q8 PRN 09/12 2345 AC 09/13 IV 1008 Oxycodone/ 1 TAB Q6 PRN 09/12 2300 AC Acetaminophen PO Polyethylene Glycol 17 GM DAILY 09/14 1330 AC PO Polyethylene Glycol 17 GM DAILY PRN 09/13 1300 AC 09/13 PO 1437 Senna/Docusate Sodium 1 TAB BID PRN 09/15 0845 AC PO Sertraline HCl 50 MG DAILY 09/13 0900 DC 09/14 PO 0856 Sodium Chloride 1,000 ML Q13H 09/14 1830 DC 09/14 IV 2250 Trazodone HCl 100 MG QPM 09/12 2315 AC 09/14 PO 2251 Results Last 48 Hrs of Labs/Mics: Laboratory Tests 09/15/17 0715: Anion Gap 13, Estimated GFR 44 L, BUN/Creatinine Ratio 18.3, Glucose 97, Calcium 8.9 09/14/17 1935: Anion Gap 12, Estimated GFR 37 L, BUN/Creatinine Ratio 16.4 09/14/17 1305: Urine Color YEL, Urine Clarity CLEAR, Urine pH 7.0, Ur Specific [place] <= 1.005 , Urine Protein TRACE H, Urine Ketones NEG, Urine Nitrite NEG, Urine Bilirubin NEG, Urine Urobilinogen 0.2, Ur Leukocyte Esterase NEG, Ur Microscopic SEDIMENT EXAMINED, Urine RBC RARE, Urine WBC 1-3 H, Ur Epithelial Cells MOD H, Urine Bacteria RARE H, Urine Hemoglobin NEG, Urine Glucose NEG 09/14/17 1305: Ur Random Creatinine 39.1, Ur Random Sodium < 5 L, Ur Random Potassium 24.6, Fraction Sodium Excret 09/14/17 0645: Anion Gap 11, Estimated GFR 34 L, BUN/Creatinine Ratio 14.0 Assessment/Plan Assessment/Plan Assessment: * Hypertensive urgency * Hyperlipidemia * Hypothyroidism * History of CVA * SIMEON, improved * Hyponatremia Plan: * Would estart losartan 100 mg daily * Continue other HTN medications Continue telemetry? Yes
--- NOTE | 2017-09-15 11:58 | Cons- Nephrology ---
General Information and HPI Consulting Request Date of Consult: 09/15/17 Requested By: Sheila Schmid MD Reason for Consult: SIMEON, hyponatremia Source of Information: patient, family, old records Exam Limitations: no limitations History of Present Illness: The patient is a 71-year-old female with a 20 year history of hypertension which is been poorly controlled and who is had repeated admissions with hypertensive urgency. Her baseline creatinine runs in the low ones, range from 0.9-1.4, and renal ultrasound reveals atrophic kidneys with 1-2 renal cysts bilaterally. Urinalysis have been bland without significant proteinuria (trace on current UA) . She was admitted with headache and hypertensive urgency with a blood pressure in the 220s over 110s. She reports compliance with her medication. She reports that she follows a low-salt diet and avoids NSAIDs decongestants and avoids black licorice. In July of past renal workup revealed a CAT scan with IV contrast revealed no evidence of renal artery stenosis. She has a history of hypothyroidism and takes Synthroid. I been asked to see her as her creatinine was 1.5 at admission but with blood pressure control improved to 1.2. Additionally she is hyponatremic with a sodium level 129 has had episodes of hyponatremia in the past for which she was once seen by Dr. Smith last year, here at [facility]. Of note her outpatient antihypertensive regimen includes chlorthalidone, which is a thiazide diuretic. Allergies/Medications Allergies: Coded Allergies: Sulfa (Sulfonamide Antibiotics) (RASH 07/23/17) iron (DIARRHEA 07/23/17) Home Med List: Acetaminophen 500 MG TABLET 1 TAB PO PRN PAIN (Reported) Alendronate Sodium 70 MG TABLET 1 TAB PO QFRI OSTEOPOROSIS (Reported) in the morning, at least 30 minutes before the first food, beverage, or medication of the day Atorvastatin Calcium 10 MG TABLET 1 TAB PO DAILY CHOLESTEROL (Reported) Carbidopa/Levodopa (Carbidopa-Levodopa 25-100 Tab) 25 MG-100 MG TABLET 1 TAB PO TID PARKINSONS (Reported) Chlorthalidone 25 MG TABLET 1 TAB PO QAM BP (Reported) Clonidine HCl 0.3 MG TABLET 1 TAB PO BID HTN . Diltiazem HCl (Diltiazem 24HR ER) 120 MG CAP.ER.24H 1 CAP PO DAILY HEART/BLOOD (Reported) Hydralazine HCl 50 MG TABLET 50 MG PO TID Hypertension . Levothyroxine Sodium (Synthroid) 75 MCG TABLET 1 TAB PO DAILY THYROID ( Reported) Losartan (Cozaar) 100 MG TABLET 100 MG PO DAILY Hpyertension . Nepafenac (Ilevro) 0.3 % DROPS.SUSP 1 DROP OD DAILY RIGHT EYE (Reported) Olopatadine HCl (Pazeo) 0.7 % DROPS 1 DROP OU QAM ITCHING (Reported) Pantoprazole Sodium 40 MG TABLET.DR 1 TAB PO DAILY GI (Reported) Polyethylene Glycol 3350 (Miralax) 17 GRAM/DOSE POWDER 17 GM PO DAILY PRN CONSTIPATION Sertraline HCl (Zoloft) 50 MG TABLET 1 TAB PO DAILY MENTAL HEALTH (Reported) Sodium Chloride 1 GRAM TABLET 1,000 MG PO BID Hyponatremia Trazodone HCl 100 MG TABLET 1 TAB PO QPM INSOMNIA (Reported) Current Medications: Current Medications Sig/Areli Start time Last Medication Dose Route Stop Time Status Admin Acetaminophen 650 MG Q6P PRN 09/12 2300 AC PO Atorvastatin Calcium 10 MG DAILY 09/13 0900 AC 09/15 PO 0821 Carbidopa/Levodopa 1 TAB TIDAC 09/15 1200 AC PO Carbidopa/Levodopa 1 TAB TID 09/13 0900 DC 09/14 PO 09/15 0900 2251 Clonidine 0.3 MG BID 09/12 2315 AC 09/15 PO 0821 Diltiazem HCl 120 MG DAILY 09/13 0900 AC 09/15 PO 0822 Docusate Sodium 100 MG DAILY NEEDED PRN 09/15 0815 AC 09/15 PO 0853 Heparin Sodium 5,000 UNIT Q8 09/12 2315 AC (Porcine) SC Hydralazine HCl 50 MG TID 09/13 0900 AC 09/15 PO 0822 Levothyroxine Sodium 0.1 MG DAILY AC 09/15 0700 AC 09/15 PO 0631 Melatonin 5 MG AT BEDTIME 09/13 2100 AC 09/14 PO 2251 Morphine Sulfate 1 MG Q4 PRN 09/12 2300 AC 09/12 IV 2356 Omeprazole 40 MG DAILY AC 09/13 0700 AC 09/15 PO 0630 Ondansetron HCl 4 MG Q8 PRN 09/12 2345 AC 09/13 IV 1008 Oxycodone/ 1 TAB Q6 PRN 09/12 2300 AC Acetaminophen PO Polyethylene Glycol 17 GM DAILY 09/14 1330 AC PO Polyethylene Glycol 17 GM DAILY PRN 09/13 1300 AC 09/13 PO 1437 Senna/Docusate Sodium 1 TAB BID PRN 09/15 0845 AC PO Sertraline HCl 50 MG DAILY 09/13 0900 DC 09/14 PO 0856 Sodium Chloride 1,000 ML Q13H 09/14 1830 DC 09/14 IV 2250 Trazodone HCl 100 MG QPM 09/12 2315 AC 09/14 PO 2251 Review of Systems Review of Systems: Gen: neg fever, chills, nightsweats, wt loss Skin: neg rash, pruritus Eye: neg visual changes, diplopia ENT: neg hearing changes, rhinitus CV: neg CP, SOB, FAYE, PND, orthopnea Pulm: neg cough, sputum, hemoptysis GI: neg nausea, vomiting, diarrhea, abdominal pain, hematemesis, BRBPR : neg dysuria, frequency, urgency, hematuria, foamy urine, nocturia Musculoskeletal: neg myalgias, arthralgias Neuro: neg weakness, numbness +headaches/improved Psych: neg depression, mental status changes Heme: neg bruising, easy bleeding, clots Past History Travel History Traveled to [place] past 21 day No Medical History Blood Transfusion Hx: No Type of Reaction: Diarrhea, Itching Neurological: CVA, Parkinson's disease EENT: NONE Cardiovascular: hypertension, hyperlipidemia Respiratory: NONE Gastrointestinal: GERD Hepatic: NONE Renal: NONE Musculoskeletal: NONE Psychiatric: NONE Endocrine: hypothyroidism Blood Disorders: NONE Cancer(s): NONE 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 Home Services at Home: None Smoking Status: Never Smoked ETOH Use: denies use Illicit Drug Use: denies illicit drug use Living Will? yes Functional Ability ADLs Independent: dressing, eating, toileting, bathing. Employment History Employment: Retired Exam & Diagnostic Data Vital Signs and I&O Vital Signs Date Time Temp Pulse Resp B/P B/P Pulse O2 O2 Flow FiO2 Mean Ox Delivery Rate 09/15 0822 98.0 68 16 174/72 09/15 0821 98.0 68 16 174/72 09/15 0551 97.6 82 18 128/86 96 09/15 0251 97.4 55 16 124/72 96 09/14 2253 54 18 150/76 09/14 2136 98.7 52 18 166/74 97 09/14 2016 62 18 192/80 09/14 1459 98.5 57 18 116/58 95 Room Air 09/14 1427 72 116/60 Intake & Output 09/15 1600 09/15 0400 09/14 0400 09/13 0400 Intake Total 961 610 0257 400 1740 0 Output Total 800 950 600 600 Balance -680 -830 767 862 1739 -600 Intake, IV 0 Intake, Oral 028 803 3236 400 1740 0 Number 0 Bowel Movements Output, Urine 800 950 600 600 Patient 125 lb Weight Weight Reported by Patient Measurement Method Physical Exam: General: NAD, A+O x3. HEENT: NC/AT. No icterus. Moist mucosa Neck: negative for ROMIE, JVD CV: RRR, no m/r/g Pulm: CTAB, no rales Abd: soft, NT/ND, negative renal bruits Lower Ext: neg edema or chronic venous changes Upper Ext: no AVFs or AVGs Back: negative for CVA tenderness Neuro: neg tremor, asterixis Skin: no rash, jaundice : no garcia catheter Results Pertinent Lab Results: Laboratory Tests 09/15 09/14 09/14 0715 1935 1305 Chemistry Sodium (137 - 145 mmol/L) 129 L 124 L Potassium (3.5 - 5.1 mmol/L) 4.5 4.8 Chloride (98 - 107 mmol/L) 96 L 90 L Carbon Dioxide (22 - 30 mmol/L) 20 L 22 Anion Gap (5 - 16) 13 12 BUN (7 - 17 mg/dL) 22 H 23 H Creatinine (0.5 - 1.0 mg/dL) 1.2 H 1.4 H Estimated GFR (>60 ml/min) 44 L 37 L BUN/Creatinine Ratio (7 - 25 %) 18.3 16.4 Glucose (65 - 99 mg/dL) 97 Calcium (8.4 - 10.2 mg/dL) 8.9 Urines Urine Color (YEL,AMB,STR) YEL Urine Clarity (CLEAR) CLEAR Urine pH (5.0 - 8.0) 7.0 Ur Specific [place] (1.001 - 1.035) <= 1.005 Urine Protein (NEG,<30 MG/DL) TRACE H Urine Ketones (NEG) NEG Urine Nitrite (NEG) NEG Urine Bilirubin (NEG) NEG Urine Urobilinogen (0.1 - 1.0 EU/dl) 0.2 Ur Leukocyte Esterase (NEG) NEG Ur Microscopic SEDIMENT EXAMINED Urine RBC (0 - 5 /HPF) RARE Urine WBC (0 - 2 /HPF) 1-3 H Ur Epithelial Cells (NONE,FEW) MOD H Urine Bacteria (NEG/NONE) RARE H Urine Hemoglobin (NEG) NEG Urine Glucose (N MG/DL) NEG 09/14 09/14 09/13 1305 0645 0230 Chemistry Sodium (137 - 145 mmol/L) 127 L Potassium (3.5 - 5.1 mmol/L) 4.7 Chloride (98 - 107 mmol/L) 93 L Carbon Dioxide (22 - 30 mmol/L) 22 Anion Gap (5 - 16) 11 BUN (7 - 17 mg/dL) 21 H Creatinine (0.5 - 1.0 mg/dL) 1.5 H Estimated GFR (>60 ml/min) 34 L BUN/Creatinine Ratio (7 - 25 %) 14.0 Serum Osmolality (285 - 295 MOSM/KG) 280 L Troponin I (< 0.11 ng/ml) 0.01 TSH (0.270 - 4.200 uIU/mL) 7.470 H Free T4 (0.78 - 2.44 ng/dL) 1.56 Urines Ur Random Creatinine (mg/dL) 39.1 Ur Random Sodium (30 - 90 mmol/L) < 5 L Ur Random Potassium (mmol/L) 24.6 Fraction Sodium Excret (<1% %) 09/12 1914 Chemistry Sodium (137 - 145 mmol/L) 130 L Potassium (3.5 - 5.1 mmol/L) 4.1 Chloride (98 - 107 mmol/L) 96 L Carbon Dioxide (22 - 30 mmol/L) 21 L Anion Gap (5 - 16) 13 BUN (7 - 17 mg/dL) 19 H Creatinine (0.5 - 1.0 mg/dL) 0.8 Estimated GFR (>60 ml/min) > 60 BUN/Creatinine Ratio (7 - 25 %) 23.8 Glucose (65 - 99 mg/dL) 119 H Calcium (8.4 - 10.2 mg/dL) 9.9 Total Bilirubin (0.2 - 1.3 mg/dL) 0.4 AST (14 - 36 U/L) 24 ALT (9 - 52 U/L) 26 Alkaline Phosphatase (<127 U/L) 104 Troponin I (< 0.11 ng/ml) < 0.01 Total Protein (6.3 - 8.2 g/dL) 7.2 Albumin (3.5 - 5.0 g/dL) 4.2 Globulin (1.9 - 4.2 gm/dL) 3.0 Albumin/Globulin Ratio (1.1 - 2.2 %) 1.4 Coagulation D-Dimer High Sensitivty (0 - 243 ng/ml) < 200 Hematology CBC w Diff NO MAN DIFF REQ WBC (4.8 - 10.8 /CUMM) 9.4 RBC (4.20 - 5.40 /CUMM) 4.12 L Hgb (12.0 - 16.0 G/DL) 10.7 L Hct (37 - 47 %) 32.1 L MCV (81.0 - 99.0 FL) 77.8 L MCH (27.0 - 31.0 PG) 25.9 L MCHC (33.0 - 37.0 G/DL) 33.3 RDW (11.5 - 14.5 %) 17.5 H Plt Count (130 - 400 /CUMM) 293 MPV (7.4 - 10.4 FL) 9.1 Gran % (42.2 - 75.2 %) 76.2 H Lymphocytes % (20.5 - 51.1 %) 16.6 L Monocytes % (1.7 - 9.3 %) 6.6 Eosinophils % (0 - 5 %) 0.3 Basophils % (0.0 - 2.0 %) 0.3 Absolute Granulocytes (1.4 - 6.5 /CUMM) 7.1 H Absolute Lymphocytes (1.2 - 3.4 /CUMM) 1.6 Absolute Monocytes (0.10 - 0.60 /CUMM) 0.6 Absolute Eosinophils (0.0 - 0.7 /CUMM) 0 Absolute Basophils (0.0 - 0.2 /CUMM) 0 Assessment/Plan Assessment/Recommendations Assessment: Chronic kidney disease stage III: She does have CKD stage III with a baseline creatinine in the low ones, with atrophic kidneys on renal ultrasound. There are 1-2 renal cysts bilaterally which I suspect are secondary to CKD and the findings on ultrasound and not consistent with polycystic kidney disease. Urine studies are not consistent with glomerular disease. SIMEON: This has improved as I suspect was secondary to hypertensive urgency/bleed hypertension. Fortunately there is no evidence of thrombotic microangiopathy. She may also been interested depleted from the diuretic chlorthalidone. Hyponatremia: Likely thiazide associated hyponatremia. Favor discontinuing the chlorthalidone. Having chronic kidney disease also increases risk of hyponatremia given the inability to maximally dilute the urine. Hypertension: She is a 20 year history of hypertension but given the degree of hypertension with hypertensive urgency episodes should become increasing frequent in nature I would recommend workup for secondary causes of hypertension. She already had a CAT scan with IV contrast in July which revealed no evidence of renal artery stenosis. We'll check a PAC the PRA ratio to evaluate for hyperaldosteronism, although her lab pattern is not classically consistent with this condition. Given the lability of her blood pressure was suggest workup for pheochromocytoma, by checking plasma fractionated metanephrines. Would also check an intact PTH to evaluate for hyperparathyroidism which could be see kidney related as elevated levels of intact PTH have been reported to be a secondary cause of hypertension. As far as management of hypertension would resume her ARB. Would favor keeping her off of the chlorthalidone given the hyponatremia. If hypertension remains poorly controlled we can consider adding spironolactone to her regiment, or consider changing hydralazine to minoxidil. Recommendations: Check PAC/PRA ratio, intact PTH, plasma fractionated metanephrines Keep off chlorthalidone & thiazide diuretics Resumed ARB Blood pressure remains poorly controlled we can consider adding spironolactone or changing hydralazine to minoxidil
[2017-09-15 14:05] VITALS: BP 118/62
[2017-09-15 20:00] VITALS: BP 198/90
[2017-09-15 23:23] VITALS: BP 140/62
[2017-09-16 04:31] VITALS: BP 116/60
--- NOTE | 2017-09-16 07:10 | PN- Housestaff ---
Tyree Moreno 09/16/17 0709: Subjective Follow-up For: Hypertensive urgency Tele-Events Since Last Visit: Sinus bradycardia from rates 46-55 overnight Subjective: Patient seen resting comfortably in the bed. She currently denies any complaints , Reports continued constipation, with the last bowel movement being on 09/12. Patient denies chest pain, shortness of breath, palpitations, or dizziness. Her blood pressure this morning was checked and found to be 130/68, much improved from initial presentation. Review of Systems Constitutional: Denies: chills, diaphoresis, fever, weakness. Objective Last 24 Hrs of Vital Signs/I&O Vital Signs Date Time Temp Pulse Resp B/P B/P Pulse O2 O2 Flow FiO2 Mean Ox Delivery Rate 09/16 0431 97.9 55 18 116/60 96 Room Air 09/15 2323 98.1 58 18 140/62 96 09/15 2050 61 198/90 09/150 61 198/90 09/15 2000 61 198/90 09/15 1427 97.9 63 16 118/62 09/15 1405 97.9 63 16 118/62 96 Room Air 09/15 0822 98.0 68 16 174/72 09/15 0821 98.0 68 16 174/72 09/15 0800 98.0 68 20 174/72 97 Room Air Intake & Output 09/16 0800 09/16 0000 09/15 1600 Intake Total 100 240 860 Output Total 1400 200 Balance 100 -1160 660 Intake, Oral 100 240 860 Number 0 0 Bowel Movements Output, Urine 1400 200 Physical Exam General Appearance: Alert, Oriented X3, Cooperative, No Acute Distress HEENT: Atraumatic, PERRLA, EOMI Neck: Supple, No JVD Cardiovascular: Regular Rate, Normal S1, Normal S2, No Murmurs Lungs: Clear to Auscultation, Normal Air Movement Abdomen: Normal Bowel Sounds, Soft, No Tenderness Current Medications: Current Medications Sig/Areli Start time Last Medication Dose Route Stop Time Status Admin Acetaminophen 650 MG Q6P PRN 09/12 2300 AC PO Atorvastatin Calcium 10 MG DAILY 09/13 0900 AC 09/15 PO 0821 Carbidopa/Levodopa 1 TAB TIDAC 09/15 1200 AC 09/15 PO 1614 Carbidopa/Levodopa 1 TAB TID 09/13 0900 DC 09/14 PO 09/15 0900 2251 Clonidine 0.3 MG BID 09/12 2315 AC 09/15 PO 2050 Diltiazem HCl 120 MG DAILY 09/13 0900 AC 09/15 PO 0822 Docusate Sodium 100 MG DAILY NEEDED PRN 09/15 0815 AC 09/15 PO 0853 Heparin Sodium 5,000 UNIT Q8 09/12 2315 AC (Porcine) SC Hydralazine HCl 50 MG TID 09/13 09 AC 09/15 PO 205 Levothyroxine Sodium 0.1 MG DAILY AC 09/15 0700 AC 09/16 PO 0658 Losartan Potassium 100 MG DAILY 09/15 1215 AC 09/15 PO 1428 Magnesium Hydroxide 30 ML ONE ONE 09/15 1830 DC 09/15 PO 09/15 1831 1817 Magnesium Hydroxide 30 ML ONE ONE 09/15 1330 DC PO 09/15 1331 Melatonin 5 MG AT BEDTIME 09/13 2100 AC 09/15 PO 2050 Morphine Sulfate 1 MG Q4 PRN 09/12 2300 AC 09/12 IV 2356 Omeprazole 40 MG DAILY AC 09/13 0700 AC 09/16 PO 0658 Ondansetron HCl 4 MG Q8 PRN 09/12 2345 AC 09/13 IV 1008 Oxycodone/ 1 TAB Q6 PRN 09/12 2300 AC Acetaminophen PO Polyethylene Glycol 17 GM DAILY 09/14 1330 AC PO Polyethylene Glycol 17 GM DAILY PRN 09/13 1300 AC 09/13 PO 1437 Senna/Docusate Sodium 1 TAB BID PRN 09/15 0845 AC PO Sertraline HCl 50 MG DAILY 09/13 0900 DC 09/14 PO 0856 Trazodone HCl 100 MG QPM 09/12 2315 AC 09/15 PO 2049 Last 24 Hrs of Lab/Jordan Results Last 24 Hrs of Labs/Mics: Laboratory Tests 09/16/17 0625: Sodium Pending, Potassium Pending, Chloride Pending, Carbon Dioxide Pending, Anion Gap Pending, BUN Pending, Creatinine Pending, BUN/Creatinine Ratio Pending 09/15/17 1338: Plasma Free Metaneph Pending, Plasma Free Normeta Pending, Pls Totl Free Metaneph Pending 09/15/17 1338: PTH Intact 182.9 H, Ref Lab Test Result Pending 09/15/17 0715: Anion Gap 13, Estimated GFR 44 L, BUN/Creatinine Ratio 18.3, Glucose 97, Calcium 8.9 Assessment/Plan Assessment: 71-year-old female with a PMH significant for Parkinson, HLD, hypothyroidism, HTN, anxiety, CVA, hypertensive retinopathy who presented with hypertensive urgency. This morning, sodium was 127. BUN and creatinine were 24 and 1.2 respectively, with estimated GFR stable at 44, CKD stage III. Initial elevation in kidney function likely due to SIMEON secondary to uncontrolled hypertension. Renal ultrasound showed normal-sized kidneys with bilateral cortical cysts, CT abdomen done previously in July of this year did not show signs of renal artery stenosis. Her TSH was 7.470 when checked on 09/13, will likely need to increase her levothyroxine. PTH was found to be elevated at 182.9, but calcium is within normal limits, recommended to follow-up with nephrology as outpatient. Patient still reporting no bowel movement, bowel regimen given. Problems: 1. Hypertensive urgency 2. SIMEON on CKD stage III 3. Parkinson's disease 4. Anemia (likely secondary to CKD) 5. Hyponatremia 6. Hypothyroidism 7. Hyperparathyroidism, unclear etiology/significance Plan: * Continue Cozaar * Follow-up with PCP for secondary causes of hypertension, free/fractionated metanephrines, rennin aldosterone ratio * PTH levels * Stop thiazide diuretics at home * Stopped Zoloft, as patient does not take this at home * Added senna and Colace as needed constipation * Continue Sinemet * Levothyroxine to 100mcg daily for discharge, patient to re-check as outpatient in 4-6 weeks Problem List: 1. Hypertensive urgency 2. Hyponatremia 3. Constipation Pain Ratin Pain Location: NONE Pain Goal: Pain 4 or less Pain Plan: PER [facility] Labs & Rationales: CHRIS Schmid MD,Sheila 09/16/17 1045: Attending MD Review Statement Attending Statement Attending MD Statement: examined this patient, discuss w/resident/PA/SAS ADMINISTRATOR, agreed w/resident/PA/SAS ADMINISTRATOR, discussed with family, reviewed EMR data (avail), discussed with nursing, discussed with case mgmt, amended to note Attending Assessment/Plan: Patient seen and examined. Resting comfortably and not in any acute distress. No issues overnight. No new complaints this morning. Case discussed with her primary care provider Allison Welsl MD. Recommendations: -Blood pressure was in the 190s last night. Improving to 114 this morning is up again to the 160s. Recommend continuation of clonidine 0. 3 mg twice daily, hydralazine 120 mg daily, losartan 100 mg daily. Chlorthalidone was discontinued due to her hyponatremia. Increased dose of hydralazine to 75 mg orally 3 times a day. -Her TSH level is elevated. She was on levothyroxine 75 mcg daily at home. Dose has been increased to 100 mcg daily. She is to follow-up with her primary care provider for repeat TSH in the next 6-8 weeks. This was discussed with Allison Wells MD. -Her PTH level is elevated. This was discussed with the nephrology service. Likely related to chronic kidney disease. She will be started on calcitriol on discharge. -She is medically stable to be discharged today. Home visiting nurses will be set up to follow-up with the patient.
--- NOTE | 2017-09-16 10:03 | Patient Discharge Instructions ---
Discharge Instructions General Discharge Information You were seen/treated for: Hypertensive urgency Watch for these problems: With new onset of headache, changes in vision, sudden dizziness or nausea, please go immediately to your nearest emergency department. Special Instructions: Please follow-up with your primary care physician for test results regarding secondary causes of hypertension. Please follow-up about your Thyroid levels and TSH as well, in 4-6 weeks. Please also follow-up with your Salvage Laborer and Jazz Musician after discharge. Diet Continue normal diet: Yes Activity Full Activity/No Limits: No Activity Self Limited: Yes Acute Coronary Syndrome Inclusion Criteria At DC or during hospital stay patient has or had the following: ACS DIAGNOSIS No Discharge Core Measures Meds if any: Prescribed or Continued at Discharge Meds if any: NOT Prescribed or Continued at Discharge Congestive Heart Failure Inclusion Criteria At DC or during hospital stay patient has or had the following: CHF DIAGNOSIS No Discharge Core Measures Meds if any: Prescribed or Continued at Discharge Meds if any: NOT Prescribed or Continued at Discharge Cerebrovascular accident Inclusion Criteria At DC or during hospital stay patient has or had the following: CVA/TIA Diagnosis No Discharge Core Measures Meds if any: Prescribed or Continued at Discharge Meds if any: NOT Prescribed or Continued at Discharge Venous thromboembolism Inclusion Criteria VTE Diagnosis No VTE Type NONE VTE Confirmed by (Test) NONE Discharge Core Measures - Per Current guidelines, there needs to be overlap - treatment for the first 5 days of Warfarin therapy. - If discharged on Warfarin prior to 5 days of - overlap therapy, the patient will need to be - assessed for post discharge needs including - *Post discharge parental anticoagulation - *Warfarin and/or parental anticoagulation education - *Follow up date to check INR post discharge At least 5 days overlap therapy as Inpatient No Meds if any: Prescribed or Continued at Discharge Note: Overlap Therapy is Warfarin and Anticoagulant Meds if any: NOT Prescribed or Continued at Discharge
[2017-09-16] MEDS ORDERED: SYNTHROID125 MCG PO (10:06)
[2017-09-16] MEDS ORDERED: CALCITRIOL0.25 MC1 PO ×2 (10:08→11:08)
[2017-09-16] MEDS ORDERED: LEVOTHYROXINE100 MC1 PO (10:52)
[2017-09-16] MEDS ORDERED: HYDRALAZINE HCL25 M1 PO ×2 (10:52→11:04)
[2017-09-16] MEDS ORDERED: HYDRALAZINE HCL50 M1 PO (10:57)
[2017-09-16] MEDS ORDERED: SYNTHROID100 MCG PO (11:04)
[2017-09-16 11:12] VITALS: BP 120/64
--- NOTE | 2017-09-16 11:21 | PN- Cardiology ---
Subjective Subjective: No chest pain. No palpitations per no diaphoresis. Headache has improved. Blood pressure remains elevated Objective Vital Signs and I&Os Vital Signs Date Time Temp Pulse Resp B/P B/P Pulse O2 O2 Flow FiO2 Mean Ox Delivery Rate 09/16 1112 97.7 57 20 120/64 95 Room Air 09/16 0823 98.1 54 18 162/70 09/16 0821 98.1 54 18 162/70 09/16 0820 98.1 54 18 162/70 09/16 0431 97.9 55 18 116/60 96 Room Air 09/15 2323 98.1 58 18 140/62 96 09/15 2050 61 198/90 09/15 2050 61 198/90 09/15 2000 61 198/90 09/15 1427 97.9 63 16 118/62 09/15 1405 97.9 63 16 118/62 96 Room Air Intake & Output 09/16 1600 09/16 0800 09/16 0000 09/15 1600 09/15 0800 09/15 0000 Intake Total 100 240 860 120 120 Output Total 1400 200 600 950 Balance 100 -1160 660 -480 -830 Intake, Oral 100 240 860 120 120 Number 0 0 Bowel Movements Output, Urine 1400 200 600 950 Physical Exam: Gen: NAD HEENT: normal Lungs: clear to auscultation, normal resp. effort Heart: RRR, S1, S2, no murmurs Abdomen: Soft, nontender, no masses Extremities: No clubbing, cyanosis, or edema. Neuro: Alert and oriented x 3, cranial nerves intact Current Medications: Current Medications Sig/Areli Start time Last Medication Dose Route Stop Time Status Admin Acetaminophen 650 MG Q6P PRN 09/12 2300 AC PO Atorvastatin Calcium 10 MG DAILY 09/13 09 AC 09/16 PO 0812 Calcitriol 0.25 MCG Q48 09/16 1015 AC PO Carbidopa/Levodopa 1 TAB TIDAC 09/15 1200 AC 09/16 PO 1119 Clonidine 0.3 MG BID 09/12 2315 AC 09/16 PO 0820 Diltiazem HCl 120 MG DAILY 09/13 0900 AC 09/16 PO 0820 Docusate Sodium 100 MG DAILY NEEDED PRN 09/15 0815 AC 09/16 PO 0824 Heparin Sodium 5,000 UNIT Q8 09/12 2315 AC (Porcine) SC Hydralazine HCl 50 MG TID 09/13 0900 AC 09/16 PO 0821 Levothyroxine Sodium 0.125 MG DAILY AC 09/17 0700 AC PO Levothyroxine Sodium 0.1 MG DAILY AC 09/15 0700 DC 09/16 PO 0658 Losartan Potassium 100 MG DAILY 09/15 1215 AC 09/16 PO 0823 Magnesium Hydroxide 30 ML ONE ONE 09/15 1830 DC 09/15 PO 09/15 1831 1817 Magnesium Hydroxide 30 ML ONE ONE 09/15 1330 DC PO 09/15 1331 Melatonin 5 MG AT BEDTIME 09/13 2100 AC 09/15 PO 2050 Morphine Sulfate 1 MG Q4 PRN 09/12 2300 AC 09/12 IV 2356 Omeprazole 40 MG DAILY AC 09/13 0700 AC 09/16 PO 0658 Ondansetron HCl 4 MG Q8 PRN 09/12 2345 AC 09/13 IV 1008 Oxycodone/ 1 TAB Q6 PRN 09/12 2300 AC Acetaminophen PO Polyethylene Glycol 17 GM DAILY 09/14 1330 AC PO Polyethylene Glycol 17 GM DAILY PRN 09/13 1300 AC 09/13 PO 1437 Senna/Docusate Sodium 1 TAB BID PRN 09/15 0845 AC 09/16 PO 0824 Trazodone HCl 100 MG QPM 09/12 2315 AC 09/15 PO 2049 Results Last 48 Hrs of Labs/Mics: Laboratory Tests 09/16/17 0625: Anion Gap 8, Estimated GFR 44 L, BUN/Creatinine Ratio 20.0 09/15/17 1338: Plasma Free Metaneph Pending, Plasma Free Normeta Pending, Pls Totl Free Metaneph Pending 09/15/17 1338: PTH Intact 182.9 H, Ref Lab Test Result Pending 09/15/17 0715: Anion Gap 13, Estimated GFR 44 L, BUN/Creatinine Ratio 18.3, Glucose 97, Calcium 8.9 09/14/17 1935: Anion Gap 12, Estimated GFR 37 L, BUN/Creatinine Ratio 16.4 09/14/17 1305: Urine Color YEL, Urine Clarity CLEAR, Urine pH 7.0, Ur Specific [place] <= 1.005 , Urine Protein TRACE H, Urine Ketones NEG, Urine Nitrite NEG, Urine Bilirubin NEG, Urine Urobilinogen 0.2, Ur Leukocyte Esterase NEG, Ur Microscopic SEDIMENT EXAMINED, Urine RBC RARE, Urine WBC 1-3 H, Ur Epithelial Cells MOD H, Urine Bacteria RARE H, Urine Hemoglobin NEG, Urine Glucose NEG 09/14/17 1305: Ur Random Creatinine 39.1, Ur Random Sodium < 5 L, Ur Random Potassium 24.6, Fraction Sodium Excret Assessment/Plan Assessment/Plan Assessment: * Hypertension, uncontrolled * Hyperlipidemia * Hypothyroidism * History of CVA * SIMEON, improved * Hyponatremia Plan: * I recommend starting amlodipine 10 mg daily for additional blood pressure control and discontinuing diltiazem * Continue other hypertension medication * Agree with workup for secondary hypertension as per nephrology Continue telemetry? Yes
[2017-09-16] MEDS ORDERED: MILK OF MA400 MG/52 PO ×2 (11:38→11:40)
--- NOTE | 2017-09-16 11:41 | PN- Nephrology ---
Assessment/Plan Nephrology Assessment: Chronic kidney disease stage III: She does have CKD stage III with a baseline creatinine in the low ones, with atrophic kidneys on renal ultrasound. I suspect CKD is due to HTN nephrosclerosis. Hyponatremia: Likely thiazide associated hyponatremia. Favor discontinuing the chlorthalidone. Having chronic kidney disease also increases risk of hyponatremia given the inability to maximally dilute the urine. Hypertension: f/up secondary HTN workup; this can be done as an outpatient. Change of CCB to amlodipine noted. In future addition of spironolactone can be considered if needed. secondary hyperpara; suspect due to CKD. Would start calcitriol Suggestion: f/up PAC/PRA ratio, plasma fractionated metanephrines Keep off chlorthalidone & thiazide diuretics change in CCB noted to amlodipine 10 mg/day add calcitriol 0.25 mcg po every other day I gave her my card and advised her to f/up at my office. She will 1st f/up with her PMD Dr Wells. Subjective Subjective: No acute events BP control improved creat stable 1.2 Na 127 at baseline in high 120s Review of Systems: no fever/chills no chest pain/SOB Objective Vital Signs and I&Os Vital Signs Date Time Temp Pulse Resp B/P B/P Pulse O2 O2 Flow FiO2 Mean Ox Delivery Rate 09/16 1112 97.7 57 20 120/64 95 Room Air 09/16 0823 98.1 54 18 162/70 09/16 0821 98.1 54 18 162/70 09/16 0820 98.1 54 18 162/70 09/16 0431 97.9 55 18 116/60 96 Room Air 09/15 2323 98.1 58 18 140/62 96 09/15 2050 61 198/90 09/15 2050 61 198/90 09/15 2000 61 198/90 09/15 1427 97.9 63 16 118/62 09/15 1405 97.9 63 16 118/62 96 Room Air Intake & Output 09/16 1600 09/16 0400 09/15 1600 09/15 0400 09/14 0400 Intake Total 100 240 829 931 4196 400 Output Total 1400 800 950 600 Balance 100 -1160 180 -830 420 400 Intake, Oral 100 240 993 341 0758 400 Number 0 0 Bowel Movements Output, Urine 1400 800 950 600 Physical Exam: nad ctab s1 s2 soft NT no edema Current Medications: Current Medications Sig/Areli Start time Last Medication Dose Route Stop Time Status Admin Acetaminophen 650 MG Q6P PRN 09/12 2300 AC PO Atorvastatin Calcium 10 MG DAILY 09/13 0900 AC 09/16 PO 0812 Calcitriol 0.25 MCG Q48 09/16 1015 AC PO Carbidopa/Levodopa 1 TAB TIDAC 09/15 1200 AC 09/16 PO 1119 Clonidine 0.3 MG BID 09/12 2315 AC 09/16 PO 0820 Diltiazem HCl 120 MG DAILY 09/13 0900 AC 09/16 PO 0820 Docusate Sodium 100 MG DAILY NEEDED PRN 09/15 0815 AC 09/16 PO 0824 Heparin Sodium 5,000 UNIT Q8 09/12 2315 AC (Porcine) SC Hydralazine HCl 50 MG TID 09/13 0900 AC 09/16 PO 0821 Levothyroxine Sodium 0.125 MG DAILY AC 09/17 0700 AC PO Levothyroxine Sodium 0.1 MG DAILY AC 09/15 0700 DC 09/16 PO 0658 Losartan Potassium 100 MG DAILY 09/15 1215 AC 09/16 PO 0823 Magnesium Hydroxide 30 ML ONE ONE 09/15 1830 DC 09/15 PO 09/15 1831 1817 Magnesium Hydroxide 30 ML ONE ONE 09/15 1330 DC PO 09/15 1331 Melatonin 5 MG AT BEDTIME 09/13 2100 AC 09/15 PO 2050 Morphine Sulfate 1 MG Q4 PRN 09/12 2300 AC 09/12 IV 2356 Omeprazole 40 MG DAILY AC 09/13 0700 AC 09/16 PO 0658 Ondansetron HCl 4 MG Q8 PRN 09/12 2345 AC 09/13 IV 1008 Oxycodone/ 1 TAB Q6 PRN 09/12 2300 AC Acetaminophen PO Polyethylene Glycol 17 GM DAILY 09/14 1330 AC PO Polyethylene Glycol 17 GM DAILY PRN 09/13 1300 AC 09/13 PO 1437 Senna/Docusate Sodium 1 TAB BID PRN 09/15 0845 AC 09/16 PO 0824 Trazodone HCl 100 MG QPM 09/12 2315 AC 09/15 PO 2049 Results Pertinent Lab Results: Laboratory Tests 09/16 09/15 09/15 09/15 09/14 0625 1338 1338 0715 1935 Chemistry Sodium (137 - 145 mmol/L) 127 L 129 L 124 L Potassium (3.5 - 5.1 mmol/L) 4.9 4.5 4.8 Chloride (98 - 107 mmol/L) 94 L 96 L 90 L Carbon Dioxide (22 - 30 mmol/L) 25 20 L 22 Anion Gap (5 - 16) 8 13 12 BUN (7 - 17 mg/dL) 24 H 22 H 23 H Creatinine (0.5 - 1.0 mg/dL) 1.2 H 1.2 H 1.4 H Estimated GFR (>60 ml/min) 44 L 44 L 37 L BUN/Creatinine Ratio (7 - 25 %) 20.0 18.3 16.4 Glucose (65 - 99 mg/dL) 97 Calcium (8.4 - 10.2 mg/dL) 8.9 PTH Intact (18.4 - 80.1 pg/ML) 182.9 H Plasma Free Metaneph Pending Plasma Free Normeta Pending Pls Totl Free Metaneph Pending Miscellaneous Ref Lab Test Result Pending 09/14 09/14 09/14 1305 1305 0645 Chemistry Sodium (137 - 145 mmol/L) 127 L Potassium (3.5 - 5.1 mmol/L) 4.7 Chloride (98 - 107 mmol/L) 93 L Carbon Dioxide (22 - 30 mmol/L) 22 Anion Gap (5 - 16) 11 BUN (7 - 17 mg/dL) 21 H Creatinine (0.5 - 1.0 mg/dL) 1.5 H Estimated GFR (>60 ml/min) 34 L BUN/Creatinine Ratio (7 - 25 %) 14.0 Urines Urine Color (YEL,AMB,STR) YEL Urine Clarity (CLEAR) CLEAR Urine pH (5.0 - 8.0) 7.0 Ur Specific [place] (1.001 - 1.035) <= 1.005 Urine Protein (NEG,<30 MG/DL) TRACE H Urine Ketones (NEG) NEG Urine Nitrite (NEG) NEG Urine Bilirubin (NEG) NEG Urine Urobilinogen (0.1 - 1.0 EU/dl) 0.2 Ur Leukocyte Esterase (NEG) NEG Ur Microscopic SEDIMENT EXAMINED Urine RBC (0 - 5 /HPF) RARE Urine WBC (0 - 2 /HPF) 1-3 H Ur Epithelial Cells (NONE,FEW) MOD H Urine Bacteria (NEG/NONE) RARE H Urine Hemoglobin (NEG) NEG Ur Random Creatinine (mg/dL) 39.1 Ur Random Sodium (30 - 90 mmol/L) < 5 L Ur Random Potassium (mmol/L) 24.6 Fraction Sodium Excret (<1% %) Urine Glucose (N MG/DL) NEG
--- NOTE | 2017-09-16 16:14 | Discharge Summary ---
Visit Information Visit Dates Admission Date: 09/15/17 Discharge Date: 09/16/17 Hospital Course Course Attending Physician: Sheila Schmid MD Primary Care Physician: Allison Wells MD Allergies: Coded Allergies: Sulfa (Sulfonamide Antibiotics) (RASH 07/23/17) iron (DIARRHEA 07/23/17) Disposition Summary Disposition Principal Diagnosis: Hypertensive urgency Additional Diagnosis: Hypothyroidism, Parkinsons Disease Discharge Disposition: home health services Discharge Instructions General Discharge Information Code Status: Full Code Patient's Diet: Heart healthy diet Patient's Activity: As tolerated Follow-Up Instructions/Appts: Patient instructed to follow-up with her primary care physician Dr. Wells, her associate embalmer/funeral director, and her traveling storekeeper Dr. Meeks as an outpatient. She is also instructed to follow-up on the workup of secondary hypertension started as an inpatient with her primary care provider. And also to recheck her thyroid levels in 4-6 weeks secondary to changing the levothyroxine. Medications at Discharge Discharge Medications: Stop taking the following medications: Chlorthalidone (Chlorthalidone) 25 MG TABLET ORAL Every Morning Continue taking these medications: Carbidopa/Levodopa (Carbidopa-Levodopa 25-100 Tab) 25 MG-100 MG TABLET 1 Tablet ORAL THREE TIMES DAILY Qty = 90 Comments: Last Taken 09/16/17 Time: 11:19 AM Pantoprazole Sodium (Pantoprazole Sodium) 40 MG TABLET.DR 1 Tablet ORAL DAILY Qty = 30 Comments: not given at the hospital Atorvastatin Calcium (Atorvastatin Calcium) 10 MG TABLET 1 Tablet ORAL DAILY Qty = 30 Comments: Last Take: 09/16/17 Time: 08:12 AM Nepafenac (Ilevro) 0.3 % DROPS.SUSP 1 DROP Right Eye DAILY Qty = 0 Comments: not taken at the hospital Trazodone HCl (Trazodone HCl) 100 MG TABLET 1 Tablet ORAL Every night Comments: Last Taken: 09/15/17 Time: 20:49 PM Alendronate Sodium (Alendronate Sodium) 70 MG TABLET 1 Tablet ORAL EVERY FRIDAY Qty = 4 Instructions: in the morning, at least 30 minutes before the first food, beverage, or medication of the day Comments: NOT TAKEN IN THE HOSPITA Olopatadine HCl (Pazeo) 0.7 % DROPS 1 DROP Both Eyes Every Morning Qty = 3 Comments: not given at the hospital Acetaminophen (Acetaminophen) 500 MG TABLET 1 Tablet ORAL as needed for PAIN Comments: NOT GIVEN IN HOSPITAL Polyethylene Glycol 3350 (Miralax) 17 GRAM/DOSE POWDER 17 Gram ORAL DAILY as needed for CONSTIPATION Qty = 10 Comments: NOT GIVEN IN HOSPITAL Sodium Chloride (Sodium Chloride) 1 GRAM TABLET 1,000 Milligram ORAL TWICE DAILY Qty = 30 Comments: NOT GIVEN IN HOSPITAL Losartan (Cozaar) 100 MG TABLET 100 Milligram ORAL DAILY Qty = 30 Instructions: . Comments: Last Taken: 09/16/17 Time: 08:20 AM Clonidine HCl (Clonidine HCl) 0.3 MG TABLET 1 Tablet ORAL TWICE DAILY Qty = 60 Instructions: . Comments: Last Taken: 09/16/17 Time: 08:20 AM Diltiazem HCl (Diltiazem 24HR ER) 120 MG CAP.ER.24H 1 Capsule ORAL DAILY Comments: Last Taken: 09/16/17 Time: 08:20 AM Sertraline HCl (Zoloft) 50 MG TABLET 1 Tablet ORAL DAILY Comments: NOT GIVEN IN HOSPITAL Start taking the following new medications: Calcitriol (Calcitriol) 0.25 MCG CAPSULE 1 Tablet ORAL EVERY 48 HOURS (Every 2 days) Qty = 15 No Refills Instructions: . Comments: Last Taken: 09/16/17 Time: 12:40 PM Magnesium Hydroxide (Milk Of Magnesia) 400 MG/5 ML ORAL.SUSP 5 Milliliters ORAL TWICE DAILY Qty = 480 No Refills Instructions: . Comments: Last Taken: 09/15/17 Time: 18:17 PM The following medications have been changed: Old: Levothyroxine Sodium (Synthroid) 75 MCG TABLET 1 Tablet ORAL DAILY New: Levothyroxine Sodium (Synthroid) 100 MCG TABLET 1 Tablet ORAL DAILY Qty = 30 Comments: NOT GIVEN IN HOSPIAL Old: Hydralazine HCl (Hydralazine HCl) 50 MG TABLET 1 Tablet ORAL THREE TIMES DAILY New: Hydralazine HCl (Hydralazine HCl) 25 MG TABLET 3 Tablet ORAL THREE TIMES DAILY Qty = 270 Comments: Last Taken: 09/16/17 Time: 08:20 AM Copies To: Priscilla WHITFIELD,Allison; Tray Mead MD; Carrie Meeks MD Attending MD Review Statement Documenting Attending: Sheila Schmid MD Other Findings: Discharged in stable condition.
[2017-09-18] MEDS ORDERED: MIRALAX119 GM PO (05:04)
== END 2017-09-16 13:21 | disposition home health service (06) | DRG 199 ==
LOC: ERH 17:13 → ERHI 20:57 → 1NO 20:57 → ENRESERV 22:28 → 1NO 09-13 00:41 → ENPENDDIS 09-16 11:05 → ENTRNSPT 09-16 13:12 → EDTRNSPT 09-16 13:15 → EDTRNSPTSTS 09-16 13:15 → 1NO 09-16 13:21 → CMPTRNSPT 09-16 13:55
PROVIDERS: Physician Assistant Medical
DX: I16.0 Hypertensive urgency (principal); G20 Parkinson's disease; T50.2X5A Adverse effect of carbonic-anhydrase inhibitors, benzothiadiazides and other diuretics, initial encounter; I12.9 Hypertensive chronic kidney disease with stage 1 through stage 4 chronic kidney disease, or unspecified chronic kidney disease; N18.3 Chronic kidney disease, stage 3 (moderate); E03.9 Hypothyroidism, unspecified; H35.039 Hypertensive retinopathy, unspecified eye; E21.3 Hyperparathyroidism, unspecified; E87.1 Hypo-osmolality and hyponatremia; N17.9 Acute kidney failure, unspecified; Q61.3 Polycystic kidney, unspecified; M17.0 Bilateral primary osteoarthritis of knee; E78.5 Hyperlipidemia, unspecified; Z88.2 Allergy status to sulfonamides; K21.9 Gastro-esophageal reflux disease without esophagitis; Z91.81 History of falling; Z86.73 Personal history of transient ischemic attack (TIA), and cerebral infarction without residual deficits; D63.1 Anemia in chronic kidney disease
CPT/HCPCS: 1NP; 84133; 84300; 36415; 36592; 71046; 76775; 81001; 82436; 82570; 93005; 93010; 96374; 96375; 99291; J0360; J1644; J2405; J3490